=== PATIENT | male | born 1955 | race Caucasian/White ===

== ENCOUNTER 2023-12-15 08:53 | Outpatient (CLI) | payer BC, SELFPAY ==
--- NOTE | 2023-12-15 09:01 | US_ITS ---
WS: [id number] RENAL ULTRASOUND HISTORY: BILATERAL HYDRONEPHROSIS COMPARISON: None available. TECHNIQUE: 2-D and color Doppler imaging of the kidney submitted. Right kidney: 12.4 cm x 5.6 cm x 6.6 cm. Cortex: 1.4 cm Normal size kidney. Mild hydronephrosis. No mass identified. Left kidney: 12.1 cm x 4.2 cm x 5.7 cm. Cortex: 1.2 cm Normal size kidney. There is mild hydronephrosis. Aorta: Normal. Urinary Bladder: There is abnormal appearance of the urinary bladder. There is a soft tissue mass inv olving the base of the urinary bladder which is probably an enlarged prostate encroaching upon the bl adder. This soft tissue mass is heterogeneous with increased vascularity measuring 9.0 x 8.5 x 5.9 cm . There is bladder wall thickening which is also asymmetric. IMPRESSION: 1. Bilateral mild hydronephrosis. 2. There is a large soft tissue mass which is very heterogeneous encroaching into the bladder. This is probably an enlarged prostate gland for which prostate carcinoma cannot be excluded by ultrasound. 3. There is diffuse bladder wall thickening which is probably related to long-term outlet obstructio n. The bladder wall is not well visualized in its entirety and neoplasm cannot be excluded on this ex amination.
== END 2023-12-15 08:54 | disposition home or self-care (01) ==
LOC: RAD 08:57
PROVIDERS: Family Provider Nurse Practitioner Family; PCP Nurse Practitioner Family; Visit Provider Internal Medicine Nephrology
DX: N13.30 Unspecified hydronephrosis (principal); N32.9 Bladder disorder, unspecified; R19.09 Other intra-abdominal and pelvic swelling, mass and lump
CPT/HCPCS: 76770

== ENCOUNTER 2025-04-30 13:05 | Inpatient (IN) | payer MEDICARE, SELFPAY ==
[2025-04-30] VITALS (40 sets, daily range): BP systolic 78–143; BP diastolic 47–88; PULSE 77–180; RESP 10–41; TEMP 36.1–36.5; O2SAT 84–100; BMI 25.4; BMI 26.4
--- NOTE | 2025-04-30 13:17 | XRR_ITS ---
PROCEDURE INFORMATION: Exam: XR Chest Exam date and time: 04/30/2025 1:53 PM Age: 69 years old Clinical indication: Shortness of breath; SOB; Hypoxia; Labored breathing TECHNIQUE: Imaging protocol: Radiologic exam of the chest. Views: 1 view. COMPARISON: No relevant prior studies available. FINDINGS: Lungs: There is no consolidation. Pleural spaces: There is no pleural effusion or pneumothorax. Heart/Mediastinum: There is moderate enlargement of the cardiac silhouette. Bones/joints: There is moderate degenerative disease at both shoulders. No acute osseous findings. XR/XR chest 1V portable [id number] IMPRESSION: 1. No acute findings. 2. Cardiac enlargement.
--- NOTE | 2025-04-30 13:19 | W.ED.SOB ---
HPI - SOB/Dyspnea General: Chief Complaint: Shortness of Breath/Dyspnea Stated Complaint: sob Time Seen by Provider: 04/30/25 13:06 Source: patient and EMS Mode of arrival: EMS Limitations: no limitations History of Present Illness: HPI Narrative: 69-year-old male history of chronic kidney disease states has been having shortness of breath started today. Patient is in distress here tachypneic requiring oxygen typically does not wear oxygen did receive breathing treatment and route. He denies any chest pain does have some back pain denies any cough or fever. Associated symptoms: Deny abdominal pain, chest pain, fever(s), nausea or vomiting Related Data Home Medications ?Medication ?Instructions ?Recorded ?Confirmed amlodipine 5 mg tablet 5 mg PO QAM 04/30/25 04/30/25 hydrocodone 10 mg-acetaminophen 1 tab PO BID 04/30/25 04/30/25 325 mg tablet hydroxyzine HCl 10 mg tablet 10 mg PO TID PRN Itching 04/30/25 04/30/25 pravastatin 80 mg tablet 80 mg PO DAILY 04/30/25 04/30/25 tamsulosin 0.4 mg capsule 0.4 mg PO DAILY 04/30/25 04/30/25 trazodone 100 mg tablet 100 mg PO BEDTIME 04/30/25 04/30/25 Allergies Allergy/AdvReac Type Severity Reaction Status Date / Time No Known Allergies Allergy Verified 04/30/25 13:17 Review of Systems Const: Denies: fever(s), chills, body aches or change in appetite ENMT: Denies: throat pain or dental pain Card: Denies: chest pain Resp: Reports: dyspnea GI: Denies: abdominal pain, nausea, vomiting or diarrhea Musc: Reports: back pain; Denies: neck pain Skin/Breast: Denies: rash Neuro: Denies: headache(s) Physical Exam Const: COMMON NORMALS: patient oriented x3 GENERAL APPEARANCE: ill appearing HENMT: COMMON NORMALS: normocephalic and atraumatic HEAD & SCALP: normocephalic and atraumatic Eye: COMMON NORMALS: conjunctivae normal CONJUNCTIVA: Yes conjunctivae normal Neck/C-Spine: COMMON NORMALS: full ROM and supple Chest: COMMONS NORMALS: normal inspection of the chest Resp: EFFORT & INSPECTION: Yes tachypneic, Yes respiratory distress and Yes audible wheezes AUSCULTATION: rhonchi Cardio: COMMON NORMALS: regular rhythm and No murmurs present (Cardio) RATE: tachycardic RHYTHM: regular rhythm Extremity: COMMON NORMALS: normal to inspection and full ROM Neuro: COMMON NORMALS: patient oriented x3, moves all extremities and no focal motor deficits Psych: COMMON NORMALS: mental status grossly normal, Normal thought process present and cooperative THOUGHT PROCESS: Normal thought process present Skin: COMMON NORMALS: no rashes or lesions noted and no wounds GENERAL SKIN EXAM: no rashes or lesions noted Course Vital Signs: Vital signs: Vital Signs Pulse Rate 121 H 04/30/25 15:21 Respiratory Rate 19 H 04/30/25 15:00 Blood Pressure 102/71 04/30/25 15:21 Pulse Oximetry 99 04/30/25 15:21 Oxygen Delivery Me thod Nasal Cannula 04/30/25 15:21 Oxygen Flow Rate 6 04/30/25 15:21 Fraction of Inspir ed Oxygen 30 04/30/25 13:43 MDM - SOB/Dyspnea Medical Decision Making Patient presents here with dyspnea and some confusion he has a severe metabolic acidosis from acute renal failure. His potassium is normal did start him on bicarb we will admit to the ICU likely needs emergent dialysis Medical Records I reviewed the patient's medical records. Lab Data I reviewed the patient's lab results. 04/30/25 13:42 04/30/25 13:42 Labs/Radiology: Radiology Impressions Chest X-Ray 04/30/25 13:17 IMPRESSION: 1. No acute findings. 2. Cardiac enlargement. Laboratory Results WBC 20.42 10^3/uL (3.29-11.43) H 04/30/25 13:42 RBC 2.80 10^6/uL (3.85-5.65) L 04/30/25 13:42 Hgb 9.00 g/dL (11.27-16.99) L 04/30/25 13:42 Hct 27.5 % (37-53) L 04/30/25 13:42 MCV 98.2 fl (82-101) 04/30/25 13:42 MCH 32.1 pg (27-33) 04/30/25 13:42 MCHC 32.7 g/dL (30-55) 04/30/25 13:42 RDW 13.7 % (12.1-15.1) 04/30/25 13:42 Plt Count 324 10^3/cmm (157-399) 04/30/25 13:42 MPV 11.2 fL (7.4-10.4) H 04/30/25 13:42 Neut % (Auto) 90.1 % 04/30/25 13:42 Lymph % (Auto) 3.2 % 04/30/25 13:42 Phelps % (Auto) 4.3 % 04/30/25 13:42 Eos % (Auto) 0.0 % 04/30/25 13:42 Baso % (Auto) 0.2 % 04/30/25 13:42 Neut # (Auto) 18.40 10^3/uL (1.8-7.7) H 04/30/25 13:42 Lymph # (Auto) 0.7 10^3/uL (0.8-4.8) L 04/30/25 13:42 Phelps # (Auto) 0.9 10^3/uL (0.2-0.9) 04/30/25 13:42 Eos # (Auto) 0.0 10^3/uL (0.0-0.8) 04/30/25 13:42 Baso # (Auto) 0.0 10^3/uL (0.0-0.1) 04/30/25 13:42 Nucleated RBC % (auto) 0 % 04/30/25 13:42 Nucleated RBCs # 0.0 /100WBC 04/30/25 13:42 PT 17.60 SECONDS (12.1-14.9) H 04/30/25 13:42 INR 1.35 (0.8-1.2) H 04/30/25 13:42 Specimen Type Arterial 04/30/25 13:39 Sample Site Brachial, left 04/30/25 13:39 ABG pH 7.03 (7.35-7.45) L* 04/30/25 13:39 ABG pCO2 14.2 mmHg (35-45) L* 04/30/25 13:39 ABG pO2 156.0 mmHg (80.0-100.0) H 04/30/25 13:39 ABG PO2/FiO2 Ratio 520 04/30/25 13:39 ABG HCO3 3.7 mmol/L (22-26) L 04/30/25 13:39 ABG Base Excess -25.2 mmol/L (-2.0-2.0) L 04/30/25 13:39 Tommy Test Pos 04/30/25 13:39 Hematocrit 30.1 % (42-52) L 04/30/25 13:39 Hgb O2 Saturation 95.8 % (95-100) 04/30/25 13:39 Carboxyhemoglobin < 0.3 %THgb (0.4-20.1) L 04/30/25 13:39 Methemoglobin 1.6 % (0.4-1.5) H 04/30/25 13:39 Total Hemoglobin 9.8 g/dL (14-18) L 04/30/25 13:39 O2 Delivery Device Bipap 04/30/25 13:39 FiO2 30.0 % 04/30/25 13:39 Electronic Data Interchange Specialist ID Monro 04/30/25 13:39 Sodium 133 mmol/L (136-145) L 04/30/25 13:42 Potassium 5.0 mmol/L (3.5-5.1) 04/30/25 13:42 Chloride 96 mmol/L (98-107) L 04/30/25 13:42 Carbon Dioxide 4 mmol/L (22-29) L* 04/30/25 13:42 Anion Gap 38.0 (5-19) H 04/30/25 13:42 BUN 185 mg/dL (8-23) H* 04/30/25 13:42 Creatinine 10.8 mg/dL (0.7-1.2) H* 04/30/25 13:42 GFR Calculation 4.8 mL/min (90-130) L 04/30/25 13:42 Glucose 152 mg/dL (65-115) H 04/30/25 13:42 POC Glucose 170 mg/dL (70-110) H 04/30/25 14:05 Calculated Osmolality 341 mOsm/kg (285-295) H 04/30/25 13:42 Lactic Acid 2.3 mmol/L (0.5-2.2) H 04/30/25 13:42 Calcium 7.1 mg/dL (8.5-10.5) L 04/30/25 13:42 Total Bilirubin 0.3 mg/dL (0.15-1.2) 04/30/25 13:42 AST 7 U/L (0-40) 04/30/25 13:42 ALT 6 U/L (0-41) 04/30/25 13:42 Alkaline Phosphatase 67 U/L (40-130) 04/30/25 13:42 Troponin T Baseline 40 ng/L (0-15) H 04/30/25 13:42 NT-Pro-B Natriuret Pep 7812 pg/mL (0-125) H 04/30/25 13:42 Total Protein 8.5 g/dL (6.6-8.7) 04/30/25 13:42 Albumin 3.8 g/dL (3.5-5.2) 04/30/25 13:42 Globulin 4.7 g/dL (1.3-4.6) H 04/30/25 13:42 Serum Ketones Negative (Negative) 04/30/25 13:42 All radiology interpretation(s) finalized by discharge Critical Care Time Critical Care Time: Critical Care Time: Yes Total Critical Care Time: 55 Attestation: The high probability of a clinically significant, sudden or life threatening deterioration of the patient's renal system(s) required my full and direct attention, intervention and personal management. The critical care time is as shown. This time is in addition to time spent performing any reported procedures but includes the following: [x] Data and vital sign review and interpretation [x] Patient assessment, examination and intervention [x] Documentation [x] Medication orders and management Discharge Plan Discharge Patient Disposition: Admitted As Inpatient Admit Provider: Lashonda Patel Clinical Impression: Acute renal failure, Metabolic acidosis Condition: Stable Coding Level of Care Code ED Oracle Adf Developer for Sergo Cohen
[2025-04-30] MEDS: ipratropium-albuterol 3 mL Neb INHALATION (13:41)
--- NOTE | 2025-04-30 13:48 | ECG_ITS ---
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 Measurements Intervals [place] Rate: 114 P: 61 OK: 157 QRS: 67 QRSD: 96 T: 68 QT: 357 QTc: 493 Interpretive Statements SINUS TACHYCARDIA LOW QRS VOLTAGE IN EXTREMITY LEADS [QRS DEFLECTION < 0.5 mV IN LIMB LEADS] POSSIBLE RIGHT VENTRICULAR CONDUCTION DELAY [RSR (QR) IN V1/V2] ST ELEVATION, CONSIDER INFERIOR INJURY [MARKED ST ELEVATION W/O NORMALLY INFLECTED T-WAVE IN II/aVF] ACUTE WI No previous ECG available for comparison Electronically Signed On 04-30-2025 21:28:56 CDT by Renato Craft M.D. [id number]
[2025-04-30 13:50] LABS: Basophils % 0.2 %; Hematocrit 27.5 % (37-53); Lymphocytes # 0.7 10^3/uL (0.8-4.8); Lymphocytes % 3.2 %; Mean Corpuscular HGB Conc 32.7 g/dL (30-55); Mean Corpuscular Hemoglobin 32.1 pg (27-33); Mean Corpuscular Volume 98.2 fl (82-101); Mean Platelet Volume 11.2 fL (7.4-10.4); Monocytes # 0.9 10^3/uL (0.2-0.9); Monocytes % 4.3 %; Neutrophils % 90.1 %; Nucleated Red Blood Cells % 0 %; Platelet Count 324 10^3/cmm (157-399); Red Cell Distribution Width 13.7 % (12.1-15.1); White Blood Count 20.42 10^3/uL (3.29-11.43)
[2025-04-30] MEDS: methylPREDNISolone sod succ 125 mg/2 mL INJ IV (13:51)
[2025-04-30] MEDS: LORazepam 1 MG/0.5 ML injection 0.5 MG IVP ×2 (13:51→13:58)
--- NOTE | 2025-04-30 13:53 | ECG_ITS ---
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 Measurements Intervals [place] Rate: 117 P: 31 NE: 169 QRS: 66 QRSD: 105 T: 55 QT: 348 QTc: 487 Interpretive Statements Possible SINUS TACHYCARDIA WITH FREQUENT SUPRAVENTRICULAR PREMATURE COMPLEXES POSSIBLE RIGHT VENTRICULAR CONDUCTION DELAY [RSR (QR) IN V1/V2] ST ELEVATION, CONSIDER ANTERIOR INJURY [MARKED ST ELEVATION W/O NORMALLY INFLECTED T-WAVE IN V2-V5] nonspecific ST changes inferiorly Heavy baseline artifacts; Need to repeat the study. Compared to ECG 04/30/2025 13:48:44 No significant changes Electronically Signed On 04-30-2025 21:28:50 CDT by Renato Craft M.D. [id number]
[2025-04-30 13:56] LABS: Arterial Blood Gas Hematocrit 30.1 % (42-52); Base Excess ABG -25.2 mmol/L (-2.0-2.0); Blood Gas Allen Test Pos; Blood Gas Operator Identificat MONRO; Blood Gas Sample Site Brachial, left; Blood Gas Sample Type Arterial; Carboxyhemoglobin < 0.3 %THgb (0.4-20.1); HCO3 ABG 3.7 mmol/L (22-26); HGB O2 Sat 95.8 % (95-100); Methemoglobin 1.6 % (0.4-1.5); Oxygen Device BIPAP; PO2 FiO2 Ratio Arterial Blood 520; Total Hemoglobin 9.8 g/dL (14-18)
[2025-04-30] MEDS: morphine 4 mg/mL SDV 1 mL IVP (13:58)
[2025-04-30] MEDS: ondansetron 2 mg/ML SDV 2 mL 4 MG IVP (13:58)
[2025-04-30 14:02] LABS: INR 1.35 (0.8-1.2)
[2025-04-30 14:08] LABS: Glucose Point of Care 170 mg/dL (70-110)
[2025-04-30 14:12] LABS: Ketone (Acetest) Serum Negative (Negative)
[2025-04-30 14:13] LABS: Alanine Aminotransferase 6 U/L (0-41); Albumin Level 3.8 g/dL (3.5-5.2); Alkaline Phosphatase 67 U/L (40-130); Calcium 7.1 mg/dL (8.5-10.5); Chloride 96 mmol/L (98-107); Creatinine Clr Calc Pharmacy 6.6056; Globulin 4.7 g/dL (1.3-4.6); Glomerular Filtration Rate 4.8 mL/min (90-130); Glucose 152 mg/dL (65-115); Sodium 133 mmol/L (136-145); Total Bilirubin 0.3 mg/dL (0.15-1.2); Total Protein 8.5 g/dL (6.6-8.7)
[2025-04-30 14:17] LABS: NT Pro B Type Natriuretic Pept 7812 pg/mL (0-125)
[2025-04-30 14:20] LABS: Lactic Sepsis W/Reflex 2.3 mmol/L (0.5-2.2)
[2025-04-30 14:23] LABS: Reflex Lactate Order REFLEX LACTIC ORDERD
[2025-04-30 14:29] LABS: Aspartate Amino Transferase 7 U/L (0-40); Osmolality Calculated 341 mOsm/kg (285-295)
[2025-04-30 14:30] LABS: Blood Urea Nitrogen 185 mg/dL (8-23); Carbon Dioxide 4 mmol/L (22-29); Troponin(5th) Baseline 40 ng/L (0-15)
[2025-04-30] MEDS: sodium bicarbonate 8.4% 1 mEq/mL 50mL Syr 100 MEQ IVP (14:36)
--- NOTE | 2025-04-30 14:44 | PM.HP ---
Providers/Chief Complaint Primary Care Provider: Jeremias Escudero Chief Complaint: sob History of Present Illness Brandon Parisi is a 69 year old male With past medical history of hypertension CKD stage IV, chronic urinary retension with chronic indwelling Steiner catheter, bilateral hydronephrosis, BPH presented to the hospital today with complaint of shortness of breath. On arrival he was noted to be tachypneic tachycardic with conversational dyspnea. Very poor historian secondary to difficulty breathing at this time. Initial blood gas showed pH of 7.0/14/156, chemistries indicating bicarb 4, anion gap 38, BUN 185, creatinine 10.8. Initial troponin 40, BNP 7800. 2-hour 3-hour troponin pending. Urinalysis shows greater than 100 WBC, 11-20 squamous epithelial cells, 2+ blood, 3+ protein. Patient unable to provide a history at this time therefore his brother Mr. Long Parisi was called on the phone who gave me some information Stating that patient had a poor appetite the last few days and patient's brother moved in with him recently to help him out. He states patient ate ice cream and corn yesterday however for the last few days did not eat much. He was complaining of left shoulder pain and slept for an entire day recently.I also spoke with Dr. Crain's nurse practitioner who is on-call today. She reviewed patient's chart and told me that patient has followed with 3 urologist in the past and follows with nephrology Aria Perez at [facility]. He was recently referred to Dr. Yung who is a urologist at [facility]. He was supposed to have repeat labs done upcoming Thursday to see how his renal function is doing to decide on initiation of dialysis.There is no known history of kidney stones in the past. Medications/Allergies Home Medications ?Medication ?Instructions ?Recorded ?Confirmed ?Last Taken ?Type amlodipine 5 mg tablet 5 mg PO QAM 04/30/25 04/30/25 Unknown History hydrocodone 10 mg-acetaminophen 1 tab PO BID 04/30/25 04/30/25 Unknown History 325 mg tablet hydroxyzine HCl 10 mg tablet 10 mg PO TID PRN Itching 04/30/25 04/30/25 Unknown History pravastatin 80 mg tablet 80 mg PO DAILY 04/30/25 04/30/25 Unknown History tamsulosin 0.4 mg capsule 0.4 mg PO DAILY 04/30/25 04/30/25 Unknown History trazodone 100 mg tablet 100 mg PO BEDTIME 04/30/25 04/30/25 Unknown History Allergies Allergy/AdvReac Type Severity Reaction Status Date / Time No Known Allergies Allergy Verified 04/30/25 13:17 Vitals/I&O/Wt Last Vital Signs Pulse 132 H 04/30/25 13:44 Resp 36 H 04/30/25 13:42 BP 136/73 04/30/25 13:14 Pulse Ox 99 04/30/25 13:44 O2 Del Method BiPAP 04/30/25 13:42 FiO2 30 04/30/25 13:43 Weight last 48 hrs Weight 75.75 kg Physical Exam Narrative: General: Altered, possibly able to answer some yes/no questions has active conversational dyspnea, appears to be in distress and is tachypneic. HEENT: Normocephalic, atraumatic, EOMI, 6 L nasal cannula. Cardio: Sinus tachycardia, variable S1-S2 Respiratory: Mild crackles bilaterally, rest of breath sounds diminished GI: Abdomen soft, mildly distended, mainly nontender, bowel sounds + Extremities: No edema bilateral lower extremities Data 04/30/25 13:42 04/30/25 13:42 A&P Assessment and plan (1) Acute renal failure: (2) Metabolic acidosis: (3) Elevated troponin: (4) Elevated brain natriuretic peptide (BNP) level: (5) Bilateral hydronephrosis: (6) Urinary retention: (7) BPH (benign prostatic hyperplasia): (8) Leukocytosis: (9) Anemia: (10) Respiratory alkalosis: (11) Lactic acidosis: (12) Hypertension: (13) Stage 4 chronic kidney disease: (14) UTI (urinary tract infection): (15) Chronic indwelling Steiner catheter: Plan #Acute renal failure #Metabolic acidosis secondary to above #Chronic BPH #Bilateral hydronephrosis #History of urinary retention with chronic indwelling Steiner catheter #History of hypertension #History of CKD stage IV - Patient is tachypneic tachycardic requiring 6 L nasal cannula secondary to acute renal failure. He came with a Steiner catheter from home with a bag having cottage cheese like material with very dark yellow urine. Patient received 1 amp of bicarb in the ER bicarb drip was started. Patient transferred to ICU. We will need to proceed with emergent dialysis. Nephrology contacted. Discussed with general surgery. Dialysis catheter to be placed. - Will place on Levophed if needed, at this time blood pressure is on the higher side. -Patient's tachypnea is from respiratory compensation from the metabolic acidosis. I would hold off on intubation and may try BiPAP for now. -In case of worsening respiratory status we will proceed with intubation if needed. Informed patient's brother over the phone -Repeat labs CMP in 4 hours. ? Check lactic acid ? 2-hour 6-hour troponin pending at this time. Most likely secondary to demand ischemia. -UA shows WBC greater than 100. This is not a clean-catch. Patient is oliguric at this point. ? I will cover with empiric Zosyn. - We will order CT abdomen pelvis without contrast which we intend to complete after patient's dialysis session. - Low threshold for intubation ? Leukocytosis 20,000 most likely secondary to UTI versus reactive ? Hemoglobin 9.0. Do not have previous labs on him. Will continue to monitor. Check iron studies TIBC, ferritin. Most likely anemia of chronic disease. ? Check FOBT. ? Will reach out to primary care office to get his previous lab results. - check cardiac echo Full Code DVT PPX: heparin subcu BID PDMP PDMP Reviewed: Not Reviewed Attestations Medical Necessity Statement*: > 2 midnight stay for management of renal failure Critical Care Time: The high probability of a clinically significant, sudden or life threatening deterioration of the patient's [renal, respiratory, cardiovascular] system(s) required my full and direct attention, intervention and personal management. The critical care time is as shown. This time is in addition to time spent performing any reported procedures but includes the following: [x] Data and vital sign review and interpretation [x] Patient assessment, examination and intervention [x] Documentation [x] Medication orders and management Critical Care Time (min):70 Coding Level of Care Code Critical Care >/= 30 minutes Critical care time (in minutes): 70 The high probability of a clinically significant, sudden or life threatening deterioration, as referenced in this documentation, required my full and direct attention, intervention and personal management. The critical care time shown is in addition to time spent performing any reported separately billable procedures and includes the following: [x] Data and vital sign review and interpretation [x] Patient assessment, examination and intervention [x] Medication orders and management [x] Patient/Family updates as able [x] Care Coordination and Documentation. Diagnoses Acute renal failure N17.9 Metabolic acidosis E87.20 Elevated troponin R79.89 Elevated brain natriuretic peptide (BNP) level R79.89 Bilateral hydronephrosis N13.30 Urinary retention R33.9 BPH (benign prostatic hyperplasia) N40.0 Leukocytosis D72.829 Anemia D64.9 Respiratory alkalosis E87.3 Lactic acidosis E87.20 Hypertension I10 Stage 4 chronic kidney disease N18.4 UTI (urinary tract infection) N39.0 Chronic indwelling Steiner catheter Z97.8
[2025-04-30 14:57] LABS: Bilirubin Urine Negative (Negative); Blood Urine 2+ (Negative); Glucose Urine UA Negative (Normal); Ketones Urine Negative (Negative); Leukocyte Esterase Urine 3+ (Negative); Nitrate Urine Negative (Negative); Protein Urine 3+ (Negative); Specific Gravity, Urine 1.012 (1.005-1.030); Urine Appearance Turbid (CLEAR); Urine Color Yellow (Yellow); Urobilinogen Urine 0.2 mg/dL (Negative)
[2025-04-30 15:02] LABS: Add Urine Microscopic? YES; Bacteria Urine EXCEEDS /hpf; Hyaline Casts Urine 32.04 /lpf; WBC Urine >100 /hpf (0-5)
[2025-04-30 15:12] LABS: UA Slide Review UA Slide Review Perf
[2025-04-30 15:13] LABS: Add Urine Culture? Yes; Fine Granular Casts Urine 0-4 /lpf
[2025-04-30] MEDS: sodium bicarbonate 50 MEQ in sodium chloride 0.45% 1,000 ML 100 MEQ IV (15:38)
--- NOTE | 2025-04-30 15:41 | CTR_ITS ---
PROCEDURE INFORMATION: Exam: CT Abdomen And Pelvis Without Contrast Exam date and time: 05/01/2025 4:50 AM Age: 69 years old Clinical indication: Pain and abnormal findings; Abnormal lab test; Abnormal kidney function lab tests and elevated wbc; Back pain with gross hematuria. Wbc of 20k with elevated lactic acid. History of renal failure. ; Additional info: Acute renal failure TECHNIQUE: Imaging protocol: Computed tomography of the abdomen and pelvis without contrast. Radiation optimization: All CT scans at this facility use at least one of these dose optimization techniques: automated exposure control; mA and/or kV adjustment per patient size (includes targeted exams where dose is matched to clinical indication); or iterative reconstruction. COMPARISON: US renal BI* [id number] 12/15/2023 9:20 AM RADIATION DOSE METRICS: Total DLP (mGy-cm): 2211.33 FINDINGS: Tubes, catheters and devices: There are bilateral femoral venous central catheters ending in the external iliac veins bilaterally. There are degenerative changes in the symphysis, hips, sacroiliac joints and spine. There are bilateral pars defects at L5. There is grade 1 anterolisthesis L5 on S1 measured at 9 mm Lungs: There is atelectasis in both lung bases. There is pericardial thickening versus small pericardial effusion no focal abnormality detected in the liver though evaluation is limited due to streak artifact from patient's arms. Liver: Normal. No mass. Gallbladder and biliary ducts: The gallbladder is distended there may be sludge or poorly calcified stones in the gallbladder. There is no gallbladder wall thickening or biliary ductal dilatation. Pancreas: There is no pancreatic mass or ductal dilatation. Spleen: There is a splenic granuloma. The spleen is not enlarged. Adrenal glands: The adrenal glands are unremarkable. Kidneys and ureters: There is eraggjui-kz-aggvli bilateral hydronephrosis and dilatation of the ureters into the pelvis. There are no renal or ureteral calculi. There is mild bilateral perinephric stranding. There is a tiny eccentrically arising lesion from the lateral aspect the left kidney measuring 8.0 x 7.2 x 9.1 mm. It is not a simple cyst but could be a high density or hemorrhagic cyst. It could be solid. In addition, there is a nother possible mass versus pseudomass emanating from the posterior lower pole of the right kidney seen on series 4 image 1 23 series 13, image 29 measuring 2.0 x 1.5 x 2.0 cm Follow-up with MRI is recommended. Stomach and bowel: There is wall thickening involving the stomach suggesting gastritis/peptic ulcer disease. There is wall thickening involving the distal esophagus which may indicate gastroesophageal reflux/esophagitis. The bowel-gas pattern is not obstructed. There is diverticulosis without CT evidence for active diverticulitis. Appendix: The appendix is normal. Intraperitoneal space: Unremarkable. No free air. No significant fluid collection. Vasculature: There are atherosclerotic changes in the aorta and branch vessels Lymph nodes: There is a mildly prominent lymph node in the posterior mediastinum measuring 1.4 x 1.0 cm. Urinary bladder: The bladder is distended measuring 10.6 x 10.0 x 10.0 cm.. There is a Steiner catheter in the bladder. There is irregular bladder wall thickening with the exception of the anterior dome of the bladder where the bladder wall appears thinned perhaps due to the several diverticuli here. There is air in the bladder likely introduced via the Steiner catheter though infection with a gas producing organism can not be excluded. There is irregular abnormal density within the bladder. It is unclear whether this is organized debris or blood products or a bladder mass or perhaps a mass arising from the enlarged prostate gland. It measures 7.2 x 5 point 9 x 7.4 cm. Reproductive: The prostate gland is enlarged. Bones/joints: See Tubes, catheters and devices finding. Soft tissues: There is a small right inguinal hernia containing only fat. CT/CT abdomen pelvis wo con [id number] IMPRESSION: 1. Abnormal bladder. Bladder is distended despite the presence of a Steiner catheter question is Steiner catheter functioning properly? There is bladder wall thickening as well as bladder diverticuli. Air in the bladder likely introduced via the Steiner though infection with a gas producing organism not excluded. Abnormal soft tissue density within the bladder may be organized debris or organized blood products but could be a mass either of bladder origin or arising from the prostate gland. 2. Enlarged prostate gland with a possible mass which may invade the bladder base 3. Vktvblib-wf-ahjrak bilateral hydronephrosis and dilatation of the ureters likely secondary to findings in the bladder 4. Possible solid masses each kidney as described. Follow-up with MRI is recommended 5. Distended gallbladder with a possible sludge or poorly calcified gallstones 6. Wall thickening stomach suggesting gastritis/peptic ulcer disease. Wall thickening distal esophagus may indicate esophagitis or gastroesophageal reflux 7. Diverticulosis without CT evidence for active diverticulitis 8. Right inguinal hernia containing only fat 9. Bilateral central femoral venous catheters 10. Pericardial thickening versus pericardial effusion 11. Other incidental findings as outlined above COMMENTS: Consistent with the [employer]'s Incidental Findings Committee white paper (J Am Jennifer Radiol 2018): Any incidental renal lesion less than 1 cm or classified as too small to characterize, or any incidental cystic renal lesion characterized as simple-appearing, is likely benign. No follow-up imaging is recommended for these lesions per consensus recommendations based on imaging criteria.
[2025-04-30] MEDS: sodium chloride 0.9% 1,000 ML 100 ML IV (15:44)
--- NOTE | 2025-04-30 16:24 | P.CONIM_ITS ---
Providers/Reason For Consult 2 Consulting Physician/Specialty*: kommana/Nephrology Reason for Consult*: BRADLEY Attending Physician: Lashonda Patel MD Primary Care Provider: Jeremias Escudero History of Present Illness History of Present Illness Brandon Parisi is a 69 year old male Patient is a 69-year-old male with past medical history of CKD stage IV chronic indwelling Steiner catheter, BPH presented to the hospital due to shortness of breath. Patient was noted to be tachypneic and tachycardic. Lab data significant for severe metabolic acidosis and BRADLEY with a bicarbonate of 4 and creatinine of 10.8 and a BUN of 185. Urine analysis showed 100 WBC 2+ blood and 3+ protein. Family reported poor p.o. intake and nausea vomiting. Patient followed by nephrology at [place] [facility]. Also followed by nephrology due to chronic urinary retention. Review of Systems 2 Narrative: cannot obtain Medications/Allergies Home Medications ?Medication ?Instructions ?Recorded ?Confirmed ?Last Taken ?Type amlodipine 5 mg tablet 5 mg PO QAM 04/30/25 5 Unknown History hydrocodone 10 mg-acetaminophen 1 tab PO BID 04/30/25 04/30/25 Unknown History 325 mg tablet hydroxyzine HCl 10 mg tablet 10 mg PO TID PRN Itching 04/30/25 04/30/25 Unknown History pravastatin 80 mg tablet 80 mg PO DAILY 04/30/2504/16 Unknown History tamsulosin 0.4 mg capsule 0.4 mg PO DAILY 04/30/25 Unknown History trazodone 100 mg tablet 100 mg PO BEDTIME 04/30/25 0 04/30/25 Unknown History Allergies Allergy/AdvReac Type Severity Reaction Status Date / Time No Known Allergies Allergy Verified 04/30/25 13:17 Current Medications Generic Name Dose Route Start Last Admin Trade Name Freq PRN Reason Stop Dose Admin Heparin Sodium (Porcine) 5,000 unit 04/30/25 14:45 04/30/25 16:48 Heparin 5,000 Unit/Ml Inj 1 Ml SUBCUT 5,000 unit Q12H INDIO Administration Sodium Chloride 1,000 mls @ 100 mls/hr 04/30/25 14:45 04/30/25 15:44 Sodium Chloride 0.9% IV 100 mls/hr .Q10H INDIO Administration Piperacillin Sod/Tazobactam 50 mls @ 12.5 mls/hr 04/30/25 16:00 04/30/25 17:25 Sod 3.375 gm/ Sodium Chloride IV 0 mls/hr Q12H INDIO Infusion Norepinephrine Bitartrate 4 mg in 250 mls @ 0 mls/hr 04/30/25 16:30 04/30/25 17:20 Levophed IV 2 mcg/min .Q0M INDIO 7.5 mls/hr Protocol Administration Per Protocol Vitals/I&O/Wt Last Vital Signs Pulse 120 H 04/30/25 17:00 Resp 20 H 04/30/25 17:00 BP 118/88 04/30/25 17:00 Pulse Ox 95 04/30/25 17:00 O2 Del Method Nasal Cannula 04/30/25 17:00 O2 Flow Rate 6 04/30/25 17:00 FiO2 30 04/30/25 13:43 04/30/25 04/30/25 04/30/25 06:59 14:59 22:59 Intake Total 7.708 / 7.708 Balance 7.708 / 7.708 Weight last 48 hrs Weight 75.75 kg Physical Exam 2 Urinary Catheter Management: Steiner: Cath Placed During This Visit: yes Urinary Catheter Date of Insertion: 04/30/25 Urinary Catheter Time of Insertion: 14:42 Data 04/30/25 13:42 04/30/25 19:30 Micro: Microbiology 04/30/25 16:15 Blood Culture - Preliminary Blood SPECIMEN COLLECTED 04/30/25 13:42 Blood Culture - Preliminary Blood SPECIMEN COLLECTED A&P Assessment and plan (1) Acute renal failure: Plan 1. BRADLEY : Unknown Cr baseline. currently with severe BRADLEY , and severe metabolic acidosis . Etiology likely ATn in setting of ? sepsis and ? obstruction , poor PO intake. - pt anuric, currently on pressors and recommended temp catheeter placement for emergent hD . If patient do not tolerate HD will switch to CRRT. - CT abdomen pending and sepsis work up pending 2. Severe metabolic acidosis: With bicarbonate level of 4 on presentation, started on bicarbonate drip and HD as above, repeat labs after HD 3. Sepsis likely from UTI and further workup pending, currently on pressors 4. Known hydronephrosis with indwelling Steiner catheter, following with urology as outpatient 5. Anemia, check iron studies Patient evaluated using audiovisual cart. Time spent 40 minutes. PDMP PDMP Reviewed: Not Reviewed Consult Attestations 2 Medical Necessity Statement: per elias Coding Level of Care Code Acute Code for Chg Fwd Diagnoses Acute renal failure N17.9
--- NOTE | 2025-04-30 16:33 | ECG_ITS ---
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 Measurements Intervals [place] Rate: 122 P: 0 AL: 0 QRS: 68 QRSD: 102 T: 69 QT: 360 QTc: 514 Interpretive Statements possible sinus tachycardia with the PACs LOW QRS VOLTAGE IN EXTREMITY LEADS [QRS DEFLECTION < 0.5 mV IN LIMB LEADS] POSSIBLE RIGHT VENTRICULAR CONDUCTION DELAY [RSR (QR) IN V1/V2] ST ELEVATION CONSISTENT WITH INJURY, PERICARDITIS, OR EARLY REPOLARIZATION [ST ELEVATION W/O NORMALLY INFLECTED T-WAVE] Compared to ECG 04/30/2025 14:15:52 ST (T wave) deviation still present Heavy baseline artifacts; Need to repeat the study. Electronically Signed On 04-30-2025 21:41:23 CDT by Renato Craft M.D. [id number] [id number]
--- NOTE | 2025-04-30 16:37 | PM.CONSULT ---
Providers/Reason For Consult Consulting Physician/Specialty*: Dr. Warren general surgery Reason for Consult*: Temporary dialysis catheter placement Attending Physician: Lashonda Patel MD Primary Care Provider: Jeremias Escudero History of Present Illness History of Present Illness Brandon Parisi is a 69 year old male who presents in acute renal failure. Surgery consulted for placement of temporary dialysis catheter. Medications/Allergies Home Medications ?Medication ?Instructions ?Recorded ?Confirmed ?Last Taken ?Type amlodipine 5 mg tablet 5 mg PO QAM 04/30/25 04/30/25 Unknown History hydrocodone 10 mg-acetaminophen 1 tab PO BID 04/30/25 04/30/25 Unknown History 325 mg tablet hydroxyzine HCl 10 mg tablet 10 mg PO TID PRN Itching 04/30/25 04/30/25 Unknown History pravastatin 80 mg tablet 80 mg PO DAILY 04/30/25 04/30/25 Unknown History tamsulosin 0.4 mg capsule 0.4 mg PO DAILY 04/30/25 04/30/25 Unknown History trazodone 100 mg tablet 100 mg PO BEDTIME 04/30/25 04/30/25 Unknown History Allergies Allergy/AdvReac Type Severity Reaction Status Date / Time No Known Allergies Allergy Verified 04/30/25 13:17 Current Medications Generic Name Dose Route Start Last Admin Trade Name Freq PRN Reason Stop Dose Admin Sodium Bicarbonate 50 meq/ 1,050 mls @ 100 mls/hr 04/30/25 14:45 04/30/25 15:38 Sodium Chloride IV 100 mls/hr .[id number] INDIO Administration Sodium Chloride 1,000 mls @ 100 mls/hr 04/30/25 14:45 04/30/25 15:44 Sodium Chloride 0.9% IV 100 mls/hr .Q10H INDIO Administration Vitals/I&O/Wt Last Vital Signs Pulse 120 H 04/30/25 15:52 Resp 19 H 04/30/25 15:00 BP 102/71 04/30/25 15:52 Pulse Ox 94 04/30/25 15:52 O2 Del Method Nasal Cannula 04/30/25 15:21 O2 Flow Rate 6 04/30/25 15:21 FiO2 30 04/30/25 13:43 Weight last 48 hrs Weight 167 lb Physical Exam Narrative: Chest: Tachypneic on high flow Heart: Tachycardic Abdomen: Soft, distended Data 04/30/25 13:42 04/30/25 13:42 Micro: Microbiology 04/30/25 16:15 Blood Culture - Preliminary Blood SPECIMEN COLLECTED 04/30/25 13:42 Blood Culture - Preliminary Blood SPECIMEN COLLECTED A&P Assessment and plan (1) Acute renal failure: Plan 69-year-old male whom surgery was consulted for temporary dialysis catheter placement. Discussed risk and benefits and patient agreed to proceed with temporary dialysis catheter placement. PDMP PDMP Reviewed: Not Reviewed Coding Level of Care Code 23582 Diagnoses Acute renal failure N17.9
--- NOTE | 2025-04-30 16:38 | P.PCN_ITS ---
Procedure/Consent Consent: Consent for Procedure: Consent obtained from patient, Emergency procedure, Risks & Benefits reviewed and Agrees to proceed with procedure Procedure Narrative: Discussed risks and benefits and consent was obtained to performed a temporary d ialysis catheter. The right groin was prepped and draped in the usual sterile fashion. Ultrasound was used to identify the right common femoral vein. Local infiltration done using 5 cc of 1% lidocaine. A finder needle was used to access the right common femoral vein under ultrasound guidance. Able to draw venous blood. I then threaded a wire through the finder needle. I removed the needle and confirmed adequate placement of the wire in the right common femoral vein using ultrasound. Using an 11 blade a stab incision was done next to the wire to accommodate for the dilators. I serially dilated the tract using 2 dilators. I was then able to place the 20 cm dual-lumen temporary dialysis catheter using the Seldinger technique. I was able to draw blood and flushed easily through both lumens. Catheter was secured in place with sutures. A sterile dressing was applied. Catheter is ready for immediate use.
--- NOTE | 2025-04-30 16:38 | PC.NURSE ---
Sundar with DR. Patel to hold on CT until after dialysis is complete.
[2025-04-30] MEDS: piperacillin-tazobactam 3.375 GM in sodium chloride 0.9% (plus) 50 ML IV (16:48)
[2025-04-30] MEDS: heparin 5,000 unit/mL INJ 1 mL 5000 UNIT SUBCUT (16:48)
[2025-04-30 16:53] LABS: Troponin 5 2HR 39.33 ng/L (0-15)
--- NOTE | 2025-04-30 16:54 | PC.NURSE ---
Patient arrived to ICU 10 at 1532, Patient exhibiting accessory muscle use and breathing approximately 30X per min. IV access obtained and Bicarb drip started. See MAR for medications given. Dr. Warren consulted for emergent dialysis access placement. Access obtained and Melva UNGERpeople greeter nurse to bedside. Order obtained from Dr. Patel for levophed if needed, patient has has significant drop in systolic blood pressure since being in ER. Wil UNGER inserted new Steiner, removing catheter from home. Urine sample obtained from HOME catheter, Dr. Patel aware of this.
[2025-04-30 16:59] LABS: Troponin 5 2HR Delta -0.67 ABS# (0-10)
[2025-04-30 17:02] LABS: Lactic Acid level (Lactate) 4.1 mmol/L (0.5-2.2)
[2025-04-30] MEDS: norepinephrine 4 MG/250 ML BAG 7.5 MG IV (17:20)
[2025-04-30] MEDS: LORazepam 1 MG/0.5 ML injection 0.25 MG IVP (17:36)
[2025-04-30 17:47] LABS: ABG PH Result 7.03 (7.35-7.45)
[2025-04-30 17:48] LABS: ABG PCO2 14.2 mmHg (35-45)
--- NOTE | 2025-04-30 18:33 | ECG_ITS ---
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 Measurements Intervals [place] Rate: 126 P: -1 [place]: 168 QRS: -5 QRSD: 97 T: 33 QT: 338 QTc: 490 Interpretive Statements SINUS TACHYCARDIA WITH OCCASIONAL SUPRAVENTRICULAR PREMATURE COMPLEXES POSSIBLE RIGHT VENTRICULAR CONDUCTION DELAY [RSR (QR) IN V1/V2] ST ELEVATION, PROBABLY EARLY REPOLARIZATION [ST ELEVATION WITH NORMALLY INFLECTED T-WAVE] ABNORMAL RHYTHM ECG Compared to ECG 04/30/2025 16:33:27 Atrial fibrillation no longer present ST (T wave) deviation still present Electronically Signed On 04-30-2025 21:27:16 CDT by Renato Craft M.D. [id number] [id number]
[2025-04-30 18:37] LABS: Base Excess ABG -19.4 mmol/L (-2.0-2.0); HCO3 ABG 7.1 mmol/L (22-26); PO2 ABG 91.4 mmHg (80.0-100.0)
[2025-04-30 18:38] LABS: Blood Gas Allen Test POS; Blood Gas Drawn By KINCH; Blood Gas Operator Identificat KINCH; Blood Gas Sample Site LR; Blood Gas Sample Type ARTERIAL; Oxygen Device NC; Oxygen Saturation ABG 94.8; Potassium Level - ABG 4.4 mmol/L (3.5-5.0)
[2025-04-30 18:39] LABS: Alveolar-Arterial Oxygen Gradi 31.4 mmHg (5-10); Arterial Blood Gas Hematocrit 29.8 % (42-52); HGB O2 Sat 93.6 % (95-100); Methemoglobin 1.3 % (0.4-1.5); Total Hemoglobin 9.7 g/dL (14-18)
--- NOTE | 2025-04-30 18:42 | PC.HD ---
Upon assessment of R femoral HD catheter, it was very difficult to draw from arterial port. Lines were affixed in reverse configuration. During treatment, machine AP pressures laci to unacceptable levels. Blood flow rate was reduced to compensate; however, at minimum blood flow rate of 250 mL/min, machine AP pressures were unacceptable at >240 mmHg. Surgeon contacted and came in, adjusted femoral catheter. At this time, this RN was able to flush well from arterial port. Lines were then affixed in regular configuration and treatment was restarted. Machine AP pressures remained acceptable; however, now machine NETWORKS COMPUTER CONSULTANT pressures were elevated. Unable to maintain blood flow rate at 350; reduced to minimum flow of 250 mL/min. Machine NETWORKS COMPUTER CONSULTANT pressures remain extremely elevated, but currently below the maximum of 300 mmHg.
--- NOTE | 2025-04-30 19:03 | PC.NURSE ---
Home meds placed in pocket 23 pixys.
[2025-04-30] MEDS: sodium bicarbonate 150 MEQ in dextrose 5% 1,000 ML 100 MEQ IV (19:09)
--- NOTE | 2025-04-30 19:23 | ECG_ITS ---
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 Measurements Intervals [place] Rate: 180 P: 0 [place]: 0 QRS: 69 QRSD: 256 T: 0 QT: 294 QTc: 510 Interpretive Statements Possible ATRIAL FIBRILLATION WITH RAPID VENTRICULAR RESPONSE INDETERMINATE AXIS INTRAVENTRICULAR CONDUCTION DELAY [130+ ms QRS DURATION] ST ELEVATION, CONSIDER INFERIOR INJURY [MARKED ST ELEVATION W/O NORMALLY INFLECTED T-WAVE IN II/aVF] ACUTE OH Compared to ECG 04/30/2025 18:33:03 Indeterminate axis now present Intraventricular conduction delay now present Sinus tachycardia no longer present Early repolarization no longer present ST (T wave) deviation still present Heavy baseline artifacts; Need to repeat the study. Electronically Signed On 04-30-2025 21:27:07 CDT by Renato Craft M.D. [email or web address]
[2025-04-30] MEDS: dexmedeTOMIDine 0.9 % NaCL 400 MCG/100 ML PREMIX IV (19:37)
[2025-04-30 19:53] LABS: Base Excess VBG -10.6 mmol/L (-3.0-3.0); Blood Gas Operator Identificat SAM; Blood Gas Sample Type Venous; HCO3 VBG 17.5 mmol/L (24-28); Oxygen Device NC; PCO2 VBG 47.7 mmHg (41-51); PO2 VBG 32.3 mmHg (25-40); Venous Blood Gas Hematocrit 32.1 % (42-52)
--- NOTE | 2025-04-30 19:53 | ECG_ITS ---
[facility] Test Date: 2025-04-30 Pat Name: Brandon Parisi Department: Room: Gender: Male Career Manager: : 1955 Requested By: Mike Larkin Order Number: [id number] Maddy MD: Renato Craft M.D. Measurements Intervals [place] Rate: 116 P: 73 TN: 174 QRS: 71 QRSD: 102 T: 70 QT: 355 QTc: 495 Interpretive Statements SINUS TACHYCARDIA LOW QRS VOLTAGE IN EXTREMITY LEADS [QRS DEFLECTION < 0.5 mV IN LIMB LEADS] POSSIBLE RIGHT VENTRICULAR CONDUCTION DELAY [RSR (QR) IN V1/V2] ST ELEVATION, PROBABLY EARLY REPOLARIZATION [ST ELEVATION WITH NORMALLY INFLECTED T-WAVE] ABNORMAL RHYTHM ECG Compared to ECG 04/30/2025 14:06:36 Low QRS voltage now present Early repolarization now present Myocardial infarct finding no longer present ST (T wave) deviation still present Electronically Signed On 04-30-2025 21:41:44 CDT by Renato Craft M.D. [id number]
[2025-04-30 19:54] LABS: pH VBG 7.17 (7.32-7.42)
[2025-04-30] MEDS: lidocaine 1% 5 ML in potassium chloride premix 100 ML 26.25 ML IV (20:08)
[2025-04-30] MEDS: sodium bicarbonate 8.4% 1 mEq/mL 50mL Syr 50 MEQ IVP ×2 (20:19→23:09)
[2025-04-30 20:30] LABS: Anion Gap 34.5 (5-19); Calcium 8.5 mg/dL (8.5-10.5); Carbon Dioxide 14 mmol/L (22-29); Chloride 96 mmol/L (98-107); Glomerular Filtration Rate 11.6 mL/min (90-130); Glucose 147 mg/dL (65-115); Magnesium 2.2 mg/dL (1.7-2.3); Osmolality Calculated 320 mOsm/kg (285-295); Phosphorus 6.1 mg/dL (2.5-4.5); Potassium 3.5 mmol/L (3.5-5.1); Sodium 141 mmol/L (136-145)
[2025-04-30 20:36] LABS: Blood Urea Nitrogen 84 mg/dL (8-23)
[2025-04-30 20:37] LABS: Hepatitis B Surface AB < 3.5 (11.5-1000); Hepatitis B Surface Antigen Non-Reactive (Nonreactive)
--- NOTE | 2025-04-30 20:46 | P.PN_ITS ---
Subjective 2 Subjective: Called to evaluate critically ill patient with runs of SVT tachycardia poor flow through right femoral dialysis catheter and severe metabolic acidosis. I spoke with Dr. Patel and learned that patient is getting aggressive bicarb replacement as and we started BiPAP. I spoke with Dr. Warren who states that he has adjusted the catheter in the right groin with partial success to marginal dialysis so his flow as stated by Lavinia the radiology special procedure tech. She states there is only 38 minutes left on the dialysis run. After okay from Dr. Warren I did pull the catheter back approximately 5 cm the red and blue port flows changed for the better and worse but ultimately did not improve. I used sterile technique for this procedure and sewed it back in place with sterile technique applied a new antibiotic patch and new dressing. I spoke with the patient's daughter Shaina Parisi who called and wanted to go over CODE STATUS. She states that her mother who was to the patient 14 years stated that he had only stated he did not want CPR. Also he has been sick and they have been trying to get him to go to the hospital to have his catheter changed to be seen and he has refused. We decided on DNR status with full treatment including intubation and new dialysis catheter if needed. Vitals/I&O/Wt Last Vital Signs Temp 97.7 F 04/30/25 18:40 Pulse 180 H 04/30/25 20:05 Resp 17 04/30/25 19:30 BP 98/72 04/30/25 19:30 Pulse Ox 100 04/30/25 20:05 O2 Del Method Nasal Cannula 04/30/25 19:30 O2 Flow Rate 6 04/30/25 19:30 FiO2 100 04/30/25 20:05 04/30/25 04/30/25 04/30/25 06:59 14:59 22:59 Intake Total 35.240 / 35.240 Balance 35.240 / 35.240 Weight last 48 hrs Weight 75.75 kg Physical Exam 2 Narrative: General well-developed chronically ill-appearing male on the ventilator moderately tachypneic he is tachycardic initially with dialysis to heart rate of 130s to 140s but now down to 110 BiPAP settings 25/10 with rate 10 but he is breathing 22 CV regular tachycardic rhythm Lungs clear to auscultation bilaterally Abdomen diminished bowel tones soft not acutely tender Calves trace ankle edema 2 L was removed with dialysis Urinary Catheter Management: Steiner: Cath Placed During This Visit: yes Reason for Continuing Indwelling Catheter: Accurate Measurement of Urinary Output in Critically Ill Patients Urinary Catheter Date of Insertion: 04/30/25 Urinary Catheter Time of Insertion: 14:42 Data 04/30/25 13:42 04/30/25 19:30 Micro: Microbiology 04/30/25 16:15 Blood Culture - Preliminary Blood SPECIMEN COLLECTED 04/30/25 13:42 Blood Culture - Preliminary Blood SPECIMEN COLLECTED A&P Assessment and plan (1) Stage 4 chronic kidney disease: Patient with known hydronephrosis but did not want to have it addressed with TURP he has chronic Steiner but he has not been going in for care Steiner has been changed here. The catheter was grossly infected at the time of admission. He has not yet been able to do CT scan due to sepsis related instability Patient likely to need dialysis for several more days. If time permits I will try and place a left femoral dialysis catheter (2) Bilateral hydronephrosis: Catheter has been changed (3) Acute renal failure: Creatinine went from 10.8 down to 5.0 with fluid resuscitation and dialysis. Potassium is 3.5 he will receive a potassium rider of 40 mEq. Magnesium is 2.2 phosphorus is high at 6. (4) Sepsis secondary to UTI: Continue Zosyn (5) UTI (urinary tract infection): Continue Zosyn (6) Metabolic acidosis: Continue bicarbonate drip. Repeat ABG after 2 hours of BiPAP (7) Elevated troponin: Troponin is stable at around 40 and attributable to renal failure and demand ischemia PDMP PDMP Reviewed: Not Reviewed Attestations 2 Medical Necessity Statement*: 70 minutes critical care time Coding Level of Care Code Critical Care >/= 30 minutes Diagnoses Stage 4 chronic kidney disease N18.4 Bilateral hydronephrosis N13.30 Acute renal failure N17.9 Sepsis secondary to UTI A41.9; N39.0 UTI (urinary tract infection) N39.0 Metabolic acidosis E87.20 Elevated troponin R79.89 Time Spent (min) 70
[2025-04-30 20:58] LABS: Hepatitis C Virus Antibody Non-Reactive (Nonreactive)
--- NOTE | 2025-04-30 21:00 | PC.NURSE ---
D/c fluids: Dr. Puri gave telephone orders to d/c normal saline fluids and check BMP, mag, and phos at 0000 and 0400 and to make patient NPO.
--- NOTE | 2025-04-30 21:44 | ECG_ITS ---
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 Measurements Intervals [place] Rate: 85 P: 67 [place]: 166 QRS: 57 QRSD: 108 T: 64 QT: 426 QTc: 507 Interpretive Statements SINUS RHYTHM POSSIBLE RIGHT VENTRICULAR CONDUCTION DELAY [RSR (QR) IN V1/V2] MARKED ST ELEVATION, CONSIDER INFERIOR INJURY/ early repolarization [MARKED ST ELEVATION W/O NORMALLY INFLECTED T-WAVE IN II/aVF] QT prolongation ST ELEVATION, CONSIDER ANTEROLATERAL INJURY/ early repolarization [MARKED ST ELEVATION W/O NORMALLY INFLECTED T-WAVE IN V3-V6] ACUTE GA Electronically Signed On 04-30-2025 21:48:28 CDT by Renato Craft M.D. [email or web address]
[2025-04-30 22:29] LABS: Base Excess VBG -13.3 mmol/L (-3.0-3.0); Blood Gas Operator Identificat SAM; Blood Gas Sample Type Venous; HCO3 VBG 10.8 mmol/L (24-28); Oxygen Device BIPAP; PO2 VBG 83.5 mmHg (25-40); Venous Blood Gas Hematocrit 25.8 % (42-52); pH VBG 7.35 (7.32-7.42)
[2025-04-30 22:30] LABS: PCO2 VBG 19.7 mmHg (41-51)
[2025-04-30 22:49] LABS: Anion Gap 37.6 (5-19); Calcium 7.8 mg/dL (8.5-10.5); Carbon Dioxide 10 mmol/L (22-29); Chloride 94 mmol/L (98-107); Glomerular Filtration Rate 8.3 mL/min (90-130); Glucose 201 mg/dL (65-115); Osmolality Calculated 324 mOsm/kg (285-295); Potassium 3.6 mmol/L (3.5-5.1); Sodium 138 mmol/L (136-145)
[2025-04-30 22:56] LABS: Blood Urea Nitrogen 103 mg/dL (8-23)
[2025-04-30] MEDS: FUROsemide 10 mg/mL SDV 10mL 100 MG IVP (23:09)
[2025-04-30] MEDS: midazolam 1 mg/mL INJ 2 mL 2 MG IVP ×2 (23:21→23:27)
[2025-04-30] MEDS: morphine 4 mg/mL SDV 1 mL 2 MG IVP (23:57)
[2025-05-01] VITALS (103 sets, daily range): BP systolic 76–140; BP diastolic 45–94; PULSE 65–113; RESP 9–100; TEMP 36.5–37.2; O2SAT 12–100
--- NOTE | 2025-05-01 00:23 | PM.ACPR ---
Procedure/Consent Consent: Additional Consent Information: Spoke with Shaina Isak on the phone for verbal consent. Patient unable to sign consent himself Acute Procedures Central Line Placement: Left Femoral: Time out performed: Yes Patient placed on monitor/pulse ox: Yes MD prep: mask, gown, gloves and other (cap) Central line prep: other (ChloraPrep x 3) Local anesthesia used: lidocaine 2% (5 cc) Amount of anesthesia used (ml): 5 Ultrasound used for placement: Yes Central line lumen inserted: double (Dialysis catheter) Post procedure: sutured in place, good blood return, all ports aspirated, flushed, capped (2 cc heparin put in each port meant to be withdrawn prior to use) and sterile dressing applied (Biopatch also placed) Post procedure x-ray: other (Not applicable for femoral placement) Patient tolerated procedure: well and no complications Complications: none Additional comments: The right femoral dialysis catheter despite repositioning was not flowing well and showing high resistance. Left femoral dialysis catheter now in place. Right dialysis catheter was withdrawn 3 cc on each port and then flushed with saline. Ports filled with saline and now right femoral dialysis catheter is released to be used as a central line for bedside nursing
[2025-05-01] MEDS: morphine 4 mg/mL SDV 1 mL 2 MG IVP (00:24)
[2025-05-01] MEDS: heparin, porcine 1,000 unit/mL INJ 10 mL 10000 UNIT INTRACATH (00:25)
--- NOTE | 2025-05-01 00:32 | ECG_ITS ---
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 Measurements Intervals [place] Rate: 79 P: 68 [place]: 180 QRS: 42 QRSD: 102 T: 63 QT: 465 QTc: 536 Interpretive Statements SINUS RHYTHM POSSIBLE RIGHT VENTRICULAR CONDUCTION DELAY [RSR (QR) IN V1/V2] MARKED ST ELEVATION, CONSIDER INFERIOR INJURY [MARKED ST ELEVATION W/O NORMALLY INFLECTED T-WAVE IN II/aVF] ACUTE [place] Compared to ECG 04/30/2025 21:44:32 No significant changes Electronically Signed On 05-01-2025 21:59:14 CDT by Renato Craft M.D. [email or web address] [id number]
--- NOTE | 2025-05-01 00:45 | P.PN_ITS ---
Subjective 2 Subjective: 69-year-old male with end-stag e renal disease started on dialysis following bladder outlet obstruction, unchanged Steiner with obstruction, suspected pyelonephritis and sepsis with urinary tract infection. Patient has received dialysis with creatinine dropping from 10-5 and then back up to 6. He has severe metabolic acidosis receiving bicarbonate drip and pushes. He is on BiPAP to support his respiratory compensation with fatigue. I spoke with his daughter Shaina who made the patient DO NOT RESUSCITATE but full treatment otherwise. She okayed left femoral dialysis catheter replacement. The right femoral dialysis catheter was not flowing well for dialysis. The patient has been intermittently bradycardic with Precedex but also shows inferior ST segment elevation. Left femoral dialysis catheter has been placed. Right femoral dialysis catheter heparin instillation has been withdrawn and discarded and replaced with saline so the catheter can be used by bedside nurse. The left femoral dialysis catheter has been instilled with 2 cc of heparin each port. Labs are all improving and troponin has been stable at 40 times baseline 2-hour and 6-hour but patient is showing in for us ST segment elevation suspicious for acute inferior NH and now with bradycardia suspicious for right coronary artery infarct Vitals/I&O/Wt Last Vital Signs Temp 97.7 F 04/30/25 20:50 Pulse 77 04/30/25 22:39 Resp 20 H 04/30/25 20:50 BP 102/69 04/30/25 20:50 Pulse Ox 99 04/30/25 22:39 O2 Del Method Nasal Cannula 04/30/25 19:30 O2 Flow Rate 6 04/30/25 19:30 FiO2 60 04/30/25 22:39 04/30/25 04/30/25 05/01/25 14:59 22:59 06:59 Intake Total 1139.026 / 1139.026 105 / 1244.026 Output Total 2450 / 2450 Balance -1310.974 / -1310.974 105 / -1205.974 Weight last 48 hrs Weight 79.016 kg Weight 81.5 kg Weight 75.75 kg Physical Exam 2 Narrative: General well-developed male partially sedated pupils are 1-2 mm equal and reactive CV regular rate and rhythm no loud murmurs Lungs clear to auscultation tidal volumes 5930-0310 Abdomen diminished bowel tones Calves no edema Groin no hematoma bilateral femoral dialysis catheter is in place the right 1 is now being used as a bedside central line the left 1 is being protected for dialysis Urinary Catheter Management: Steiner: Cath Placed During This Visit: yes Reason for Continuing Indwelling Catheter: Accurate Measurement of Urinary Output in Critically Ill Patients Urinary Catheter Date of Insertion: 04/30/25 Urinary Catheter Time of Insertion: 14:42 Data 04/30/25 13:42 04/30/25 22:25 Micro: Microbiology 04/30/25 16:15 Blood Culture - Preliminary Blood SPECIMEN COLLECTED 04/30/25 13:42 Blood Culture - Preliminary Blood SPECIMEN COLLECTED A&P Assessment and plan (1) ST segment elevation: Patient with inferior NH by EKG and bradycardia episodes suspicious for right coronary artery infarct or ischemia. He will be started on heparin bolus and drip pending further troponin. Precedex held for now Obtain right right-sided EKG. This shows noes ST segment elevation (2) Sepsis secondary to UTI: Continue with Zosyn patient is off pressors. (3) Metabolic acidosis: Repeat VBG. Turned BiPAP down to 10 and he is driving the BiPAP at 11 to 12 breaths/min. Tidal volumes 8811-9289. Patient also receiving bicarb drip and additional 1 amp push x 2 since 7:30 PM on 04/30/2025 PDMP PDMP Reviewed: Not Reviewed Attestations 2 Medical Necessity Statement*: Patient remains critically ill in the hospital with anticipated length of stay greater than 2 midnights Coding Level of Care Code Acute Code for Chg Fwd Diagnoses ST segment elevation R94.31 Sepsis secondary to UTI A41.9; N39.0 Metabolic acidosis E87.20 Time Spent (min) 40 Comment Separate from central line placement
[2025-05-01 00:51] LABS: Anion Gap 36.2 (5-19); Calcium 7.2 mg/dL (8.5-10.5); Carbon Dioxide 13 mmol/L (22-29); Chloride 95 mmol/L (98-107); Creatinine Clr Calc Pharmacy 10.5285; Glucose 218 mg/dL (65-115); Magnesium 2.1 mg/dL (1.7-2.3); Osmolality Calculated 331 mOsm/kg (285-295); Potassium 3.2 mmol/L (3.5-5.1); Sodium 141 mmol/L (136-145)
--- NOTE | 2025-05-01 00:59 | ECG_ITS ---
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 Measurements Intervals [place] Rate: 83 P: 57 MT: 192 QRS: 45 QRSD: 102 T: 62 QT: 440 QTc: 518 Interpretive Statements SINUS RHYTHM LOW QRS VOLTAGE IN PRECORDIAL LEADS [QRS DEFLECTION < 1.0 mV IN CHEST LEADS] PATTERN CONSISTENT WITH PULMONARY DISEASE POSSIBLE RIGHT VENTRICULAR CONDUCTION DELAY [RSR (QR) IN V1/V2] MARKED ST ELEVATION, CONSIDER INFERIOR INJURY [MARKED ST ELEVATION W/O NORMALLY INFLECTED T-WAVE IN II/aVF] ACUTE [place] Compared to ECG 05/01/2025 00:39:52 Low QRS voltage now present ST (T wave) deviation still present Myocardial infarct finding still present Electronically Signed On 05-01-2025 21:58:59 CDT by Renato Craft M.D. [email or web address] [id number]
[2025-05-01 01:02] LABS: Base Excess VBG -10.6 mmol/L (-3.0-3.0); Blood Gas Operator Identificat SAM; Blood Gas Sample Type Venous; HCO3 VBG 14.5 mmol/L (24-28); Oxygen Device BIPAP; PCO2 VBG 27.5 mmHg (41-51); PO2 VBG 38.7 mmHg (25-40); Venous Blood Gas Hematocrit 14.9 % (42-52); pH VBG 7.33 (7.32-7.42)
[2025-05-01 01:05] LABS: Blood Urea Nitrogen 103 mg/dL (8-23)
[2025-05-01 01:07] LABS: Troponin T (5th) Once 42 ng/L (0-15)
[2025-05-01 01:32] LABS: Basophils % 0.1 %; Hematocrit 21.3 % (37-53); Lymphocytes # 0.4 10^3/uL (0.8-4.8); Lymphocytes % 3.6 %; Mean Corpuscular HGB Conc 35.2 g/dL (30-55); Mean Corpuscular Hemoglobin 32.8 pg (27-33); Mean Platelet Volume 10.7 fL (7.4-10.4); Monocytes # 0.2 10^3/uL (0.2-0.9); Monocytes % 1.8 %; Neutrophils # 10.49 10^3/uL (1.8-7.7); Neutrophils % 93.8 %; Nucleated Red Blood Cells % 0 %; Platelet Count 231 10^3/cmm (157-399); Red Blood Count 2.29 10^6/uL (3.85-5.65); Red Cell Distribution Width 13.2 % (12.1-15.1); White Blood Count 11.18 10^3/uL (3.29-11.43)
--- NOTE | 2025-05-01 02:25 | PC.NURSE ---
Right side EKG: EKG done at 0059 was a right side EKG.
[2025-05-01] MEDS: albuterol 2.5 MG/0.5 ML NEB INHALATION ×3 (02:33→20:25)
[2025-05-01] MEDS: heparin 5,000 unit/mL INJ 1 mL 5000 UNIT SUBCUT ×2 (02:49→14:48)
--- NOTE | 2025-05-01 03:15 | PC.NURSE ---
Dialysis Cath insertion: This nurse assisted Dr. Harris with the insertion of a temporary hemodialysis catheter to the left groin at bedside. Dr. Harris gave verbal orders for morphine and versed to control pain during this procedure. After insertion of the dialysis cath Dr. Harris gave orders for heparin which he flushed the new dialysis catheter with. During the procedure, patient's HR dropped to the 40s, precedex drip was shut up. HR returned to previous 70s. Dr. Harris gave verbal orders to begin using previous dialysis catheter in the right groin as a central line to administer medications, luer lock caps were placed on the ends.
--- NOTE | 2025-05-01 03:27 | PC.NURSE ---
Low hgb: Patient's hgb was 7.5, Dr. Harris verbalized to d/c heparin drip order and obtain type and screen with morning lab draw.
--- NOTE | 2025-05-01 03:35 | PC.NURSE ---
Addendum entered by Kati Storm RN 05/01/25 03:36: Wasted 2mg morphine with Cameron Vasquez RN. Original Note: Morphine overridden for procedure earlier in shift. 4 mg pulled from pyxis, 2 mg administered, 2 mg wasted and witnessed by Hallie Storm RN.
[2025-05-01] MEDS: piperacillin-tazobactam 3.375 GM in sodium chloride 0.9% (plus) 50 ML IV ×2 (03:54→16:44)
[2025-05-01 05:02] LABS: Basophils % 0.1 %; Hematocrit 21.1 % (37-53); Lymphocytes # 0.3 10^3/uL (0.8-4.8); Lymphocytes % 3.6 %; Mean Corpuscular HGB Conc 34.6 g/dL (30-55); Mean Corpuscular Hemoglobin 32.3 pg (27-33); Mean Corpuscular Volume 93.4 fl (82-101); Mean Platelet Volume 11.2 fL (7.4-10.4); Monocytes # 0.3 10^3/uL (0.2-0.9); Neutrophils # 8.65 10^3/uL (1.8-7.7); Neutrophils % 92.6 %; Nucleated Red Blood Cells % 0 %; Platelet Count 245 10^3/cmm (157-399); Red Blood Count 2.26 10^6/uL (3.85-5.65); Red Cell Distribution Width 13.2 % (12.1-15.1); White Blood Count 9.35 10^3/uL (3.29-11.43)
[2025-05-01 05:16] LABS: Troponin T (5th) Once 41 ng/L (0-15)
[2025-05-01 05:17] LABS: Alanine Aminotransferase 36 U/L (0-41); Albumin Level 3.4 g/dL (3.5-5.2); Alkaline Phosphatase 58 U/L (40-130); Anion Gap 35.1 (5-19); Aspartate Amino Transferase 47 U/L (0-40); Carbon Dioxide 15 mmol/L (22-29); Chloride 94 mmol/L (98-107); Creatinine Clr Calc Pharmacy 9.9516; Globulin 3.2 g/dL (1.3-4.6); Glomerular Filtration Rate 7.5 mL/min (90-130); Glucose 212 mg/dL (65-115); Magnesium 2.1 mg/dL (1.7-2.3); Osmolality Calculated 331 mOsm/kg (285-295); Phosphorus 5.7 mg/dL (2.5-4.5); Potassium 3.1 mmol/L (3.5-5.1); Sodium 141 mmol/L (136-145); Total Bilirubin 0.4 mg/dL (0.15-1.2); Total Protein 6.6 g/dL (6.6-8.7)
[2025-05-01 05:38] LABS: Blood Urea Nitrogen 105 mg/dL (8-23)
[2025-05-01] MEDS: sodium bicarbonate 150 MEQ in dextrose 5% 1,000 ML 100 MEQ IV (06:25)
[2025-05-01] MEDS: pantoprazole 40 mg SDV IVP (09:32)
[2025-05-01 09:37] LABS: ABG PCO2 28.3 mmHg (35-45); ABG PH Result 7.51 (7.35-7.45); Alveolar-Arterial Oxygen Gradi 8.7 mmHg (5-10); Arterial Blood Gas Hematocrit 33.4 % (42-52); Base Excess ABG 0.1 mmol/L (-2.0-2.0); Blood Gas Allen Test Pos; Blood Gas Operator Identificat CAK; Blood Gas Sample Site Brachial, left; Blood Gas Sample Type Arterial; Carboxyhemoglobin 0.5 %THgb (0.4-20.1); HCO3 ABG 22.4 mmol/L (22-26); HGB O2 Sat 97.9 % (95-100); Ionized Calcium Level - ABG 0.9 mmol/L (1.1-1.4); Methemoglobin 1.3 % (0.4-1.5); Oxygen Device BIPAP; Oxygen Saturation ABG > 99.1; PO2 FiO2 Ratio Arterial Blood 445; Potassium Level - ABG 2.8 mmol/L (3.5-5.0); Total Hemoglobin 10.9 g/dL (14-18)
--- NOTE | 2025-05-01 09:54 | P.PN_ITS ---
Subjective 2 Subjective: on BIPAP Medications: Reviewed: Yes Vitals/I&O/Wt Last Vital Signs Temp 98.9 F 05/01/25 04:45 Pulse 105 H 05/01/25 09:21 Resp 13 05/01/25 09:21 BP 101/66 05/01/25 09:21 Pulse Ox 100 05/01/25 09:21 O2 Del Method BiPAP 05/01/25 08:00 O2 Flow Rate 111 05/01/25 05:04 FiO2 40 05/01/25 08:00 04/30/25 05/01/25 05/01/25 22:59 06:59 14:59 Intake Total 1139.026 / 8360.860 2733.667 / 2370.693 Output Total 2450 / 2450 150 / 2600 Balance -1310.974 / -7775.137 8601.667 / -229.307 Weight last 48 hrs Weight 81.465 kg Weight 79.016 kg Weight 81.5 kg Weight 75.75 kg Physical Exam 2 Narrative: ON bipap no DISTRESS Neck supple S1S2 RRR per report Lungs clear per report Abd soft , non tender no edema Urinary Catheter Management: Steiner: Cath Placed During This Visit: yes Reason for Continuing Indwelling Catheter: Chronic Indwelling Urinary Catheter on Admission Urinary Catheter Date of Insertion: 04/30/25 Urinary Catheter Time of Insertion: 14:42 Data 05/01/25 04:09 05/01/25 04:09 Micro: Microbiology 04/30/25 14:50 Urine Culture - Preliminary Urine,Clean Catch Gram Negative Rods 04/30/25 16:15 Blood Culture - Preliminary Blood SPECIMEN COLLECTED 04/30/25 13:42 Blood Culture - Preliminary Blood SPECIMEN COLLECTED A&P Assessment and plan (1) Acute renal failure: Plan 1. BRADLEY : Unknown Cr baseline. currently with severe BRADLEY , and severe metabolic acidosis . Etiology likely ATn in setting of ? sepsis and ? obstruction , poor PO intake. - pt anuric, currently off pressors and recommendeds/p temporary HD placement for emergent HD . If patient do not tolerate HD will switch to CRRT. 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 Severe metabolic acidosis: With bicarbonate level of 4 on presentation, started on bicarbonate drip and HD as above, 3. Sepsis likely from UTI and further workup pending, currently on pressors 4. Known hydronephrosis with indwelling Steiner catheter, following with urology as outpatient 5. Anemia, check iron studies Patient evaluated using audiovisual cart. Time spent 40 minutes. PDMP PDMP Reviewed: Not Reviewed Attestations 2 Medical Necessity Statement*: per medicine Coding Level of Care Code Acute Code for g Fwd Diagnoses Acute renal failure N17.9
[2025-05-01 10:29] LABS: ABG PH Result 7.18 (7.35-7.45)
--- NOTE | 2025-05-01 12:21 | PM.TDS ---
Transfer Summary Providers Date of Admission: 04/30/25 14:35 Date of Discharge/Transfer: 05/01/25 Attending Provider at Admission: Lashonda Patel MD Attending Provider at Transfer: Lashonda Patel MD Primary Care Provider: Jeremias Escudero Transfer Plans: Anticipated date of transfer: 05/01/25. Receiving Facility: [facility]. Diagnoses at Discharge Discharge Diagnosis (1) Acute renal failure: Status: Acute Reason for Visit Reason for Visit sob Hospital Course Hospital Course Brandon Parisi is a 69 year old male With past medical history of hypertension CKD stage IV, chronic urinary retension with chronic indwelling Steiner catheter, bilateral hydronephrosis, BPH presented to the hospital today with complaint of shortness of breath. On arrival he was noted to be tachypneic tachycardic with conversational dyspnea. Very poor historian secondary to difficulty breathing at this time. Initial blood gas showed pH of 7.0/14/156, chemistries indicating bicarb 4, anion gap 38, BUN 185, creatinine 10.8. Initial troponin 40, BNP 7800. 2-hour 3-hour troponin pending. Urinalysis shows greater than 100 WBC, 11-20 squamous epithelial cells, 2+ blood, 3+ protein. Patient unable to provide a history at this time therefore his brother Mr. Long Parisi was called on the phone who gave me some information Stating that patient had a poor appetite the last few days and patient's brother moved in with him recently to help him out. He states patient ate ice cream and corn yesterday however for the last few days did not eat much. He was complaining of left shoulder pain and slept for an entire day recently.I also spoke with Dr. Crain's nurse practitioner who is on-call today. She reviewed patient's chart and told me that patient has followed with 3 urologist in the past and follows with nephrology Aria Perez at [facility]. He was recently referred to Dr. Yung who is a urologist at [facility]. He was supposed to have repeat labs done upcoming Thursday to see how his renal function is doing to decide on initiation of dialysis.There is no known history of kidney stones in the past. Patient was essentially admitted for acute renal failure was started on a bicarb drip after given amps of bicarb. Lactic acid was elevated. He was on Levophed 8 mics overnight which was able to be weaned off this morning. Blood pressure stable this morning. He seems to be somewhat confused. He is status post 1 session of dialysis overnight. Second session running at this time. Does have a UTI for gram-negative rods in urine. Currently on Zosyn. Hemoglobin 9 on admission now 7.5. Will order iron studies TIBC ferritin. Possibility of anemia of chronic disease versus secondary to bladder mass. FOBT pending Cardiac echo pending Metabolic acidosis is improving however not resolved yet. CT abdomen pelvis done this morning (imaging was delayed secondary to patient being unstable upon arrival) shows the followin. Abnormal bladder. Bladder is distended despite the presence of a Steiner catheter question is Steiner catheter functioning properly? There is bladder wall thickening as well as bladder diverticuli. Air in the bladder likely introduced via the Steiner though infection with a gas producing organism not excluded. Abnormal soft tissue density within the bladder may be organized debris or organized blood products but could be a mass either of bladder origin or arising from the prostate gland. 2. Enlarged prostate gland with a possible mass which may invade the bladder base 3. [id number] bilateral hydronephrosis and dilatation of the ureters likely secondary to findings in the bladder 4. Possible solid masses each kidney as described. Follow-up with MRI is recommended 5. Distended gallbladder with a possible sludge or poorly calcified gallstones 6. Wall thickening stomach suggesting gastritis/peptic ulcer disease. Wall thickening distal esophagus may indicate esophagitis or gastroesophageal reflux 7. Diverticulosis without CT evidence for active diverticulitis 8. Right inguinal hernia containing only fat 9. Bilateral central femoral venous catheters 10. Pericardial thickening versus pericardial effusion 11. Other incidental findings as outlined above Patient follows nephrology and urology in [place]. He sees Dr. Cunningham for urology in [place]. I talked to [facility] who confirmed that for me. Apparently patient's last creatinine was 6.5 in February when he went to see nephrology. The daughter tells me that he was recommended to have dialysis however patient held off. He usually goes and gets his catheter placed but patient has not lately done that. Daughter also states that his wishes were to be DNR/DNI however all other treatment should be done to the fullest capacity. 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 Case discussed with [facility]. I am awaiting a callback. Once patient is accepted for transfer we will transfer to higher level of care. Nephrology agrees with urology assessment at this time. In the meantime we will continue dialysis and workup as ordered above. Patient overnight did have some EKG changes with possible ST elevation in inferior wall. He was started on anticoagulation heparin drip by nighttime hospitalist. We will consult cardiology for further recommendations. Physical Exam Narrative: General well-developed male on bipap at this time, able to tell me his name and that hes in hospital CV regular rate and rhythm no loud murmurs Lungs clear to auscultation Abdomen diminished bowel tones Calves no edema Groin no hematoma bilateral femoral dialysis catheter is in place the right 1 is now being used as a bedside central line the left 1 is being protected for dialysis Urinary Catheter Management: Steiner: Cath Placed During This Visit: yes Reason for Continuing Indwelling Catheter: Chronic Indwelling Urinary Catheter on Admission Urinary Catheter Date of Insertion: 04/30/25 Urinary Catheter Time of Insertion: 14:42 TS Data Studies Completed and Pending Pending at discharge Category Date Time Status Blood Culture Stat Lab 04/30/25 16:15 Results Urine Culture Stat Lab 04/30/25 14:50 Results Urine Culture Stat Lab 04/30/25 16:37 Received VBG [Venous Blood Gas] Stat Lab 04/30/25 19:47 Results VBG [Venous Blood Gas] Stat Lab 04/30/25 22:25 Results VBG [Venous Blood Gas] Stat Lab 05/01/25 00:55 Results Completed Studies During Hospitalization Category Date Time Status CT abdomen pelvis wo con [id number] Stat Cat Scan 04/30/25 15:41 Completed XR chest 1V portable [id number] Stat Exams 04/30/25 13:17 Completed Laboratory Last Values WBC 9.35 10^3/uL (3.29-11.43) 05/01/25 04:09 RBC 2.26 10^6/uL (3.85-5.65) L 05/01/25 04:09 Hgb 7.30 g/dL (11.27-16.99) L 05/01/25 04:09 Hct 21.1 % (37-53) L 05/01/25 04:09 MCV 93.4 fl (82-101) 05/01/25 04:09 MCH 32.3 pg (27-33) 05/01/25 04:09 MCHC 34.6 g/dL (30-55) 05/01/25 04:09 RDW 13.2 % (12.1-15.1) 05/01/25 04:09 Plt Count 245 10^3/cmm (157-399) 05/01/25 04:09 MPV 11.2 fL (7.4-10.4) H 05/01/25 04:09 Neut % (Auto) 92.6 % 05/01/25 04:09 Lymph % (Auto) 3.6 % 05/01/25 04:09 [place] % (Auto) 3.0 % 05/01/25 04:09 Eos % (Auto) 0.0 % 05/01/25 04:09 Baso % (Auto) 0.1 % 05/01/25 04:09 Neut # (Auto) 8.65 10^3/uL (1.8-7.7) H 05/01/25 04:09 Lymph # (Auto) 0.3 10^3/uL (0.8-4.8) L 05/01/25 04:09 [place] # (Auto) 0.3 10^3/uL (0.2-0.9) 05/01/25 04:09 Eos # (Auto) 0.0 10^3/uL (0.0-0.8) 05/01/25 04:09 Baso # (Auto) 0.0 10^3/uL (0.0-0.1) 05/01/25 04:09 Nucleated RBC % (auto) 0 % 05/01/25 04:09 Nucleated RBCs # 0.0 /100WBC 05/01/25 04:09 PT 17.60 SECONDS (12.1-14.9) H 04/30/25 13:42 INR 1.35 (0.8-1.2) H 04/30/25 13:42 Specimen Type Arterial 05/01/25 09:26 Sample Site Brachial, left 05/01/25 09:26 O2 Sat Pulse Oximetry Cancelled 04/30/25 05:34 ABG pH 7.51 (7.35-7.45) H 05/01/25 09:26 ABG pCO2 28.3 mmHg (35-45) L 05/01/25 09: ABG pO2 178.0 mmHg (80.0-100.0) H 05/01/25 09: ABG PO2/FiO2 Ratio 445 05/01/25: ABG HCO3 22.4 mmol/L (22-26) 05/01/25: ABG O2 Saturation > 99.1 05/01/25: ABG Base Excess 0.1 mmol/L (-2.0-2.0) 05/01/25: Tommy Test Pos 05/01/25: VBG pH 7.33 (7.32-7.42) 05/01/25 00:55 VBG pCO2 27.5 mmHg (41-51) L 05/01/25 00:55 VBG pO2 38.7 mmHg (25-40) 05/01/25 00:55 VBG HCO3 14.5 mmol/L (24-28) L 05/01/25 00:55 VBG Base Excess -10.6 mmol/L (-3.0-3.0) L 05/01/25 00:55 VBG Hematocrit 14.9 % (42-52) L 05/01/25 00:55 A-a O2 Gradient 8.7 mmHg (5-10) 05/01/25: Hematocrit 33.4 % (42-52) L 05/01/25: Hgb O2 Saturation 97.9 % (95-100) 05/01/25: Carboxyhemoglobin 0.5 %THgb (0.4-20.1) 05/01/25: Methemoglobin 1.3 % (0.4-1.5) 05/01/25: Total Hemoglobin 10.9 g/dL (14-18) L 05/01/25 09: Sodium 144.0 mmol/L (131-143) H 05/01/25: Potassium 2.8 mmol/L (3.5-5.0) L 05/01/25 09: Glucose 182.0 mg/dL (70-115) H 05/01/25 09: Ionized Calcium 0.9 mmol/L (1.1-1.4) L 05/01/25 09:26 Respiration Rate Cancelled 04/30/25 05:34 O2 Delivery Device Bipap 05/01/25 09:26 O2 Liters/Min 6.0 % 04/30/25 19:47 SIMV Cancelled 04/30/25 05:34 Vent Mode Cancelled 04/30/25 05:34 Mechanical Rate Cancelled 04/30/25 05:34 Spontaneous Rate Cancelled 04/30/25 05:34 FiO2 40.0 % 05/01/25 09:26 Tidal Volume Cancelled 04/30/25 05:34 PEEP Cancelled 04/30/25 05:34 Pressure Support Cancelled 04/30/25 05:34 Pressure Control Cancelled 04/30/25 05:34 CPAP Cancelled 04/30/25 05:34 Mode BiPAP Cancelled 04/30/25 05:34 Specimen Drawn By Oleg 04/30/25 18:33 Head Chopper ID Cak 05/01/25 09:26 Crit Value Read Back Cancelled 04/30/25 05:34 Blood Gas Notified Time Cancelled 04/30/25 05:34 Sodium 141 mmol/L (136-145) 05/01/25 04:09 Potassium 3.1 mmol/L (3.5-5.1) L 05/01/25 04:09 Chloride 94 mmol/L (98-107) L 05/01/25 04:09 Carbon Dioxide 15 mmol/L (22-29) L 05/01/25 04:09 Anion Gap 35.1 (5-19) H 05/01/25 04:09 BUN 105 mg/dL (8-23) H* 05/01/25 04:09 Creatinine 7.3 mg/dL (0.7-1.2) H* 05/01/25 04:09 GFR Calculation 7.5 mL/min (90-130) L 05/01/25 04:09 Glucose 212 mg/dL (65-115) H 05/01/25 04:09 POC Glucose 170 mg/dL (70-110) H 04/30/25 14:05 Calculated Osmolality 331 mOsm/kg (285-295) H 05/01/25 04:09 Lactic Acid Cancelled 04/30/25 16:15 Lactic Acid (Sepsis) 4.1 mmol/L (0.5-2.2) H* 04/30/25 16:15 Calcium 7.0 mg/dL (8.5-10.5) L 05/01/25 04:09 Phosphorus 5.7 mg/dL (2.5-4.5) H 05/01/25 04:09 Magnesium 2.1 mg/dL (1.7-2.3) 05/01/25 04:09 Total Bilirubin 0.4 mg/dL (0.15-1.2) 05/01/25 04:09 AST 47 U/L (0-40) H 05/01/25 04:09 ALT 36 U/L (0-41) 05/01/25 04:09 Alkaline Phosphatase 58 U/L (40-130) 05/01/25 04:09 Troponin T 5th Gen ng/L 41 ng/L (0-15) H 05/01/25 04:09 Troponin T Baseline 40 ng/L (0-15) H 04/30/25 13:42 Troponin T 120 Minute 39.33 ng/L (0-15) H 04/30/25 16:15 Delta Troponin T -0.67 ABS# (0-10) L 04/30/25 16:15 Troponin T Hi Sens 6Hr 45.70 ng/L (0-15) H 04/30/25 19:30 Troponin T Hi Sens 6Hr Delta 5.70 ng/L (0-12) 04/30/25 19:30 NT-Pro-B Natriuret Pep 7812 pg/mL (0-125) H 04/30/25 13:42 Total Protein 6.6 g/dL (6.6-8.7) D 05/01/25 04:09 Albumin 3.4 g/dL (3.5-5.2) L 05/01/25 04:09 Globulin 3.2 g/dL (1.3-4.6) 05/01/25 04:09 Urine Color Yellow (Yellow) 04/30/25 14:50 Urine Appearance Turbid (CLEAR) A 04/30/25 14:50 Urine pH 6.0 (5-7) 04/30/25 14:50 Ur Specific [place] 1.012 (1.005-1.030) 04/30/25 14:50 Urine Protein 3+ (Negative) A 04/30/25 14:50 Urine Glucose (UA) Negative (Normal) 04/30/25 14:50 Urine Ketones Negative (Negative) 04/30/25 14:50 Urine Blood 2+ (Negative) A 04/30/25 14:50 Urine Nitrate Negative (Negative) 04/30/25 14:50 Urine Bilirubin Negative (Negative) 04/30/25 14:50 Urine Urobilinogen 0.2 mg/dL (Negative) 04/30/25 14:50 Ur Leukocyte Esterase 3+ (Negative) A 04/30/25 14:50 Urine RBC 3-5 /hpf (0-2) 04/30/25 14:50 Urine WBC >100 /hpf (0-5) H 04/30/25 14:50 Ur Squamous Epith Cells 11-20 /hpf (0-5) H 04/30/25 14:50 Amorphous Sediment Not Reportable 04/30/25 14:50 Urine Bacteria Exceeds /hpf (NONE) 04/30/25 14:50 Hyaline Casts 32.04 /lpf 04/30/25 14:50 Fine Granular Casts 0-4 /lpf H 04/30/25 14:50 Coarse Granular Casts 5-10 /lpf H 04/30/25 14:50 Serum Ketones Negative (Negative) 04/30/25 13:42 Hep Bs Antigen Non-reactive (Nonreactive) 04/30/25 19:30 Hep Bs Antibody < 3.5 (11.5-1000) L 04/30/25 19:30 Hepatitis C Antibody Non-reactive (Nonreactive) 04/30/25 19:30 Blood Type A Positive 05/01/25 04:09 Rho(D) Type Rh positive 05/01/25 04:09 Antibody Screen Negative 05/01/25 04:09 Radiology Impressions Chest X-Ray 04/30/25 13:17 IMPRESSION: 1. No acute findings. 2. Cardiac enlargement. Abdomen/Pelvis CT 04/30/25 15:41 IMPRESSION: 1. Abnormal bladder. Bladder is distended despite the presence of a Steiner catheter question is Steiner catheter functioning properly? There is bladder wall thickening as well as bladder diverticuli. Air in the bladder likely introduced via the Steiner though infection with a gas producing organism not excluded. Abnormal soft tissue density within the bladder may be organized debris or organized blood products but could be a mass either of bladder origin or arising from the prostate gland. 2. Enlarged prostate gland with a possible mass which may invade the bladder base 3. [id number]-[id number] bilateral hydronephrosis and dilatation of the ureters likely secondary to findings in the bladder 4. Possible solid masses each kidney as described. Follow-up with MRI is recommended 5. Distended gallbladder with a possible sludge or poorly calcified gallstones 6. Wall thickening stomach suggesting gastritis/peptic ulcer disease. Wall thickening distal esophagus may indicate esophagitis or gastroesophageal reflux 7. Diverticulosis without CT evidence for active diverticulitis 8. Right inguinal hernia containing only fat 9. Bilateral central femoral venous catheters 10. Pericardial thickening versus pericardial effusion 11. Other incidental findings as outlined above COMMENTS: Consistent with the [employer] [place] [employer]'s Incidental Findings Committee white paper (J Am Jennifer Radiol 2018): Any incidental renal lesion less than 1 cm or classified as too small to characterize, or any incidental cystic renal lesion characterized as simple-appearing, is likely benign. No follow-up imaging is recommended for these lesions per consensus recommendations based on imaging criteria. Recent Clincial Data Last Vital Signs Temp 98.9 F 05/01/25 04:45 Pulse 108 H 05/01/25 10:30 Resp 18 05/01/25 10:30 BP 99/71 05/01/25 10:30 Pulse Ox 100 05/01/25 10:30 O2 Del Method BiPAP 05/01/25 08:00 O2 Flow Rate 111 05/01/25 05:04 FiO2 40 05/01/25 08:00 Vital Signs Temp Pulse Resp BP Pulse Ox O2 Del Method O2 Flow Rate 05/01/25 10:30 108 H 18 99/71 100 05/01/25 10:15 102 H 14 87/60 99 05/01/25 10:00 103 H 14 89/60 100 05/01/25 09:45 106 H 16 120/65 100 05/01/25 09:31 106 H 14 120/65 98 05/01/25 09:21 105 H 13 101/66 100 05/01/25 09:00 96 12 91/53 98 05/01/25 08:45 96 11 L 85/51 100 05/01/25 08:30 98 15 87/51 100 05/01/25 08:15 99 14 84/52 99 05/01/25 08:00 104 H 17 101/64 100 05/01/25 08:00 100 100 H 12 L BiPAP 05/01/25 08:00 100 99 05/01/25 07:45 103 H 15 122/84 100 05/01/25 07:30 104 H 15 112/67 100 05/01/25 07:15 103 H 14 84/69 100 05/01/25 07:00 106 H 16 84/69 100 05/01/25 06:45 107 H 16 128/82 100 05/01/25 06:30 107 H 15 101/69 100 05/01/25 06:15 99 12 101/69 99 BiPAP 05/01/25 06:00 100 10 L 95/63 98 05/01/25 05:45 107 H 17 117/82 100 05/01/25 05:41 106 H 05/01/25 05:30 108 H 12 117/82 98 05/01/25 05:15 112 H 15 98/78 97 BiPAP 05/01/25 05:04 110 H 100 111 05/01/25 05:00 110 H 11 L 95/72 92 Nasal Cannula 3 05/01/25 04:45 98.9 F 95/72 05/01/25 04:30 111 H 17 97/78 99 BiPAP 05/01/25 04:15 105 H 12 103/66 93 05/01/25 04:00 110 H 100 05/01/25 04:00 96 15 98/65 95 BiPAP 05/01/25 03:45 96 17 97/63 100 05/01/25 03:30 99 12 95/63 100 05/01/25 03:15 108 H 17 98/68 90 05/01/25 03:00 93 9 L 98/68 98 05/01/25 02:45 89 10 L 108/69 99 05/01/25 02:30 83 10 L 115/74 100 05/01/25 02:30 100 13 97 BiPAP 05/01/25 02:15 82 9 L 113/72 99 05/01/25 02:00 97.9 F 85 9 L 122/75 97 BiPAP 05/01/25 01:45 84 11 L 109/77 100 05/01/25 01:30 83 10 L 123/72 100 05/01/25 01:15 82 9 L 111/72 100 05/01/25 01:00 81 11 L 124/74 100 05/01/25 00:45 80 10 L 109/74 100 05/01/25 00:30 81 12 122/74 100 BiPAP FiO2 05/01/25 10:30 05/01/25 10:15 05/01/25 10:00 05/01/25 09:45 05/01/25 09:31 05/01/25 09:21 05/01/25 09:00 05/01/25 08:45 05/01/25 08:30 05/01/25 08:15 05/01/25 08:00 05/01/25 08:00 40 05/01/25 08:00 40 05/01/25 07:45 05/01/25 07:30 05/01/25 07:15 05/01/25 07:00 05/01/25 06:45 05/01/25 06:30 05/01/25 06:15 40 05/01/25 06:00 05/01/25 05:45 05/01/25 05:41 05/01/25 05:30 05/01/25 05:15 40 05/01/25 05:04 40 05/01/25 05:00 05/01/25 04:45 05/01/25 04:30 50 05/01/25 04:15 05/01/25 04:00 50 05/01/25 04:00 50 05/01/25 03:45 05/01/25 03:30 05/01/25 03:15 05/01/25 03:00 05/01/25 02:45 05/01/25 02:30 05/01/25 02:30 50 05/01/25 02:15 05/01/25 02:00 50 05/01/25 01:45 05/01/25 01:30 05/01/25 01:15 05/01/25 01:00 05/01/25 00:45 05/01/25 00:30 50 Intake & Output/Weight 04/29/25 04/30/25 05/01/25 05/02/25 06:59 06:59 06:59 06:59 Intake Total 2370.693 / 2370.693 Output Total 2600 / 2600 Balance -229.307 / -229.307 Weight 81.465 kg Vitals Last Vital Signs Temp 98.9 F 05/01/25 04:45 Pulse 108 H 05/01/25 10:30 Resp 18 05/01/25 10:30 BP 99/71 05/01/25 10:30 Pulse Ox 100 05/01/25 10:30 O2 Del Method BiPAP 05/01/25 08:00 O2 Flow Rate 111 05/01/25 05:04 FiO2 40 05/01/25 08:00 TS Medications Medications Albuterol Sulfate (Albuterol 2.5 Mg/0.5 Ml Neb) 2.5 mg INHALATION Q6H.RESP [facility] Last Admin: 05/01/25 08:35 Dose: 2.5 mg Heparin Sodium (Porcine) (Heparin 5,000 Unit/Ml Inj 1 Ml) 5,000 unit SUBCUT Q12H INDIO Last Admin: 05/01/25 02:49 Dose: 5,000 unit Piperacillin Sod/Tazobactam (Sod 3.375 gm/ Sodium Chloride) 50 mls @ 12.5 mls/hr IV Q12H [facility] Last Admin: 05/01/25 03:54 Dose: 12.5 mls/hr Norepinephrine Bitartrate (Levophed) 4 mg in 250 mls @ 0 mls/hr IV .Q0M [facility]; Protocol Last Titration: 04/30/25 22:57 Dose: 0 mcg/min, 0 mls/hr Sodium Bicarbonate 150 meq/ (Dextrose) 1,150 mls @ 100 mls/hr IV .[id number] [facility] Last Admin: 05/01/25 06:25 Dose: 100 mls/hr Dexmedetomidine/Sodium Chloride (Precedex) 400 mcg in 100 mls @ 0 mls/hr IV .Q0M INDIO; Protocol Last Titration: 04/30/25 23:21 Dose: 0 mcg/kg/hr, 0 mls/hr Sodium Chloride (Sodium Chloride 0.9%) 1,000 mls @ 0 mls/hr IV .Q0M PRN PRN Reason: hypotension or symptomatic Albumin Human (Albumin) 12.5 gm in 50 mls @ 60 mls/hr IV PRN PRN PRN Reason: Hypotension and/or symptomatic Ondansetron HCl (Ondansetron 2 Mg/Ml Sdv 2 Ml) 4 mg IVP Q6H PRN PRN Reason: NAUSEA AND VOMITING Pantoprazole Sodium (Pantoprazole 40 Mg Sdv) 40 mg IVP DAILY [facility] Last Admin: 05/01/25 09:32 Dose: 40 mg Discontinued Medications Albuterol/Ipratropium (Ipratropium-Albuterol 3 Ml Neb) 3 ml INHALATION ONCE ONE Stop: 04/30/25 13:18 Last Admin: 04/30/25 13:41 Dose: 3 ml Furosemide (Furosemide 10 Mg/Ml Sdv 10ml) 100 mg IVP ONCE ONE Stop: 04/30/25 23:00 Last Admin: 04/30/25 23:09 Dose: 100 mg Heparin Sodium (Porcine) (Heparin, Porcine 1,000 Unit/Ml Inj 10 Ml) 10,000 unit INTRACATH ONCE ONE Stop: 04/30/25 18:26 Last Admin: 05/01/25 03:33 Dose: Not Given Heparin Sodium (Porcine) (Heparin, Porcine 1,000 Unit/Ml Inj 10 Ml) 1,000 unit IV ONCE ONE Stop: 04/30/25 18:26 Last Admin: 05/01/25 03:33 Dose: Not Given Heparin Sodium (Porcine) (Heparin Lock Flush 500 Unit/5 Ml Syringe) 500 unit IVP ONCE ONE Stop: 05/01/25 00:07 Heparin Sodium (Porcine) (Heparin, Porcine 1,000 Unit/Ml Inj 10 Ml) 10,000 unit INTRACATH ONCE ONE Stop: 05/01/25 00:09 Last Admin: 05/01/25 00:25 Dose: 10,000 unit Heparin Sodium (Porcine) (Heparin 5,000 Unit/Ml Inj 1 Ml) 0 unit IVP PRN PRN; Protocol PRN Reason: Heparin Weight Based Protocol -Subsequent Bolus Heparin Sodium (Porcine) (Heparin 5,000 Unit/Ml Inj 1 Ml) 0 unit IVP ONCE ONE; Protocol Stop: 05/01/25 00:44 Last Admin: 05/01/25 02:13 Dose: Not Given Heparin Sodium (Porcine) (Heparin, Porcine 1,000 Unit/Ml Inj 10 Ml) 10,000 unit INTRACATH ONCE ONE Stop: 05/01/25 05:40 Heparin Sodium (Porcine) (Heparin, Porcine 1,000 Unit/Ml Inj 10 Ml) 1,000 unit IV ONCE ONE Stop: 05/01/25 05:40 Sodium Chloride (Sodium Chloride 0.9%) 1,000 mls @ 999 mls/hr IV .Q1H1M [facility] Stop: 04/30/25 16:15 Sodium Chloride (Sodium Chloride 0.9%) 1,000 mls @ 999 mls/hr IV .Q1H1M ONE Stop: 04/30/25 15:08 Last Admin: 04/30/25 14:54 Dose: Not Given Sodium Bicarbonate 50 meq/ (Sodium Chloride) 1,050 mls @ 100 mls/hr IV .[id number] [facility] Last Admin: 04/30/25 15:38 Dose: 100 mls/hr Sodium Chloride (Sodium Chloride 0.9%) 1,000 mls @ 100 mls/hr IV .Q10H [facility] Last Infusion: 04/30/25 21:05 Dose: 0 mls/hr Sodium Chloride (Sodium Chloride 0.9%) 1,000 mls @ 0 mls/hr IV .Q0M PRN PRN Reason: hypotension or symptomatic Albumin Human (Albumin) 12.5 gm in 50 mls @ 60 mls/hr IV PRN PRN PRN Reason: Hypotension and/or symptomatic Dextrose (D5w) Confirm Administered Dose 1,000 mls @ as directed .ROUTE .STK-MED ONE Stop: 04/30/25 18:46 Lidocaine HCl 5 ml/ Potassium (Chloride) 105 mls @ 26.25 mls/hr IV ONCE ONE Stop: 04/30/25 23:26 Last Infusion: 05/01/25 00:25 Dose: Infused Heparin Sodium/Sodium Chloride (Heparin Drip) 25,000 unit in 500 mls @ 0 mls/hr IV CONT [facility]; Protocol Last Admin: 05/01/25 02:13 Dose: Not Given Lorazepam (Lorazepam 1 Mg/0.5 Ml Injection) 0.5 mg IVP ONCE ONE Stop: 04/30/25 13:39 Last Admin: 04/30/25 13:51 Dose: 0.5 mg Lorazepam (Lorazepam 1 Mg/0.5 Ml Injection) 0.5 mg IVP ONCE ONE Stop: 04/30/25 13:54 Last Admin: 04/30/25 13:58 Dose: 0.5 mg Lorazepam (Lorazepam 1 Mg/0.5 Ml Injection) 0.25 mg IVP ONCE ONE Stop: 04/30/25 17:30 Last Admin: 04/30/25 17:36 Dose: 0.25 mg Methylprednisolone Sodium Succinate (Methylprednisolone Sod Succ 125 Mg/2 Ml Inj) 125 mg IV ONCE ONE Stop: 04/30/25 13:18 Last Admin: 04/30/25 13:51 Dose: 125 mg Midazolam HCl (Midazolam 1 Mg/Ml Inj 2 Ml) 2 mg IVP ONCE ONE Stop: 04/30/25 23:19 Last Admin: 04/30/25 23:27 Dose: 2 mg Midazolam HCl (Midazolam 1 Mg/Ml Inj 2 Ml) Confirm Administered Dose 2 mg .ROUTE .STK-MED ONE Stop: 04/30/25 23:20 Morphine Sulfate (Morphine 4 Mg/Ml Sdv 1 Ml) 4 mg IVP ONCE ONE Stop: 04/30/25 13:54 Last Admin: 04/30/25 13:58 Dose: 4 mg Morphine Sulfate (Morphine 4 Mg/Ml Sdv 1 Ml) 2 mg IVP ONCE ONE Stop: 04/30/25 23:57 Last Admin: 05/01/25 00:24 Dose: 2 mg Morphine Sulfate (Morphine 4 Mg/Ml Sdv 1 Ml) Confirm Administered Dose 4 mg .ROUTE .STK-MED ONE Stop: 04/30/25 23:57 Ondansetron HCl (Ondansetron 2 Mg/Ml Sdv 2 Ml) 4 mg IVP ONCE ONE Stop: 04/30/25 13:54 Last Admin: 04/30/25 13:58 Dose: 4 mg Sodium Bicarbonate (Sodium Bicarbonate 8.4% 1 Meq/Ml 50ml Syr) 100 meq IVP ONCE ONE Stop: 04/30/25 14:09 Last Admin: 04/30/25 14:36 Dose: 100 meq Sodium Bicarbonate (Sodium Bicarbonate 1 Meq/Ml Sdv 50ml) Confirm Administered Dose 150 meq .ROUTE .STK-MED ONE Stop: 04/30/25 18:43 Sodium Bicarbonate (Sodium Bicarbonate 8.4% 1 Meq/Ml 50ml Syr) 50 meq IVP ONCE ONE Stop: 04/30/25 19:28 Last Admin: 04/30/25 20:19 Dose: 50 meq Sodium Bicarbonate (Sodium Bicarbonate 8.4% 1 Meq/Ml 50ml Syr) 50 meq IVP ONCE ONE Stop: 04/30/25 23:01 Last Admin: 04/30/25 23:09 Dose: 50 meq Allergies No Known Allergies Allergy (Verified 04/30/25 13:17) Home Medications amlodipine 5 mg tablet 5 mg PO QAM 04/30/25 [History Confirmed 04/30/25] hydrocodone 10 mg-acetaminophen 325 mg tablet 1 tab PO BID 04/30/25 [History Confirmed 04/30/25] hydroxyzine HCl 10 mg tablet 10 mg PO TID PRN Itching 04/30/25 [History Confirmed 04/30/25] pravastatin 80 mg tablet 80 mg PO DAILY 04/30/25 [History Confirmed 04/30/25] tamsulosin 0.4 mg capsule 0.4 mg PO DAILY 04/30/25 [History Confirmed 04/30/25] trazodone 100 mg tablet 100 mg PO BEDTIME 04/30/25 [History Confirmed 04/30/25] Discharge Plan Discharge Patient Disposition: Xfer Short-Term Hosp Condition: Stable Prescriptions: No Action amlodipine 5 mg tablet 5 mg PO QAM hydrocodone-acetaminophen 10-325 mg tablet 1 tab PO BID pravastatin 80 mg tablet 80 mg PO DAILY tamsulosin 0.4 mg capsule 0.4 mg PO DAILY trazodone 100 mg tablet 100 mg PO BEDTIME hydroxyzine HCl 10 mg tablet 10 mg PO TID PRN (Reason: Itching) Referrals: Jeremias Escudero FNP [Primary Care Provider, Family Practice] Transfer Attestations Time Spent in Transfer Care: greater than 30 min Quality Metrics Clinical Quality Measures [ No reported AMI, CVA or VTE this stay] Coding Level of Care Code Acute Code for Chg Fwd Diagnoses Acute renal failure N17.9
--- NOTE | 2025-05-01 12:54 | ECG_ITS ---
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 Measurements Intervals [facility] Rate: 93 P: 40 WY: 180 QRS: 19 QRSD: 100 T: 55 QT: 402 QTc: 501 Interpretive Statements SINUS RHYTHM POSSIBLE RIGHT VENTRICULAR CONDUCTION DELAY [RSR (QR) IN V1/V2] NONSPECIFIC ST & T-WAVE ABNORMALITY Compared to ECG 05/01/2025 00:52:21 T-wave abnormality now present ST (T wave) deviation no longer present Myocardial infarct finding no longer present Electronically Signed On 05-01-2025 21:55:16 CDT by Renato Craft M.D. [id number] [id number]
[2025-05-01] MEDS: heparin, porcine 1,000 unit/mL INJ 10 mL 1000 UNIT IV (13:00)
--- NOTE | 2025-05-01 13:14 | P.CONIM_ITS ---
<Statement entered by Felix Pitt M.D - 05/10/25 10:57> Patient was evaluated and cared for in conjunction with an advanced practice practitioner.? I personally examined the patient and reviewed the chart and all pertinent data including imaging, telemetry, and laboratory results.? I discussed the patient in detail with the advanced practice practitioner.? Please see? their note for complete H&P, testing results and agreed upon plan of care for the patient. GENERAL: Patient is alert, awake and oriented x3. HEART: Regular S1 and S2 LUNGS: Diminshed air entry bilaterally CENTRAL NERVOUS SYSTEM: Grossly nonfocal. EXTREMITIES: Lower extremities with 1+ edema. Providers/Reason For Consult 2 Consulting Physician/Specialty*: Dr. Pitt Reason for Consult*: EKG changes Requesting Physician: Dr. Patel Attending Physician: Lashonda Patel MD Primary Care Provider: Jeremias Escudero History of Present Illness History of Present Illness Brandon Parisi is a 69 year old male with a history of CKD, bladder mass, and hypertension came into the emergency room yesterday due to increased shortness of breath. He does not normally wear oxygen at home. At that time he denied any chest pain nausea or vomiting. He was found to be in severe metabolic acidosis from acute renal failure. Potassium was normal at that time and patient was placed on a bicarb drip. He was admitted to the ICU for possible emergent dialysis. Current oxygen saturation is 100% on nasal cannula. He is currently getting dialysis. Chest x-ray showed no acute findings with moderate cardiac enlargement. On admission his hemoglobin was 9 and hematocrit was 27.5. This morning it was shown at 7.3 and 21.1. Lactic acid was elevated at 4.1. Troponin was 40?39.33?45.70 with delta negative. EKG was obtained last night that showed possible ST elevation in inferior leads. EKG at baseline in the ER appears to be the same. Pro BNP was elevated at 7812. Review of Systems 2 Narrative: Patient reports shortness of breath on exertion relieved with rest denies edema denies chest pressure denies chest pain denies nausea or vomiting Reports generalized weakness Denies recent illness or fever chills or bodyaches Medications/Allergies Home Medications ?Medication ?Instructions ?Recorded ?Confirmed ?Last Taken ?Type amlodipine 5 mg tablet 5 mg PO QAM 04/30/25 5 Unknown History hydrocodone 10 mg-acetaminophen 1 tab PO BID 04/30/25 04/30/25 Unknown History 325 mg tablet hydroxyzine HCl 10 mg tablet 10 mg PO TID PRN Itching 04/30/25 04/30/25 Unknown History pravastatin 80 mg tablet 80 mg PO DAILY 04/30/2504/16 Unknown History tamsulosin 0.4 mg capsule 0.4 mg PO DAILY 04/30/25 Unknown History trazodone 100 mg tablet 100 mg PO BEDTIME 04/30/25 0 04/30/25 Unknown History Allergies Allergy/AdvReac Type Severity Reaction Status Date / Time No Known Allergies Allergy Verified 04/30/25 13:17 Current Medications Generic Name Dose Route Start Last Admin Trade Name Freq PRN Reason Stop Dose Admin Albuterol Sulfate 2.5 mg 04/30/25 20:00 05/01/25 08:35 Albuterol 2.5 Mg/0.5 Ml Neb INHALATION 2.5 mg Q6H.RESP INDIO Administration Heparin Sodium (Porcine) 5,000 unit 04/30/25 14:45 05/01/25 02:49 Heparin 5,000 Unit/Ml Inj 1 Ml SUBCUT 5,000 unit Q12H INDIO Administration Piperacillin Sod/Tazobactam 50 mls @ 12.5 mls/hr 04/30/25 16:00 05/01/25 03:54 Sod 3.375 gm/ Sodium Chloride IV 12.5 mls/hr Q12H INDIO Administration Norepinephrine Bitartrate 4 mg in 250 mls @ 0 mls/hr 04/30/25 16:30 04/30/25 22:57 Levophed IV 0 mcg/min .Q0M INDIO 0 mls/hr Protocol Titration Per Protocol Sodium Bicarbonate 150 meq/ 1,150 mls @ 100 mls/hr 04/30/25 18:30 05/01/25 06:25 Dextrose IV 100 mls/hr .[id number] INDIO Administration Dexmedetomidine/Sodium Chloride 400 mcg in 100 mls @ 0 mls/hr 04/30/25 19:30 04/30/25 23:21 Precedex IV 0 mcg/kg/hr .Q0M INDIO 0 mls/hr Protocol Titration Per Protocol Pantoprazole Sodium 40 mg 05/01/25 09:00 05/01/25 09:32 Pantoprazole 40 Mg Sdv IVP 40 mg DAILY INDIO Administration Vitals/I&O/Wt Last Vital Signs Temp 98.9 F 05/01/25 04:45 Pulse 108 H 05/01/25 10:30 Resp 18 05/01/25 10:30 BP 99/71 05/01/25 10:30 Pulse Ox 100 05/01/25 10:30 O2 Del Method BiPAP 05/01/25 08:00 O2 Flow Rate 111 05/01/25 05:04 FiO2 40 05/01/25 08:00 04/30/25 05/01/25 05/01/25 22:59 06:59 14:59 Intake Total 1139.026 / 2441.690 7107.667 / 2370.693 Output Total 2450 / 2450 150 / 2600 Balance -1310.974 / -6549.862 6695.667 / -229.307 Weight last 48 hrs Weight 179 lb 9.6 oz Weight 174 lb 3.2 oz Weight 179 lb 10.828 oz Weight 167 lb Physical Exam 2 Narrative: General: No apparent distress HENMT: normoceophalic Muskuloskeletal: Full ROM Respiratory: Normal respiratory effort, clear to auscultation bilaterally throughout all lung landon, no use of accessory muscles Cardio: No JVD, regular rate, regular rhythm, S1 S2 normal, no murmurs, peripheral pulses 2+ radial palpated bilaterally Extremities: Full ROM, normal, normal capillary refill, no cyanosis or edema Neuro: Alert and oriented x4, no focal motor deficits Psych: Affect normal, mental status grossly normal Skin: No rashes or lesions noted, no wounds Urinary Catheter Management: Steiner: Cath Placed During This Visit: yes Reason for Continuing Indwelling Catheter: Chronic Indwelling Urinary Catheter on Admission Urinary Catheter Date of Insertion: 04/30/25 Urinary Catheter Time of Insertion: 14:42 Data 05/01/25 04:09 05/01/25 04:09 Micro: Microbiology 04/30/25 14:50 Urine Culture - Preliminary Urine,Clean Catch Gram Negative Rods 04/30/25 16:15 Blood Culture - Preliminary Blood SPECIMEN COLLECTED 04/30/25 13:42 Blood Culture - Preliminary Blood SPECIMEN COLLECTED A&P Assessment and plan (1) Elevated troponin: (2) Elevated brain natriuretic peptide (BNP) level: (3) Hypertension: (4) ST segment elevation: Plan Patient has EKG changes including slight elevation in inferior leads without chest pain. His troponins are not trending up. He does have severe anemia, which is being corrected. EKG changes could be due to demand ischemia as well but will continue to rule out for acute coronary syndrome. We recommend obtaining an echo cardiogram. Further recommendations after this. At this point, continue to monitor for further EKG changes or s/s of ischemia. Thank you, Dr. Patel, for allowing us to care for this very pleasant 69 year old gentleman. PDMP PDMP Reviewed: Not Reviewed Consult Attestations 2 Medical Necessity Statement: Deferred to primary. Coding Level of Care Code Acute Code for Chg Fwd Diagnoses Elevated troponin R79.89 Elevated brain natriuretic peptide (BNP) level R79.89 Primary hypertension I10 Hypertension type: primary hypertension ST segment elevation R94.31
--- NOTE | 2025-05-01 13:21 | PC.HD ---
Addendum entered by Lavinia Bunn RN 05/01/25 13:39: After attempting to reposition patient several times with no improvement, attempted to reattach lines in normal configuration, also with no improvement in flow. Original Note: Upon accessing new L femoral HD catheter, this RN noted arterial port extremely difficult to draw from. Venous port was also noted to be somewhat sluggish, but less so. Dialysis lines were affixed in reverse configuration. Upon treatment initiation, machine AP pressures were at maximum allowable (240 mmHg) with blood pump speed of 250 mL/min (slowest speed permissible). Prescribed blood flow rate is 350 mL/min, which will not be attainable. As treatment progresses, machine AP pressures normally increase slightly, which may move pressures above allowable limits. Labor Employment Associate has been made aware.
[2025-05-01 13:26] LABS: Troponin(5th) Baseline 43 ng/L (0-15)
--- NOTE | 2025-05-01 15:02 | ECG_ITS ---
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 Measurements Intervals [place] Rate: 106 P: 37 WY: 173 QRS: 26 QRSD: 94 T: 59 QT: 371 QTc: 494 Interpretive Statements SINUS TACHYCARDIA POSSIBLE RIGHT VENTRICULAR CONDUCTION DELAY [RSR (QR) IN V1/V2] NONSPECIFIC ST & T-WAVE ABNORMALITY ABNORMAL RHYTHM ECG Compared to ECG 05/01/2025 12:54:58 Sinus rhythm no longer present T-wave abnormality still present Electronically Signed On 05-01-2025 22:03:49 CDT by Renato Craft M.D. [email or web address] [id number]
[2025-05-01 16:02] LABS: Anion Gap 29.6 (5-19); Calcium 6.9 mg/dL (8.5-10.5); Carbon Dioxide 19 mmol/L (22-29); Chloride 93 mmol/L (98-107); Creatinine Clr Calc Pharmacy 11.2606; Glomerular Filtration Rate 8.4 mL/min (90-130); Glucose 154 mg/dL (65-115); Osmolality Calculated 319 mOsm/kg (285-295); Sodium 139 mmol/L (136-145)
[2025-05-01 16:04] LABS: Troponin 5 2HR 41.98 ng/L (0-15)
[2025-05-01 16:23] LABS: Troponin 5 2HR Delta -1.02 ABS# (0-10)
[2025-05-01 16:31] LABS: Blood Urea Nitrogen 92 mg/dL (8-23); Potassium 2.6 mmol/L (3.5-5.1)
--- NOTE | 2025-05-01 17:36 | PC.NURSE ---
critical labs reported to Dr. Patel , Dr. Puri called and is to put in crrt orders
--- NOTE | 2025-05-01 17:40 | ECG_ITS ---
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 Measurements Intervals [place] Rate: 91 P: 48 [place]: 173 QRS: 14 QRSD: 98 T: 54 QT: 419 QTc: 517 Interpretive Statements SINUS RHYTHM POSSIBLE RIGHT VENTRICULAR CONDUCTION DELAY [RSR (QR) IN V1/V2] NONSPECIFIC ST & T-WAVE ABNORMALITY PROLONGED QT INTERVAL Compared to ECG 05/01/2025 15:02:29 Prolonged QT interval now present Sinus tachycardia no longer present T-wave abnormality still present Electronically Signed On 05-01-2025 22:01:38 CDT by Renato Craft M.D. [email or web address] [id number]
--- NOTE | 2025-05-01 18:01 | PC.NURSE ---
Dr. argueta gave t.o. to stop bicarb alejandro
[2025-05-01] MEDS: PrismaSol BGK 4/2.5 - 5,000 mL Bag 5000 ML CRRT ×3 (18:38→18:39)
[2025-05-01 18:47] LABS: Albumin Level 3.2 g/dL (3.5-5.2); Calcium 6.9 mg/dL (8.5-10.5); Carbon Dioxide 23 mmol/L (22-29); Chloride 92 mmol/L (98-107); Creatinine Clr Calc Pharmacy 11.2606; Glomerular Filtration Rate 8.4 mL/min (90-130); Glucose 146 mg/dL (65-115); Phosphorus 5.8 mg/dL (2.5-4.5); Sodium 139 mmol/L (136-145)
[2025-05-01 18:53] LABS: Blood Urea Nitrogen 95 mg/dL (8-23)
--- NOTE | 2025-05-01 19:29 | PC.NURSE ---
Nephrology notified of access issues, telephone order to decrease blood flow rate from 200 to 150 ml/min
[2025-05-01] MEDS: lidocaine 1% 5 ML in potassium chloride premix 100 ML 26.25 ML IV (20:38)
--- NOTE | 2025-05-01 21:31 | PC.NURSE ---
Verbal order to discontinue CRRT at [address] Puri, orders given for q4h BMP
[2025-05-02] VITALS (58 sets, daily range): BP systolic 85–131; BP diastolic 42–99; PULSE 50–89; RESP 8–17; TEMP 36.3–36.7; O2SAT 85–100
[2025-05-02 00:04] LABS: Carbon Dioxide 23 mmol/L (22-29); Sodium 139 mmol/L (136-145)
[2025-05-02 00:41] LABS: Anion Gap 23.5 (5-19); Calcium 6.6 mg/dL (8.5-10.5); Carbon Dioxide 22 mmol/L (22-29); Chloride 98 mmol/L (98-107); Creatinine Clr Calc Pharmacy 11.9871; Glucose 128 mg/dL (65-115); Osmolality Calculated 320 mOsm/kg (285-295); Potassium 3.5 mmol/L (3.5-5.1); Sodium 140 mmol/L (136-145)
[2025-05-02 00:49] LABS: Blood Urea Nitrogen 92 mg/dL (8-23)
[2025-05-02] MEDS: norepinephrine 4 MG/250 ML BAG 7.5 MG IV (01:10)
[2025-05-02 01:26] LABS: Anion Gap 22.4 (5-19); Chloride 97 mmol/L (98-107); Potassium 3.4 mmol/L (3.5-5.1)
[2025-05-02 01:27] LABS: Calcium 6.9 mg/dL (8.5-10.5); Glucose 129 mg/dL (65-115)
[2025-05-02 01:28] LABS: Albumin Level 3.1 g/dL (3.5-5.2)
[2025-05-02 01:29] LABS: Blood Urea Nitrogen 91 mg/dL (8-23)
[2025-05-02 01:30] LABS: Creatinine Clr Calc Pharmacy 11.9871
[2025-05-02] MEDS: albuterol 2.5 MG/0.5 ML NEB INHALATION ×2 (02:15→08:08)
[2025-05-02] MEDS: heparin 5,000 unit/mL INJ 1 mL 5000 UNIT SUBCUT (03:49)
[2025-05-02] MEDS: piperacillin-tazobactam 3.375 GM in sodium chloride 0.9% (plus) 50 ML IV (03:50)
[2025-05-02 04:01] LABS: Basophils % 0.1 %; Lymphocytes # 0.6 10^3/uL (0.8-4.8); Lymphocytes % 2.4 %; Mean Corpuscular HGB Conc 34.2 g/dL (30-55); Mean Corpuscular Hemoglobin 32.4 pg (27-33); Mean Corpuscular Volume 94.7 fl (82-101); Mean Platelet Volume 11.4 fL (7.4-10.4); Monocytes # 1.6 10^3/uL (0.2-0.9); Monocytes % 6.9 %; Neutrophils # 21.33 10^3/uL (1.8-7.7); Neutrophils % 89.6 %; Nucleated Red Blood Cells # 0.1 /100WBC; Nucleated Red Blood Cells % 0.2 %; Platelet Count 220 10^3/cmm (157-399); Red Blood Count 2.07 10^6/uL (3.85-5.65); Red Cell Distribution Width 13.4 % (12.1-15.1)
[2025-05-02 04:05] LABS: Hematocrit 19.6 % (37-53)
[2025-05-02 04:24] LABS: Anion Gap 23.7 (5-19); Calcium 7.1 mg/dL (8.5-10.5); Carbon Dioxide 23 mmol/L (22-29); Chloride 99 mmol/L (98-107); Creatinine Clr Calc Pharmacy 11.0925; Glomerular Filtration Rate 8.3 mL/min (90-130); Glucose 127 mg/dL (65-115); Osmolality Calculated 325 mOsm/kg (285-295); Potassium 3.7 mmol/L (3.5-5.1); Sodium 142 mmol/L (136-145)
[2025-05-02 04:46] LABS: Blood Urea Nitrogen 95 mg/dL (8-23)
[2025-05-02 07:42] LABS: Anion Gap 22.2 (5-19); Calcium 6.8 mg/dL (8.5-10.5); Carbon Dioxide 21 mmol/L (22-29); Chloride 99 mmol/L (98-107); Creatinine Clr Calc Pharmacy 11.8076; Glomerular Filtration Rate 8.9 mL/min (90-130); Glucose 119 mg/dL (65-115); Osmolality Calculated 317 mOsm/kg (285-295); Potassium 3.2 mmol/L (3.5-5.1); Sodium 139 mmol/L (136-145)
--- NOTE | 2025-05-02 07:53 | PC.NURSE ---
Dr. Terrell called, plan to get a new dialysis line then attempt HD dialysis
--- NOTE | 2025-05-02 07:54 | PM.PN ---
Subjective Subjective: remains on BIPAP. weak, lethargic. not able to give a ROS Medications: Reviewed: Yes Medication Review Details: Current Medications Albuterol Sulfate (Albuterol 2.5 Mg/0.5 Ml Neb) 2.5 mg INHALATION Q6H.RESP INDIO Last Admin: 05/02/25 02:15 Dose: 2.5 mg Alteplase, Recombinant (Alteplase 1 Mg/Ml Sdv 2 Ml) 0 mg INTRACATH Q2H PRN; Protocol PRN Reason: Poor Catheter Flow/ Clotted Catheter CRRT Dialysis Solution (Prismasol Bgk 4/2.5 - 5,000 Ml Bag) 5,000 ml CRRT CONT INDIO; Protocol Last Admin: 05/01/25 18:38 Dose: 5,000 ml CRRT Dialysis Solution (Prismasol Bgk 4/2.5 - 5,000 Ml Bag) 5,000 ml CRRT CONT INDIO; Protocol Last Admin: 05/01/25 18:39 Dose: 5,000 ml CRRT Dialysis Solution (Prismasol Bgk 4/2.5 - 5,000 Ml Bag) 5,000 ml CRRT CONT INDIO; Protocol Last Admin: 05/01/25 18:39 Dose: 5,000 ml Heparin Sodium (Porcine) (Heparin 5,000 Unit/Ml Inj 1 Ml) 5,000 unit SUBCUT Q12H INDIO Last Admin: 05/02/25 03:49 Dose: 5,000 unit Heparin Sodium (Porcine) (Heparin Lock Flush 500 Unit/5 Ml Syringe) 500 unit IV PRN PRN PRN Reason: At CRRT disconnect Piperacillin Sod/Tazobactam (Sod 3.375 gm/ Sodium Chloride) 50 mls @ 12.5 mls/hr IV Q12H [facility] Last Admin: 05/02/25 03:50 Dose: 12.5 mls/hr Norepinephrine Bitartrate (Levophed) 4 mg in 250 mls @ 0 mls/hr IV .Q0M [facility]; Protocol Last Titration: 05/02/25 06:10 Dose: 0 mcg/min, 0 mls/hr Dexmedetomidine/Sodium Chloride (Precedex) 400 mcg in 100 mls @ 0 mls/hr IV .Q0M INDIO; Protocol Last Titration: 04/30/25 23:21 Dose: 0 mcg/kg/hr, 0 mls/hr Sodium Chloride (Sodium Chloride 0.9%) 1,000 mls @ 0 mls/hr IV .Q0M PRN PRN Reason: hypotension or symptomatic Albumin Human (Albumin) 12.5 gm in 50 mls @ 60 mls/hr IV PRN PRN PRN Reason: Hypotension and/or symptomatic Ondansetron HCl (Ondansetron 2 Mg/Ml Sdv 2 Ml) 4 mg IVP Q6H PRN PRN Reason: NAUSEA AND VOMITING Pantoprazole Sodium (Pantoprazole 40 Mg Sdv) 40 mg IVP DAILY INDIO Last Admin: 05/01/25 09:32 Dose: 40 mg Sodium Chloride (Sodium Chloride 0.9% 1,000 Ml Bag) 1,000 - 7,000 ml CRRT PRN PRN PRN Reason: For priming CRRT Machine Sodium Chloride (Sodium Chloride 0.9% 100 Ml Bag) 50 ml IV PRN PRN PRN Reason: Blood transfusion prime and flush Stop: 05/03/25 05:02 Vitals/I&O/Wt Last Vital Signs Temp 97.6 F 05/02/25 06:20 Pulse 77 05/02/25 06:20 Resp 16 05/02/25 06:20 BP 114/63 05/02/25 06:20 Pulse Ox 100 05/02/25 06:20 O2 Del Method Nasal Cannula 05/02/25 02:16 O2 Flow Rate 2 05/02/25 02:16 FiO2 40 05/01/25 08:00 05/01/25 05/02/25 05/02/25 22:59 06:59 14:59 Intake Total 1750 / 2020 142.5 / 2162.5 Output Total 650 / 650 250 / 900 Balance 1100 / 1370 -107.5 / 1262.5 Weight last 48 hrs Weight 83.37 kg Weight 83.2 kg Weight 81.465 kg Weight 79.016 kg Weight 81.5 kg Weight 75.75 kg Physical Exam Narrative: Patient seen and examined. Vital signs noted. The patient is BiPAP dependent. HEENT normocephalic atraumatic. Neck obese supple difficult to care asst JVP. Lungs crackles bilaterally. Heart regular positive systolic murmur. Abdomen is soft positive bowel sounds. Extremities bilateral edema. Patient has femoral catheters for dialysis. Neuro responds to pain. Urinary Catheter Management: Steiner: Cath Placed During This Visit: yes Reason for Continuing Indwelling Catheter: Accurate Measurement of Urinary Output in Critically Ill Patients Urinary Catheter Date of Insertion: 04/30/25 Urinary Catheter Time of Insertion: 14:42 Data 05/02/25 03:11 05/02/25 07:07 Micro: Microbiology 04/30/25 13:42 Blood Culture - Preliminary Blood Staphylococcus species 04/30/25 16:15 Blood Culture - Preliminary Blood NEGATIVE TO DATE 04/30/25 14:50 Urine Culture - Preliminary Urine,Clean Catch Gram Negative Rods A&P Assessment and plan (1) Acute renal failure: 69 year old male With past medical history of hypertension CKD stage IV, chronic urinary retention with chronic indwelling Steiner catheter, bilateral hydronephrosis, BPH presented to the hospital today with complaint of shortness of breath. The patient has followed with 3 urologist in the past and follows with nephrology Aria Perez at [place] [facility]. Patient was treated with aggressive antibiotics, pressors, BiPAP and started on dialysis. Unfortunately his dialysis catheters did not work. The patient was not able to tolerate intermittent hemodialysis for CRRT without clotting. The patient currently has a normal potassium and latest ABG was alkalotic. Will repeat ABG. Potassium is on the low side would correct very gently. The patient is mildly hypoxic. Will give furosemide to see if it helps however the patient would benefit from bilateral percutaneous nephrostomies and even with that as his hydronephrosis has been chronic may need further renal replacement therapy. I agree with transfer. If patient is not able to be transferred soon and if patient becomes more short of breath then please put in an IJ dialysis catheter to allow for fluid removal. Case discussed in detail with hospitalist and with patient's nurse and dialysis nurse. We will follow the patient closely along with you. Plan see above PDMP PDMP Reviewed: Not Reviewed Attestations Medical Necessity Statement*: raven, uti, hydronephrosis Time Spent in Patient Care: Greater than 35 minutes (>than 50% of time spent in counselling and/or direct pt care on unit). Coding Level of Care Code Acute Code for Chg Fwd Diagnoses Acute renal failure with other specified pathological lesion in kidney N17.8
[2025-05-02 07:57] LABS: Blood Urea Nitrogen 92 mg/dL (8-23)
[2025-05-02] MEDS: pantoprazole 40 mg SDV IVP (08:08)
[2025-05-02] MEDS: FUROsemide 10 mg/mL SDV 10mL 60 MG IVP (08:21)
[2025-05-02] MEDS: potassium chloride ER 20 mEq Tablet PO (08:21)
[2025-05-02 08:26] LABS: Magnesium 2.1 mg/dL (1.7-2.3)
[2025-05-02 09:54] LABS: ABG PH Result 7.46 (7.35-7.45); Alveolar-Arterial Oxygen Gradi 13.4 mmHg (5-10); Arterial Blood Gas Hematocrit 28.9 % (42-52); Blood Gas Allen Test Pos; Blood Gas Operator Identificat GD; Blood Gas Sample Site Radial, left; Blood Gas Sample Type Arterial; Carboxyhemoglobin < 0.3 %THgb (0.4-20.1); HCO3 ABG 23.5 mmol/L (22-26); HGB O2 Sat 94.4 % (95-100); Ionized Calcium Level - ABG 0.9 mmol/L (1.1-1.4); Methemoglobin 1.2 % (0.4-1.5); Oxygen Device NC; Oxygen Saturation ABG 95.6; PO2 ABG 81.7 mmHg (80.0-100.0); PO2 FiO2 Ratio Arterial Blood 255; Potassium Level - ABG 3.2 mmol/L (3.5-5.0); Total Hemoglobin 9.4 g/dL (14-18)
[2025-05-02 10:06] LABS: Hematocrit 22.8 % (37-53)
--- NOTE | 2025-05-02 12:33 | USCV_ITS ---
Brandon Parisi Age: 69 Gender: M : 1955 Exam Date: 05/02/2025 12:45 Ordering Phys: Lashonda Patel MD Technologist: DANN [place] [facility] [place]ication: ekg changes, SOB on BIPAP in ICU-10, hx CKD IV on dialysis BP: 118 / 55 HR: 82 Rhythm: Sinus Technical Quality: Adequate MEASUREMENTS (Male / Female) Normal Values 2D ECHO LV Diastolic Diameter PLAX 3.9 cm 4.2 - 5.9 / 3.9 - 5.3 cm IVS Diastolic Thickness 1.2 cm 0.6 - 1.0 / 0.6 - 0.9 cm IVS Systolic Thickness 1.7 cm LVPW Diastolic Thickness 1.2 cm 0.6 - 1.0 / 0.6 - 0.9 cm LVPW Systolic Thickness 1.6 cm LVOT Diameter 1.7 cm LV Ejection Fraction 2D Teich 56.3 % LV Ejection Fraction MOD 4C 58.6 % LV Ejection Fraction MOD 2C 58.8 % LV Ejection Fraction 2C AL 59.4 % LA Diameter 3.4 cm Aorta at Sinotubular Diameter 3.1 cm IVC Diameter 1.1 cm M-MODE LA Ao Ratio MM 1.0 AV Cusp Separation MM 1.8 cm DOPPLER AV Peak Velocity 137.0 cm/s LVOT Peak Velocity 95.0 cm/s AV Area Cont Eq vti 2.2 cm squared AV Area Cont Eq pk 1.6 cm squared MV Peak Velocity 96.0 cm/s MV Area PHT 3.2 cm squared Mitral E to A Ratio 0.9 TV Peak Velocity 254.0 cm/s TR Peak Velocity 262.0 cm/s TR Peak Gradient 27.5 mmHg TV Peak E Velocity 73.0 cm/s PV Peak Velocity 102.0 cm/s FINDINGS Left Ventricle Left ventricle is normal in size. LV systolic function is normal with EF of 55-60%. No regional wall motion abnormalities are seen. Grade 1 diastolic dysfunction Right Ventricle Normal in size and function Right Atrium Normal in size Left Atrium Normal in size Mitral Valve Structurally normal mitral valve. Mild mitral regurgitation Aortic Valve Aortic valve is thickened. No significant stenosis or regurgitation Tricuspid Valve Mild tricuspid regurgitation. Pulmonary artery systolic pressure is normal Pulmonic Valve Not well visualized Pericardium Grossly normal Aorta Normal in size IVC Normal in size CONCLUSIONS LV systolic function is normal with EF of 55-60%. Grade 1 diastolic dysfunction. Mild mitral regurgitation. Mild tricuspid regurgitation. Felix Pitt MD (Electronically Signed) Final Date: 03 May 2025 08:35 S
--- NOTE | 2025-05-02 12:36 | PC.NURSE ---
[facility] critical care team left with patient heading to [facility] room 6169, daughter at bedside
[2025-05-02 12:39] LABS: Albumin Level 3.1 g/dL (3.5-5.2); Anion Gap 21.5 (5-19); Calcium 6.8 mg/dL (8.5-10.5); Carbon Dioxide 21 mmol/L (22-29); Chloride 98 mmol/L (98-107); Creatinine Clr Calc Pharmacy 11.8076; Glomerular Filtration Rate 8.9 mL/min (90-130); Glucose 130 mg/dL (65-115); Magnesium 2.2 mg/dL (1.7-2.3); Phosphorus 5.5 mg/dL (2.5-4.5); Potassium 3.5 mmol/L (3.5-5.1); Sodium 137 mmol/L (136-145)
[2025-05-02 12:42] LABS: Blood Urea Nitrogen 94 mg/dL (8-23)
== END 2025-05-02 12:38 | disposition short-term general hospital (02) | DRG 872 ==
LOC: ER 13:20 → ICU 14:48
PROVIDERS: Hospitalist; Internal Medicine; Internal Medicine Nephrology; Admitting Provider Internal Medicine; Emergency Provider Emergency Medicine; PCP Nurse Practitioner Family; Visit Provider Internal Medicine
DX: A41.9 Sepsis, unspecified organism (principal); N17.9 Acute kidney failure, unspecified; N18.4 Chronic kidney disease, stage 4 (severe); E87.20 Acidosis, unspecified; N13.6 Pyonephrosis; I47.10 Supraventricular tachycardia, unspecified; I12.9 Hypertensive chronic kidney disease with stage 1 through stage 4 chronic kidney disease, or unspecified chronic kidney disease; N40.1 Benign prostatic hyperplasia with lower urinary tract symptoms; R33.8 Other retention of urine; Z96.0 Presence of urogenital implants; R79.89 Other specified abnormal findings of blood chemistry; D63.1 Anemia in chronic kidney disease; N32.9 Bladder disorder, unspecified; B96.89 Other specified bacterial agents as the cause of diseases classified elsewhere; R94.31 Abnormal electrocardiogram [ECG] [EKG]; R00.1 Bradycardia, unspecified; Z66 Do not resuscitate
CPT/HCPCS: 36415; 36416; 36430; 36592; 36600; 51702; 51798; 71045; 74176; 80048; 80051; 80053; 80069; 81001; 82009; 82330; 82803; 82805; 82962; 83605; 83735; 83880; 84100; 84484; 85014; 85018; 85025; 85610; 86706; 86803; 86850; 86900; 86920; 87040; 87077; 87086; 87150; 87186; 87205; 87340; 90935; 93005; 93306; 94640; 94660; 94664; 96365; 96366; 96372; 96374; 96375; 96376; 99291; J1644; J1938; J2060; J2250; J2270; J2405; J2470; J2543; J2919; J3480; J7030; J7070; J7611; J9999; P9016

== ENCOUNTER 2025-06-05 12:47 | Inpatient (IN) | payer MEDICARE, SELFPAY ==
--- OUTSIDE RECORDS SUMMARY | 2025-06-01 08:55 | XMS_ITS | Encounter Summary ---
[facility] Organization [facility] Address [address] [place] [address] Care Team Providers Care Focused Factory Manager Name Role Phone Eladio Fields MD Primary Care Provider [phone] Reason for Visit * Outpatient Services (Routine) - Open Specialty Diagnoses / Procedures Referred By Shon rose Referred To Contact Multi Specialty Diagnoses ESRD on hemodialysis ([facility]) Yanez catheter in place Procedures INFUSION THERAPY Lynn Malagon FNP [address] [address] Phone: tel: fax: [facility] [place] [address] [address] Phone: tel: fax: Referral ID Status Reason Start Date Expiration Date Visits Requested Visits Authorized [id number] Open Performing Department to Schedule 05/23/2025 06/23/2026 12 1 Encounter Details Date Type Department Care Team (Latest Contact Info) Description 06/01/2025 8:55 AM CDT - 06/01/2025 11:59 PM CDT Hospital Encounter [facility] [place] [address] [address] Lynn Malagon FNP [address] [address] Discharge Disposition: Home or Self Care Social History Tobacco Use Types Packs/Day Years Used Date Smoking Tobacco: Every Day Cigarettes Smokeless Tobacco: Never Alcohol Use Standard Drinks/Week Comments No 0 (1 standard drink = 0.6 oz pur e alcohol) Sex and Gender Information Value Date Recorded Sex Assigned at Not on file 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 * Yanez Catheter: Self Removal: General Info (Turkish) documented in this encounter Medications at Time of Discharge diazePAM (VALIUM) 5 mg tabletIndications: Situational anxiety,ESRD on hemodialysis ([facility]) Take 1 Tablet (5 mg) by mouth 1 time daily as needed for Anxiety. Take 1 hour prior to dialysis for situational anxiety 15 Tablet 05/11/2025 ferrous sulfate 325 mg (65 mg iron) tablet Take 1 Tablet (325 mg) by mouth every other day. 30 Tablet 05/09/2025 hydrOXYzine HCL (ATARAX) 10 mg tabletIndications: CKD (chronic kidney disease) stage 4, GFR 15-29 ml/min ([facility]) Take 3 Tablets (30 mg) by mouth 3 times daily as needed for Itching. 30 Tablet 05/09/2025 pravastatin (PRAVACHOL) 80 mg tabletIndications: Dyslipidemia Take 1 Tablet (80 mg) by mouth daily. 30 Tablet 05/09/2025 tamsulosin (FLOMAX) 0.4 mg capsuleIndications :Benign prostatic hyperplasia with nocturia Take 1 Capsule (0.4 mg) by mouth daily at bedtime. 30 Capsule 05/09/2025 traZODone (DESYREL) 100 mg tabletIndications: Chronic pain syndrome Take 1 Tablet (100 mg) by mouth daily at bedtime. 30 Tablet 05/09/2025 HYDROcodone-acetam inophen (NORCO) 10-325 mg TabletIndications: Cervical disc herniation,Hidrade nitis suppurativa,Osteoa rthritis of spine with radiculopathy, cervical region Take 1 Tablet by mouth 2 times daily as needed for Pain, Moderate. Max Daily Amount: 2 Tablets 60 Tablet 05/09/2025 ascorbic acid, vitamin C, (VITAMIN C) 500 mg tablet Take 500 mg by mouth daily. medical marijuana, for documentation purposes, Take by inhalation. triamcinolone acetonide (KENALOG) 0.025 % Cream Apply to affected area 2 times daily. 80 Gram 2 02/27/2023 tadalafiL (CIALIS) 5 mg tabletIndications: Erectile dysfunction, unspecified erectile dysfunction type Take 1 Tablet (5 mg) by mouth 1 time daily as needed for Erectile Dysfunction. 30 Tablet 2 10/08/2021 cefdinir (OMNICEF) 300 mg capsuleIndications :Urinary tract infection without hematuria, site unspecified Take 1 Capsule (300 mg) by mouth every 12 hours for 10 days. 20 Capsule 05/25/2025 documented as of this encounter Progress Notes * Jeanette Reyes RN - 06/01/2025 9:00 AM CDT Patient arrived to outpatient services for monthly catheter change. Vital signs obtained and stable. RN removed 20 fr 10 ml yanez catheter with ease. RN placed 20fr 10 ml catheter x 1 attempt with success using sterile technique and per protocol. Patient tolerated catheter placement well. Balloon inflated 10 ml. RN attached catheter leg bag. Patient signed AVS and discharged out of facility in stable condition. documented in this encounter Plan of Treatment Upcoming Encounters Date Type Department Care Team (Late st Contact Info) Description 06/06/2025 10:40 AM CDT Office Visit [facility] [address] [phone] Anel Sewell FNP [address] [phone] 08/29/2025 2:00 PM CDT Office Visit [facility] [address] [place] [phone] Eladio Fields MD [address] [phone] documented as of this encounter Visit Diagnoses Not on filedocumented in this encounter Care Teams Focused Factory Manager Relationship Specialty Start Date End Date Eladio Fields MD [address] [address] PCP - General Family Practice 04/19/18 documented as of this encounter
[2025-06-05] VITALS (18 sets, daily range): BP systolic 80–114; BP diastolic 54–79; PULSE 78–124; RESP 6–20; TEMP 36.3–37; O2SAT 87–97; BMI 26.1
--- NOTE | 2025-06-05 12:50 | ECG_ITS ---
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 Measurements Intervals [place] Rate: 121 P: 62 ND: 161 QRS: 52 QRSD: 99 T: 34 QT: 341 QTc: 486 Interpretive Statements SINUS TACHYCARDIA LOW QRS VOLTAGE IN PRECORDIAL LEADS [QRS DEFLECTION < 1.0 mV IN CHEST LEADS] INCOMPLETE RIGHT BUNDLE BRANCH BLOCK [90+ ms QRS DURATION, TERMINAL R IN V1/V2, 40+ ms S IN I/aVL/V4/V5/V6] ST DEVIATION AND MODERATE T-WAVE ABNORMALITY, CONSIDER ANTERIOR ISCHEMIA [-0.1+ mV T-WAVE IN V3/V4] Compared to ECG 05/01/2025 17:40:57 Low QRS voltage now present Incomplete right bundle-branch block now present Possible ischemia now present. Sinus rhythm no longer present Prolonged QT interval no longer present. T-wave abnormality still present Electronically Signed On 06-05-2025 16:58:02 CDT by Renato Craft M.D. [email or web address]
--- NOTE | 2025-06-05 12:50 | CT_ITS ---
WS: [id number] CT HEAD NONCONTRAST HISTORY: AMS TECHNIQUE: Contiguous axial imaging performed through the brain. Bone and soft tissue windows. Sagittal and coronal reformats reviewed. All CT scans at [facility] use at least one of these dose optimization techniques: automated exposure control; mA and/or kV adjustment per patient size (includes targeted exams where dose is matched to clinical indication); or iterative reconstruction. DLP: 2022.48 mGy.cm COMPARISON: None available. No acute intracranial hemorrhage, midline shift or mass effect. Mild atrophy and small vessel disease. Small lacunar infarct LEFT basal ganglia. Mild cerebral atrophy. Ventricles: Ventricles are mildly dilated on the basis of atrophy. Paranasal sinuses: Mucous retention cyst in the floor of the RIGHT maxillary sinus. Mastoid air cells: Well pneumatized. Calvarium and scalp: Skull is intact with no soft tissue edema or swelling. CT/CT head wo con* [id number] IMPRESSION: 1. No acute intracranial hemorrhage or edema. 2. Mild cerebral and cerebellar atrophy and small vessel disease.
--- OUTSIDE RECORDS SUMMARY | 2025-06-05 12:54 | XMS_ITS | Encounter Summary ---
Author Organization [facility] Address [address] [place] [address] Care Team Providers Care Brood Hatchery Manager Name Role Phone Eladio Fields MD Primary Care Provider [phone] Reason for Visit * Reason Comments Hospital Follow Up Encounter Details Date Type Department Care Team (Late st Contact Info) Description 05/22/2025 Telephone [facility] Family Medicine [address] [address] Eladio Fields MD [facility] [address] [phone] Hospital Follow Up Social History Tobacco Use Types Packs/Day Years Used Date Smoking Tobacco: Every Day Cigarettes Smokeless Tobacco: Never Alcohol Use Standard Drinks/Week Comments No 0 (1 standard drink = 0.6 oz pur e alcohol) Sex and Gender Information Value Date Recorded Sex Assigned at Not on file 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 Topic: Established Patient Care >> May 22, 2025 4:46 PM Sujatha Nelson wrote: Is the patient established with a [facility] provider? Yes, select appropriate option in Discharge Facility SmartList Caller Name: Shaina-daughter on phi Callback Number: [phone] Call Notes: [facility] discharge 05/09/25 Patient is High Risk Where was the patient discharged from? Hospital Is there availability to schedule the patient within 5 calendar days of discharge? No, in person appointment not available or call came after 5 days of discharge documented in this encounter Plan of Treatment Upcoming Encounters Date Type Department Care Team (Late st Contact Info) Description 06/06/2025 10:40 AM CDT Office Visit [facility] [address] [place] [phone] Anel Sewell FNP [address] [phone] 08/29/2025 2:00 PM CDT Office Visit [facility] [address] [place] [phone] Eladio Fields MD [address] [place] [phone] documented as of this encounter Visit Diagnoses Not on filedocumented in this encounter Additional Health Concerns Assessment Noted Time PHQ-9 Depression Total Score: 1 05/02/20 25 2:00 PM CDT documented as of this encounter Care Teams Brood Hatchery Manager Relationship Specialty Start Date End Date Eladio Fields MD [address] [place] [phone] PCP - General Family Practice 04/19/18 documented as of this encounter
--- OUTSIDE RECORDS SUMMARY | 2025-06-05 12:54 | XMS_ITS | Encounter Summary ---
Author Organization [facility] Address [address] [place] [address] Phone Care Team Providers Care Body Care Manager Name Role Phone Eladio Fields MD Primary Care Provider [phone] Encounter Details Date Type Department Care Team (Late st Contact Info) Description 05/31/2025 Orders Only [facility] [address] [place] [address] Katiuska Vega MD [address] [place] [address] Social History Tobacco Use Types Packs/Day Years Used Date Smoking Tobacco: Every Day Cigarettes Smokeless Tobacco: Never Alcohol Use Standard Drinks/Week Comments Never 0 (1 standard drink = 0.6 oz pur e alcohol) Sex and Gender Information Value Date Recorded Sex Assigned at Not on file Legal Sex Male 10:01 AM EDT Gender Identity Not on file Sexual Orientation Not on file documented as of this encounter Plan of Treatment Not on file documented as of this encounter Procedures Procedure Name Priority Date/Time Associated Diagnosis Comments HD KINETICS Routine 05/31/2025 POST CHEMISTRY Routine 05/31/2025 HEMATOLOGY Routine 05/31/2025 CHEMISTRY Routine 05/31/2025 [facility] RESULTS Routine 05/31/2025 documented in this encounter Results * [facility] Results (05/31/2025) nPCR_HD 0.63 [facility] spKt/V (Daugirdas II) 1.81 [facility] eKdrt/V 1.60 [facility] eKt/V Gotch 1.60 [facility] [place] eNPCR 0.60 [facility] PCR 37.91 [facility] eKt/V ([place]) 1.58 [facility] spKt/V Gotch 1.85 [facility] WSTDKT/V 2.6 [facility] 05/31/2025 05/31/2025 [facility] Ordering Provider LAB BLOOD ORDERABLES Final Result [facility] Contact Performing lab Unknown, [place] * HD KINETICS (05/31/2025) Pathologist [facility] % Urea Reduction 79 65 - 80 % [facility] 05/31/2025 06/01/2025 9:0 5 AM CDT Narrative [facility] - 06/01/2025 Unless otherwise specified, test(s) performed at: [facility], [address] [place], [place] [id number] PLUMBING HARDWARE ASSEMBLER: Lauri Servin M.D. For any questions, please call customer service at FREQUENCY:OTHER Resulting Agency Comment Specimen source: Plasma Katiuska Vega MD LAB BLOOD ORDERABLES Final Re sult [facility] See order comments or contact performing lab Unknown, [place] * (ABNORMAL) [facility] Chemistry (05/31/2025) Pathologist [facility] BUN 29(H) 6 - 19 mg/dL [facility] 05/31/2025 06/01/2025 9:2 4 AM CDT Narrative [facility] - 06/01/2025 Unless otherwise specified, test(s) performed at: [facility], [address] [place] [id number] PLUMBING HARDWARE ASSEMBLER: Lauri Servin M.D. For any questions, please call customer service at FREQUENCY:OTHER Resulting Agency Comment Specimen source: Serum us Katiuska Vega MD LAB BLOOD ORDERABLES Final Re sult Performing Organization Address [facility] de Phone Number [facility] See order comments or contact performing lab Unknown, [place] * POST CHEMISTRY (05/31/2025) BUN Post Dialysis 6 6 - 19 mg/dL [facility] 05/31/2025 06/01/2025 9:0 5 AM CDT Narrative [facility] - 06/01/2025 Unless otherwise specified, test(s) performed at: [facility], [address] [place], [place] [id number] PLUMBING HARDWARE ASSEMBLER: Lauri Servin M.D. For any questions, please call customer service at FREQUENCY:OTHER Resulting Agency Comment Specimen source: Plasma us Katiuska Vega MD LAB BLOOD ORDERABLES Final Re sult Performing Organization Address [facility] de Phone Number [facility] See order comments or contact performing lab Unknown, [place] * (ABNORMAL) HEMATOLOGY (05/31/2025) Hemoglobin 9.0(L) 14.0 - 18.0 g/dL [facility] Hemoglobin x 3 27(L) 42.0 - 54.0 % [facility] 05/31/2025 06/01/2025 8:5 5 AM CDT Narrative [facility] - 06/01/2025 Unless otherwise specified, test(s) performed at: [facility], [address] [place] [address] PLUMBING HARDWARE ASSEMBLER: Lauri Servin M.D. For any questions, please call customer service at FREQUENCY:OTHER Resulting Agency Comment Specimen source: Blood Result Warren Vega MD LAB BLOOD ORDERABLES Final Re sult Performing Organization Address [facility] de Phone Number [facility] See order comments or contact performing lab Unknown, [place] documented in this encounter Visit Diagnoses Not on filedocumented in this encounter Care Teams Body Care Manager Relationship Specialty Start Date End Date Eladio Fields MD [address] [phone] PCP - General Family Medicine 07/01/23 documented as of this encounter
--- OUTSIDE RECORDS SUMMARY | 2025-06-05 12:54 | XMS_ITS | Clinical Summary ---
Author Organization [facility] Address [address] [place] [address] [address] [place] [address] Care Team Providers Care Animal Nursery Worker Name Role Phone Eladio Fields MD Primary Care Provider [phone] Allergies Active Allergy Reactions Criticality Noted Date Comments Codeine Nausea and Vomiting Low 08/07/2009 Medications guaiFENesin (MUCINEX) 600 mg Extended Release Biphasic tabletIndication s:Acute bronchitis, unspecified organism Take 1 Tablet (600 mg) by mouth 2 times daily. 9 Active tadalafiL (CIALIS) 5 mg tabletIndication s:Erectile dysfunction, unspecified erectile dysfunction type TAKE 1 TABLET BY MOUTH ONCE DAILY NEEDED FOR ERECTILE DYSFUNCTION 30 Tablet 2 1 Active pravastatin (PRAVACHOL) 80 mg tabletIndication s:Dyslipidemia Take 1 Tablet (80 mg) by mouth daily. 90 Tablet 4 1 Active lisinopriL (PRINIVIL) 10 mg tabletIndication s:Essential hypertension Take 1 Tablet (10 mg) by mouth daily. 90 Tablet 4 1 Active hydroCHLOROthiaz kelley 25 mg tabletIndication s:Essential hypertension Take 1 Tablet (25 mg) by mouth daily. 90 Tablet 4 1 Active HYDROcodone-acet aminophen (NORCO) 10-325 mg TabletIndication s:Osteoarthritis of spine with radiculopathy, cervical region,Cervical disc herniation,Chron ic pain syndrome Take 1 Tablet by mouth 1 time daily as needed for Pain, Moderate. 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 opiate use 12/20/2018 Tobacco use 03/21/2016 Androgen deficiency 05/09/2013 Dyslipidemia 05/09/2013 Osteoarthritis of spine with radiculopathy, cerv ical region 08/05/2012 Cervical disc herniation 08/05/2012 Essential hypertension 05/04/2012 Resolved Problems Problem Noted Date Diagnosed Date Resolved Date Prostate cancer screening 05/09/2013 Overview (05/09/2013): PSA: 04/28 Acute bronchitis 05/04/2012 05/15/2013 Immunizations Immunization Administration Dates Next Due (SPIKEVAX) (12 YRS UP PRIMAR Y SERIES) COVID-19 VACCINE - MRNA-1273(PF) 100 MCG/0.5 ML IM SUSP 02/14/2021,01/17/2021 Family History Medical History Relation Name Comments Healthy Brother 1 Healthy Brother 2 Other Father Hypertension Mother Healthy Sister Relation Name Status Comments Brother 1 Alive Brother 2 Alive Father Mother Alive Sister Alive Social History Tobacco Use Types Packs/Day Years Used Date Smoking Tobacco: Every Day Cigarettes 0.5 24 Smokeless Tobacco: Never Tobacco Cessation:Ready to Q uit: No; Counseling Given: Yes Alcohol Use Standard Drinks/Week Comments No 0 (1 standard drink = 0.6 oz pur e alcohol) Sex and Gender Information Value Date Recorded Sex Assigned at Not on file 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 Gender Identity Not on file Sexual Orientation Not on file Occupation Industry Job Start Date Job End Date Not on file Not on file Not on file Not on file Last Filed Vital Signs Vital Sign Reading Time Taken Comments Blood Pressure 122/74 04/09/2021 9:52 AM CDT Pulse 90 04/09/2021 9:52 AM CDT Temperature 36.7 C (98.1 F) 04/09/2021 9:52 AM CDT Respiratory Rate 16 04/09/2021 9:52 AM CDT Oxygen Saturation 91% 04/09/2021 9:52 AM CDT Inhaled Oxygen Concentration - - Weight 98.9 kg (218 lb) 04/09/2021 9:52 AM CDT Height 170.2 cm (5' 7 ) 04/09/2021 9:52 AM CDT Body Mass Index 34.14 04/09/2021 9:52 AM CDT Plan of Treatment Health Maintenance Due Date Last Done Comments Pre-Diabetes and Diabetes Screening 1955 DTAP/TDAP/TD VACCINES (1 - Tdap) 1975 PNEUMOCOCCAL VACCINE 50+ YEA RS (1 of 2 - PCV) 1975 COLORECTAL SCREENING 2001 Colorectal Cancer Screening 2001 FIT-DNA Q 3 years 2001 FIT/FOBT Q 1 year 2001 Flex Sig/CT Colonography Q 5 years 2001 ZOSTER VACCINE (1 of 2) 2006 RSV VACCINE (60+ or ) (1 - Risk 60-74 years 1-dose series) 2016 COVID-19 Vaccine (3 - 2023-2 5 season) 2024 02/14/2021, 01/17/2021 Preventative Visit- Commercial 11/16/2024 INFLUENZA VACCINE (#1) 2025 , 11/27/2020, 09/19/2019, Additional history exists [facility] Care Teams Animal Nursery Worker Relationship Specialty Start Date End Date Eladio Fields MD [address] [phone] PCP - General Family Practice 04/19/18
--- OUTSIDE RECORDS SUMMARY | 2025-06-05 12:54 | XMS_ITS | Clinical Summary ---
Author Organization [facility] [email or web address] Address [address] [place] [address] Phone Care Team Providers Care Wire Hanger Name Role Phone Eladio Fields MD Primary Care Provider [phone] Allergies Active Allergy Reactions Criticality Noted Date Comments Codeine Nausea And Vomiting Low 08/07/2009 Medications tamsulosin (FLOMAX) 0.4 MG 24 hr capsule Take 0.4 mg by mouth 1 (one) time each day 06/09/2023 Active pravastatin (PRAVACHOL) 80 MG tablet Take 80 mg by mouth in the morning. 04/09/2021 Active HYDROcodone-ceferino taminophen (LORCET PLUS) 10-325 MG per tablet Take 1 tablet by mouth in the morning and 1 tablet in the evening. 04/23/2021 Active Ascorbic Acid (vitamin C) 500 MG tablet Take 500 mg by mouth 1 (one) time each day Active finasteride (PROSCAR) 5 MG tablet Take 5 mg by mouth 1 (one) time each day 02/23/2024 Active traZODone (DESYREL) 100 MG tablet Take 100 mg by mouth every night 03/03/2024 Active Ferrous Sulfate (Iron) 325 (65 Fe) MG tablet Take 1 tablet by mouth every other day Active hydrOXYzine (ATARAX) 10 MG tablet Take 10 mg by mouth 09/26/2024 Active Cholecalciferol (Vitamin D) 125 MCG (5000 UT) capsule Take 1 capsule by mouth 1 (one) time each day Active amLODIPine (NORVASC) 5 MG tablet TAKE 1 TABLET BY MOUTH IN THE MORNING 90 tablet 01/31/2025 Active Active Problems Problem Noted Date Diagnosed Date Tobacco abuse counseling 07/28/2024 Chronic kidney disease stage 4 11/26/2023 Benign prostatic hyperplasia without outflow obs truction 08/10/2023 Bilateral hydronephrosis 08/08/2023 Essential hypertension 05/04/2012 Encounters Date Type Department Care Team Description 05/31/2025 Orders Only [facility] [address] [place] [address] Katiuska Vega MD 05/29/2025 Treatment [facility] [address] [place] [address] Aria Woody NP End stage renal disease; Dependence on renal dialysis 05/29/2025 Telephone [facility] [address] [place] [address] Katiuska Vega MD 05/24/2025 Orders Only [facility], [facility] [address] [place] [address] Katiuska Vega MD 05/24/2025 Treatment 8[facility] [address] [place] [address] Brooklyn Moon NP End stage renal disease; Dependence on renal dialysis 05/22/2025 Orders Only [facility], [facility] [address] [place] [address] Katiuska Vega MD 05/17/2025 Treatment 8[facility] [address] [place] [address] Brooklyn Moon NP End stage renal disease; Dependence on renal dialysis 05/17/2025 Orders Only [facility], [facility] [address] [place] [address] Katiuska Vega MD 05/12/2025 [facility] [address] [place] [address] Katiuska Vega MD 05/10/2025 Orders Only [facility] [address] [place] [address] Katiuska Vega MD 04/17/2025 Orders Only [facility] [address] [place] [address] Aria Woody NP Chronic kidney disease stage 4 (HCC); Benign prostatic hyperplasia without outflow obstruction from Last 3 Months Immunizations Immunization Administration Dates Next Due Moderna SARS-COV-2 02/14/2021,01/17/2021 Pneumococcal Conjugate 09/19/2022 Family History Medical History Relation Comments No Known Problems Brother Hypertension Mother No Known Problems Sister Relation Status Comments Brother Father Mother Sister Social History Tobacco Use Types Packs/Day Years Used Date Smoking Tobacco: Every Day Cigarettes Smokeless Tobacco: Never Tobacco Cessation:Ready to Q uit: Not Asked; Counseling Given: Not Answered Alcohol Use Standard Drinks/Week Comments Never 0 (1 standard drink = 0.6 oz pur e alcohol) Sex and Gender Information Value Date Recorded Sex Assigned at Not on file Legal Sex Male 10:01 AM EDT Gender Identity Not on file Sexual Orientation Not on file Last Filed Vital Signs Vital Sign Reading Time Taken Comments Blood Pressure 132/84 02/15/2025 9:32 AM CDT Pulse 110 02/15/2025 9:32 AM CDT Temperature - - Respiratory Rate - - Oxygen Saturation 97% 02/15/2025 9:32 AM CDT Inhaled Oxygen Concentration - - Weight 87.9 kg (193 lb 12.8 oz) 02/15/2025 9:32 AM CDT Height 172.7 cm (5' 8 ) 02/15/2025 9:32 AM CDT Body Mass Index 29.47 02/15/2025 9:32 AM CDT Plan of Treatment Health Maintenance Due Date Last Done Comments Pneumococcal Vaccine: 50+ Years (1 of 2 - PCV) 976 09/19/2022 Hepatitis B Vaccine (1 of 5 - Risk Dialysis 4-dose series) 1976 Colorectal Cancer Screening: Annual FOBT 2005 Colorectal Cancer Screening: Colonoscopy 2005 Colorectal Cancer Screening: Sigmoidoscopy 2005 Influenza Vaccine (#1) 2025 Procedures Procedure Name Priority Date/Time Associated Diagnosis Comments [facility] LAB RESULTS Routine 05/31/2025 HD KINETICS Routine 05/31/2025 CHEMISTRY Routine 05/31/2025 POST CHEMISTRY Routine 05/31/2025 HEMATOLOGY Routine 05/31/2025 HEMATOLOGY Routine 05/24/2025 HD KINETICS Routine 05/22/2025 POST CHEMISTRY Routine 05/22/2025 CHEMISTRY Routine 05/22/2025 IMMUNO CHEMISTRY Routine 05/17/2025 CHEMISTRY Routine 05/17/2025 HEMATOLOGY Routine 05/17/2025 HD KINETICS Routine 05/12/2025 POST CHEMISTRY Routine 05/12/2025 CHEMISTRY Routine 05/12/2025 HEMATOLOGY Routine 05/10/2025 CHEMISTRY Routine 05/10/2025 IMMUNO CHEMISTRY Routine 05/10/2025 SPECIAL CHEMISTRY Routine 05/10/2025 CHEMISTRY Routine 05/10/2025 from Last 3 Months Results * HD KINETICS (05/31/2025) Only the most recent of3 resultswithin the time period is included. % Urea Reduction 79 65 - 80 % [facility] 05/31/2025 06/01/2025 9:0 5 AM CDT Narrative [facility] - 06/01/2025 Unless otherwise specified, test(s) performed at: [facility], [address] [place] [id number] JAI ALAI PLAYER: Lauri Servin M.D. For any questions, please call customer service at FREQUENCY:OTHER Resulting Agency Comment Specimen source: Plasma us Katiuska Vega MD LAB BLOOD ORDERABLES Final Re sult Performing Organization Address [facility] de Phone Number [facility] See order comments or contact performing lab Unknown, [place] * POST CHEMISTRY (05/31/2025) Only the most recent of3 resultswithin the time period is included. BUN Post Dialysis 6 6 - 19 mg/dL [facility] 05/31/2025 06/01/2025 9:0 5 AM CDT Narrative [facility] - 06/01/2025 Unless otherwise specified, test(s) performed at: [facility], [address] [place] [id number] JAI ALAI PLAYER: Lauri Servin M.D. For any questions, please call customer service at FREQUENCY:OTHER Resulting Agency Comment Specimen source: Plasma us Katiuska Vega MD LAB BLOOD ORDERABLES Final Re sult Performing Organization Address [facility] de Phone Number [facility] See order comments or contact performing lab Unknown, [place] * (ABNORMAL) HEMATOLOGY (05/31/2025) Only the most recent of4 resultswithin the time period is included. Hemoglobin 9.0(L) 14.0 - 18.0 g/dL [facility] Hemoglobin x 3 27(L) 42.0 - 54.0 % [facility] 05/31/2025 06/01/2025 8:5 5 AM CDT Narrative [facility] 06/01/2025 Unless otherwise specified, test(s) performed at: [facility], [address] [place] [id number] JAI ALAI PLAYER: Lauri Servin M.D. For any questions, please call customer service at FREQUENCY:OTHER Resulting Agency Comment Specimen source: Blood Katiuska Vega MD LAB BLOOD ORDERABLES Final Re sult [facility] See order comments or contact performing lab Unknown, [place] * (ABNORMAL) [facility] Chemistry (05/31/2025) Only the most recent of6 resultswithin the time period is included. BUN 29(H) 6 - 19 mg/dL [facility] 05/31/2025 06/01/2025 9:2 4 AM CDT Narrative [facility] - 06/01/2025 Unless otherwise specified, test(s) performed at: [facility], [address] [place] [address] JAI ALAI PLAYER: Lauri Servin M.D. For any questions, please call customer service at FREQUENCY:OTHER Resulting Agency Comment Specimen source: Serum Katiuska Vega MD LAB BLOOD ORDERABLES Final Re sult Performing Organization Address [facility]/ZIP Co de Phone Number S[facility]RA [facility] See order comments or contact performing lab Unknown, [place] * [facility] Lab Results (05/31/2025) nPCR_HD 0.63 [facility] spKt/V (Daugirdas II) 1.81 [facility] eKdrt/V 1.60 [facility] eKt/V Gotch [facility] eNPCR 0.60 [facility] PCR 37.91 [facility] eKt/V (Tattersall) 1.58 [facility] spKt/V Gotch 1.85 [facility] WSTDKT/V 2.6 [facility] 05/31/2025 05/31/2025 [facility] Ordering Provider LAB BLOOD ORDERABLES Final Result [facility] Contact Performing lab Unknown, [place] * IMMUNO CHEMISTRY (05/17/2025) Only the most recent of2 resultswithin the time period is included. Hep B Surface Ag Negative Negative [facility] 05/17/2025 05/18/2025 12: 15 PM CDT Narrative Resulting Agency Comment Specimen source: Serum us Katiuska Vega MD LAB BLOOD ORDERABLES Final Re sult [facility] See order comments or contact performing lab Unknown, [place] * SPECIAL CHEMISTRY (05/10/2025) Folate 5.9 ng/mL [facility] Comment: Reference Range: Deficient: <3.4 ng/mL Indeterminate: 3.4-5.4 ng/mL Normal: >5.4 ng/mL Vitamin B-12 552 211 - 911 pg/mL [facility] Vitamin D, 25-OH, Total 30.7 30.0 - 100.0 ng/mL [facility] Comment: Please Note: Effective September 14, 2023, the methodology for this test has changed to the [employer]. 05/10/2025 05/11/2025 8:4 7 AM CDT Narrative Resulting Agency Comment Specimen source: Serum us Katiuska Vega MD LAB BLOOD BANK TEST ORDERABLE S Final Result Performing Organization Address [facility] Co de Phone Number [facility] See order comments or contact performing lab Unknown, [place] from Last 3 Months Insurance [facility] ([id number]) Care Teams Wire Hanger Relationship Specialty Start Date End Date Eladio Fields MD [address] [address] PCP - General Family Medicine 07/01/23
--- OUTSIDE RECORDS SUMMARY | 2025-06-05 12:54 | XMS_ITS | Encounter Summary ---
Author Organization [facility], [facility] Address [address] [place] [address] Phone Care Team Providers Care Metal Flow Coordinator Name Role Phone Eladio Fields MD Primary Care Provider [phone] Encounter Details Date Type Department Care Team (Late st Contact Info) Description 05/29/2025 Telephone [facility] [address] [place] [address] Katiuska Vega MD [address] [place] [address] Social History Tobacco Use Types [...] encounter Miscellaneous Notes * Telephone Encounter - Macrina Cali - 05/29/2025 10:07 AM CDTSummary: Billing Left message for return callback in regards to due balance. documented in this encounter Plan of Treatment Not on file documented as of this encounter Visit Diagnoses Not on filedocumented in this encounter Care Teams Metal Flow Coordinator Relationship Specialty Start Date End Date Eladio Fields MD [address] [facility] [address] [place] [phone] PCP - General Family Medicine 07/01/23 documented as of this encounter
--- OUTSIDE RECORDS SUMMARY | 2025-06-05 12:54 | XMS_ITS | Encounter Summary ---
Author Organization [facility], [facility] Address [address] [place] [address] Phone Care Team Providers Care Endband Sizer Name Role Phone Eladio Fields MD Primary Care Provider [phone] Encounter Details Date Type Department Care Team (Late st Contact Info) Description 05/29/2025 Treatment [facility], [facility] [address] [place] [address] Chepe Arreola NP [address] [place] [address] End stage renal disease; Dependence on renal dialysis Social History Tobacco Use Types Packs/Day Years [...] as of this encounter Miscellaneous Notes * Dialysis Note - Chepe Arreola NP - 05/29/2025 12:00 AM CDT BASIC NOTE Patient: Brandon Parisi : 1955 Note Author: CHEPE ARREOLA NP Service Date: 05/29/2025 This patient was personally seen for a basic visit as part of routine monthly dialysis care for end stage renal disease. Attending Heating Unit Installer: JULES STEWARD Dialysis Location: [facility] Schedule: Shift: 1 OVERVIEW Patient is stable. Patient has no complaints. HOME MEDICATIONS Medications reviewed. DIALYSIS PRESCRIPTION Treatment Data Treatment Date: 05/29/2025 started at: 7:54 AM Dialysate / Machine Temp (prescribed): 37.0*C Dialysate / Machine Temp (actual): 37.0*C BFR (prescribed): 350 BFR (average delivered): 350 DFR (prescribed): Autoflow 1.5 DFR (average delivered): 600 Prescribed Time: 04:00 Actual Time: 04:03 EDW (kg): 78.0 Dialyzer: 160NRe Optiflux Dialysate: 3.0 K, 3.0 Ca, 1.0 Mg, 100 Dextrose (G3301) Sodium: 137 Bicarb: 35 Pre Dialysis Vitals Pre BP Sit: 93/53 Pre Wt (kg): 78.9 EDW Deviation (kg): 0.9 Temp: 98.7*F Post Dialysis Vitals Post BP Sit: 100/74 Post Wt (kg): 78.5 TREATMENT MEDICATIONS ORDERS Heparin Sodium (Porcine) 1,000 Units/mL Catheter Lock Arterial 2200 units Arterial Red Port Every Treatment Post Dialysis 05/10/2025 - 05/09/2026 Heparin Sodium (Porcine) 1,000 Units/mL Catheter Lock Venous 2200 units Venous Blue Port Every Treatment Post Dialysis 05/10/2025 - 05/09/2026 Heparin Sodium (Porcine) 1,000 Units/mL Systemic 6000 units IVP Every Treatment 05/10/2025 - 05/09/2026 Vitamin D (Calcitriol) Oral 0.25 mcg ORAL Every Treatment 05/17/2025 - 05/16/2026 BP AND FLUID ASSESSMENT Acceptable blood pressure. Fluid status acceptable. Post BP Sit 100/74 - 05/29/2025 114/78 - 05/26/2025 116/74 - 05/24/2025 Post Wt (kg) 78.5 - 05/29/2025 78.5 - 05/26/2025 78.1 - 05/24/2025 EDW (kg) 78.0 - 05/29/2025 78.0 - 05/26/2025 78.0 - 05/24/2025 Deviation (kg) 0.5 - 05/29/2025 0.5 - 05/26/2025 0.1 - 05/24/2025 ADEQUACY ASSESSMENT % Urea Reduction 79 (05/22/25) 86 (05/12/25) BUN 33 (05/22/25) 36 (05/12/25) 27 (05/10/25) BUN Post Dialysis 7 (05/22/25) 5 (05/12/25) Creatinine 5.68 (05/17/25) 4.42 (05/10/25) Bicarbonate (CO2) 21 (05/17/25) 26 (05/10/25) Sodium 143 (05/17/25) 141 (05/10/25) ACCESS ASSESSMENT Vascular access examined. CVCatheter Tunneled Chest Active (In Use) - 05/03/2025 Placed - 05/03/2025 ANEMIA ASSESSMENT Hemoglobin 9.0 (05/24/25) 8.2 (05/17/25) 9.5 (05/10/25) Iron Saturation (TSat) 5 (05/17/25) 19 (05/10/25) Ferritin 276 (05/17/25) 409 (05/10/25) Iron 12 (05/17/25) 54 (05/10/25) TIBC 228 (05/17/25) 284 (05/10/25) MCV 103 (05/17/25) 101 (05/10/25) Folate 5.9 (05/10/25) Vitamin B-12 552 (05/10/25) Platelets 80 (05/17/25) 119 (05/10/25) BMM ASSESSMENT Calcium 6.7 05/17/25 6.9 05/10/25 Corrected Calcium 7.3 05/17/25 7.1 05/10/25 Phosphorus 3.1 05/17/25 3.1 05/10/25 Calcium Phosphorus Product 21 05/17/25 21 05/10/25 PTH 678 05/10/25 Vitamin D, 25-OH, Total 30.7 05/10/25 Magnesium 1.6 05/10/25 Alkaline Phosphatase 50 05/10/25 NUTRITION ASSESSMENT Albumin 3.2 05/17/25 3.7 05/10/25 Potassium 4.1 05/17/25 3.7 05/10/25 ADDITIONAL LABS WBC 7.40 (05/17/25) 16.08 (05/10/25) Hepatitis B Surface Ab <10 (05/10/25) Signed by: CHEPE ARREOLA NP on 05/29/2025 at 04:21:32 PM Transcribed by: CHEPE ARREOLA NP on 05/29/2025 at 04:21:32 PM documented in this encounter Plan of Treatment Not on file documented as of this encounter Visit Diagnoses Diagnosis End stage renal disease Dependence on renal dialysis documented in this encounter Care Teams Endband Sizer Relationship Specialty Start Date End Date Eladio Fields MD [address] [address] PCP - General Family Medicine 07/01/23 documented as of this encounter
--- NOTE | 2025-06-05 12:55 | W.ED.AMS ---
HPI - Altered Mental Status General: Chief Complaint: Altered Mental Status Stated Complaint: AMS Time Seen by Provider: 06/05/25 12:50 History of Present Illness: 69-year-old male presents emergency room by EMS with altered mental status. Patient was at dialysis. He did complete the run of dialysis he has not had a fever patient is unable to answer questions or assist with his history. He has a Steiner catheter in place. He was here previously and transferred out due to bath adjacent to the bladder ultimately thought to be part of his prostate. He has purulent output in the Steiner catheter. Related Data Home Medications ?Medication ?Instructions ?Recorded ?Confirmed hydrocodone 10 mg-acetaminophen 1 tab PO BID 04/30/25 06/05/25 325 mg tablet hydroxyzine HCl 10 mg tablet 10 mg PO TID PRN Itching 04/30/25 06/05/25 pravastatin 80 mg tablet 80 mg PO QPM 04/30/25 06/05/25 tamsulosin 0.4 mg capsule 0.4 mg PO DAILY 04/30/25 06/05/25 trazodone 100 mg tablet 100 mg PO BEDTIME 04/30/25 06/05/25 diazepam 5 mg tablet 5 mg PO DAILY PRN Anxiety 06/05/25 06/05/25 Previous Rx's ?Medication ?Instructions ?Recorded midodrine 5 mg tablet 5 mg PO TID 30 days #90 tabs 06/09/25 nitrofurantoin macrocrystal 100 mg 100 mg PO Q12H 14 days #28 caps 06/09/25 capsule Allergies Allergy/AdvReac Type Severity Reaction Status Date / Time No Known Allergies Allergy Verified 04/30/25 13:17 Review of Systems General: Reports: ROS unobtainable due to mental status PFSH ED PFSH: Medical History Tunneled central venous catheter present ESRD on hemodialysis Hypertension BPH (benign prostatic hyperplasia) Anemia Chronic indwelling Steiner catheter Stage 4 chronic kidney disease Social History Smoking and tobacco/nicotine status: former use of tobacco/nicotine Alcohol intake: never Substance/Drug Use: never Caregiver/support person: Yes Lives independently: Yes Household members: family Housing: House Physical Exam Const: GENERAL APPEARANCE: lethargic ORIENTATION/CONSCIOUSNESS: Yes lethargic HENMT: COMMON NORMALS: normocephalic, atraumatic and hearing grossly normal bilaterally HEAD & SCALP: normocephalic and atraumatic Chest: OTHER: Tunneled dialysis catheter in right subclavian Resp: COMMON NORMALS: normal respiratory effort, No retractions, No use of accessory muscles and clear to auscultation bilaterally AUSCULTATION: clear to auscultation bilaterally Cardio: COMMON NORMALS: regular rate, regular rhythm and No murmurs present (Cardio) RATE: regular rate RHYTHM: regular rhythm GI: COMMON NORMALS: Soft to palpation and No hepatosplenomegaly present AUSCULTATION: Yes normoactive bowel sounds PALPATION: Yes Soft to palpation, No Tenderness to palpation present (GI), No Guarding due to palpation present (GI) and Yes No hepatosplenomegaly present Extremity: COMMON NORMALS: normal to inspection, capillary refill normal, no clubbing, cyanosis or edema, no calf tenderness and no pedal edema Neuro: SENSORIUM/ORIENTATION: Yes lethargic Skin: COMMON NORMALS: no rashes or lesions noted GENERAL SKIN EXAM: no rashes or lesions noted Course Vital Signs: Vital signs: Vital Signs Temperature 97.8 F 06/09/25 13:17 Pulse Rate 54 L 06/09/25 13:17 Respiratory Rate 18 06/09/25 13:17 Blood Pressure 198/99 06/09/25 13:17 Pulse Oximetry 94 06/09/25 13:17 Oxygen Delivery Me thod Room Air 06/09/25 04:00 MDM - Altered Mental Status Medical Decision Making CT showed the Steiner missed position we were able to deflate the bulb and advance it and irrigate began to get large amounts of purulent appearing urine out. Urine has been sent for culture. Patient has bilateral hydronephrosis which is present previously. Contacted the family members they relate that when he was transferred last time urology was consulted and he set up for outpatient evaluation at a later date while he was at the receiving hospital they treated his renal failure and his kidney infection but did not do anything further on his bladder mass. Patient septic antibiotics initiated discussed with hospitalist orders written will admit. Medical Records I reviewed the patient's medical records. Lab Data I reviewed the patient's lab results. 06/09/25 04:27 06/09/25 04:[address] 06/05/25 12:50 IMPRESSION: 1. No acute intracranial hemorrhage or edema. 2. Mild cerebral and cerebellar atrophy and small vessel disease. Abdomen/Pelvis CT 06/05/25 13:02 IMPRESSION: 1. Persistent bilateral hydroureteronephrosis. Similar to 05/01/2025. 2. Steiner catheter that was present in the urinary bladder on 05/01/2025 has been retracted. Steiner catheter balloon terminates in the prostatic portion of the urethra and should be repositioned. 3. Markedly distended urinary bladder with a large mass extending into the bladder which is probably the prostate gland. 4. Bilateral perinephric stranding around each kidney. Correlate for possible pyelonephritis. Perinephric stranding has progressed since 05/01/2025. No focal fluid collection identified on this unenhanced exam. Chest X-Ray 06/05/25 13:21 IMPRESSION: 1. No acute findings. 2. Poor inspiratory effort. 3. Slight opacity on the left. Renal Ultrasound 06/08/25 11:35 IMPRESSION: 1. Moderate to severe bilateral hydronephrosis has progressed since the prior study from 2023. 2. New diffuse cortical thinning of each kidney which is new since 2023. 3. There is a large solid mass centered in the urinary bladder. This was previously described and may be the prostate. Difficult to be certain where this mass is arising from. This is a known mass and has been previously described. Steiner catheter appears better positioned and is within the urinary bladder. Laboratory Results WBC 20.54 10^3/uL (3.29-11.43) H 06/05/25 13:28 RBC 2.65 10^6/uL (3.85-5.65) L 06/05/25 13:28 Hgb 8.70 g/dL (11.27-16.99) L 06/05/25 13:28 Hct 26.2 % (37-53) L 06/05/25 13:28 MCV 98.9 fl (82-101) 06/05/25 13:28 MCH 32.8 pg (27-33) 06/05/25 13:28 MCHC 33.2 g/dL (30-55) 06/05/25 13:28 RDW 14.6 % (12.1-15.1) 06/05/25 13:28 Plt Count 159 10^3/cmm (157-399) 06/05/25 13:28 MPV 10.7 fL (7.4-10.4) H 06/05/25 13:28 Neut % (Auto) 87.4 % 06/05/25 13:28 Lymph % (Auto) 5.2 % 06/05/25 13:28 Mcpherson % (Auto) 6.4 % 06/05/25 13:28 Eos % (Auto) 0.0 % 06/05/25 13:28 Baso % (Auto) 0.3 % 06/05/25 13:28 Neut # (Auto) 17.95 10^3/uL (1.8-7.7) H 06/05/25 13:28 Lymph # (Auto) 1.1 10^3/uL (0.8-4.8) 06/05/25 13:28 Mcpherson # (Auto) 1.3 10^3/uL (0.2-0.9) H 06/05/25 13:28 Eos # (Auto) 0.0 10^3/uL (0.0-0.8) 06/05/25 13:28 Baso # (Auto) 0.1 10^3/uL (0.0-0.1) 06/05/25 13:28 Nucleated RBC % (auto) 0 % 06/05/25 13:28 Nucleated RBCs # 0.0 /100WBC 06/05/25 13:28 Specimen Type Arterial 06/05/25 17:10 Sample Site Brachial, left 06/05/25 17:10 ABG pH 7.49 (7.35-7.45) H 06/05/25 17:10 ABG pCO2 35.5 mmHg (35-45) 06/05/25 17:10 ABG pO2 58.7 mmHg (80.0-100.0) L 06/05/25 17:10 ABG PO2/FiO2 Ratio 279 06/05/25 17:10 ABG HCO3 26.9 mmol/L (22-26) H 06/05/25 17:10 ABG O2 Saturation 91.1 06/05/25 17:10 ABG Base Excess 3.4 mmol/L (-2.0-2.0) H 06/05/25 17:10 Tommy Test N/a 06/05/25 17:10 A-a O2 Gradient 6.0 mmHg (5-10) 06/05/25 17:10 Hematocrit 25.6 % (42-52) L 06/05/25 17:10 Hgb O2 Saturation 89.2 % (95-100) L 06/05/25 17:10 Carboxyhemoglobin 1.1 %THgb (0.4-20.1) 06/05/25 17:10 Methemoglobin 1.1 % (0.4-1.5) 06/05/25 17:10 Total Hemoglobin 8.4 g/dL (14-18) L 06/05/25 17:10 Sodium 138.0 mmol/L (131-143) 06/05/25 17:10 Potassium 4.0 mmol/L (3.5-5.0) 06/05/25 17:10 Glucose 97.0 mg/dL (70-115) 06/05/25 17:10 Ionized Calcium 1.1 mmol/L (1.1-1.4) 06/05/25 17:10 O2 Delivery Device Room air 06/05/25 17:10 FiO2 21.0 % 06/05/25 17:10 Air Traffic Supervisor ID [id number] 06/05/25 17:10 Sodium 134 mmol/L (136-145) L 06/05/25 13:28 Potassium 4.0 mmol/L (3.5-5.1) 06/05/25 13:28 Chloride 93 mmol/L (98-107) L 06/05/25 13:28 Carbon Dioxide 25 mmol/L (22-29) 06/05/25 13:28 Anion Gap 20.0 (5-19) H 06/05/25 13:28 BUN 11 mg/dL (8-23) 06/05/25 13:28 Creatinine 2.7 mg/dL (0.7-1.2) H 06/05/25 13:28 GFR Calculation 23.6 mL/min (90-130) L 06/05/25 13:28 Glucose 95 mg/dL (65-115) 06/05/25 13:28 Estimat Average Glucose 97 06/05/25 13:28 Hemoglobin A1c 5.0 % (4.0-6.0) 06/05/25 13:28 Calculated Osmolality 277 mOsm/kg (285-295) L 06/05/25 13:28 Lactic Acid 1.2 mmol/L (0.5-2.2) 06/05/25 13:28 Calcium 9.1 mg/dL (8.5-10.5) 06/05/25 13:28 Iron 68 ug/dL (59-158) 06/05/25 13:28 TIBC 234 mcg/dl 06/05/25 13:28 % Saturation 29.0 % (20-50) 06/05/25 13:28 Unsat Iron Binding 166 ug/dL (112-347) 06/05/25 13:28 Total Bilirubin 0.4 mg/dL (0.15-1.2) 06/05/25 13:28 AST 14 U/L (0-40) 06/05/25 13:28 ALT 7 U/L (0-41) 06/05/25 13:28 Alkaline Phosphatase 83 U/L (40-130) 06/05/25 13:28 Troponin T Baseline 74 ng/L (0-15) H 06/05/25 13:28 Troponin T 120 Minute 67.99 ng/L (0-15) H 06/05/25 15:23 Delta Troponin T -6.01 ABS# (0-10) L 06/05/25 15:23 Total Protein 7.1 g/dL (6.6-8.7) 06/05/25 13:28 Albumin 3.1 g/dL (3.5-5.2) L 06/05/25 13:28 Globulin 4.0 g/dL (1.3-4.6) 06/05/25 13:28 Lipase 14 U/L (13-60) 06/05/25 13:28 Vitamin B12 439 pg/mL (232-1245) 06/05/25 13:28 Procalcitonin 1.70 ng/mL (0-0.5) H 06/05/25 13:28 TSH 0.86 uIU/mL (0.27-4.20) 06/05/25 13:28 Urine Color Yellow (Yellow) 06/05/25 13:25 Urine Appearance Turbid (CLEAR) A 06/05/25 13:25 Urine pH 6.5 (5-7) 06/05/25 13:25 Ur Specific [place] 1.012 (1.005-1.030) 06/05/25 13:25 Urine Protein 3+ (Negative) A 06/05/25 13:25 Urine Glucose (UA) Negative (Normal) 06/05/25 13:25 Urine Ketones Negative (Negative) 06/05/25 13:25 Urine Blood 2+ (Negative) A 06/05/25 13:25 Urine Nitrate Negative (Negative) 06/05/25 13:25 Urine Bilirubin Negative (Negative) 06/05/25 13:25 Urine Urobilinogen 1.0 mg/dL (Negative) 06/05/25 13:25 Ur Leukocyte Esterase 3+ (Negative) A 06/05/25 13:25 Urine RBC 51-100 /hpf (0-2) H 06/05/25 13:25 Urine WBC >100 /hpf (0-5) H 06/05/25 13:25 Ur Squamous Epith Cells 21-50 /hpf (0-5) H 06/05/25 13:25 Amorphous Sediment Not Reportable 06/05/25 13:25 Urine Bacteria 4+ /hpf (NONE) H 06/05/25 13:25 Hyaline Casts 5.16 /lpf 06/05/25 13:25 All radiology interpretation(s) finalized by discharge Discharge Plan Discharge Patient Disposition: Admitted As Inpatient Admit Provider: Melchor Buchanan Clinical Impression: Chronic indwelling Steiner catheter, Sepsis secondary to UTI, Lactic acidosis, ESRD on hemodialysis, Tunneled central venous catheter present, Mass of urinary bladder Condition: Stable Discharge Diet: Usual diet Discharge Activity: Resume usual activity and Increase activity as tolerated Coding Level of Care Code ED Claims Examiner for Sergo Cohen
--- OUTSIDE RECORDS SUMMARY | 2025-06-05 12:55 | XMS_ITS | Encounter Summary ---
Author Organization [facility] [employer] Address [address] [place] [address] Phone Care Team Providers Care Machine Maintenance Mechanic Name Role Phone Eladio Fields MD Primary Care Provider [phone] Encounter Details Date Type Department Care Team (Late st Contact Info) Description 07/01/2023 Orders Only [facility] [address] [place] [address] Proteinuria, not otherwise specified Social History Tobacco Use Types Packs/Day Years Used Date Smoking Tobacco: Never Assessed Sex and Gender Information Value Date Recorded Sex Assigned at Not on file Legal Sex Male 10:01 AM EDT Gender Identity Not on file Sexual Orientation Not on file documented as of this encounter Plan of Treatment Not on file documented as of this encounter Visit Diagnoses Diagnosis Proteinuria, not otherwise specified documented in this encounter Care Teams Machine Maintenance Mechanic Relationship Specialty Start Date End Date Eladio Fields MD [address] [facility] [address] [place] [phone] PCP - General Family Medicine 07/01/23 documented as of this encounter
--- OUTSIDE RECORDS SUMMARY | 2025-06-05 12:55 | XMS_ITS | Encounter Summary ---
Author Organization [facility] Address [address] [place] [address] Care Team Providers Care Ticket Collector Or Usher Name Role Phone Eladio Fields MD Primary Care Provider [phone] Encounter Details Date Type Department Care Team (Late st Contact Info) Description 08/04/2024 Lab Requisition [facility] [address] [address] Pratik Bruce MD [address] [address] Acute kidney failure, unspecified Social History Tobacco Use Types Packs/Day Years Used Date Smoking Tobacco: Every Day Cigarettes Smokeless Tobacco: Never Alcohol Use Standard Drinks/Week Comments No 0 (1 standard drink = 0.6 oz pur e alcohol) Sex and Gender Information Value Date Recorded Sex Assigned at Not on file 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 Gender Identity Not on file Sexual Orientation Not on file documented as of this encounter Plan of Treatment Upcoming Encounters Date Type Department Care Team (Late Contact Info) Description 06/06/2025 10:40 AM CDT Office Visit [facility] [place] [address] [address] Anel Sewell FNP [address] [address] 08/29/2025 2:00 PM CDT Office Visit [facility] [address] [address] Eladio Fields MD [address] [place] [address] documented as of this encounter Procedures Procedure Name Priority Date/Time Associated Diagnosis Comments BASIC METABOLIC PANEL Stat 08/04/2024 8:40 AM CDT Acute kidney failure, unspecified documented in this encounter Results * (ABNORMAL) BASIC METABOLIC PANEL (08/04/2024 8:40 AM CDT) SODIUM 143 136 - 145 mmol/L 08/04/2024 9:[address] [facility] POTASSIUM 4.0 3.5 - 5.1 mmol/L 08/04/2024 9:[address] [facility] CHLORIDE 112(H) 98 - 107 mmol/L 08/04/2024 9:[address] [facility] CO2 15(L) 22 - 29 mmol/L 08/04/2024 9:[address] [facility] CALCIUM 8.3(L) 8.8 - 10.2 mg/dL 08/04/2024 9:[address] [facility] BUN 67(H) 8 - 23 mg/dL 08/04/2024 9:[address] [facility] CREATININE 6.12(H) 0.67 - 1.17 mg/dL 08/04/2024 9:[address] [facility] GLUCOSE 128(H) 74 - 99 mg/dL 08/04/2024 9:[address] [facility] GFR 9(L) >=60 mL/min/1.7 3 sq meter 08/04/2024 9:[address] [facility] Comment:eGFR calculated with 2020 CKD-EPI equation. Vegetarian diet, extremely high or low muscle mass, and may affect results. Cystatin C with Glomerular Filtration Rate is a suitable alternative for these patients. ANION GAP 16 12 - 20 mmol/L 08/04/2024 9:09 AM CDT [facility] Blood Collection / Unknown 08/04/2024 8:40 AM CDT 08/04/2024 8:48 AM CDT us Pratik Bruce MD CHEMISTRY ORDERABLES Fi nal Result [facility] CLIA # [id number] [address] [address] documented in this encounter Visit Diagnoses Diagnosis Acute kidney failure, unspecified documented in this encounter Care Teams Ticket Collector Or Usher Relationship Specialty Start Date End Date Eladio Fields MD [address] [phone] PCP - General Family Practice 04/19/18 documented as of this encounter
--- OUTSIDE RECORDS SUMMARY | 2025-06-05 12:55 | XMS_ITS | Encounter Summary ---
Author Organization [facility] Address [address] [place] [address] Care Team Providers Care Composite Technician Name Role Phone Eladio Fields MD Primary Care Provider [phone] Reason for Visit * Reason Comments Clinical Consult Before Scheduling Encounter Details Date Type Department Care Team (Late st Contact Info) Description 06/05/2025 Telephone [facility] Medicine [address] [phone] Eladio Fields MD [address] [address] Clinical Consult Before Scheduling Social History Tobacco Use Types Packs/Day Years Used Date Smoking Tobacco: Every Day Cigarettes Smokeless Tobacco: Never Alcohol Use Standard Drinks/Week Comments No 0 (1 standard drink = 0.6 oz pur e alcohol) Sex and Gender Information Value Date Recorded Sex Assigned at Not on file 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 Gender Identity Not on file Sexual Orientation Not on file documented as of this encounter Miscellaneous Notes * Telephone Encounter - Kimmie Licona RN - 06/05/2025 9:14 AM CDT Adult male patient complains of genitourinary symptoms: Onset of new/worsening symptoms: Worsening The patient has the following symptoms or concerns: [] Confusion/mental status change [] Fever >100.4 in last 48 hours [] Chills [] Trauma to genitals: [] Concern for exposure to STI: [] Penile discharge Color: [] Yellow [] Green [] Hematospermia [] Swelling or redness at opening of penis [] Swelling or pain in testicles [] Left [] Right [] Sores, blisters or lesions to genitals or anus [] Painful or burning urination [] Painful ejaculation [] Difficulty urinating [] Decreased urine production [] Urinary Frequency [] Urgency [] Blood in urine [x] Cloudy or foul-smelling urine [] Flank pain [x] Mid-low back pain [] Abdominal pain [] Nausea [] Vomiting [] Diarrhea [] New onset urinary incontinence [x] Chronic indwelling catheter, suprapubic catheter or performs straight caths [x] History of recurrent UTI's [x] Currently on antibiotics [x] Acute course [] Chronic prophylactic [] History of kidney stones [] History of BPH [] Has tried medication or treatment at home Medications/Treatments tried: Other pertinent information: Patients daughter states that patient has had a UTI since the beginning of April. He has a yanez cath in place. He has been on several antibiotics for the UTI and can't seem to get it under control. Patient is on dialysis. Patient has had cloudy urine. Advised daughter to have patient come in today to see the walk in provider. She states that he has dialysis today and does not want to come in until tomorrow. Daughter would also like for labs to be done at this visit as patient is not always forthcoming with his symptoms. INFORMATIONAL MESSAGE ONLY. Appointment scheduled regarding this concern: 06/06/2025 Bonnie Sewell FNP * Telephone Encounter - Carine Brown - 06/05/2025 9:13 AM CDT Copied from [facility] #[id number]. Topic: Symptomatic Care >> Jun 05, 2025 9:10 AM Carine Francis wrote: Has this patient seen any provider (current or former) at the requested clinic in the past? Yes, Select the appropriate age range and symptom Patient has symptoms and is seeking care. Caller Name: Shaina Parisi () Callback Number: Telephone Information: (Mobile) Call Notes: caller reports that patient is still continuing to have a UTI since 05/23/25 - described as spacey and weird Age Range/Symptom: Adult 18+ - Transferred to [facility] dylon and Kimmie answered call. documented in this encounter Plan of Treatment Upcoming Encounters Date Type Department Care Team (Late st Contact Info) Description 06/06/2025 10:40 AM CDT Office Visit [facility] [address] [phone] Anel Sewell FNP [address] [place] [address] 08/29/2025 2:00 PM CDT Office Visit [facility] [address] [place] [address] Eladio Fields MD [address] [phone] documented as of this encounter Visit Diagnoses Not on filedocumented in this encounter Care Teams Composite Technician Relationship Specialty Start Date End Date Eladio Fields MD [address] [place] [address] PCP - General Family Practice 04/19/18 documented as of this encounter
--- OUTSIDE RECORDS SUMMARY | 2025-06-05 12:55 | XMS_ITS | Clinical Summary ---
[facility] Address [address] [facility] [address] [place] [address] Care Team Providers Care Oracle Database Analyst Name Role Phone Eladio Fields MD Primary Care Provider [phone] Allergies Active Allergy Reactions Criticality Noted Date Comments Codeine Nausea and Vomiting Low 08/07/2009 Medications tadalafiL (CIALIS) 5 mg tabletIndication s:Erectile dysfunction, unspecified erectile dysfunction type Take 1 Tablet (5 mg) by mouth 1 time daily as needed for Erectile Dysfunction. 30 Tablet 2 021 Active triamcinolone acetonide (KENALOG) 0.025 % Cream Apply to affected area 2 times daily. 80 Gram 2 023 Active medical marijuana, for documentation purposes, Take by inhalation. Active ascorbic acid, vitamin C, (VITAMIN C) 500 mg tablet Take 500 mg by mouth daily. Active ferrous sulfate 325 mg (65 mg iron) tablet Take 1 Tablet (325 mg) by mouth every other day. 30 Tablet 025 Active hydrOXYzine HCL (ATARAX) 10 mg tabletIndication s:CKD (chronic kidney disease) stage 4, GFR 15-29 ml/min (CMS/HCC) Take 3 Tablets (30 mg) by mouth 3 times daily as needed for Itching. 30 Tablet 025 Active pravastatin (PRAVACHOL) 80 mg tabletIndication s:Dyslipidemia Take 1 Tablet (80 mg) by mouth daily. 30 Tablet 025 Active tamsulosin (FLOMAX) 0.4 mg capsuleIndicatio ns:Benign prostatic hyperplasia with nocturia Take 1 Capsule (0.4 mg) by mouth daily at bedtime. 30 Capsule 025 Active traZODone (DESYREL) 100 mg tabletIndication s:Chronic pain syndrome Take 1 Tablet (100 mg) by mouth daily at bedtime. 30 Tablet 025 Active HYDROcodone-acet aminophen (NORCO) 10-325 mg TabletIndication s:Cervical disc herniation,Hidra denitis suppurativa,Oste oarthritis of spine with radiculopathy, cervical region Take 1 Tablet by mouth 2 times daily as needed for Pain, Moderate. Max Daily Amount: 2 Tablets 60 Tablet 025 Active diazePAM (VALIUM) 5 mg tabletIndication s:Situational anxiety,ESRD on hemodialysis ([facility]) Take 1 Tablet (5 mg) by mouth 1 time daily as needed for Anxiety. Take 1 hour prior to dialysis for situational anxiety 15 Tablet 025 Active calcium as carbonate (OS-LARISSA) 1,250 mg (500 mg elemental) tabletIndication s:Vitamin D deficiency Take 1 Tablet (500 mg) by mouth daily. 90 Tablet 3 023 2024 Discontinued tamsulosin (FLOMAX) 0.4 mg capsuleIndicatio ns:Benign prostatic hyperplasia with nocturia Take 1 capsule by mouth once daily at bedtime 30 Capsule 5 024 2024 Discontinued traZODone (DESYREL) 100 mg tabletIndication s:Chronic pain syndrome take 1 tablet by mouth once daily at bedtime 100 Tablet 2 024 2024 Discontinued ferrous sulfate 325 mg (65 mg iron) tablet Take 1 Tablet by mouth every other day. 2024 Discontinued finasteride (PROSCAR) 5 mg tablet Take 5 mg by mouth daily. 2024 Discontinued amLODIPine (NORVASC) 10 mg tabletIndication s:Essential hypertension Take 1 Tablet (10 mg) by mouth daily. 100 Tablet 1 024 2024 Discontinued hydrOXYzine HCL (ATARAX) 10 mg tabletIndication s:CKD (chronic kidney disease) stage 4, GFR 15-29 ml/min ([facility]) Take 1 Tablet (10 mg) by mouth 3 times daily as needed for Itching. 270 Tablet 1 025 2024 Discontinued pravastatin (PRAVACHOL) 80 mg tabletIndication s:Dyslipidemia Take 1 tablet by mouth once daily 100 Tablet 1 025 2024 Discontinued HYDROcodone-acet aminophen (NORCO) 10-325 mg TabletIndication s:Cervical disc herniation,Hidra denitis suppurativa,Oste oarthritis of spine with radiculopathy, cervical region Take 1 Tablet by mouth 2 times daily as needed for Pain, Moderate. Max Daily Amount: 2 Tablets 60 Tablet 025 2024 Discontinued(R eorder) cefdinir (OMNICEF) 300 mg capsuleIndicatio ns:Urinary tract infection without hematuria, site unspecified Take 1 Capsule (300 mg) by mouth every 12 hours for 10 days. 20 Capsule 025 2024 Hospital, Clinic, or Other Facility Administered Medication Ordered Dose Route Frequency Start Date End Date Status cefTRIAXone (ROCEPHIN) vial 1,000 mgIndications:ESRD on hemodialysis ([facility]),Yanez catheter in place,Leukocytes in urine,Hematuria, unspecified type 1000 mg IM ONE TIME ONLY 05/23/2025 05/23/2025 Ended Active Problems Problem Noted Date Diagnosed Date ESRD on hemodialysis 05/11/2025 Situational anxiety 05/11/2025 Protein-calorie malnutrition, severe 05/03/2025 Acute on chronic renal failure 05/02/2025 Hypoxia 05/02/2025 Elevated WBC count 05/02/2025 Acute cystitis without hematuria 05/02/2025 Other specified anemias 05/02/2025 Iron deficiency anemia 06/03/[address] 11/26/2023 Benign prostatic hyperplasia with urinary obstru ction 08/10/2023 Urinary retention 08/10/2023 Bilateral hydronephrosis 08/08/2023 Benign prostatic hyperplasia with nocturia 06/09 Chronic pain syndrome 06/11/2020 ED (erectile dysfunction) 09/19/2019 Hidradenitis suppurativa 12/20/2018 senior living prescription opiate use 12/20/2018 Tobacco use 03/21/2016 Dyslipidemia 05/09/2013 Androgen deficiency 05/09/2013 Osteoarthritis of spine with radiculopathy, cerv ical region 08/05/2012 Cervical disc herniation 08/05/2012 Essential hypertension 05/04/2012 Resolved Problems Problem Noted Date Diagnosed Date Resolved Date CKD (chronic kidney disease) stage 4, GFR 15-29 ml/min 11/26/2023 05/11/2025 BRADLEY (acute kidney injury) 08/08/2023 Bladder mass 08/08/2023 11/26/2023 Prostate cancer screening 05/09/2013 Overview (03/13/2021): PSA: 04/28 Acute bronchitis 05/04/2012 05/15/2013 Encounters Date Type Department Care Team Description 06/05/2025 Telephone [facility] [address] [phone] Eladio Fields MD Clinical Consult Before Scheduling 06/01/2025 8:55 AM CDT - 06/01/2025 11:59 PM CDT Hospital Encounter [facility] [place] [address] [phone] Lynn Malagon FNP Discharge Disposition: Home or Self Care 05/26/2025 External Device Data Initial Department [address] [facility] [address] PRIETO: [place] [address] Eh Emergency, 05/25/2025 Orders Only [address] [phone] Mary Briggs, SHARAN Urinary tract infection without hematuria, site unspecified (Primary Dx) 05/25/2025 Results Follow-Up [address] [phone] Lynn Malagon FNP POC URINALYSIS DIPSTICK AUTOMATED, URINE CULTURE 05/23/2025 9:00 AM CDT Office Visit [address] [phone] Lynn Malagon FNP ESRD on hemodialysis ([facility]) (Primary Dx); Yanez catheter in place; Leukocytes in urine; Hematuria, unspecified type 05/23/2025 Telephone [facility] [place] [address] [phone] Lynn Malagon FNP Requesting Sooner Appointment 05/22/2025 Telephone [facility] [address] [phone] Eladio Fields MD Hospital Follow Up 05/16/2025 External Device Data STL ABSTRACTION Provider, Abstract 05/15/2025 External Device Data Initial Department [address] [place] [address] Dr PRIETO: [place] [address] Eh Emergency, 05/11/2025 Abstract [facility] [address] [place] [phone] Provider, Abstract 05/11/2025 Orders Only [facility] [address] [place] [phone] Provider, Abstract 05/11/2025 External Device Data Initial Department [address] [facility] [address] PRIETO: [place] [address] Eh Emergency, 05/11/[address] [phone] Eladio Fields MD Information 05/09/2025 External Device Data STL ABSTRACTION Provider, Abstract 05/09/2025 External Device Data ST[place] ABSTRACTION Provider, Abstract 05/09/2025 Refill [facility] [address] [phone] Eladio Fields MD Cervical disc herniation; Hidradenitis suppurativa; Osteoarthritis of spine with radiculopathy, cervical region 05/09/2025 Orders Only [facility] [address] [place] [address] Eladio Fields MD Hospital discharge follow-up (Primary Dx) 05/02/2025 2:16 PM CDT - 05/09/2025 1:18 PM CDT Hospital Encounter [facility] 4D Surgery Heart Lung [address] [place] [phone] Kimberley Connell MD Khan, Amina, MD Abbas, MD Paula Vivar, MD Frank García, Janet Thao MD Acute on chronic renal failure Discharge Disposition: Home or Self Care 05/02/2025 Travel 04/30/2025 Telephone [facility] [facility] [address] [place] [address] Jeanette Goodson RN [facility] [employer] 04/18/2025 8:00 AM CDT Office Visit [address] [phone] Eladio Fields MD Urinary retention (Primary Dx); CKD (chronic kidney disease) stage 4, GFR 15-29 ml/min ([facility]); Benign prostatic hyperplasia with urinary obstruction; Yanez catheter in place; Bilateral hydronephrosis 04/06/2025 External Device Data STL ABSTRACTION Provider, Abstract 04/05/2025 External Device Data ST[place] ABSTRACTION Provider, Abstract 04/04/[address] [phone] Eladio Fields MD Cervical disc herniation; Hidradenitis suppurativa; Osteoarthritis of spine with radiculopathy, cervical region 03/27/2025 9:52 AM CDT - 03/27/2025 11:59 PM CDT Hospital Encounter [facility] [place] [address] [phone] Mary Briggs NP Discharge Disposition: Home or Self Care 03/21/2025 External Device Data STL ABSTRACTION Provider, Abstract 03/17/[address] [phone] Eladio Fields MD Dyslipidemia from Last 3 Months Immunizations Immunization Administration Dates Next Due (PREVNAR 20)(6 WKS UP) PNEUM OCOCCAL CONJUGATE VACCINE 20-VALENT (PCV20), POLYSACCHARIDE [id number] CONJUGATE, ADJUVANT 0.5 ML (PF) IM 09/19/2022 (SPIKEVAX) (12 YRS UP PRIMAR Y SERIES) [...] on file 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 Gender Identity Not on file Sexual Orientation Not on file Last Filed Vital Signs Vital Sign Reading Time Taken Comments Blood Pressure 101/68 06/01/2025 9:14 AM CDT Pulse 100 06/01/2025 9:14 AM CDT Temperature 36.8 C (98.3 F) 06/01/2025 9:14 AM CDT Respiratory Rate 18 06/01/2025 9:14 AM CDT Oxygen Saturation 99% 06/01/2025 9:14 AM CDT Inhaled Oxygen Concentration - - Weight 78.2 kg (172 lb 8 oz) 05/23/2025 9:03 AM CDT Height 170.2 cm (5' 7 ) 05/23/2025 9:03 AM CDT Body Mass Index 27.02 05/23/2025 9:03 AM CDT Plan of Treatment Upcoming Encounters Date Type Department Care Team (Late st Contact Info) Description 06/06/2025 10:40 AM CDT Office Visit [facility] [address] [phone] Anel Sewell FNP [address] [phone] 08/29/2025 2:00 PM CDT Office Visit [facility] [address] [phone] Eladio Fields MD [address] [facility] [address] [place] [address] Health Maintenance Due Date Last Done Comments Pre-Diabetes and Diabetes Screening 1955 FIT/ DNA Q 3 YEARS (AUTO ORDER) 1974 FLEX SIG/CT COLONOGRAPHY Q 5 YEARS (AUTO ORDER) 1974 DTAP/TDAP/TD VACCINES (1 - Tdap) 1975 COLORECTAL CANCER SCREENING (AUTO ORDER) 2001 COLORECTAL SCREENING 2001 FIT-DNA Q 3 years 2001 Flex Sig/CT Colonography Q 5 years 2001 ZOSTER VACCINE (1 of 2) 2006 RSV VACCINE (60+ or ) (1 - Risk 60-74 years 1-dose series) 2016 Abdominal Aortic Aneurysm (A AA) Screening 2021 COVID-19 Vaccine ( - 2023-2 5 season) 2024 09/08/2021, 02/14/2021, 01/17/2021 INFLUENZA VACCINE (#1) 2025 , 08/11/2023, 08/01/2022, Additional history exists Colorectal Cancer Screening (AUTO ORDER) 09/22/2025 Colorectal Cancer Screening 09/22/2025 FIT/FOBT Q 1 YEAR (AUTO ORDER) 09/22/2025 09/22/2024 FIT/FOBT Q 1 year 09/22/2025 09/22/2024 PNEUMOCOCCAL VACCINE 50+ YEARS Completed 09/19/2022 Medicare Advantage ([place]) Preventative Visit/Annual Wellness Visit Completed 04/18/2025, 11/26/2023, 01/14/2022 Medical Devices Implanted Type Area Line Service Person Device Identifier Shelf Expiration Date Model / Serial / Lot Cath Dialysis Glidepath 14.5fr 23cm Std [id number] - [id number] Implanted:Qty: 1 on 05/03/2025 by Dru Guzman MD at [facility] Catheter Right: Chest Wall BARD NABILA VASC [id number] 09/15/2026 [id number] / / [id number] Procedures Procedure Name Priority Date/Time Associated Diagnosis Comments URINE CULTURE Routine 05/23/2025 10:41 AM CDT ESRD on hemodialysis ([facility]) Yanez catheter in place Leukocytes in urine Hematuria, unspecified type POC URINALYSIS DIPSTICK AUTOMATED Routine 05/23/2025 9:57 AM CDT ESRD on hemodialysis ([facility]) Yanez catheter in place TELEMETRY REPORT 05/10/2025 2:25 AM CDT POC GLUCOSE Routine 05/09/2025 7:49 AM CDT COMPREHENSIVE METABOLIC PANEL Routine 05/09/2025 5:59 AM CDT CBC WITHOUT DIFFERENTIAL Routine 05/09/2025 5:59 AM CDT COMPREHENSIVE METABOLIC PANEL Routine 05/08/2025 2:22 AM CDT CBC WITHOUT DIFFERENTIAL Routine 05/08/2025 2:22 AM CDT BLOOD CULTURE Routine 05/07/2025 8:59 PM CDT BLOOD CULTURE Routine 05/07/2025 8:59 PM CDT BLOOD CULTURE Routine 05/07/2025 8:59 PM CDT BLOOD CULTURE Routine 05/07/2025 8:59 PM CDT XR CHEST PA OR AP 1 VW Routine 3:13 PM CDT URINALYSIS W/REFLEX MICROSCOPIC Routine 05/07/2025 8:12 AM CDT URINE CULTURE Routine 05/07/2025 8:12 AM CDT COMPREHENSIVE METABOLIC PANEL Routine 05/07/2025 2:10 AM CDT CBC WITHOUT DIFFERENTIAL Routine 05/07/2025 2:10 AM CDT HEMODIALYSIS Routine 05/06/2025 11:07 AM CDT PT EVAL AND TREAT Routine 05/06/2025 10: 25 AM CDT OT EVAL AND TREAT Routine 05/06/2025 10: 25 AM CDT C-REACTIVE PROTEIN Routine 05/06/2025 1: 17 AM CDT DIFFERENTIAL, MANUAL Routine 05/06/2025 1:17 AM CDT CBC WITH DIFFERENTIAL Routine 05/06/2025 1:17 AM CDT COMPREHENSIVE METABOLIC PANEL Routine 05/06/2025 1:17 AM CDT COMPREHENSIVE METABOLIC PANEL Routine 05/05/2025 5:42 AM CDT CBC WITHOUT DIFFERENTIAL Routine 05/05/2025 5:42 AM CDT COMPREHENSIVE METABOLIC PANEL Routine 05/04/2025 3:57 AM CDT CBC WITHOUT DIFFERENTIAL Routine 05/04/2025 3:57 AM CDT HEMOGLOBIN AND HEMATOCRIT Stat 05/03/2025 9:54 PM CDT OCCULT BLOOD GUAIAC DIAGNOSTIC Routine 05/03/2025 7:55 PM CDT ACUTE HEPATITIS PANEL Routine 05/03/2025 4:13 PM CDT IR VENOUS ACCESS Routine 05/03/2025 4:07 PM CDT ECHOCARDIOGRAM W/ CONTRAST AGENT Routine 05/03/2025 12:42 PM CDT BLOOD CULTURE Routine 05/03/2025 6:05 AM CDT BLOOD CULTURE Routine 05/03/2025 6:05 AM CDT COMPREHENSIVE METABOLIC PANEL Routine 05/03/2025 6:01 AM CDT CBC WITHOUT DIFFERENTIAL Routine 05/03/2025 6:01 AM CDT VITAMIN B12 AND FOLATE Routine 6:01 AM CDT BLOOD CULTURE Routine 05/03/2025 5:58 AM CDT BLOOD CULTURE Routine 05/03/2025 5:58 AM CDT URINALYSIS W/REFLEX MICROSCOPIC Routine 05/02/2025 4:34 PM CDT URINE CULTURE Routine 05/02/2025 4:34 PM CDT EKG 12-LEAD Routine 05/02/2025 4:19 PM CDT XR CHEST PA OR AP 1 VW Stat 3:24 PM CDT POC GLUCOSE Routine 05/02/2025 2:52 PM CDT IRON, TIBC, AND PERCENT SATURATION Routine 05/02/2025 2:49 PM CDT PROCALCITONIN Stat 05/02/2025 2:49 PM CDT BRAIN NATRIURETIC PEPTIDE, BNP OR PROBNP Routine 05/02/2025 2:49 PM CDT MAGNESIUM LEVEL Stat 05/02/2025 2:49 PM CDT PROTIME-INR Stat 05/02/2025 2:49 PM CDT COMPREHENSIVE METABOLIC PANEL Stat 05/02/2025 2:49 PM CDT CBC WITH DIFFERENTIAL Stat 05/02/2025 2:49 PM CDT COMPREHENSIVE METABOLIC PANEL Routine 04/30/2025 11:50 AM CDT PROTIME-INR Routine 04/30/2025 POC OCCULT BLOOD UP TO 3 CARDS Routine 09/22/2024 5:12 PM 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 URINE CULTURE SEE NOTE(A) [employer] Comment: CULTURE, URINE, ROUTINE Micro Number: [id number] Test Status: Final Specimen Source: Urine, indwelling (yanez) catheter Specimen Quality: Adequate Result: Greater than 100,000 CFU/mL of Escherichia coli E.coli INT EBER AMOX/CLAVULANATE S 8 AMP/SULBACTAM I 16 CEFAZOLIN R >=64 CEFEPIME R 16 CEFTAZIDIME S 4 CEFTRIAXONE R >=64 CIPROFLOXACIN I 0.5 GENTAMICIN R >=16 IMIPENEM S <=0.25 LEVOFLOXACIN I 1 MEROPENEM S <=0.25 NITROFURANTOIN S <=16 PIP/TAZOBACTAM S <=4 TRIMETHOPRIM/SULFA R >=320 S = Susceptible I = Intermediate R = Resistant NS = Not susceptible SDD = Susceptible Dose Dependent * = Not Tested NR = Not Reported NN = See Therapy Comments Test Performed at: [employer] [address] [phone] Katie Miramontes MD Urine (Urine, indwelling (Yanez) catheter) 05/23/2025 10:41 AM CDT 05/24/2025 5:41 AM CDT Lynn Malagon [facility] MICROBIOLOGY - GENERAL O RDERABLES Final Result [facility] [phone] [facility] [address] [phone] * (ABNORMAL) POC URINALYSIS DIPSTICK AUTOMATED (05/23/2025 9:57 AM CDT) COLOR UA POC Yellow Pale to Dark Yellow [facility] CLARITY UA POC Turbid(A) Clear, Other ME [facility] GLUCOSE UA POC Negative Negative, Normal [facility] BILIRUBIN UA POC Negative Negative [facility] KETONES UA POC Negative Negative [facility] SPECIFIC GRAVITY UA POC 1.020 1.000 - 1.030 [facility] BLOOD UA POC 3+(A) Negative [facility] PH UA POC 8.5(A) 5.0 - 8.0 [facility] IC [facility] PROTEIN UA POC 3+(A) Negative [facility] UROBILINOGEN UA POC 0.2 <2.0 mg/dL [facility] NITRITE UA POC Negative Negative [facility] LEUKOCYTE ESTERASE UA POC 3+(A) Negative [facility] KIT LOT NUMBER POC 312,021 [facility] KIT EXP DATE POC 05/15/2025 [facility] Urine 05/23/2025 9:57 AM CDT Lynn Malagon FRUIT LOADER POINT OF CARE TESTING Fi nal Result [facility] CLIA# [id number] [address] [place] [address] * TELEMETRY REPORT (05/10/2025 2:25 AM CDT) us Provider Scanning ECG ORDERABLES Final Result * POC GLUCOSE (05/09/2025 7:49 AM CDT) Only the most recent of2 resultswithin the time period is included. [facility] GLUCOSE POC 93 74 - 99 mg/dL 05/09/2025 7:49 AM CDT [facility] SPECIMEN SOURCE, GLUCOSE POC Capillary 05/09/2025 7:49 AM CDT [facility] Blood, whole 05/09/2025 7:49 AM CDT 05/09/2025 7:57 AM CDT us Janet Marie MD POINT OF CARE TESTING Fi nal Result [facility] CLIA # [id number] [address] [place] [address] * (ABNORMAL) CBC WITHOUT DIFFERENTIAL (05/09/2025 5:59 AM CDT) Only the most recent of6 resultswithin the time period is included. [facility] WBC 14.7(H) 4.8 - 10.8 K/uL 05/09/2025 6:53 AM CDT [facility] RBC 2.68(L) 4.60 - 6.20 M/uL 05/09/2025 6:53 AM CDT [facility] HEMOGLOBIN 8.6(L) 14.0 - 18.0 g/dL 05/09/2025 6:53 AM T [facility] HEMATOCRIT 27.1(L) 41.0 - 53.0 % 05/09/2025 6:53 AM CDT [facility] MCV 101.1 84.0 - 103.0 fL 05/09/2025 6:53 AM CDT [facility] MCH 32.1 27.0 - 34.0 pg 05/09/2025 6:53 AM CDT [facility] MCHC 31.7 30.0 - 35.0 g/dL 05/09/2025 6:53 AM CDT [facility] PLATELETS 167 140 - 440 K/uL 05/09/2025 6:53 AM CDT [facility] MPV 11.2 8.9 - 12.8 fL 05/09/2025 6:53 AM CDT [facility] RDW 13.5 11.0 - 14.5 % 05/09/2025 6:53 AM CDT [facility] RDW-STDEV 48.8 37.0 - 54.0 fL 05/09/2025 6:53 AM T [facility] Blood Venipuncture / Unknown 05/09/2025 5:59 AM CDT 05/09/2025 6:47 AM CDT Kimberley Connell MD HEMATOLOGY ORDERABLES Final Result [facility] CLIA # [id number] [address] [place] [address] * (ABNORMAL) COMPREHENSIVE METABOLIC PANEL (05/09/2025 5:59 AM CDT) Only the most recent of9 resultswithin the time period is included. SODIUM 139 136 - 145 mmol/L 05/09/2025 7:32 AM [facility] POTASSIUM 3.5 3.5 - 5.1 mmol/L 05/09/2025 7:32 AM [facility] CHLORIDE 102 98 - 107 mmol/L 05/09/2025 7:32 AM T [facility] CO2 21(L) 22 - 29 mmol/L 05/09/2025 7:32 AM [facility] CALCIUM 6.3(LL) 8.8 - 10.2 mg/dL 05/09/2025 7:32 AM T [facility] BUN 40(H) 8 - 23 mg/dL 05/09/2025 7:32 AM [facility] CREATININE 5.26(H) 0.67 - 1.17 mg/dL 05/09/2025 7:32 AM [facility] GLUCOSE 84 74 - 99 mg/dL 05/09/2025 7:32 AM [facility] TOTAL PROTEIN 5.9(L) 6.4 - 8.3 g/dL 05/09/2025 7:32 AM [facility] ALBUMIN 3.0(L) 3.5 - 5.2 g/dL 05/09/2025 7:32 AM [facility] BILIRUBIN TOTAL 0.2 0.0 - 1.0 mg/dL 05/09/2025 7:32 AM [facility] ALKALINE PHOSPHATASE 49 40 - 129 U/L 05/09/2025 7:32 AM [facility] AST 14 10 - 50 U/L 05/09/2025 7:32 AM [facility] ALT 22 <=50 U/L 05/09/2025 7:32 AM [facility] GFR 11(L) >=60 mL/min/1. 73 sq meter 05/09/2025 7:32 AM [facility] Comment:eGFR calculated with 2020 CKD-EPI equation. Vegetarian diet, extremely high or low muscle mass, and may affect results. Cystatin C with Glomerular Filtration Rate is a suitable alternative for these patients. ANION GAP 16 9 - 20 mmol/L 05/09/2025 7:32 AM [facility] Blood Venipuncture / Unknown 05/09/2025 5:59 AM CDT 05/09/2025 6:41 AM CDT us Kimberley Connell MD CHEMISTRY ORDERABLES Final Result [facility] CLIA # [id number] [address] [place] [id number] * BLOOD CULTURE (05/07/2025 8:59 PM CDT) Only the most recent of4 resultswithin the time period is included. BLOOD CULTURE No growth 05/12/2025 10:02 PM CDT [facility] Blood (Peripheral) Venipuncture / Unknown 05/07/2025 8:59 PM CDT 05/07/2025 9:03 PM CDT us Kade Mitchell MD MICROBIOLOGY - GENERAL ORDERABL ES Final Result [facility] CLIA # [id number] [address] [facility] [place] [address] * XR CHEST PA OR AP 1 VW (05/07/2025 3:13 PM CDT) Only the most recent of2 resultswithin the time period is included. Anatomical Region Laterality Modality Chest Computed Radiogr aphy 05/07/2025 3:14 PM CDT Impressions 05/07/2025 3:39 PM CDT IMPRESSION: Probable skinfold overlying the periphery of the right lung, favored artifactual however attention on follow-up is recommended. Otherwise no new acute radiographic abnormalities. Narrative 05/07/2025 3:39 PM CDT EXAM: XR CHEST PA OR AP 1 VW DATE/TIME OF EXAM: 05/07/2025 3:13 PM REASON FOR EXAM: Other - Please see comments, Comment: Leukocytosis DIAGNOSIS: See Reason for Exam COMPARISON: 05/02/2025 FINDINGS: - Lines/tubes: Interval placement of a right IJ approach dialysis catheter with the tip at the superior cavoatrial junction. - Cardiomediastinal: Contours are within normal limits. - Lungs/pleura: There is likely a skinfold overlying the periphery of the right hemithorax with no definitive pneumothorax or new lung opacities. No overt pulmonary edema. No significant pleural effusion. - Bones and soft tissues: No acute abnormalities. - Additional comments: None. Procedure Note Sterling Keys MD - 05/07/2025 EXAM: XR CHEST PA OR AP 1 VW DATE/TIME OF EXAM: 05/07/2025 3:13 PM REASON FOR EXAM: Other - Please see comments, Comment: Leukocytosis DIAGNOSIS: See Reason for Exam COMPARISON: 05/02/2025 FINDINGS: - Lines/tubes: Interval placement of a right IJ approach dialysis catheter with the tip at the superior cavoatrial junction. - Cardiomediastinal: Contours are within normal limits. - Lungs/pleura: There is likely a skinfold overlying the periphery of the right hemithorax with no definitive pneumothorax or new lung opacities. No overt pulmonary edema. No significant pleural effusion. - Bones and soft tissues: No acute abnormalities. - Additional comments: None. IMPRESSION: Probable skinfold overlying the periphery of the right lung, favored artifactual however attention on follow-up is recommended. Otherwise no new acute radiographic abnormalities. us Kade Mitchell MD DIAGNOSTIC IMAGING ORDERABLES F inal Result * (ABNORMAL) URINALYSIS WITH REFLEX MICROSCOPIC (05/07/2025 8:12 AM CDT) Only the most recent of2 resultswithin the time period is included. COLOR UA Yellow Pale to Dark Yellow 05/07/2025 10:47 AM [facility] Zubie [facility] CLARITY UA Cloudy(A) Clear 05/07/2025 10:47 AM [facility] SPECIFIC GRAVITY UA 1.014 1.003 - 1.035 05/07/2025 10:47 AM [facility] PH UA 6.5 5.0 - 8.0 05/07/2025 10:47 AM [facility] LEUKOCYTE ESTERASE UA 3+(A) Negative 05/07/2025 10:47 AM [facility] NITRITE UA Negative Negative 05/07/2025 10:47 AM [facility] PROTEIN UA 2+(A) Negative 05/07/2025 10:47 AM [facility] GLUCOSE UA Negative Negative 05/07/2025 10:47 AM [facility] KETONES UA Negative Negative 05/07/2025 10:47 AM [facility] UROBILINOGEN UA <2.0 <2.0 mg/dL 10:47 AM [facility] Zubie [facility] BILIRUBIN UA Negative Negative 05/07/2025 10:47 AM CDT [facility] BLOOD UA 2+(A) Negative 05/07/2025 10:47 AM CDT [facility] WBC UA >100(A) 0 - 2 /hpf 05/07/2025 10:47 AM CDT [facility] RBC UA 11-25(A) 0 - 2 /hpf 05/07/2025 10:47 AM CDT [facility] BACTERIA UA 1+(A) Negative /hpf 05/07/2025 10:47 AM CDT [facility] Urine URINE SPECIMEN OBTAINED BY CLEAN CATCH PROCEDURE / Unknown 05/07/2025 8:12 AM CDT 05/07/2025 10:35 AM CDT us Kade Mitchell MD URINE ORDERABLES Final Result Performing Organization Address City/State/[facility] Co de Phone Number [facility] CLIA # [id number] [address] [place] [address] * HEMODIALYSIS (05/06/2025 11:07 AM CDT) Narrative [facility] - 05/06/2025 11:07 AM CDT Mikey Carranza MD 05/06/2025 12:22 PM [facility] - Procedure Note Primary Healthcare Representative: Dr. Katiuska Vega PROCEDURE: Intermittent Hemodialysis INDICATION: ESRD Procedure: Utilizing the patient's vascular access, the patient was initiated on hemodialysis. Dialysis is planned for 4 hours. Blood flow of 400 ml per minute and Dialysate flow of 600 ml per minute were prescribed. The bath used was 4 mEq/L potassium, 3 mEq/L calcium, 140 mEq/L sodium and 35 mEq/L bicarbonate. UF goal: 500ml, BP stable. Revaclear 300 hollow fiber dialyzer was used. No anticoagulation. No complications have been encountered to this point. I was present during dialysis, and was available for the entirety of the dialysis treatment. # Compliant with frequency and duration of dialysis: yes Physical Exam: BP 104/69 Pulse 93 Temp 97.1 F (36.2 C) (Temporal) Resp 17 Ht 5' 8 (1.727 m) Wt 77.8 kg (171 lb 8.3 oz) SpO2 97% BMI 26.08 kg/m VSS. NAD. Assesment and Plan: ESRD: 3rd treatment today. Will see on HD days while inpatient. Looks on the dry side, no ultrafiltration with hemodialysis today [facility]. He cannot be discharged until has has been accepted 4k bath on hemodialysis given hypokalemia Abel Martini NP [facility] 05/06/25, 11:07 AM us Kimo Fiore MD DIALYSIS ORDERABLES Anneliese cramer Result [facility] CLIA # [id number] [facility] [address] [place] [address] * (ABNORMAL) MANUAL DIFFERENTIAL (05/06/2025 1:17 AM CDT) SEGMENTED NEUTROPHILS 82(H) 36 - 66 % 05/06/2025 2:07 AM CDT [facility] LYMPHOCYTES RELATIVE 6(L) 24 - 44 % 05/06/2025 2:07 AM CDT [facility] MONOCYTES RELATIVE 8 4 - 10 % 05/06/2025 2:07 AM CDT [facility] EOSINOPHILS RELATIVE 3 0 - 3 % 05/06/2025 2:07 AM [facility] MYELOCYTES - REL (DIFF) 1 0 - 1 % 05/06/2025 2:07 AM CDT [facility] PLATELET EST. Adequate 05/06/2025 2:07 AM CDT [facility] NEUTROPHILS ABSOLUTE COUNT 21.48(H) 2.00 - 8.00 K/uL 05/06/2025 2:07 AM CDT [facility] LYMPHOCYTES ABSOLUTE 1.57 1.20 - 4.00 K/uL 05/06/2025 2:07 AM CDT [facility] ATYPICAL LYMPHS ABSOLUTE 05/06/2025 2:07 AM CDT [facility] MONOCYTES ABSOLUTE 2.10(H) 0.10 - 0.60 K/uL 05/06/2025 2:07 AM T [facility] EOSINOPHILS ABSOLUTE 0.79(H) 0.00 - 0.70 K/uL 05/06/2025 2:07 AM T [facility] POLYCHROMASIA 1+ /hpf 05/06/2025 2:07 AM T [facility] TOTAL CELLS COUNTED IN DIFF 100 05/06/2025 2:07 AM [facility] Blood Venipuncture / Unknown 05/06/2025 1:17 AM CDT 05/06/2025 1:37 AM CDT Lebron Goncalves MD HEMATOLOGY ORDERABLES C OM Final Result [facility] CLIA # [id number] [facility] [address] * (ABNORMAL) CBC WITH DIFFERENTIAL (05/06/2025 1:17 AM CDT) Only the most recent of2 resultswithin the time period is included. WBC 26.2(H) 4.8 - 10.8 K/uL 05/06/2025 2:07 AM [facility] RBC 3.18(L) 4.60 - 6.20 M/uL 05/06/2025 2:07 AM [facility] HEMOGLOBIN 10.3(L) 14.0 - 18.0 g/dL 05/06/2025 2:07 AM [facility] HEMATOCRIT 30.5(L) 41.0 - 53.0 % 05/06/2025 2:07 AM [facility] MCV 95.9 84.0 - 103.0 fL 05/06/2025 2:07 AM [facility] MCH 32.4 27.0 - 34.0 pg 05/06/2025 2:07 AM [facility] MCHC 33.8 30.0 - 35.0 g/dL 05/06/2025 2:07 AM [facility] PLATELETS 236 140 - 440 K/uL 05/06/2025 2:07 AM [facility] MPV 11.1 8.9 - 12.8 fL 05/06/2025 2:07 AM [facility] RDW 13.4 11.0 - 14.5 % 05/06/2025 2:07 AM [facility] RDW-STDEV 46.6 37.0 - 54.0 fL 05/06/2025 2:07 AM [facility] SMEAR REVIEWED: - See Manual Diff. 05/06/2025 2:07 AM [facility] Blood Venipuncture / Unknown 05/06/2025 1:17 AM CDT 05/06/2025 1:37 AM CDT Lebron Goncalves MD HEMATOLOGY ORDERABLES F inal Result [facility] CLIA # [id number] [id number] * (ABNORMAL) C-REACTIVE PROTEIN (05/06/2025 1:17 AM CDT) CRP 28.4(H) 0.0 - 5.0 mg/L 05/06/2025 8:40 AM T [facility] Blood Venipuncture / Unknown 05/06/2025 1:17 AM CDT 05/06/2025 1:39 AM CDT Lebron Goncalves MD CHEMISTRY ORDERABLES Fi nal Result [facility] CLIA # [id number] [address] [address] * (ABNORMAL) HEMOGLOBIN AND HEMATOCRIT (05/03/2025 9:54 PM CDT) [facility] HEMOGLOBIN 8.5(L) 14.0 - 18.0 g/dL 05/03/2025 10:11 PM CDT [facility] HEMATOCRIT 25.0(L) 41.0 - 53.0 % 05/03/2025 10:11 PM CDT [facility] Blood Venipuncture / Unknown 05/03/2025 9:54 PM CDT 05/03/2025 10:04 PM CDT us Kathy Jacques FRUIT LOADER HEMATOLOGY ORDERABLES F inal Result Performing Organization Address [facility]/ZIP Co de Phone Number [facility] CLIA # [id number] [address] [place] [address] * (ABNORMAL) OCCULT BLOOD GUAIAC DIAGNOSTIC (05/03/2025 7:55 PM CDT) [facility] OCCULT BLOOD, STOOL Positive( A) Negative 05/03/2025 8:13 PM CDT [facility] Stool STOOL SPECIMEN / Unknown Collection / Unknown 05/03/2025 7:55 PM CDT 05/03/2025 8:09 PM CDT us Kimberley Connell MD BODY FLUIDS AND STOOLS Anneliese l Result [facility] CLIA # [id number] [address] [place] [address] * ACUTE HEPATITIS PANEL (05/03/2025 4:13 PM CDT) [facility] HEPATITIS B SURFACE AG NON-REACT REMEDIOS Non-react remedios 05/03/2025 5:36 PM CDT [facility] Comment:A non-reactive test result does not exclude the possibility of exposure to or infection with hepatitis B. HEPATITIS B CORE IGM NON-REACT REMEDIOS Non-react remedios 05/03/2025 5:36 PM CDT [facility] Comment:IgM antibodies to HB c were not detected; does not exclude the possibility of exposure to HBV. HEPATITIS A IGM Non-react remedios Non-react remedios 05/03/2025 5:36 PM CDT [facility] Comment:A negative test resu lt does not exclude the possibility of exposure to Hepatitis A virus. HEPATITIS C AB NON-REACT REMEDIOS Non-react remedios 05/03/2025 5:36 PM CDT [facility] Comment:Antibodies to HCV we re not detected, does not exclude the possibility of exposure to HCV. Blood Venipuncture / Unknown 05/03/2025 4:13 PM CDT 05/03/2025 4:48 PM CDT us Aria Woody NP CHEMISTRY ORDERABLES Final Resul t [facility] CLIA # [id number] [address] [place] [address] * IR VENOUS ACCESS (05/03/2025 4:07 PM CDT) Anatomical Region Laterality Modality X-Ray Angiograph y 05/03/2025 4:07 PM CDT Impressions 05/03/2025 10:07 PM CDT IMPRESSION: Successful image-guided insertion of a tunneled central venous hemodialysis catheter. Narrative 05/03/2025 10:07 PM CDT PROCEDURE: 1. Ultrasound-guided vascular access. 2. Fluoroscopy-guided insertion of a tunneled central venous dialysis catheter. INDICATION: Acute on chronic renal failure. DATE: 05/03/2025. COMPARISON: Chest x-ray obtained on 05/02/2025. PHYSICIAN: Dru Guzman CONSENT: After discussing the risks, benefits, and alternatives of the procedure, written informed consent was obtained. PERIPROCEDURE MEDICATIONS: Versed 4 mg IV, fentanyl ladderlike extremity, Ancef 2 g IV, 1% lidocaine subcutaneous. SEDATION: Moderate (conscious) sedation for this procedure was performed with continuous physician supervision. Medical history, physical exam, drug dosages, routes of drug administration, monitoring data, and precise times of service are documented in the medical record on the [facility]-approved form, 'Sedative/Analgesic Administration for Diagnostic and Therapeutic Procedures'. The total physician-monitored moderate sedation time was 20 minutes. DESCRIPTION OF PROCEDURE: The patient was brought to the angiography suite and placed on table in the supine position. The patient's right neck and chest were prepped and draped in usual sterile manner and with the use of maximal barrier technique. [place] timeout protocol was performed. The initial sonographic evaluation of the patient's right neck showed anechoic and compressible internal jugular vein. After anesthetizing the patient's skin and subcutaneous tissue with 2% lidocaine, a 4 mm skin incision was made, and the right internal jugular vein was accessed with micropuncture needle using real-time ultrasound guidance (an ultrasound image was archived to PACS). Using standard micropuncture technique, the tract was dilated. After anesthetizing the skin and subcutaneous tissue of the patient's right upper chest with 2% lidocaine with epinephrine, a 4 mm skin incision was made, and a 14.5 [place]an, 23 cm tip-to-cuff GluidePath dialysis catheter was tunneled subcutaneously to the neck incision site using a tunneling device. The tract was dilated, and a 15 [place] peel-away sheath was inserted over a 0.035-inch guide wire using fluoroscopic guidance. The tunneled dialysis catheter was inserted into the right internal jugular vein through the peel-away sheath as a peel-away sheath was removed. The final fluoroscopic images showed the tip of the tunneled dialysis catheter in the mid right atrium. Both the red port and blue ports of the catheter were aspirated, flushed, heparinized, and capped. The neck incision site was closed with a 3-0 Vicryl suture, Dermabond, and Steri-Strips. An antimicrobial disc was placed around the catheter at the chest skin incision site. The catheter was secured to the skin with 2-0 Ethilon sutures. The procedure sites were sterilely dressed. CATHETER: 14.5 [place], 23 cm tip-to-cuff Glidepath hemodialysis catheter. COMPLICATIONS: None. The patient tolerated the procedure well. ESTIMATED BLOOD LOSS: MInimal. RADIATION: Fluoroscopy time = 0.4 minutes. SAMPLES: None. Procedure Note Dru Guzman MD - 05/03/2025 PROCEDURE: 1. Ultrasound-guided vascular access. 2. Fluoroscopy-guided insertion of a tunneled central venous dialysis catheter. INDICATION: Acute on chronic renal failure. DATE: 05/03/2025. COMPARISON: Chest x-ray obtained on 05/02/2025. PHYSICIAN: Dru Guzman CONSENT: After discussing the risks, benefits, and alternatives of the procedure, written informed consent was obtained. PERIPROCEDURE MEDICATIONS: Versed 4 mg IV, fentanyl ladderlike extremity, Ancef 2 g IV, 1% lidocaine subcutaneous. SEDATION: Moderate (conscious) sedation for this procedure was performed with continuous physician supervision. Medical history, physical exam, drug dosages, routes of drug administration, monitoring data, and precise times of service are documented in the medical record on the [facility]-approved form, 'Sedative/Analgesic Administration for Diagnostic and Therapeutic Procedures'. The total physician-monitored moderate sedation time was 20 minutes. DESCRIPTION OF PROCEDURE: The patient was brought to the angiography suite and placed on table in the supine position. The patient's right neck and chest were prepped and draped in usual sterile manner and with the use of maximal barrier technique. [place] timeout protocol was performed. The initial sonographic evaluation of the patient's right neck showed anechoic and compressible internal jugular vein. After anesthetizing the patient's skin and subcutaneous tissue with 2% lidocaine, a 4 mm skin incision was made, and the right internal jugular vein was accessed with micropuncture needle using real-time ultrasound guidance (an ultrasound image was archived to PACS). Using standard micropuncture technique, the tract was dilated. After anesthetizing the skin and subcutaneous tissue of the patient's right upper chest with 2% lidocaine with epinephrine, a 4 mm skin incision was made, and a 14.5 [place]an, 23 cm tip-to-cuff GluidePath dialysis catheter was tunneled subcutaneously to the neck incision site using a tunneling device. The tract was dilated, and a 15 [place] peel-away sheath was inserted over a 0.035-inch guide wire using fluoroscopic guidance. The tunneled dialysis catheter was inserted into the right internal jugular vein through the peel-away sheath as a peel-away sheath was removed. The final fluoroscopic images showed the tip of the tunneled dialysis catheter in the mid right atrium. Both the red port and blue ports of the catheter were aspirated, flushed, heparinized, and capped. The neck incision site was closed with a 3-0 Vicryl suture, Dermabond, and Steri-Strips. An antimicrobial disc was placed around the catheter at the chest skin incision site. The catheter was secured to the skin with 2-0 Ethilon sutures. The procedure sites were sterilely dressed. CATHETER: 14.5 [place], 23 cm tip-to-cuff Glidepath hemodialysis catheter. COMPLICATIONS: None. The patient tolerated the procedure well. ESTIMATED BLOOD LOSS: MInimal. RADIATION: Fluoroscopy time = 0.4 minutes. SAMPLES: None. IMPRESSION: Successful image-guided insertion of a tunneled central venous hemodialysis catheter. us Kimo Fiore MD IR ORDERABLES Final Re sult * ECHOCARDIOGRAM W/ CONTRAST AGENT (05/03/2025 12:42 PM CDT) EJECTION FRACTION 57 INTERFACE SYSTEM 05/03/2025 12:0 2 PM CDT Narrative INTERFACE SYSTEM - 05/03/2025 4:19 PM CDT [facility] Cardiovascular Services Echocardiography Laboratory [address] [place] [id number] Transthoracic Echocardiography Patient: Shanta Carpenter Study ID: ECHO COMPLETE - Gender: M : 1955 Age: 69 Room: [facility] Study Date: 05/03/2025 Pt Status: Inpatient Study Time: 12:02:57 PM CSN #: [id number] Ordering:Kimberley Connell Integration Analyst: Divya Ortizman [facility] Indications and History: Congestive Heart Failure. Risk factors: The patient is a current tobacco user. Hypertension. Summary and Conclusion: - Left ventricle: The cavity size is normal. Wall thickness is normal. Global systolic function is normal. The estimated ejection fraction is 55-60%. For Epic reporting: the left ventricular ejection fraction is 57% by biplane method of disks. No diagnostic regional wall motion abnormality identified. Regional wall motion difficult to determine despite echo contrast. The study was not technically sufficient to allow evaluation of LV diastolic dysfunction. - Right ventricle: Not well visualized. The cavity size is normal. Systolic function is normal. Systolic pressure is not obtained. Impressions: Technically difficult study with poor acoustic windows. Comparison: No previous study was available for comparison. Procedure information: No prior study is available for comparison. Study status: Routine. Procedure: A transthoracic echocardiogram was performed. Image quality was adequate. The study was technically limited due to restricted patient mobility. Scanning was performed from the parasternal, apical, subcostal, and suprasternal notch acoustic windows. Intravenous contrast (Definity) was administered. There were no complications. There were no contrast reactions. Study components: M-mode, 2D, complete spectral Doppler, and color Doppler. Height: 172.7cm. Height: 68in. Weight: 80.3kg. Weight: 177lb. BMI: 26.9kg/m^2. BSA: 1.98m^2. Blood pressure: 85/51 Study date: 05/03/2025. Study time: 12:02 PM. Location: ICU/CCU Cardiac Anatomy: LEFT VENTRICLE: The cavity size is normal. Wall thickness is normal. Global systolic function is normal. The estimated ejection fraction is 55-60%. For Epic reporting: the left ventricular ejection fraction is 57% by biplane method of disks. No diagnostic regional wall motion abnormality identified. Regional wall motion difficult to determine despite echo contrast. The study was not technically sufficient to allow evaluation of LV diastolic dysfunction. RIGHT VENTRICLE: Not well visualized. The cavity size is normal. Systolic function is normal. Systolic pressure is not obtained. LEFT ATRIUM: Not well visualized. RIGHT ATRIUM: Not well visualized. ATRIAL SEPTUM: No obvious PFO or ASD identified by 2D imaging and color Doppler. AORTIC VALVE: Not well visualized. There is no stenosis. There is trace regurgitation. MITRAL VALVE: The valve appears to be grossly normal. There is no evidence for stenosis. There is no significant regurgitation. TRICUSPID VALVE: Not well visualized. PULMONIC VALVE: Not well visualized. PERICARDIUM: A minimal pericardial effusion and/or fat pad was identified. AORTA: Aortic root: The root is not dilated. Aortic arch: The vessel is not dilated. INTRACARDIAC MASS THROMBUS: No apparent intracavitary masses or thrombi detected. Measurements Left ventricle Value LVOT Value IVS, ED, LAX 1.7 cm Diam, S 2.0 cm ESD, LAX 3.3 cm Area 3.2 cm^2 ESD/bsa, LAX 1.7 cm/m^2 Peak hany, S 121 cm/sec FS, LAX 26 % VTI, S 24.1 cm FS, LAX chord 26 % Peak grad, S 6 mm Hg ESD major ax, A4C 6.6 cm SV 76 ml ESD/bsa major ax, A4C 3.4 cm/m^2 SV/bsa 38 ml/m^2 CRIS minor ax, A4C 6.6 cm CRIS/bsa minor ax, A4C 3.4 cm/m^2 Right ventricle Value SIRI, A4C 31.6 cm^2 CRIS, LAX 2.9 cm ASA, A4C 18.7 cm^2 CRIS 2.9 cm FAC, A4C 41 % S' lateral 11.7 cm/sec CRIS major ax, A2C 8.0 cm CRIS/bsa major ax, A2C 4.0 cm/m^2 Left atrium Value SIRI, A2C 32.1 cm^2 AP dim, ES 3.4 cm ASA, A2C 18.9 cm^2 AP dim index, ES 1.7 cm/m^2 FAC, A2C 41 % Area ES, A4C 17 cm^2 IVS, ED 1.0 cm SI dim, A2C 6.1 cm PW, ED 1.1 cm Vol, ES, 1-p A4C 39 ml IVS/PW, ED 0.94 Vol/bsa, ES, 1-p A4C 20 ml/m^2 EDV 90 ml Vol, ES, 1-p A2C 40 ml ESV 45 ml Vol/bsa, ES, 1-p A2C 20 ml/m^2 EF 51 % Vol, ES, 2-p 40 ml SV 76 ml Vol/bsa, ES, 2-p 20 ml/m^2 EDV/bsa 46 ml/m^2 ESV/bsa 23 ml/m^2 Right atrium Value SV/bsa 38 ml/m^2 Area, ES, A4C 14 cm^2 EDV, 1-p A2C 107 ml ESV, 1-p A2C 65 ml Aortic valve Value EF, 1-p A2C 61 % Peak v, S 137 cm/sec SV, 1-p A2C 46 ml Mean v, S 115 cm/sec EDV/bsa, 1-p A2C 54 ml/m^2 VTI, S 36.2 cm ESV/bsa, 1-p A2C 33 ml/m^2 Mean grad, S 7 mm Hg SV/bsa, 1-p A2C 23.1 ml/m^2 Peak grad, S 8 mm Hg EDV, 1-p A4C 104 ml LVOT/AV, VTI ratio 0.67 ESV, 1-p A4C 46 ml JULIAN, VTI 2.11 cm^2 EF, 1-p A4C 56 % JULIAN/bsa, VTI 1.07 cm^2/m^2 SV, 1-p A4C 52 ml LVOT/AV, Vpeak ratio 0.88 EDV/bsa, 1-p A4C 53 ml/m^2 JULIAN, Vmax 2.8 cm^2 ESV/bsa, 1-p A4C 23 ml/m^2 JULIAN/bsa, Vmax 1.42 cm^2/m^2 SV/bsa, 1-p A4C 26 ml/m^2 EDV, 2-p 106 ml Mitral valve Value ESV, 2-p 45 ml Peak E 80.9 cm/sec EF, 2-p 57 % Peak A 73.9 cm/sec SV, 2-p 61 ml Decel time 225 ms EDV/bsa, 2-p 54 ml/m^2 Peak grad, D 3 mm Hg ESV/bsa, 2-p 23 ml/m^2 Peak E/A ratio 1.1 SV/bsa, 2-p 30.1 ml/m^2 Vena contracta width 2.9 cm EDV, MM Teich. 90 ml EF, MM Teich. 51 % Tricuspid valve Value EDV/bsa, MM Teich. 46 ml/m^2 TR vena contracta width 2.0 cm EF, MM on 2D Teich. 51 % E', lat jonah, TDI 7.6 cm/sec Ascending aorta Value E/e', lat jonah, TDI 9 AAo AP diam, S 3.1 cm E', med jonah, TDI 8.8 cm/sec AAo AP diam/bsa, S 1.6 cm/m^2 E/e', med jonah, TDI 9 E', avg, TDI 8.2 cm/sec Inferior vena cava Value E/e', avg, TDI 10 Diam 1.7 cm Legend: (L) and (H) ke values outside specified reference range. [facility] are accredited with the Intersocietal Accreditation Commission - Echocardiography. Prepared and Electronically Authenticated Cooper Montgomery Confirmed 05/03/2025 16:19 Procedure Note Cooper Montgomery MD - 05/03/2025 [facility] Cardiovascular Services Echocardiography Laboratory [address] [place] [address] Transthoracic Echocardiography Patient: Shanta Carpenter Study ID: ECHO COMPLETE- Gender: Ginger : 1955 Age: 69 Room: [facility] Study Date: 05/03/2025 Pt Status: Inpatient Study Time: 12:02:57 PM CSN #: [id number] Ordering:Kimberley Connell Integration Analyst: Divya Cadet [facility] Indications and History: Congestive Heart Failure. Risk factors:The patient is a current tobacco user. Hypertension. Summary and Conclusion: - Left ventricle: The cavity size is normal. Wall thickness is normal.Global systolic function is normal. The estimated ejection fraction is 55-60%.For Epic reporting: the left ventricular ejection fraction is 57% bybiplane method of disks. No diagnostic regional wall motion abnormalityidentified. Regional wall motion difficult to determine despite echo contrast. Thestudy was not technically sufficient to allow evaluation of LV diastolic dysfunction. - Right ventricle: Not well visualized. The cavity size is normal.Systolic function is normal. Systolic pressure is not obtained. Impressions: Technically difficult study with poor acoustic windows. Comparison: No previous study was available for comparison. Procedure information: No prior study is available for comparison.Study status: Routine. Procedure: A transthoracic echocardiogram wasperformed. Image quality was adequate. The study was technically limited due to restricted patient mobility. Scanning was performed from theparasternal, apical, subcostal, and suprasternal notch acoustic windows. Intravenous contrast (Definity) was administered. There were no complications. Therewere no contrast reactions. Study components: M-mode, 2D, complete spectral Doppler, and color Doppler. Height: 172.7cm. Height: 68in. Weight: 80.3kg. Weight: 177lb. BMI: 26.9kg/m^2. BSA: 1.98m^2.Blood pressure: 85/51 Study date: 05/03/2025. Study time: 12:02 PM. Location: ICU/CCU Cardiac Anatomy: LEFT VENTRICLE: The cavity size is normal. Wall thickness is normal.Global systolic function is normal. The estimated ejection fraction is 55-60%.For Epic reporting: the left ventricular ejection fraction is 57% by biplane method of disks. No diagnostic regional wall motion abnormalityidentified. Regional wall motion difficult to determine despite echo contrast. Thestudy was not technically sufficient to allow evaluation of LV diastolic dysfunction. RIGHT VENTRICLE: Not well visualized. The cavity size is normal.Systolic function is normal. Systolic pressure is not obtained. LEFT ATRIUM: Not well visualized. RIGHT ATRIUM: Not well visualized. ATRIAL SEPTUM: No obvious PFO or ASD identified by 2D imaging and color Doppler. AORTIC VALVE: Not well visualized. There is no stenosis. There istrace regurgitation. MITRAL VALVE: The valve appears to be grossly normal. There is no evidence for stenosis. There is no significant regurgitation. TRICUSPID VALVE: Not well visualized. PULMONIC VALVE: Not well visualized. PERICARDIUM: A minimal pericardial effusion and/or fat pad wasidentified. AORTA: Aortic root: The root is not dilated. Aortic arch: The vessel is not dilated. INTRACARDIAC MASS THROMBUS: No apparent intracavitary masses or thrombi detected. Measurements Left ventricle Value LVOT Value IVS, ED, LAX 1.7 cm Diam, S 2.0 cm ESD, LAX 3.3 cm Area 3.2cm^2 ESD/bsa, LAX 1.7 cm/m^2 Peak hany, S 121cm/sec FS, LAX 26 % VTI, S 24.1 cm FS, LAX chord 26 % Peak grad, S 6 mmHg ESD major ax, A4C 6.6 cm SV 76 ml ESD/bsa major ax, A4C 3.4 cm/m^2 SV/bsa 38ml/m^2 CRIS minor ax, A4C 6.6 cm CRIS/bsa minor ax, A4C 3.4 cm/m^2 Right ventricle Value SIRI, A4C 31.6 cm^2 CRIS, LAX 2.9 cm ASA, A4C 18.7 cm^2 CRIS 2.9 cm FAC, A4C 41 % S' lateral 11.7cm/sec CRIS major ax, A2C 8.0 cm CRIS/bsa major ax, A2C 4.0 cm/m^2 Left atrium Value SIRI, A2C 32.1 cm^2 AP dim, ES 3.4 cm ASA, A2C 18.9 cm^2 AP dim index, ES 1.7cm/m^2 FAC, A2C 41 % Area ES, A4C 17cm^2 IVS, ED 1.0 cm SI dim, A2C 6.1 cm PW, ED 1.1 cm Vol, ES, 1-p A4C 39 ml IVS/PW, ED 0.94 Vol/bsa, ES, 1-p A4C 20ml/m^2 EDV 90 ml Vol, ES, 1-p A2C 40 ml ESV 45 ml Vol/bsa, ES, 1-p A2C 20ml/m^2 EF 51 % Vol, ES, 2-p 40 ml SV 76 ml Vol/bsa, ES, 2-p 20ml/m^2 EDV/bsa 46 ml/m^2 ESV/bsa 23 ml/m^2 Right atrium Value SV/bsa 38 ml/m^2 Area, ES, A4C 14cm^2 EDV, 1-p A2C 107 ml ESV, 1-p A2C 65 ml Aortic valve Value EF, 1-p A2C 61 % Peak v, S 137cm/sec SV, 1-p A2C 46 ml Mean v, S 115cm/sec EDV/bsa, 1-p A2C 54 ml/m^2 VTI, S 36.2 cm ESV/bsa, 1-p A2C 33 ml/m^2 Mean grad, S 7 mmHg SV/bsa, 1-p A2C 23.1 ml/m^2 Peak grad, S 8 mmHg EDV, 1-p A4C 104 ml LVOT/AV, VTI ratio 0.67 ESV, 1-p A4C 46 ml JULIAN, VTI 2.11cm^2 EF, 1-p A4C 56 % JULIAN/bsa, VTI 1.07cm^2/m^2 SV, 1-p A4C 52 ml LVOT/AV, Vpeak ratio 0.88 EDV/bsa, 1-p A4C 53 ml/m^2 JULIAN, Vmax 2.8cm^2 ESV/bsa, 1-p A4C 23 ml/m^2 JLUIAN/bsa, Vmax 1.42cm^2/m^2 SV/bsa, 1-p A4C 26 ml/m^2 EDV, 2-p 106 ml Mitral valve Value ESV, 2-p 45 ml Peak E 80.9cm/sec EF, 2-p 57 % Peak A 73.9cm/sec SV, 2-p 61 ml Decel time 225 ms EDV/bsa, 2-p 54 ml/m^2 Peak grad, D 3 mmHg ESV/bsa, 2-p 23 ml/m^2 Peak E/A ratio 1.1 SV/bsa, 2-p 30.1 ml/m^2 Vena contracta width 2.9 cm EDV, MM Teich. 90 ml EF, MM Teich. 51 % Tricuspid valve Value EDV/bsa, MM Teich. 46 ml/m^2 TR vena contracta width 2.0 cm EF, MM on 2D Teich. 51 % E', lat jonah, TDI 7.6 cm/sec Ascending aorta Value E/e', lat jonah, TDI 9 AAo AP diam, S 3.1 cm E', med jonah, TDI 8.8 cm/sec AAo AP diam/bsa, S 1.6cm/m^2 E/e', med jonah, TDI 9 E', avg, TDI 8.2 cm/sec Inferior vena cava Value E/e', avg, TDI 10 Diam 1.7 cm Legend: (L) and (H) ke values outside specified reference range. [facility] are accredited with the[facility] Accreditation Commission - Echocardiography. Prepared and Electronically Authenticated Cooper Montgomery Confirmed 05/03/2025 16:19 Kimberley Connell MD US ORDERABLES Final Resul t Performing Organization Address City/[facility]/ZIP Co de Phone Number INTERFACE SYSTEM Refer to clinic/hospital department * VITAMIN B12 AND FOLATE (05/03/2025 6:01 AM CDT) VITAMIN B12 561 211 - 946 pg/mL 05/03/2025 7:08 AM CDT [facility] FOLATE, SERUM 4.9 3.1 - 17.5 ng/mL 05/03/2025 7:08 AM CDT [facility] Blood Venipuncture / Unknown 05/03/2025 6:01 AM CDT 05/03/2025 6:15 AM CDT Kimberley Connell MD CHEMISTRY ORDERABLES Final Result Performing Organization Address [facility]/ZIP Co de Phone Number [facility] CLIA # [id number] [address] [facility] [place] [address] * EKG 12-LEAD (05/02/2025 4:19 PM CDT) 05/02/2025 4:19 PM CDT Narrative INTERFACE SYSTEM - 05/03/2025 8:06 PM CDT [place] [id number] Test Date: 2025-05-02 Pat Name: SHANTA CARPENTER Department: 12 Room: [address] [place] [address] Gender: Male Manager Clinical Services: [id number] : 1955 Requested By: Order Number: [id number] Reading MD: Erma Castro Measurements Intervals Christopher Rate: 77 P: 49 MS: 158 QRS: 20 QRSD: 96 T: 47 QT: 464 QTc: 525 Interpretive Statements Normal sinus rhythm RSR' or QR pattern in V1 suggests right ventricular conduction delay Prolonged QT Abnormal ECG Electronically Signed On 05-03-2025 20:06:32 CDT by Erma Castro Procedure Note Erma Castro, - 05/03/[address] [address] Test Date: 2025-05-02 Pat Name: SHANTA CARPENTER Department: 12 Room: [facility] 01 Gender: Male Manager Clinical Services: [id number] : 1955 Requested By: Order Number: [id number] Maddy STUBBS: Erma Castro Measurements Intervals Christopher Rate: 77 P: 49 MS: 158 QRS: 20 QRSD: 96 T: 47 QT: 464 QTc: 525 Interpretive Statements Normal sinus rhythm RSR' or QR pattern in V1 suggests right ventricular conduction delay Prolonged QT Abnormal ECG Electronically Signed On 05-03-2025 20:06:32 CDT by Erma Castro us Kimberley Connell MD ECG ORDERABLES Final Resul t INTERFACE SYSTEM Refer to clinic/hospital department * (ABNORMAL) PROCALCITONIN (05/02/2025 2:49 PM CDT) PROCALCITONIN 3.68(H) <=0.08 ng/mL 05/02/2025 4:02 PM CDT [facility] Blood Venipuncture / Unknown 05/02/2025 2:49 PM CDT 05/02/2025 2:54 PM CDT Narrative [facility] - 05/02/2025 4:02 PM CDT The utility of procalcitonin is limited/NOT recommended in certain populations (e.g. newborns, dialysis/ESRD, patients with recent major surgery/trauma/thompson, liver cirrhosis, viral hepatitis, certain cancers, etc.). Procalcitonin levels MUST be interpreted in the context of the patient's clinical condition and CANNOT be solely relied upon for diagnosis of infection. <0.25 ng/mL: Bacterial infection unlikely, particularly lower respiratory tract infections. <0.5 ng/mL: Low risk for progression to severe sepsis/septic shock. Localized infection possible. Measurements done early (<6 hours) after systemic process starts may still be low. 0.5-2 ng/mL: Moderate risk for progression to severe sepsis/septic shock. >2 ng/mL: High risk for progression to severe sepsis/septic shock. If antibiotics ARE administered, repeat testing is recommended every 2-3 days to help guide antibiotic cessation. Once a decrease of 80% or more has occurred from baseline, discontinuation of antibiotics should strongly be considered in clinically stable patients. Procalcitonin is produced in the setting of systemic inflammation, particularly bacterial infections. It is detectable within 2-4 hours and peaks within 6-24 hours. Kimberley Connell MD CHEMISTRY ORDERABLES Final Result [facility] CLIA # [id number] [address] [place] [address] * (ABNORMAL) IRON, TIBC, AND PERCENT SATURATION (05/02/2025 2:49 PM CDT) [facility] IRON 112 59 - 158 ug/dL 05/02/2025 6:11 PM CDT [facility] TIBC 169(L) 250 - 450 ug/dL 05/02/2025 6:11 PM CDT [facility] IRON % SATURATION 66(H) 15 - 60 % 05/02/2025 6:11 PM CDT [facility] Blood Venipuncture / Unknown 05/02/2025 2:49 PM CDT 05/02/2025 2:54 PM CDT Kimberley Connell MD CHEMISTRY ORDERABLES Final Result [facility] CLIA # [id number] [address] [address] [place] [address] * (ABNORMAL) PROTIME-INR (05/02/2025 2:49 PM CDT) Only the most recent of2 resultswithin the time period is included. PROTIME 16.4(H) 12.7 - 14.9 Seconds 05/02/2025 3:07 PM CDT [facility] INR 1.3(H) 0.8 - 1.2 05/02/2025 3:07 PM CDT [facility] Blood Venipuncture / Unknown 05/02/2025 2:49 PM CDT 05/02/2025 2:54 PM CDT Narrative [facility] - 05/02/2025 3:07 PM CDT Expected Values for INR: DVT/PE Goal INR 2.5; range 2.0 - 3.0 Valve Replacement Tissue Goal INR 2.5; range 2.0 - 3.0 Valve Replacement Mechanical Goal INR 3.0; range 2.5 - 3.5 POST-IA Goal INR 2.5; range 2.0 - 3.0 or Goal INR 3.0; range 2.5 - 3.5 Atrial Fibrillation Goal INR 2.5; range 2.0 - 3.0 Ischemic Stroke Goal INR 2.5; range 2.0 - 3.0 Kimberley Connell MD HEMATOLOGY ORDERABLES Final Result [facility] CLIA # [id number] [address] [address] * (ABNORMAL) BRAIN NATRIURETIC PEPTIDE, BNP OR PROBNP (05/02/2025 2:49 PM CDT) PROBNP, N TERMINAL 7,751(H) 0 - 125 pg/mL 05/02/2025 4:02 PM CDT [facility] Comment: INTERPRETIVE COMMENT based on diagnosis: Diagnostic NT pro-BNP cutoffs for Heart Failure in the absence of renal failure is suggested for the following ranges <75 years: <125 pg/mL >=75 years: <450 pg/mL Exclusionary rule out cut-point for Acute Decompensated Heart Failure(ADHF) All ages: <300 pg/mL Diagnostic NT pro-BNP cutoffs for Acute Decompensated Heart Failure(ADHF) in the absence of renal failure is suggested for the following ages <50 years: > 450 pg/mL 50-75 years: > 900 pg/mL >75 years: >1800 pg/mL Blood Venipuncture / Unknown 05/02/2025 2:49 PM CDT 05/02/2025 2:54 PM CDT us Kimberley Connell MD CHEMISTRY ORDERABLES Final Result Performing Organization Address [facility] Co de Phone Number [facility] CLIA # [id number] [address] [place] [address] * MAGNESIUM LEVEL (05/02/2025 2:49 PM CDT) [facility] MAGNESIUM 2.2 1.6 - 2.4 mg/dL 05/02/2025 4:02 PM CDT [facility] Blood Venipuncture / Unknown 05/02/2025 2:49 PM CDT 05/02/2025 2:54 PM CDT us Kimberley Connell MD CHEMISTRY ORDERABLES Final Result Performing Organization Address [facility]/ZIP Co de Phone Number [facility] CLIA # [id number] [address] [facility] [place] [address] * POC OCCULT BLOOD UP TO 3 CARDS (09/22/2024 5:12 PM RESEARCH PROGRAMMER) OCCULT BLOOD 1 CARD POC Negative Negative [facility] OCCULT BLOOD 2 CARD POC Negative Negative, Indeterminate [facility] OCCULT BLOOD 3 CARD POC Negative Negative, Indeterminate [facility] INTERNAL KIT QC POC [place] [facility] CARD LOT NUMBER POC [id number] [facility] CARD EXPIRATION DATE POC [facility] DEVELOPER LOT NUMBER POC [id number] [facility] DEVELOPER EXPIRATION DATE POC [facility] Stool STOOL SPECIMEN / Unknown 09/22/2024 5:12 PM RESEARCH PROGRAMMER us Mary Briggs RECOVERY RN POINT OF CARE TESTING Final Re sult Performing Organization Address City/State/[facility] Co de Phone Number [facility] CLIA# [id number] [address] [place] [address] [place] [address] from Last 3 Months or Most Recently Relevant to Health Maintenance Insurance [facility] Advance Directives For more information, please contact: [phone] Documents on File Type Date Recorded Patient 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 intubation): No Mechanical Ventilation (for respiratory distress) - Non-Invasive (i.e. BiPAP, CPAP): Yes * Full Code Date Activated Date Inactivated Comments 05/02/2025 2:25 PM 05/02/2025 3:31 PM * Full Code Date Activated Date Inactivated Comments 08/08/2023 3:23 PM 08/10/2023 7:10 PM Care Teams Oracle Database Analyst Relationship Specialty Start Date End Date Eladio Fields MD [address] [id number] PCP - General Family Practice 04/19/18
--- NOTE | 2025-06-05 13:02 | CT_ITS ---
WS: [id number] CT ABDOMEN AND PELVIS NONCONTRAST HISTORY: Abdominal pain TECHNIQUE: Imaging performed through the abdomen and pelvis. Coronal and sagittal reformats are submitted. All CT scans at [facility] use at least one of these dose optimization techniques: automated exposure control; mA and/or kV adjustment per patient size (includes targeted exams where dose is matched to clinical indication); or iterative reconstruction. DLP: 901.03 mGy.cm COMPARISON: 05/01/2025 Lower thorax: Mild dependent changes at the lung bases. Normal sized heart. Liver: Normal size with granuloma. Gallbladder: Normal gallbladder. No pericholecystic fluid or cholelithiasis. No gallbladder wall thickening. Pancreas: Normal size and attenuation. Normal pancreatic duct. No pancreatitis or mass. Spleen: Normal spleen with granulomata. Adrenal glands: Normal. No mass. Right kidney: Perinephric stranding. Irregular lobulated renal cortex. Moderate to severe RIGHT hydronephrosis and hydroureter. RIGHT ureter is dilated to the urinary bladder. Similar to the prior study. Left kidney: Perinephric stranding. Moderate to severe hydronephrosis. Marked dilatation of the LEFT ureter. Ureter is dilated to the urinary bladder. Cortical nodules are unchanged. Aorta: Mild atherosclerosis abdominal aorta with no aneurysm. No free fluid, intraperitoneal air or significant lymphadenopathy. GI tract: Normally distended stomach. No small bowel obstruction. No colon obstruction. Normal appendix. Scattered sigmoid diverticulosis without acute diverticulitis. Abdominal wall: Negative. No hernia. Pelvis: Markedly distended urinary bladder. There is diffuse bladder wall thickening, slightly asymmetric and largest on the RIGHT measuring 17 mm. There is also soft tissue mass extending into the urinary bladder from the prostate gland. Mass measures 9.1 x 7.4 x 8.9 cm. The Steiner catheter has retracted since 05/01/2025 and the catheter appears to terminate in the prostatic portion of the urethra. Bilateral fat-containing inguinal canals. Osseous structures: Grade 1 anterolisthesis of L5. Bilateral L5 pars defects. CT/CT abdomen pelvis wo con [id number] IMPRESSION: 1. Persistent bilateral hydroureteronephrosis. Similar to 05/01/2025. 2. Steiner catheter that was present in the urinary bladder on 05/01/2025 has bee n retracted. Steiner catheter balloon terminates in the prostatic portion of the urethra and should be repositioned. 3. Markedly distended urinary bladder with a large mass extending into the lizabeth dder which is probably the prostate gland. 4. Bilateral perinephric stranding around each kidney. Correlate for possible pyelonephritis. Perinephric stranding has progressed since 05/01/2025. No focal fluid collection identified on this unenhanced exam.
--- NOTE | 2025-06-05 13:21 | XRR_ITS ---
PROCEDURE INFORMATION: Exam: XR Chest Exam date and time: 06/05/2025 1:35 PM Age: 69 years old Clinical indication: Cough and dyspnea; Prior surgery; Surgery date: 6+ months; Surgery type: Dialysis cath; Additional info: Dyspnea/cough TECHNIQUE: Imaging protocol: Radiologic exam of the chest. Views: 1 view. COMPARISON: CR (CHEST, ) 04/30/2025 1:53 PM FINDINGS: Tubes, catheters and devices: Multi lumen central catheter terminates in the right atrium. Lungs: Slight opacity at the left lung base, atelectasis or infiltrate. Pleural spaces: Unremarkable. No pleural effusion. No pneumothorax. Heart/Mediastinum: Unremarkable. No cardiomegaly. Bones/joints: Unremarkable. XR/XR chest 1V portable [id number] IMPRESSION: 1. No acute findings. 2. Poor inspiratory effort. 3. Slight opacity on the left.
[2025-06-05] MEDS: SODIUM CHLORIDE 0.9% 2340.54 ML IV (13:30)
[2025-06-05 13:37] LABS: Glucose Urine UA Negative (Normal); Nitrate Urine Negative (Negative); Specific Gravity, Urine 1.012 (1.005-1.030)
[2025-06-05 13:42] LABS: Hematocrit 26.2 % (37-53); Hemoglobin 8.70 g/dL (11.27-16.99); Mean Corpuscular HGB Conc 33.2 g/dL (30-55); Mean Corpuscular Hemoglobin 32.8 pg (27-33); Mean Corpuscular Volume 98.9 fl (82-101); Nucleated Red Blood Cells % 0 %; Platelet Count 159 10^3/cmm (157-399); Red Blood Count 2.65 10^6/uL (3.85-5.65); White Blood Count 20.54 10^3/uL (3.29-11.43)
[2025-06-05 13:42] LABS: Add Urine Microscopic? YES
[2025-06-05 14:00] LABS: Alanine Aminotransferase 7 U/L (0-41); Albumin Level 3.1 g/dL (3.5-5.2); Alkaline Phosphatase 83 U/L (40-130); Blood Urea Nitrogen 11 mg/dL (8-23); Calcium 9.1 mg/dL (8.5-10.5); Carbon Dioxide 25 mmol/L (22-29); Chloride 93 mmol/L (98-107); Creatinine Clr Calc Pharmacy 26.7582; Globulin 4.0 g/dL (1.3-4.6); Glucose 95 mg/dL (65-115); Lipase 14 U/L (13-60); Osmolality Calculated 277 mOsm/kg (285-295); Sodium 134 mmol/L (136-145); Total Protein 7.1 g/dL (6.6-8.7)
[2025-06-05 14:03] LABS: Lactic Sepsis W/Reflex 1.2 mmol/L (0.5-2.2)
[2025-06-05 14:05] LABS: UA Slide Review UA Slide Review Perf
[2025-06-05 14:05] LABS: Troponin(5th) Baseline 74 ng/L (0-15)
--- NOTE | 2025-06-05 14:09 | PC.NURSE ---
ATTEMPTED TO REPOSITION MACEDO, SIGNIFICANT RESISTANCE MET HOWEVER MACEDO WAS DRAINING. PATIENT LEG BAG DRAINED AND WILL MONITOR FOR CONTINUED PATENCY.
[2025-06-05 14:24] LABS: Anion Gap 20.0 (5-19); Aspartate Amino Transferase 14 U/L (0-40); Potassium 4.0 mmol/L (3.5-5.1)
[2025-06-05] MEDS: piperacillin-tazobactam 3.375 GM in sodium chloride 0.9% (plus) 50 ML IV ×2 (14:33→19:40)
--- NOTE | 2025-06-05 14:45 | PC.NURSE ---
LEG BAG CHANGED TO REGULAR MACEDO BAG AND HANGING WITH GRAVITY.
--- NOTE | 2025-06-05 14:50 | ECG_ITS ---
[facility] Date: 2025-06-05 Pat Name: Brandon Parisi Department: Room: Gender: Male Program Admin: : 1955 Requested By: Nirmal Valencia Order Number: [id number] Maddy MD: Renato Craft M.D. Measurements Intervals [place] Rate: 93 P: 113 CT: 178 QRS: 170 QRSD: 96 T: 170 QT: 381 QTc: 475 Interpretive Statements SINUS RHYTHM ARM LEADS REVERSED [INVERTED P AND QRS IN I] Compared to ECG 06/05/2025 12:55:07 Sinus tachycardia no longer present Incomplete right bundle-branch block no longer present T-wave abnormality no longer present Possible ischemia no longer present Electronically Signed On 06-05-2025 17:05:20 CDT by Renato Craft M.D. [email or web address]
[2025-06-05 16:05] LABS: Troponin 5 2HR 67.99 ng/L (0-15)
[2025-06-05 16:06] LABS: Troponin 5 2HR Delta -6.01 ABS# (0-10)
--- NOTE | 2025-06-05 17:14 | PC.NURSE ---
MACEDO PATENT AND DRAINING AFTER 120 ML OF MACEDO IRRIGATION. 600 ML OUT BEFORE SLOWING.
[2025-06-05 17:27] LABS: ABG PCO2 35.5 mmHg (35-45); ABG PH Result 7.49 (7.35-7.45); Alveolar-Arterial Oxygen Gradi 6.0 mmHg (5-10); Arterial Blood Gas Hematocrit 25.6 % (42-52); Blood Gas Operator Identificat GD; Blood Gas Sample Site Brachial, left; Blood Gas Sample Type Arterial; Carboxyhemoglobin 1.1 %THgb (0.4-20.1); Glucose Level-ABG 97.0 mg/dL (70-115); HCO3 ABG 26.9 mmol/L (22-26); Ionized Calcium Level - ABG 1.1 mmol/L (1.1-1.4); Methemoglobin 1.1 % (0.4-1.5); Oxygen Saturation ABG 91.1; PO2 ABG 58.7 mmHg (80.0-100.0); PO2 FiO2 Ratio Arterial Blood 279; Potassium Level - ABG 4.0 mmol/L (3.5-5.0); Sodium Level - ABG 138.0 mmol/L (131-143)
--- NOTE | 2025-06-05 17:44 | PM.HP ---
Providers/Chief Complaint Primary Care Provider: Jeremias Escudero Chief Complaint: AMS History of Present Illness History taken over the phone through patient's DPOA/daughter. 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 Last Steiner catheter changed on 06/01 as per daughter. Patient was sent in today from hemodialysis center because of altered mental status, hypotension. As per the daughter patient has been getting confused for last 2 to 3 days with episodes of nausea/vomiting and occasional fever. Urine output has been decreasing since Steiner catheter placement. In the ER patient was found to be hypotensive requiring sepsis bolus after which blood pressure slightly improved. Patient was drowsy, confused AO x 1 on examination. Denies any active complaint but complaining of abdominal tenderness on examination. Steiner catheter in place without urine in the bag. As per the daughter patient has an appointment with a urologist at [facility] on June 19 to discuss further regarding urinary bladder mass. Patient was recently transferred from [facility] to [facility] where he was initiated on hemodialysis through tunneled catheter. Review of Systems General: Reports: ROS unobtainable due to medical condition Medications/Allergies Home Medications ?Medication ?Instructions ?Recorded ?Confirmed ?Last Taken ?Type amlodipine 5 mg tablet 5 mg PO QAM 04/30/25 06/05/25 06/05/25 History hydrocodone 10 mg-acetaminophen 1 tab PO BID 04/30/25 06/05/25 06/05/25 History 325 mg tablet hydroxyzine HCl 10 mg tablet 10 mg PO TID PRN Itching 04/30/25 06/05/25 Unknown History pravastatin 80 mg tablet 80 mg PO QPM 04/30/25 06/05/25 06/04/25 History tamsulosin 0.4 mg capsule 0.4 mg PO DAILY 04/30/25 06/05/25 06/05/25 History trazodone 100 mg tablet 100 mg PO BEDTIME 04/30/25 06/05/25 06/04/25 History cefdinir 300 mg capsule 300 mg PO Q12H 06/05/25 06/05/25 06/05/25 History diazepam 5 mg tablet 5 mg PO DAILY PRN Anxiety 06/05/25 06/05/25 Unknown History Allergies Allergy/AdvReac Type Severity Reaction Status Date / Time No Known Allergies Allergy Verified 04/30/25 13:17 PFSH Acute PFSH: Medical History (Updated 06/05/25 @ 22:17 by Melchor Buchanan MD) Tunneled central venous catheter present ESRD on hemodialysis Hypertension BPH (benign prostatic hyperplasia) Anemia Chronic indwelling Steiner catheter Stage 4 chronic kidney disease Social History (Updated 06/05/25 @ 22:19 by Melchor Buchanan MD) Smoking and tobacco/nicotine status: former use of tobacco/nicotine Alcohol intake: never Substance/Drug Use: never Caregiver/support person: Yes Lives independently: Yes Household members: family Housing: House Vitals/I&O/Wt Last Vital Signs Temp 98.6 F 06/05/25 12:52 Pulse 111 H 06/05/25 16:44 Resp 16 06/05/25 16:44 BP 108/66 06/05/25 16:44 Pulse Ox 96 06/05/25 16:44 O2 Del Method Room Air 06/05/25 16:44 Weight last 48 hrs Weight 78.018 kg Physical Exam Narrative: General: No acute distress, AO x3, chronically sick appearing, pallor present, Steiner present without urine HEENT: PERRLA, pupils bilaterally equal and reactive Chest: Normal vesicular breath sounds, no added sounds, equal good air entry bilaterally CVS: S1-S2 regular, no murmurs, no tachycardia, no gallops, no rubs Abdomen: Soft, distended, tender in lower quadrant, no organomegaly, bowel sounds present Neuro: No focal deficits, no facial deformity, AO x3, power 5/5 in all limbs Data 06/05/25 13:28 06/05/25 13:28 Other Labs: Radiology Impressions Head CT 06/05/25 12:50 IMPRESSION: 1. No acute intracranial hemorrhage or edema. 2. Mild cerebral and cerebellar atrophy and small vessel disease. Abdomen/Pelvis CT 06/05/25 13:02 IMPRESSION: 1. Persistent bilateral hydroureteronephrosis. Similar to 05/01/2025. 2. Steiner catheter that was present in the urinary bladder on 05/01/2025 has been retracted. Steiner catheter balloon terminates in the prostatic portion of the urethra and should be repositioned. 3. Markedly distended urinary bladder with a large mass extending into the bladder which is probably the prostate gland. 4. Bilateral perinephric stranding around each kidney. Correlate for possible pyelonephritis. Perinephric stranding has progressed since 05/01/2025. No focal fluid collection identified on this unenhanced exam. Chest X-Ray 06/05/25 13:21 IMPRESSION: 1. No acute findings. 2. Poor inspiratory effort. 3. Slight opacity on the left. Laboratory Results WBC 20.54 10^3/uL (3.29-11.43) H 06/05/25 13:28 RBC 2.65 10^6/uL (3.85-5.65) L 06/05/25 13:28 Hgb 8.70 g/dL (11.27-16.99) L 06/05/25 13:28 Hct 26.2 % (37-53) L 06/05/25 13:28 MCV 98.9 fl (82-101) 06/05/25 13:28 MCH 32.8 pg (27-33) 06/05/25 13:28 MCHC 33.2 g/dL (30-55) 06/05/25 13:28 RDW 14.6 % (12.1-15.1) 06/05/25 13:28 Plt Count 159 10^3/cmm (157-399) 06/05/25 13:28 MPV 10.7 fL (7.4-10.4) H 06/05/25 13:28 Neut % (Auto) 87.4 % 06/05/25 13:28 Lymph % (Auto) 5.2 % 06/05/25 13:28 Kimball % (Auto) 6.4 % 06/05/25 13:28 Eos % (Auto) 0.0 % 06/05/25 13:28 Baso % (Auto) 0.3 % 06/05/25 13:28 Neut # (Auto) 17.95 10^3/uL (1.8-7.7) H 06/05/25 13:28 Lymph # (Auto) 1.1 10^3/uL (0.8-4.8) 06/05/25 13:28 Kimball # (Auto) 1.3 10^3/uL (0.2-0.9) H 06/05/25 13:28 Eos # (Auto) 0.0 10^3/uL (0.0-0.8) 06/05/25 13:28 Baso # (Auto) 0.1 10^3/uL (0.0-0.1) 06/05/25 13:28 Nucleated RBC % (auto) 0 % 06/05/25 13:28 Nucleated RBCs # 0.0 /100WBC 06/05/25 13:28 Specimen Type Arterial 06/05/25 17:10 Sample Site Brachial, left 06/05/25 17:10 ABG pH 7.49 (7.35-7.45) H 06/05/25 17:10 ABG pCO2 35.5 mmHg (35-45) 06/05/25 17:10 ABG pO2 58.7 mmHg (80.0-100.0) L 06/05/25 17:10 ABG PO2/FiO2 Ratio 279 06/05/25 17:10 ABG HCO3 26.9 mmol/L (22-26) H 06/05/25 17:10 ABG O2 Saturation 91.1 06/05/25 17:10 ABG Base Excess 3.4 mmol/L (-2.0-2.0) H 06/05/25 17:10 Tommy Test N/a 06/05/25 17:10 A-a O2 Gradient 6.0 mmHg (5-10) 06/05/25 17:10 Hematocrit 25.6 % (42-52) L 06/05/25 17:10 Hgb O2 Saturation 89.2 % (95-100) L 06/05/25 17:10 Carboxyhemoglobin 1.1 %THgb (0.4-20.1) 06/05/25 17:10 Methemoglobin 1.1 % (0.4-1.5) 06/05/25 17:10 Total Hemoglobin 8.4 g/dL (14-18) L 06/05/25 17:10 Sodium 138.0 mmol/L (131-143) 06/05/25 17:10 Potassium 4.0 mmol/L (3.5-5.0) 06/05/25 17:10 Glucose 97.0 mg/dL (70-115) 06/05/25 17:10 Ionized Calcium 1.1 mmol/L (1.1-1.4) 06/05/25 17:10 O2 Delivery Device Room air 06/05/25 17:10 FiO2 21.0 % 06/05/25 17:10 Physician Scribe ID Gd 06/05/25 17:10 Sodium 134 mmol/L (136-145) L 06/05/25 13:28 Potassium 4.0 mmol/L (3.5-5.1) 06/05/25 13:28 Chloride 93 mmol/L (98-107) L 06/05/25 13:28 Carbon Dioxide 25 mmol/L (22-29) 06/05/25 13:28 Anion Gap 20.0 (5-19) H 06/05/25 13:28 BUN 11 mg/dL (8-23) 06/05/25 13:28 Creatinine 2.7 mg/dL (0.7-1.2) H 06/05/25 13:28 GFR Calculation 23.6 mL/min (90-130) L 06/05/25 13:28 Glucose 95 mg/dL (65-115) 06/05/25 13:28 Calculated Osmolality 277 mOsm/kg (285-295) L 06/05/25 13:28 Lactic Acid 0.9 mmol/L (0.5-2.2) 06/05/25 21:45 Calcium 9.1 mg/dL (8.5-10.5) 06/05/25 13:28 Iron 68 ug/dL (59-158) 06/05/25 13:28 Total Bilirubin 0.4 mg/dL (0.15-1.2) 06/05/25 13:28 AST 14 U/L (0-40) 06/05/25 13:28 ALT 7 U/L (0-41) 06/05/25 13:28 Alkaline Phosphatase 83 U/L (40-130) 06/05/25 13:28 Troponin T Baseline 74 ng/L (0-15) H 06/05/25 13:28 Troponin T 120 Minute 67.99 ng/L (0-15) H 06/05/25 15:23 Delta Troponin T -6.01 ABS# (0-10) L 06/05/25 15:23 Troponin T Hi Sens 6Hr 72.30 ng/L (0-15) H 06/05/25 21:45 Troponin T Hi Sens 6Hr Delta -1.70 ng/L (0-12) L 06/05/25 21:45 Total Protein 7.1 g/dL (6.6-8.7) 06/05/25 13:28 Albumin 3.1 g/dL (3.5-5.2) L 06/05/25 13:28 Globulin 4.0 g/dL (1.3-4.6) 06/05/25 13:28 Lipase 14 U/L (13-60) 06/05/25 13:28 Vitamin B12 439 pg/mL (232-1245) 06/05/25 13:28 Procalcitonin 1.70 ng/mL (0-0.5) H 06/05/25 13:28 TSH 0.86 uIU/mL (0.27-4.20) 06/05/25 13:28 Urine Color Yellow (Yellow) 06/05/25 13:25 Urine Appearance Turbid (CLEAR) A 06/05/25 13:25 Urine pH 6.5 (5-7) 06/05/25 13:25 Ur Specific Strum 1.012 (1.005-1.030) 06/05/25 13:25 Urine Protein 3+ (Negative) A 06/05/25 13:25 Urine Glucose (UA) Negative (Normal) 06/05/25 13:25 Urine Ketones Negative (Negative) 06/05/25 13:25 Urine Blood 2+ (Negative) A 06/05/25 13:25 Urine Nitrate Negative (Negative) 06/05/25 13:25 Urine Bilirubin Negative (Negative) 06/05/25 13:25 Urine Urobilinogen 1.0 mg/dL (Negative) 06/05/25 13:25 Ur Leukocyte Esterase 3+ (Negative) A 06/05/25 13:25 Urine RBC 51-100 /hpf (0-2) H 06/05/25 13:25 Urine WBC >100 /hpf (0-5) H 06/05/25 13:25 Ur Squamous Epith Cells 21-50 /hpf (0-5) H 06/05/25 13:25 Amorphous Sediment Not Reportable 06/05/25 13:25 Urine Bacteria 4+ /hpf (NONE) H 06/05/25 13:25 Hyaline Casts 5.16 /lpf 06/05/25 13:25 Nasal MRSA (PCR) Not detected (Negative) 06/05/25 20:00 Micro: Microbiology 06/05/25 13:24 Blood Culture - Preliminary Blood SPECIMEN COLLECTED 06/05/25 13:28 Blood Culture - Preliminary Blood SPECIMEN COLLECTED A&P Assessment and plan 1. Sepsis: 2. Pyelonephritis: 3. Complicated UTI (urinary tract infection): 4. ESRD on hemodialysis: 5. Urinary retention: 6. Chronic indwelling Steiner catheter: 7. Bilateral hydronephrosis: 8. Hypotension: 9. Tunneled central venous catheter present: 10. Mass of urinary bladder: Plan: Sepsis with concerns for hypotension: In setting of pyelonephritis and complicated UTI: Chronic indwelling Steiner catheter malfunction: Patient getting septic bolus. Check lactate. Check blood culture, urine culture, MRSA swab, trend procalcitonin. Monitor blood pressures with target mean over 65. IV fluid at 75 cc/h after sepsis bolus. Appreciate past urine culture with Klebsiella. Appreciate sensitivities. For now continue with IV Zosyn started in the ER. Bilateral hydronephrosis: Most likely in setting of urinary retention from chronic indwelling Steiner catheter ending in prostatic urethra. Will request nursing staff to advance Steiner catheter. If not able to advance will need to transfer to a tertiary center where urology is available. Frequent bladder scanning and possible irrigation. Repeat ultrasound of kidneys after 48 hours to trend hydronephrosis for resolution. Patient does have urinary bladder mass possibly coming from prostate. Could be the complicating factor as well. End-stage renal disease: Currently on hemodialysis through tunneled catheter. Gets dialysis Thursday, redness to, Thursday. Last dialysis today. Will consult nephrology for further recommendation. Hypotension: Most likely in setting of sepsis. Hold off on antihypertensive. Target blood pressure with mean over 65. CODE STATUS: Discussed in detail with patient's daughter/DPOA over the phone. Patient in the past had wished for no resuscitation. He is okay with vasopressors, blood transfusion, hemodialysis if needed. DNR/DNI. Renal dialysis diet Protonix for PUD prophylaxis Heparin 5000 every 12 hourly for DVT prophylaxis. Admit to ICU. PDMP PDMP Reviewed: Not Reviewed Attestations Medical Necessity Statement*: Admission for more than 2 midnights for management of severe sepsis with hypotension in a patient with bilateral hydronephrosis due to urinary retention from clogged indwelling Steiner catheter, complicated UTI, end-stage renal disease on hemodialysis Diagnoses Sepsis A41.9 Pyelonephritis N12 Complicated UTI (urinary tract infection) N39.0 ESRD on hemodialysis N18.6; Z99.2 Urinary retention R33.9 Chronic indwelling Steiner catheter Z97.8 Bilateral hydronephrosis N13.30 Hypotension I95.9 Tunneled central venous catheter present Z97.8 Mass of urinary bladder N32.89
--- NOTE | 2025-06-05 18:50 | ECG_ITS ---
[facility] Date: 2025-06-05 Pat Name: Brandon Parisi Department: Room: Gender: Male [employer]er: : 1955 Requested By: Nirmal Valencia Order Number: [id number] Reading MD: Measurements Intervals Raymond Rate: 90 P: 85 MT: 184 QRS: 40 QRSD: 95 T: 55 QT: 402 QTc: 493 Interpretive Statements SINUS RHYTHM POSSIBLE RIGHT VENTRICULAR CONDUCTION DELAY [RSR (QR) IN V1/V2] MODERATE T-WAVE ABNORMALITY, CONSIDER ANTERIOR ISCHEMIA [-0.1+ mV T-WAVE IN V3/V4] [email or web address]
[2025-06-05 19:01] LABS: Procalcitonin 1.70 ng/mL (0-0.5)
[2025-06-05] MEDS: pantoprazole 40 mg SDV IVP (19:42)
[2025-06-05] MEDS: heparin 5,000 unit/mL INJ 1 mL 5000 UNIT SUBCUT (19:45)
[2025-06-05 20:03] LABS: Iron 68 ug/dL (59-158); Thyroid Stimulating Hormone 0.86 uIU/mL (0.27-4.20); Vitamin B12 439 pg/mL (232-1245)
[2025-06-05 21:28] LABS: MRSA PCR OZH (swab) NOT DETECTED (Negative)
[2025-06-05 22:14] LABS: Troponin 5 6HR 72.30 ng/L (0-15); Troponin 5 6HR Delta -1.70 ng/L (0-12)
[2025-06-05 22:15] LABS: Lactic Sepsis W/Reflex 0.9 mmol/L (0.5-2.2)
[2025-06-05 23:04] LABS: Estmated Average Glucose 97; Hemoglobin A1C 5.0 % (4.0-6.0)
[2025-06-06] VITALS (164 sets, daily range): BP systolic 83–127; BP diastolic 54–81; PULSE 57–97; RESP 5–26; TEMP 36.8–37; O2SAT 85–99
[2025-06-06 02:15] LABS: Total Iron Binding Capacity 234 mcg/dl; Unsaturated Iron Binding 166 ug/dL (112-347)
[2025-06-06] MEDS: piperacillin-tazobactam 3.375 GM in sodium chloride 0.9% (plus) 50 ML IV ×2 (03:46→19:55)
[2025-06-06 05:56] LABS: Hematocrit 25.5 % (37-53); Hemoglobin 7.80 g/dL (11.27-16.99); Mean Corpuscular HGB Conc 30.6 g/dL (30-55); Mean Corpuscular Hemoglobin 32.0 pg (27-33); Mean Corpuscular Volume 104.5 fl (82-101); Nucleated Red Blood Cells % 0 %; Platelet Count 134 10^3/cmm (157-399); Red Blood Count 2.44 10^6/uL (3.85-5.65); White Blood Count 12.14 10^3/uL (3.29-11.43)
[2025-06-06] MEDS: heparin 5,000 unit/mL INJ 1 mL 5000 UNIT SUBCUT ×2 (05:58→17:32)
[2025-06-06 06:01] LABS: Alanine Aminotransferase 6 U/L (0-41); Albumin Level 2.7 g/dL (3.5-5.2); Alkaline Phosphatase 67 U/L (40-130); Anion Gap 20.3 (5-19); Aspartate Amino Transferase 10 U/L (0-40); Blood Urea Nitrogen 19 mg/dL (8-23); Calcium 7.3 mg/dL (8.5-10.5); Carbon Dioxide 21 mmol/L (22-29); Chloride 103 mmol/L (98-107); Creatinine Clr Calc Pharmacy 18.0618; Globulin 2.5 g/dL (1.3-4.6); Glucose 72 mg/dL (65-115); Magnesium 1.8 mg/dL (1.7-2.3); Osmolality Calculated 291 mOsm/kg (285-295); Potassium 4.3 mmol/L (3.5-5.1); Sodium 140 mmol/L (136-145); Total Protein 5.2 g/dL (6.6-8.7)
[2025-06-06 06:03] LABS: Cholesterol 108 mg/dL (0-200); HDL Cholesterol 32 mg/dL (60-100); Triglycerides 134 mg/dL (0-150)
[2025-06-06 06:08] LABS: Procalcitonin 1.61 ng/mL (0-0.5)
[2025-06-06] MEDS: HYDROcodone-acetaminophen 10-325 mg Tablet 1 TAB PO ×2 (08:26→17:32)
[2025-06-06] MEDS: norepinephrine 4 MG/250 ML BAG 7.5 MG IV (11:52)
--- NOTE | 2025-06-06 13:50 | P.PN_ITS ---
Subjective 2 Subjective: No acute events overnight. Patient has had occasional soft blood pressures. Urine output seems to be improving. Patient is awake on examination today. Denies any abdominal pain. Vitals/I&O/Wt Last Vital Signs Temp 98.3 F 06/06/25 10:50 Pulse 77 06/06/25 12:10 Resp 15 06/06/25 12:10 BP 92/57 06/06/25 12:10 Pulse Ox 96 06/06/25 12:10 O2 Del Method Room Air 06/05/25 20:58 06/05/25 06/06/25 06/06/25 22:59 06:59 14:59 Intake Total 2870.54 / 2870.54 50 / 2920.54 1315 / 1315 Output Total 1200 / 1200 Balance 2870.54 / 2870.54 -1150 / 1720.54 1315 / 1315 Weight last 48 hrs Weight 82 kg Weight 78.018 kg Weight 78.018 kg Physical Exam 2 Narrative: General: No acute distress, AO x3, chronically sick appearing, pallor present, Steiner present without urine HEENT: PERRLA, pupils bilaterally equal and reactive Chest: Normal vesicular breath sounds, no added sounds, equal good air entry bilaterally CVS: S1-S2 regular, no murmurs, no tachycardia, no gallops, no rubs Abdomen: Soft, distended, tender in lower quadrant, no organomegaly, bowel sounds present Neuro: No focal deficits, no facial deformity, AO x3, power 5/5 in all limbs Resp: COMMON NORMALS: clear to auscultation bilaterally AUSCULTATION: clear to auscultation bilaterally Quick SOFA Score: Respiratory Rate: 15 Blood Pressure: 92/57 [place] Coma Scale: 15 qSOFA Score: 1 If qSOFA score 2 or greater, continue: PaO2/FiO2 Ratio (mmHg): 279 Blood Pressure Mean: 68 Norepinephrine Current Rate (?g/kg/min): 2 Bilirubin (mg/dl): 0.5 Platelets (x10?/ml): 134 Creatinine (mg/dl): 4.0 SOFA Score: 10 Evaluation: Current stage of sepsis: septic shock Sepsis stage criteria used: [facility] Sep-1 and Sepsis-3 Crystalloid fluids: 30 mL/kg crystalloid fluids ordered and initiated within 3 hours Blood cultures ordered: Yes Possible source: genitourinary Focused Exam: Vital signs: Temp Pulse Resp BP Pulse Ox 06/06/25 12:10 77 15 92/57 96 06/06/25 12:05 57 L 14 92/57 96 06/06/25 12:00 67 13 83/56 98 06/06/25 11:55 62 15 83/56 93 06/06/25 11:50 63 19 H 83/56 91 06/06/25 11:45 68 20 H 83/56 91 06/06/25 11:40 61 13 83/56 92 06/06/25 11:35 66 13 83/56 94 06/06/25 11:30 68 15 89/59 98 06/06/25 11:25 66 15 89/59 91 06/06/25 11:20 69 16 89/59 87 L 06/06/25 11:15 71 13 89/59 95 06/06/25 11:10 76 15 89/59 93 06/06/25 11:05 71 14 89/59 95 06/06/25 11:00 77 15 108/60 94 06/06/25 10:55 75 8 L 108/60 92 06/06/25 10:50 98.3 F 82 17 108/60 94 06/06/25 10:45 71 15 88/57 95 06/06/25 10:40 71 16 88/57 93 06/06/25 10:35 78 10 L 88/57 93 06/06/25 10:30 77 13 84/57 92 06/06/25 10:25 77 12 84/57 94 06/06/25 10:20 78 13 84/57 94 06/06/25 10:15 81 9 L 84/57 93 06/06/25 10:10 84 18 84/57 95 06/06/25 10:05 77 7 L 84/57 96 06/06/25 10:00 77 12 85/55 96 06/06/25 09:55 75 19 H 85/55 91 06/06/25 09:50 78 14 85/55 90 06/06/25 09:45 81 19 H 85/55 93 06/06/25 09:40 85 15 85/55 89 L 06/06/25 09:35 84 18 85/55 91 06/06/25 09:30 88 16 96/63 88 L 06/06/25 09:25 90 17 96/63 89 L 06/06/25 09:20 92 19 H 96/63 90 06/06/25 09:15 87 18 96/63 93 06/06/25 09:10 94 19 H 96/63 93 06/06/25 09:05 90 17 96/63 91 06/06/25 09:00 97 12 117/74 93 06/06/25 08:55 86 17 117/74 92 06/06/25 08:50 87 18 117/74 93 06/06/25 08:45 86 19 H 117/74 93 06/06/25 08:40 84 17 117/74 94 06/06/25 08:35 83 16 117/74 94 06/06/25 08:30 80 19 H 85/61 94 06/06/25 08:25 83 16 85/61 92 06/06/25 08:20 88 22 H 85/61 94 06/06/25 08:15 89 22 H 85/61 93 06/06/25 08:10 89 26 H 85/61 95 06/06/25 08:05 83 18 85/61 97 06/06/25 08:00 72 15 105/66 91 06/06/25 07:55 75 13 105/66 95 06/06/25 07:50 74 21 H 105/66 91 06/06/25 07:45 65 19 H 105/66 93 06/06/25 07:40 66 9 L 105/66 92 06/06/25 07:35 66 14 105/66 95 06/06/25 07:30 71 20 H 87/60 92 06/06/25 07:25 80 15 87/60 94 06/06/25 07:20 70 15 87/60 94 06/06/25 07:15 78 20 H 87/60 90 06/06/25 07:10 83 14 87/60 94 06/06/25 07:07 98.6 F 06/06/25 07:05 74 14 87/60 94 06/06/25 07:00 83 19 H 94/60 91 06/06/25 06:55 81 21 H 94/60 96 06/06/25 06:50 71 21 H 94/60 95 06/06/25 06:45 77 19 H 94/60 90 06/06/25 06:40 83 22 H 94/60 87 L 06/06/25 06:35 74 18 94/60 91 06/06/25 06:30 77 19 H 127/69 91 06/06/25 06:25 75 15 127/69 95 06/06/25 06:20 76 18 127/69 92 06/06/25 06:15 83 14 127/69 93 06/06/25 06:10 85 18 127/69 90 06/06/25 06:05 81 19 H 127/69 92 06/06/25 06:00 84 20 H 94/64 92 06/06/25 05:55 75 19 H 94/64 94 06/06/25 05:50 75 15 94/64 90 06/06/25 05:45 84 21 H 94/64 89 L 06/06/25 05:40 68 19 H 94/64 91 06/06/25 05:35 82 21 H 94/64 93 06/06/25 05:30 84 24 H 102/61 90 06/06/25 05:25 79 23 H 102/61 94 06/06/25 05:20 76 23 H 102/61 94 06/06/25 05:15 73 15 102/61 93 06/06/25 05:10 73 19 H 102/61 94 06/06/25 05:05 78 19 H 102/61 95 06/06/25 05:00 80 17 102/69 92 06/06/25 04:55 79 14 102/69 94 06/06/25 04:50 77 12 102/69 94 06/06/25 04:45 78 10 L 102/69 93 06/06/25 04:40 89 17 102/69 89 L 06/06/25 04:35 74 19 H 102/69 94 06/06/25 04:30 85 23 H 118/67 89 L 06/06/25 04:25 78 20 H 118/67 92 06/06/25 04:20 82 22 H 118/67 93 06/06/25 04:00 77 22 H 126/72 92 06/06/25 03:30 82 16 94 06/06/25 03:00 81 16 92 06/06/25 02:30 85 21 H 89 L 06/06/25 02:00 94 21 H 90 Respiratory exam: CTA bilaterally Capillary refill: > 3 Seconds Date exam was performed: 06/06/25 Time exam was performed: 13:57 2 Sepsis Screen No Definite Risk 06/05/25, 17:19 Respiratory Rate, (12 - 18) 15 breaths/min Today, 12:10 Blood Pressure 92/57 mmHg Today, 12:10 [place] Coma Scale Score 15 Today, 12:00 Quick SOFA Score 0 06/05/25, 17:19 SOFA Score: 2 ABG PO2/FiO2 Ratio 279 06/05/25, 17:10 [place] Coma Scale Score 15 Today, 12:00 Blood Pressure Mean 68 mmHg Today, 12:10 Total Bilirubin, (0.15-1.2) 0.5 mg/dL Today, 04:41 Platelet Count, (157-399) 134 10^3/cmm L Today, 04:41 Creatinine, (0.7-1.2) 4.0 mg/dL H Today, 04:41 Data 06/06/25 04:41 06/06/25 04:41 Micro: Microbiology 06/05/25 13:24 Blood Culture - Preliminary Blood NEGATIVE TO DATE 06/05/25 13:28 Blood Culture - Preliminary Blood NEGATIVE TO DATE 06/05/25 13:25 Urine Culture - Preliminary Urine,Clean Catch Gram Negative Rods 06/05/25 13:25 Bacterial Antigens - Final Urine Kidney A&P Assessment and plan 1. Sepsis: 2. Pyelonephritis: 3. Complicated UTI (urinary tract infection): 4. ESRD on hemodialysis: 5. Urinary retention: 6. Chronic indwelling Steiner catheter: 7. Bilateral hydronephrosis: 8. Hypotension: 9. Tunneled central venous catheter present: 10. Mass of urinary bladder: Plan: Septic shock: In setting of pyelonephritis and complicated UTI: Chronic indwelling Steiner catheter malfunction: Blood pressure still soft. Will check [place] examination. If not responsive can start on Levophed with target mean arterial pressure over 65. Continue with IVF at 75 cc/h. Follow-up blood culture, urine culture. MRSA swab negative. Appreciate procalcitonin trend. For now continue with IV Zosyn as per past culture history and sensitivities. Bilateral hydronephrosis: Most likely in setting of urinary retention from chronic indwelling Steiner catheter ending in prostatic urethra. Will request nursing staff to advance Steiner catheter. If not able to advance will need to transfer to a tertiary center where urology is available. Frequent bladder scanning and possible irrigation. Repeat ultrasound of kidneys in next 24 hours to trend hydronephrosis for resolution. Patient does have urinary bladder mass possibly coming from prostate. Could be the complicating factor as well. End-stage renal disease: Currently on hemodialysis through tunneled catheter. Gets dialysis Thursday, to, Thursday. Consult nephrology for further recommendation. CODE STATUS: Discussed in detail with patient's daughter/DPOA over the phone. Patient in the past had wished for no resuscitation. He is okay with vasopressors, blood transfusion, hemodialysis if needed. DNR/DNI. Renal dialysis diet Protonix for PUD prophylaxis Heparin 5000 every 12 hourly for DVT prophylaxis. Admit to ICU. PDMP PDMP Reviewed: Not Reviewed Attestations 2 Medical Necessity Statement*: Requires further hospitalization for management of septic shock in setting of UTI, bilateral pyelonephritis with hydronephrosis, end-stage renal disease on hemodialysis Critical Care Time: The high probability of a clinically significant, sudden or life threatening deterioration of the patient's [cardiac, renal, ID] system(s) required my full and direct attention, intervention and personal management. The critical care time is as shown. This time is in addition to time spent performing any reported procedures but includes the following: [x] Data and vital sign review and interpretation [x] Patient assessment, examination and intervention [x] Documentation [x] Medication orders and management Critical Care Time (min): 90 Coding Level of Care Code Critical Care >/= 30 minutes Critical care time (in minutes): 90 The high probability of a clinically significant, sudden or life threatening deterioration, as referenced in this documentation, required my full and direct attention, intervention and personal management. The critical care time shown is in addition to time spent performing any reported separately billable procedures and includes the following: [x] Data and vital sign review and interpretation [x ] Patient assessment, examination and intervention [x] Medication orders and management [x] Patient/Family updates as able [x] Care Coordination and Documentation. Diagnoses Sepsis A41.9 Pyelonephritis N12 Complicated UTI (urinary tract infection) N39.0 ESRD on hemodialysis N18.6; Z99.2 Urinary retention R33.9 Chronic indwelling Steiner catheter Z97.8 Bilateral hydronephrosis N13.30 Hypotension I95.9 Tunneled central venous catheter present Z97.8 Mass of urinary bladder N32.89
[2025-06-06] MEDS: pantoprazole 40 mg SDV IVP (17:31)
--- NOTE | 2025-06-06 17:47 | PC.NURSE ---
Patient refused colace due to loose stools, will notify the Dr. Buchanan
--- NOTE | 2025-06-06 17:51 | PC.NURSE ---
Notified Dr. Buchanan of patients refusal of colace. Received dc orders for colace. and received orders for a c diff stool sample. Orders placed. See. MAR
--- NOTE | 2025-06-06 21:39 | PM.CONSULT ---
Providers/Reason For Consult Consulting Physician/Specialty*: [facility]/Nephrology Reason for Consult*: ESRD Attending Physician: Melchor Buchanan MD Primary Care Provider: Jeremias Escudero History of Present Illness History of Present Illness Brandon Parisi is a 69 year old male Patient is a 69-year-old male with past medical history of end-stage renal disease on hemodialysis per Thursday, recently started on dialysis about 3 months ago, recurrent urinary tract infections has urinary retention with chronic indwelling Steiner catheter was brought to the emergency department due to altered mental status and hypotension. In the ER patient was hypotensive and he is currently admitted to ICU and is on low-dose Levophed. Lab data reviewed-has elevated WBC count, anemia with a hemoglobin of 8.7, potassium was 4.0 creatinine was 2.7. . Review of Systems Narrative: NEGATIVE Medications/Allergies Home Medications ?Medication ?Instructions ?Recorded ?Confirmed ?Last Taken ?Type amlodipine 5 mg tablet 5 mg PO QAM 04/30/25 06/05/25 06/05/25 History hydrocodone 10 mg-acetaminophen 1 tab PO BID 04/30/25 06/05/25 06/05/25 History 325 mg tablet hydroxyzine HCl 10 mg tablet 10 mg PO TID PRN Itching 04/30/25 06/05/25 Unknown History pravastatin 80 mg tablet 80 mg PO QPM 04/30/25 06/05/25 06/04/25 History tamsulosin 0.4 mg capsule 0.4 mg PO DAILY 04/30/25 06/05/25 06/05/25 History trazodone 100 mg tablet 100 mg PO BEDTIME 04/30/25 06/05/25 06/04/25 History cefdinir 300 mg capsule 300 mg PO Q12H 06/05/25 06/05/25 06/05/25 History diazepam 5 mg tablet 5 mg PO DAILY PRN Anxiety 06/05/25 06/05/25 Unknown History Allergies Allergy/AdvReac Type Severity Reaction Status Date / Time No Known Allergies Allergy Verified 04/30/25 13:17 Current Medications Generic Name Dose Route Start Last Admin Trade Name Freq PRN Reason Stop Dose Admin Hydrocodone Bitart/Acetaminophen 1 tab 06/05/25 18:18 06/06/25 17:32 Hydrocodone-Acetaminophen 10-325 Mg Tablet PO 1 tab BID INDIO Administration Heparin Sodium (Porcine) 5,000 unit 06/05/25 18:18 06/06/25 17:32 Heparin 5,000 Unit/Ml Inj 1 Ml SUBCUT 5,000 unit Q12H INDIO Administration Sodium Chloride 1,000 mls @ 75 mls/hr 06/05/25 18:18 06/06/25 19:56 Sodium Chloride 0.9% IV 75 mls/hr .[id number] INDIO Administration Piperacillin Sod/Tazobactam 50 mls @ 12.5 mls/hr 06/06/25 19:00 06/06/25 19:55 Sod 3.375 gm/ Sodium Chloride IV 12.5 mls/hr Q12H INDIO Administration Protocol Norepinephrine Bitartrate 4 mg in 250 mls @ 0 mls/hr 06/06/25 10:15 06/06/25 11:52 Levophed IV 2 mcg/min .Q0M INDIO 7.5 mls/hr Protocol Administration Per Protocol Pantoprazole Sodium 40 mg 06/05/25 18:18 06/06/25 17:31 Pantoprazole 40 Mg Sdv IVP 40 mg Q24H INDIO Administration Tamsulosin HCl 0.4 mg 06/06/25 09:00 06/06/25 08:26 Tamsulosin 0.4 Mg Capsule PO 0.4 mg DAILY INDIO Administration Trazodone HCl 100 mg 06/05/25 21:00 06/05/25 21:08 Trazodone 100 Mg Tablet PO 100 mg BEDTIME INDIO Administration PFSH Acute PFSH: Medical History (Updated 06/07/25 @ 05:23 by Kristi Gonzalez MD) Tunneled central venous catheter present ESRD on hemodialysis Hypertension BPH (benign prostatic hyperplasia) Anemia Chronic indwelling Steiner catheter Stage 4 chronic kidney disease Social History (Updated 06/05/25 @ 22:19 by Melchor Buchanan MD) Smoking and tobacco/nicotine status: former use of tobacco/nicotine Alcohol intake: never Substance/Drug Use: never Caregiver/support person: Yes Lives independently: Yes Household members: family Housing: House Vitals/I&O/Wt Last Vital Signs Temp 98.3 F 06/06/25 10:50 Pulse 90 06/06/25 16:10 Resp 12 06/06/25 16:10 BP 110/67 06/06/25 16:10 Pulse Ox 97 06/06/25 15:40 O2 Del Method Room Air 06/05/25 20:58 06/06/25 06/06/25 06/06/25 06:59 14:59 22:59 Intake Total 50 / 2920.54 1315 / 1315 1102.5 / 2417.5 Output Total 1200 / 1200 700 / 700 Balance -1150 / 1720.54 1315 / 1315 402.5 / 1717.5 Weight last 48 hrs Weight 82 kg Weight 78.018 kg Weight 78.018 kg Physical Exam Narrative: Patient seen and examined. Vital signs noted. The patient is BiPAP dependent. HEENT normocephalic atraumatic. Neck obese supple difficult to body team member JVP. Lungs crackles bilaterally. Heart regular positive systolic murmur. Abdomen is soft positive bowel sounds. Extremities bilateral edema. Patient has femoral catheters for dialysis. Neuro responds to pain. Urinary Catheter Management: Steiner: Cath Placed During This Visit: yes Reason for Continuing Indwelling Catheter: Accurate Measurement of Urinary Output in Critically Ill Patients Urinary Catheter Date of Insertion: 04/30/25 Urinary Catheter Time of Insertion: 14:42 Data 06/06/25 04:41 06/06/25 04:41 Micro: Microbiology 06/05/25 13:24 Blood Culture - Preliminary Blood NEGATIVE TO DATE 06/05/25 13:28 Blood Culture - Preliminary Blood NEGATIVE TO DATE 06/05/25 13:25 Urine Culture - Preliminary Urine,Clean Catch Gram Negative Rods 06/05/25 13:25 Bacterial Antigens - Final Urine Kidney A&P Assessment and plan 1. ESRD (end stage renal disease): Plan: 1. End-stage renal disease: Recently initiated on hemodialysis, on MWF schedule, HD tomorrow 2. Anemia: Will order ASA with HD 3. History of hypertension, meds on hold due to hypotension 4. Sepsis, likely pyelonephritis, on IV fluids and on Levophed 5. Chronic bilateral hydronephrosis with urinary retention and has chronic indwelling Steiner catheter, patient followed by urology as outpatient. Patient evaluated using audiovisual cart. Time spent 40 minutes PDMP PDMP Reviewed: Not Reviewed Consult Attestations Medical Necessity Statement: per medicine Coding Level of Care Code Acute Code for Chg Fwd Diagnoses ESRD (end stage renal disease) N18.6
[2025-06-07] VITALS (208 sets, daily range): BP systolic 89–173; BP diastolic 60–132; PULSE 57–133; RESP 4–22; TEMP 36.7–37.4; O2SAT 91–100
[2025-06-07] MEDS: heparin 5,000 unit/mL INJ 1 mL 5000 UNIT SUBCUT ×2 (05:31→17:49)
[2025-06-07 05:55] LABS: Alanine Aminotransferase 7 U/L (0-41); Albumin Level 2.7 g/dL (3.5-5.2); Alkaline Phosphatase 64 U/L (40-130); Anion Gap 19.1 (5-19); Aspartate Amino Transferase 11 U/L (0-40); Blood Urea Nitrogen 25 mg/dL (8-23); Calcium 7.7 mg/dL (8.5-10.5); Carbon Dioxide 21 mmol/L (22-29); Chloride 109 mmol/L (98-107); Creatinine Clr Calc Pharmacy 14.0462; Globulin 3.5 g/dL (1.3-4.6); Glucose 94 mg/dL (65-115); Magnesium 1.9 mg/dL (1.7-2.3); Osmolality Calculated 304 mOsm/kg (285-295); Potassium 4.1 mmol/L (3.5-5.1); Sodium 145 mmol/L (136-145); Total Protein 6.2 g/dL (6.6-8.7)
[2025-06-07 06:14] LABS: Hematocrit 24.8 % (37-53); Hemoglobin 7.50 g/dL (11.27-16.99); Mean Corpuscular HGB Conc 30.2 g/dL (30-55); Mean Corpuscular Hemoglobin 32.2 pg (27-33); Mean Corpuscular Volume 106.4 fl (82-101); Nucleated Red Blood Cells % 0 %; Platelet Count 209 10^3/cmm (157-399); Red Blood Count 2.33 10^6/uL (3.85-5.65); White Blood Count 11.24 10^3/uL (3.29-11.43)
[2025-06-07] MEDS: piperacillin-tazobactam 3.375 GM in sodium chloride 0.9% (plus) 50 ML IV ×2 (06:19→18:01)
[2025-06-07] MEDS: heparin, porcine 1,000 unit/mL INJ 10 mL 1000 UNIT IV (07:03)
[2025-06-07] MEDS: HYDROcodone-acetaminophen 10-325 mg Tablet 1 TAB PO ×2 (08:53→17:47)
[2025-06-07 09:12] LABS: Hepatitis B Surface Antigen Non-Reactive (Nonreactive)
--- NOTE | 2025-06-07 09:36 | PC.NURSE ---
Dr. Buchanan rounding discussing POC, received orders for albumin, orders placed. See MAR
--- NOTE | 2025-06-07 09:57 | PC.SOCIAL ---
IMM Updated Updated pt on IMM. No questions voiced. Provided pt a copy. Initialed, dated, & timed a copy & placed in chart.
[2025-06-07] MEDS: albumin 25 G/100 ML BAG 60 G IV ×2 (10:19→17:51)
--- NOTE | 2025-06-07 11:03 | P.PN_ITS ---
Subjective 2 Subjective: No events overnight. Levophed was weaned off overnight but today morning again mean arterial pressure was soft so was started on Levophed. Currently on 2 of Levophed. Getting hemodialysis. Awake and alert. Frustrated that he has to remain in hospital. Urine output seems to be improving. Continues to have thick sediments in urine. Vitals/I&O/Wt Last Vital Signs Temp 99.4 F 06/07/25 08:50 Pulse 68 06/07/25 08:50 Resp 13 06/07/25 08:50 BP 115/92 06/07/25 08:50 Pulse Ox 97 06/07/25 08:50 O2 Del Method Room Air 06/05/25 20:58 06/06/25 06/07/25 06/07/25 22:59 06:59 14:59 Intake Total 1102.5 / 2417.5 182.75 / 2600.25 1286.25 / 1286.25 Output Total 700 / 700 300 / 1000 Balance 402.5 / 1717.5 -117.25 / 1600.25 1286.25 / 1286.25 Weight last 48 hrs Weight 80 kg Weight 82 kg Weight 78.018 kg Weight 78.018 kg Physical Exam 2 Narrative: General: No acute distress, AO x3, chronically sick appearing, pallor present, Steiner present without urine HEENT: PERRLA, pupils bilaterally equal and reactive Chest: Normal vesicular breath sounds, no added sounds, equal good air entry bilaterally CVS: S1-S2 regular, no murmurs, no tachycardia, no gallops, no rubs Abdomen: Soft, distended, tender in lower quadrant, no organomegaly, bowel sounds present Neuro: No focal deficits, no facial deformity, AO x3, power 5/5 in all limbs Resp: COMMON NORMALS: clear to auscultation bilaterally AUSCULTATION: clear to auscultation bilaterally Urinary Catheter Management: Steiner: Cath Placed During This Visit: yes Reason for Continuing Indwelling Catheter: Accurate Measurement of Urinary Output in Critically Ill Patients Urinary Catheter Date of Insertion: 04/30/25 Urinary Catheter Time of Insertion: 14:42 Data 06/07/25 04:05 06/07/25 04:05 Micro: Microbiology 06/05/25 13:25 Urine Culture - Final Urine,Clean Catch Escherichia coli esbl 06/05/25 13:24 Blood Culture - Preliminary Blood NEGATIVE TO DATE 06/05/25 13:28 Blood Culture - Preliminary Blood NEGATIVE TO DATE 06/05/25 13:25 Bacterial Antigens - Final Urine Kidney A&P Assessment and plan 1. Sepsis: 2. Pyelonephritis: 3. Complicated UTI (urinary tract infection): 4. ESRD on hemodialysis: 5. Urinary retention: 6. Chronic indwelling Steiner catheter: 7. Bilateral hydronephrosis: 8. Hypotension: 9. Tunneled central venous catheter present: 10. Mass of urinary bladder: 11. Infection due to ESBL-producing Escherichia coli: Plan: Septic shock: In setting of pyelonephritis and complicated UTI: Chronic indwelling Steiner catheter malfunction: Acute examination shows patient not fluid responsive. Stop IV fluids. Levophed to be weaned to keeping mean arterial pressure over 65. Start on IV albumin every 8 hourly. Midodrine 5 mg oral 3 times daily. Appreciate procalcitonin trend. Blood cultures so far negative. Urine culture growing ESBL E. coli. Appreciate sensitivities. Continue with IV Zosyn for now. Will plan for 10 days of IV antibiotics overall given complicated UTI. Patient could be discharged on ertapenem as per hemodialysis with last dose on 06/15. Bilateral hydronephrosis: Most likely in setting of urinary retention from chronic indwelling Steiner catheter ending in prostatic urethra. Will request nursing staff to advance Steiner catheter. If not able to advance will need to transfer to a tertiary center where urology is available. Frequent bladder scanning and possible irrigation. Urine output improving. Will do bladder scan. If bladder scan shows minimal urine can plan for bladder ultrasound otherwise we will continue irrigating. Patient does have urinary bladder mass possibly coming from prostate. Could be the complicating factor as well. End-stage renal disease: Currently on hemodialysis through tunneled catheter. Gets dialysis Thursday, to, Thursday. Consult nephrology for further recommendation. CODE STATUS: Discussed in detail with patient's daughter/DPOA over the phone. Patient in the past had wished for no resuscitation. He is okay with vasopressors, blood transfusion, hemodialysis if needed. DNR/DNI. Renal dialysis diet Protonix for PUD prophylaxis Heparin 5000 every 12 hourly for DVT prophylaxis. PDMP PDMP Reviewed: Not Reviewed Attestations 2 Medical Necessity Statement*: Requires further hospitalization for management of septic shock in setting of complicated ESBL E. coli UTI, bilateral hydronephrosis, clogged Steiner catheter, urinary retention, pyelonephritis, ESRD on on HD Critical Care Time: The high probability of a clinically significant, sudden or life threatening deterioration of the patient's [Cardiac, renal, ID] system(s) required my full and direct attention, intervention and personal management. The critical care time is as shown. This time is in addition to time spent performing any reported procedures but includes the following: [x] Data and vital sign review and interpretation [x] Patient assessment, examination and intervention [x] Documentation [x] Medication orders and management Critical Care Time (min): 70 Coding Level of Care Code Critical Care >/= 30 minutes Critical care time (in minutes): 70 The high probability of a clinically significant, sudden or life threatening deterioration, as referenced in this documentation, required my full and direct attention, intervention and personal management. The critical care time shown is in addition to time spent performing any reported separately billable procedures and includes the following: [x] Data and vital sign review and interpretation [x ] Patient assessment, examination and intervention [x] Medication orders and management [x] Patient/Family updates as able [x] Care Coordination and Documentation. Diagnoses Sepsis A41.9 Pyelonephritis N12 Complicated UTI (urinary tract infection) N39.0 ESRD on hemodialysis N18.6; Z99.2 Urinary retention R33.9 Chronic indwelling Steiner catheter Z97.8 Bilateral hydronephrosis N13.30 Hypotension I95.9 Tunneled central venous catheter present Z97.8 Mass of urinary bladder N32.89 Infection due to ESBL-producing Escherichia coli A49.8; Z16.12
--- NOTE | 2025-06-07 11:25 | PC.NURSE ---
Case management seen patient and patient refused any services they had to offer
--- NOTE | 2025-06-07 11:47 | PC.HD ---
Patient's HD circuit suddenly clotted with 5 minutes remaining. Unable to rinse blood in circuit back to patient, resulting in approximately 300 mL blood loss. Primary RN and Dr. Gonzalez aware. UF goal was 3000 mL. 3206 mL was removed.
[2025-06-07 12:41] LABS: C.Diff PCR (Lab) NEGATIVE (Negative)
--- NOTE | 2025-06-07 12:54 | PC.NURSE ---
Yanez removed and replaced with new yanez kit, via orders of Dr. Buchanan.
--- NOTE | 2025-06-07 16:32 | PM.PN ---
Subjective Subjective: no new c/o Medications: Reviewed: Yes Vitals/I&O/Wt Last Vital Signs Temp 98.1 F 06/07/25 11:46 Pulse 92 06/07/25 14:00 Resp 15 06/07/25 12:20 BP 89/60 06/07/25 12:25 Pulse Ox 93 06/07/25 12:20 O2 Del Method Room Air 06/05/25 20:58 06/07/25 06/07/25 06/07/25 06:59 14:59 22:59 Intake Total 182.75 / 2600.25 1926.25 / 1926.25 Output Total 300 / 1000 3206 / 3206 Balance -117.25 / 1600.25 -1279.75 / -1279.75 Weight last 48 hrs Weight 76.5 kg Weight 80 kg Weight 82 kg Weight 78.018 kg Physical Exam Narrative: Patient seen and examined. Vital signs noted. The patient is BiPAP dependent. HEENT normocephalic atraumatic. Neck obese supple difficult to encyclopedia research worker JVP. Lungs crackles bilaterally. Heart regular positive systolic murmur. Abdomen is soft positive bowel sounds. Extremities bilateral edema. Patient has femoral catheters for dialysis. Neuro responds to pain. Urinary Catheter Management: Steiner: Cath Placed During This Visit: yes Reason for Continuing Indwelling Catheter: Accurate Measurement of Urinary Output in Critically Ill Patients Urinary Catheter Date of Insertion: 06/07/25 Urinary Catheter Time of Insertion: 12:52 Data 06/07/25 04:05 06/07/25 04:05 Micro: Microbiology 06/05/25 13:25 Urine Culture - Final Urine,Clean Catch Escherichia coli esbl 06/05/25 13:24 Blood Culture - Preliminary Blood NEGATIVE TO DATE 06/05/25 13:28 Blood Culture - Preliminary Blood NEGATIVE TO DATE A&P Assessment and plan 1. ESRD (end stage renal disease): Plan: 1. End-stage renal disease: Recently initiated on hemodialysis, on MWF schedule, HD today 2. Anemia: ASA with HD 3. History of hypertension, meds on hold due to hypotension 4. Sepsis, likely pyelonephritis, on IV fluids and on Levophed 5. Chronic bilateral hydronephrosis with urinary retention and has chronic indwelling Steiner catheter, patient followed by urology as outpatient. Patient evaluated using audiovisual cart. Time spent 40 minutes PDMP PDMP Reviewed: Not Reviewed Attestations Medical Necessity Statement*: per elias Coding Level of Care Code Acute Code for Chg Fwd Diagnoses ESRD (end stage renal disease) N18.6
[2025-06-07] MEDS: pantoprazole 40 mg SDV IVP (17:47)
[2025-06-08] VITALS (40 sets, daily range): BP systolic 97–188; BP diastolic 63–108; PULSE 59–105; RESP 16–19; TEMP 36.1–37.1; O2SAT 90–98
[2025-06-08] MEDS: albumin 25 G/100 ML BAG 60 G IV (01:54)
[2025-06-08 03:27] LABS: Mean Corpuscular HGB Conc 30.8 g/dL (30-55); Mean Corpuscular Hemoglobin 31.4 pg (27-33); Mean Corpuscular Volume 102.0 fl (82-101); Nucleated Red Blood Cells % 0 %; Platelet Count 222 10^3/cmm (157-399); Red Blood Count 2.04 10^6/uL (3.85-5.65); White Blood Count 10.99 10^3/uL (3.29-11.43)
[2025-06-08 03:49] LABS: Alanine Aminotransferase 8 U/L (0-41); Albumin Level 3.4 g/dL (3.5-5.2); Alkaline Phosphatase 48 U/L (40-130); Anion Gap 17.3 (5-19); Aspartate Amino Transferase 12 U/L (0-40); Blood Urea Nitrogen 14 mg/dL (8-23); Calcium 7.6 mg/dL (8.5-10.5); Carbon Dioxide 24 mmol/L (22-29); Chloride 107 mmol/L (98-107); Creatinine Clr Calc Pharmacy 18.8526; Globulin 3.0 g/dL (1.3-4.6); Glucose 83 mg/dL (65-115); Magnesium 1.8 mg/dL (1.7-2.3); Osmolality Calculated 300 mOsm/kg (285-295); Potassium 3.3 mmol/L (3.5-5.1); Sodium 145 mmol/L (136-145); Total Protein 6.4 g/dL (6.6-8.7)
[2025-06-08 04:07] LABS: Hematocrit 20.8 % (37-53); Hemoglobin 6.40 g/dL (11.27-16.99)
[2025-06-08] MEDS: heparin 5,000 unit/mL INJ 1 mL 5000 UNIT SUBCUT ×2 (06:04→17:47)
[2025-06-08] MEDS: piperacillin-tazobactam 3.375 GM in sodium chloride 0.9% (plus) 50 ML IV ×2 (06:05→18:26)
[2025-06-08] MEDS: HYDROcodone-acetaminophen 10-325 mg Tablet 1 TAB PO ×2 (08:54→17:47)
[2025-06-08] MEDS: ALBUMIN 12.5 GM/50 ML IV ×2 (10:19→18:16)
--- NOTE | 2025-06-08 10:43 | PC.NURSE ---
Pt was taken to [facility] with brother and all belongings including shoes, socks, pants, shirt, and cell phone.
--- NOTE | 2025-06-08 11:27 | P.PN_ITS ---
Subjective 2 Subjective: No acute events overnight. Seen with daughter at bedside. Blood pressure is better today. Remains on room air. Off Levophed. Underwent dialysis yesterday. Patient asking when can he go home. Medications: Reviewed: Yes Vitals/I&O/Wt Last Vital Signs Temp 97.5 F L 06/08/25 05:25 Pulse 96 06/08/25 10:00 Resp 18 06/08/25 05:25 BP 110/74 06/08/25 10:30 Pulse Ox 96 06/08/25 08:30 O2 Del Method Room Air 06/08/25 07:56 06/07/25 06/08/25 06/08/25 22:59 06:59 14:59 Intake Total 1150 / 3076.25 457.5 / 3533.75 240 / 240 Output Total 350 / 3556 300 / 3856 Balance 800 / -479.75 157.5 / -322.25 240 / 240 Weight last 48 hrs Weight 80 kg Weight 76.5 kg Weight 80 kg Physical Exam 2 Narrative: General: No acute distress, AO x3, chronically sick appearing, pallor present, Steiner present without urine HEENT: PERRLA, pupils bilaterally equal and reactive Chest: Normal vesicular breath sounds, no added sounds, equal good air entry bilaterally CVS: S1-S2 regular, no murmurs, no tachycardia, no gallops, no rubs Abdomen: Soft, distended, tender in lower quadrant, no organomegaly, bowel sounds present Neuro: No focal deficits, no facial deformity, AO x3, power 5/5 in all limbs Resp: COMMON NORMALS: clear to auscultation bilaterally AUSCULTATION: clear to auscultation bilaterally Urinary Catheter Management: Steiner: Cath Placed During This Visit: yes Reason for Continuing Indwelling Catheter: Chronic Indwelling Urinary Catheter on Admission Urinary Catheter Date of Insertion: 06/07/25 Urinary Catheter Time of Insertion: 12:52 Data 06/08/25 02:58 06/08/25 02:58 Micro: Microbiology 06/05/25 13:25 Urine Culture - Final Urine,Clean Catch Escherichia coli esbl A&P Assessment and plan 1. Sepsis: 2. Pyelonephritis: 3. Complicated UTI (urinary tract infection): 4. ESRD on hemodialysis: 5. Urinary retention: 6. Chronic indwelling Steiner catheter: 7. Bilateral hydronephrosis: 8. Hypotension: 9. Tunneled central venous catheter present: 10. Mass of urinary bladder: 11. Infection due to ESBL-producing Escherichia coli: Plan: Septic shock: In setting of pyelonephritis and complicated UTI: Chronic indwelling Steiner catheter malfunction: Acute examination shows patient not fluid responsive. Stop IV fluids. Levophed to be weaned to keeping mean arterial pressure over 65. Start on IV albumin every 8 hourly. Midodrine 5 mg oral 3 times daily. Appreciate procalcitonin trend. Blood cultures so far negative. Urine culture growing ESBL E. coli. Appreciate sensitivities. Continue with IV Zosyn for now. Will plan for 10 days of IV antibiotics overall given complicated UTI. Patient could be discharged on ertapenem as per hemodialysis with last dose on 06/15. Bilateral hydronephrosis: Most likely in setting of urinary retention from chronic indwelling Steiner catheter ending in prostatic urethra. Will request nursing staff to advance Steiner catheter. If not able to advance will need to transfer to a tertiary center where urology is available. Frequent bladder scanning and possible irrigation. Urine output improving. Will do bladder scan. If bladder scan shows minimal urine can plan for bladder ultrasound otherwise we will continue irrigating. Patient does have urinary bladder mass possibly coming from prostate. Could be the complicating factor as well. End-stage renal disease: Currently on hemodialysis through tunneled catheter. Gets dialysis Thursday, to, Thursday. Consult nephrology for further recommendation. CODE STATUS: Discussed in detail with patient's daughter/DPOA over the phone. Patient in the past had wished for no resuscitation. He is okay with vasopressors, blood transfusion, hemodialysis if needed. DNR/DNI. Renal dialysis diet Protonix for PUD prophylaxis Heparin 5000 every 12 hourly for DVT prophylaxis. Plan for the day: Hemoglobin down to 6.4 today. Monitor blood transfusion. Monitor hemodynamics. Continue with midodrine 5 mg 3 times daily. Goal blood pressure between 100-140 systolics. Continue with IV Zosyn. Blood cultures so far negative. Urine culture positive for ESBL. Plan to treat with overall 10 days of IV ertapenem for complicated UTI. Patient will be set up for IV ertapenem 1 g after dialysis 3 times a week for overall 10-day course. Midline to be placed. Patient's UTI/hydronephrosis most likely complicated due to recurrent obstructive nephropathy and uropathy due to blocked urinary catheter due to heavy sedimentation. Patient most likely needs recurrent irrigation of the catheter even at home. Discussed safe discharge planning with the patient with possible discharge with home health. Patient observed was not agreeable but after talking to his brother he is agreeable now. Case management alerted. Midline placement. Repeat urinalysis. Repeat renal ultrasound to monitor for hydronephrosis. Transfer to [facility]. PDMP PDMP Reviewed: Not Reviewed Attestations 2 Medical Necessity Statement*: Requires further hospitalization for management of severe sepsis in setting of complicated UTI, obstructive nephropathy, CKD on dialysis, anemia requiring blood transfusion Diagnoses Sepsis A41.9 Pyelonephritis N12 Complicated UTI (urinary tract infection) N39.0 ESRD on hemodialysis N18.6; Z99.2 Urinary retention R33.9 Chronic indwelling Steiner catheter Z97.8 Bilateral hydronephrosis N13.30 Hypotension I95.9 Tunneled central venous catheter present Z97.8 Mass of urinary bladder N32.89 Infection due to ESBL-producing Escherichia coli A49.8; Z16.12
--- NOTE | 2025-06-08 11:35 | US_ITS ---
WS: [id number] RENAL ULTRASOUND HISTORY: Bilateral hydronephrosis COMPARISON: CT 06/05/2025, renal ultrasound 12/15/2023 TECHNIQUE: 2-D and color Doppler imaging of the kidney submitted. Right kidney: 10.3 cm x 5.7 cm x 4.6 cm. Cortex: 1.9 cm Severe hydronephrosis. The extent of hydronephrosis appears more prominent as compared to 12/15/2023. Diffuse cortical thinning. Progression of cortical thinning. Left kidney: 10.0 cm x 6.3 cm x 6.8 cm. Cortex: 1.3 cm Moderate to severe hydronephrosis. Hydronephrosis has progressed since the prior study. Diffuse cortical thinning. Progression of cortical thinning. Aorta: Limited. Urinary Bladder: There is a Steiner catheter within the bladder. There is a large soft tissue mass within the urinary bladder. Mass measures at least 7.7 x 6.7 cm. US/US renal BI* [id number] IMPRESSION: 1. Moderate to severe bilateral hydronephrosis has progressed since the prior study from 2023. 2. New diffuse cortical thinning of each kidney which is new since 2023. 3. There is a large solid mass centered in the urinary bladder. This was previ ously described and may be the prostate. Difficult to be certain where this mas s is arising from. This is a known mass and has been previously described. Fole y catheter appears better positioned and is within the urinary bladder.
--- NOTE | 2025-06-08 12:37 | PICC.NOTE ---
Midline placed to left brachial vein. Referred to vascular access nurse for midline placement due to need for IV antibiotics x 10 days. Risks and benefits discussed and informed consent obtained from pt. Left arm assessed with left brachial vein measuring 3.7 mm, straight, and apparent best choice for placement. Using sterile technique and MST, left brachial vein accessed x 1 stick. Mid-arm circumference measured 10 cm from left AC 28 cm. Trimmed cath 10 cm with 0 cm external length noted. Line secured with stat-lock. Insertion site covered with Biopatch and TSM. Report given to bedside nurse, CORNEL Carreon.
[2025-06-08 13:59] LABS: Glucose Urine UA Negative (Normal); Nitrate Urine Negative (Negative); Specific Gravity, Urine 1.013 (1.005-1.030)
[2025-06-08 14:03] LABS: Add Urine Microscopic? YES
[2025-06-08 14:51] LABS: UA Slide Review UA Slide Review Perf
--- NOTE | 2025-06-08 14:51 | P.PN_ITS ---
Subjective 2 Subjective: Status post hemodialysis yesterday, on room air, no distress Medications: Reviewed: Yes Vitals/I&O/Wt Last Vital Signs Temp 98.4 F 06/08/25 11:38 Pulse 72 06/08/25 11:38 Resp 19 H 06/08/25 11:38 BP 111/71 06/08/25 11:38 Pulse Ox 93 06/08/25 11:38 O2 Del Method Room Air 06/08/25 11:38 06/07/25 06/08/25 06/08/25 22:59 06:59 14:59 Intake Total 1150 / 3076.25 457.5 / 3533.75 987.25 / 987.25 Output Total 350 / 3556 300 / 3856 Balance 800 / -479.75 157.5 / -322.25 987.25 / 987.25 Weight last 48 hrs Weight 80 kg Weight 76.5 kg Weight 80 kg Physical Exam 2 Narrative: Patient seen and examined. Vital signs noted. The patient is BiPAP dependent. HEENT normocephalic atraumatic. 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 Lungs crackles bilaterally. Heart regular positive systolic murmur. Abdomen is soft positive bowel sounds. Extremities bilateral edema. Patient has femoral catheters for dialysis. Neuro responds to pain. Urinary Catheter Management: Steiner: Cath Placed During This Visit: yes Reason for Continuing Indwelling Catheter: Chronic Indwelling Urinary Catheter on Admission Urinary Catheter Date of Insertion: 06/07/25 Urinary Catheter Time of Insertion: 12:52 Data 06/08/25 02:58 06/08/25 02:58 Micro: Microbiology 06/05/25 13:25 Urine Culture - Final Urine,Clean Catch Escherichia coli esbl A&P Assessment and plan 1. ESRD (end stage renal disease): Plan: 1. End-stage renal disease: Recently initiated on hemodialysis, on MWF schedule, HD tomorrow 2. Anemia: ASA with HD 3. History of hypertension, 4. Sepsis, likely pyelonephritis, status post Levophed 5. Chronic bilateral hydronephrosis with urinary retention and has chronic indwelling Steiner catheter, patient followed by urology as outpatient. Patient evaluated using audiovisual cart. Time spent 40 minutes PDMP PDMP Reviewed: Not Reviewed Attestations 2 Medical Necessity Statement*: Per medicine team Coding Level of Care Code Acute Code for Chg Fwd Diagnoses ESRD (end stage renal disease) N18.6
--- NOTE | 2025-06-08 15:40 | PC.NURSE ---
Started patient's PRBC at this time. Patient is resting in bed. Patient is A&Ox3. Respirations even and non-labored on room air. Will continue to monitor.
[2025-06-08] MEDS: pantoprazole 40 mg SDV IVP (17:47)
[2025-06-08 20:56] LABS: Hematocrit 28.6 % (37-53); Hemoglobin 9.20 g/dL (11.27-16.99)
[2025-06-09] MEDS: ALBUMIN 12.5 GM/50 ML IV ×2 (02:10→07:57)
[2025-06-09 04:00] VITALS: BP 115/70; PULSE 58; RESP 16; TEMP 36.7; O2SAT 95
[2025-06-09 05:03] LABS: Hematocrit 26.8 % (37-53); Hemoglobin 8.60 g/dL (11.27-16.99); Mean Corpuscular HGB Conc 32.1 g/dL (30-55); Mean Corpuscular Hemoglobin 31.5 pg (27-33); Mean Corpuscular Volume 98.2 fl (82-101); Platelet Count 242 10^3/cmm (157-399); Red Blood Count 2.73 10^6/uL (3.85-5.65); White Blood Count 12.25 10^3/uL (3.29-11.43)
[2025-06-09 05:19] LABS: Slide Review Slide Review Perform
[2025-06-09 05:21] LABS: Absolute Segmented Neutrophil 8.3 10/cmm (1.6-7.1); Total Cells Counted 100 (0-100)
[2025-06-09 05:22] LABS: Alanine Aminotransferase 7 U/L (0-41); Albumin Level 3.7 g/dL (3.5-5.2); Alkaline Phosphatase 41 U/L (40-130); Anion Gap 18.7 (5-19); Aspartate Amino Transferase 10 U/L (0-40); Atypical Lymphs 0.0 % (0-5); Band Neutrophils Absolute 0.0 10^3/cmm (0.0-1.2); Blood Urea Nitrogen 20 mg/dL (8-23); Calcium 7.6 mg/dL (8.5-10.5); Carbon Dioxide 21 mmol/L (22-29); Chloride 109 mmol/L (98-107); Creatinine Clr Calc Pharmacy 14.3216; Globulin 2.9 g/dL (1.3-4.6); Glucose 78 mg/dL (65-115); Osmolality Calculated 301 mOsm/kg (285-295); Potassium 3.7 mmol/L (3.5-5.1); Sodium 145 mmol/L (136-145); Total Protein 6.6 g/dL (6.6-8.7)
[2025-06-09 05:23] LABS: Polychromasia Trace
[2025-06-09] MEDS: piperacillin-tazobactam 3.375 GM in sodium chloride 0.9% (plus) 50 ML IV (06:16)
[2025-06-09] MEDS: heparin 5,000 unit/mL INJ 1 mL 5000 UNIT SUBCUT (06:16)
[2025-06-09 07:53] VITALS: BP 112/72; PULSE 59; RESP 17; TEMP 36.5; O2SAT 92
[2025-06-09] MEDS: HYDROcodone-acetaminophen 10-325 mg Tablet 1 TAB PO (07:57)
--- NOTE | 2025-06-09 09:00 | PM.DCS ---
Discharge Providers Date of Admission: 06/05/25 17:55 Date of Discharge: June 09, 2025 Attending Provider at Admission: Melchor Buchanan MD Attending Provider at Discharge: Melchor Buchanan MD Primary Care Provider: Jeremias Escudero Diagnoses at Discharge Discharge Diagnosis 1. ESRD (end stage renal disease): Reason for Visit Reason for Visit: AMS Brief History: History taken over the phone through patient's DPOA/daughter. 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 Last Steiner catheter changed on 06/01 as per daughter. Patient was sent in today from hemodialysis center because of altered mental status, hypotension. As per the daughter patient has been getting confused for last 2 to 3 days with episodes of nausea/vomiting and occasional fever. Urine output has been decreasing since Steiner catheter placement. In the ER patient was found to be hypotensive requiring sepsis bolus after which blood pressure slightly improved. Patient was drowsy, confused AO x 1 on examination. Denies any active complaint but complaining of abdominal tenderness on examination. Steiner catheter in place without urine in the bag. As per the daughter patient has an appointment with a urologist at [facility] on June 19 to discuss further regarding urinary bladder mass. Patient was recently [facility] where he was initiated on hemodialysis through tunneled catheter. Hospital Course Hospital Course Patient was admitted to the hospital for evaluation and management of severe sepsis to septic shock in setting of UTI, pyelonephritis and bilateral hydronephrosis. At first there was a concern for urinary obstruction due to obstructed Steiner catheter which was replaced in the ER. Patient's urinary obstruction is in setting of significant significant sediments in urine. Patient's blood culture remain negative and urine culture positive for ESBL E. coli. Eventually patient's hemodynamics improved. He has been discharged in medically stable condition with advised to continue with IV antibiotics for overall 10 days. He will cefepime discharged on IV ertapenem 1 g after dialysis with last dose on 06/15. Patient has an appointment with his outpatient urologist for further evaluation/cystoscopy of the urinary bladder mass on 06/29. After completion of IV ertapenem he will be on oral nitrofurantoin suppression with 100 mg twice daily. He is to hold off on taking amlodipine going forward. He will take midodrine 5 mg 3 times a day with advised to check his blood pressure daily and maintain a blood pressure diary. Goal blood pressure is between 100-140 systolics. Physical Exam Narrative: General: No acute distress, AO x3, chronically sick appearing, pallor present, Steiner present without urine HEENT: PERRLA, pupils bilaterally equal and reactive Chest: Normal vesicular breath sounds, no added sounds, equal good air entry bilaterally CVS: S1-S2 regular, no murmurs, no tachycardia, no gallops, no rubs Abdomen: Soft, distended, tender in lower quadrant, no organomegaly, bowel sounds present Neuro: No focal deficits, no facial deformity, AO x3, power 5/5 in all limbs Resp: COMMON NORMALS: clear to auscultation bilaterally AUSCULTATION: clear to auscultation bilaterally Urinary Catheter Management: Steiner: Cath Placed During This Visit: yes Reason for Continuing Indwelling Catheter: Chronic Indwelling Urinary Catheter on Admission Urinary Catheter Date of Insertion: 06/07/25 Urinary Catheter Time of Insertion: 12:52 Discharge Data Studies Completed and Pending Completed Studies During Hospitalization Category Date Time Status CT abdomen pelvis wo con [id number] Stat Cat Scan 06/05/25 13:[address] head wo con* [id number] Stat Cat Scan 06/05/25 12:50 Completed XR chest 1V portable [id number] Stat Exams 06/05/25 13:21 Completed US renal BI* [id number] Routine Ultrasound 06/08/25 11:35 Completed Pending at discharge Category Date Time Status Blood Culture Stat Lab 06/05/25 13:24 Results Urine Culture Routine Lab 06/08/25 13:27 Received Radiology Impressions Head CT 06/05/25 12:50 IMPRESSION: 1. No acute intracranial hemorrhage or edema. 2. Mild cerebral and cerebellar atrophy and small vessel disease. Abdomen/Pelvis CT 06/05/25 13:02 IMPRESSION: 1. Persistent bilateral hydroureteronephrosis. Similar to 05/01/2025. 2. Steiner catheter that was present in the urinary bladder on 05/01/2025 has been retracted. Steiner catheter balloon terminates in the prostatic portion of the urethra and should be repositioned. 3. Markedly distended urinary bladder with a large mass extending into the bladder which is probably the prostate gland. 4. Bilateral perinephric stranding around each kidney. Correlate for possible pyelonephritis. Perinephric stranding has progressed since 05/01/2025. No focal fluid collection identified on this unenhanced exam. Chest X-Ray 06/05/25 13:21 IMPRESSION: 1. No acute findings. 2. Poor inspiratory effort. 3. Slight opacity on the left. Renal Ultrasound 06/08/25 11:35 IMPRESSION: 1. Moderate to severe bilateral hydronephrosis has progressed since the prior study from 2023. 2. New diffuse cortical thinning of each kidney which is new since 2023. 3. There is a large solid mass centered in the urinary bladder. This was previously described and may be the prostate. Difficult to be certain where this mass is arising from. This is a known mass and has been previously described. Steiner catheter appears better positioned and is within the urinary bladder. Microbiology 06/05/25 13:25 Urine,Clean Catch Urine Culture - Final Escherichia coli esbl 06/05/25 13:24 Blood Blood Culture - Preliminary NEGATIVE TO DATE 06/05/25 13:28 Blood Blood Culture - Preliminary NEGATIVE TO DATE 06/05/25 13:25 Urine Kidney Bacterial Antigens - Final Laboratory Results WBC 12.25 10^3/uL (3.29-11.43) H 06/09/25 04:27 RBC 2.73 10^6/uL (3.85-5.65) L 06/09/25 04:27 Hgb 8.60 g/dL (11.27-16.99) L 06/09/25 04:27 Hct 26.8 % (37-53) L 06/09/25 04:27 MCV 98.2 fl (82-101) 06/09/25 04:27 MCH 31.5 pg (27-33) 06/09/25 04:27 MCHC 32.1 g/dL (30-55) 06/09/25 04:27 RDW 16.7 % (12.1-15.1) H 06/09/25 04:27 Plt Count 242 10^3/cmm (157-399) 06/09/25 04:27 MPV 10.0 fL (7.4-10.4) 06/09/25 04:27 Neut % (Auto) 61.6 % 06/08/25 02:58 Lymph % (Auto) Not Reportable 06/09/25 04:27 Mckinley % (Auto) Not Reportable 06/09/25 04:27 Eos % (Auto) 2.4 % 06/08/25 02:58 Baso % (Auto) 0.6 % 06/08/25 02:58 Neut # (Auto) 6.77 10^3/uL (1.8-7.7) 06/08/25 02:58 Lymph # (Auto) Not Reportable 06/09/25 04:27 Mckinley # (Auto) Not Reportable 06/09/25 04:27 Eos # (Auto) 0.3 10^3/uL (0.0-0.8) 06/08/25 02:58 Baso # (Auto) 0.1 10^3/uL (0.0-0.1) 06/08/25 02:58 Nucleated RBC % (auto) 0 % 06/08/25 02:58 Total Counted 100 (0-100) 06/09/25 04:27 Atypical Lymphs % 0.0 % (0-5) 06/09/25 04:27 Absolute Neutrophils 8.3 10^3/cmm (1.4-6.5) H 06/09/25 04:27 Segmented Neutrophils 68 % 06/09/25 04:27 Band Neutrophils 0.0 % 06/09/25 04:27 Absolute Lymphocytes 2.3 10^3/cmm (1.2-3.4) 06/09/25 04:27 Lymphocytes (Manual) 19 % 06/09/25 04:27 Monocytes (Manual) 3.0 % 06/09/25 04:27 Absolute Monocytes 0.4 10^3/cmm (0.1-0.6) 06/09/25 04:27 Eosinophils (Manual) 4 % 06/09/25 04:27 Absolute Eosinophils 0.5 10^3/cmm (0.0-0.7) 06/09/25 04:27 Basophils (Manual) 1.0 % 06/09/25 04:27 Absolute Basophils 0.1 10^3/cmm (0.0-0.2) 06/09/25 04:27 Metamyelocytes 1.0 % 06/09/25 04:27 Myelocytes 4.0 % 06/09/25 04:27 Nucleated RBCs 2.0 /100WBC (0-1) H 06/09/25 04:27 Nucleated RBCs # 0.0 /100WBC 06/08/25 02:58 Platelet Estimate Normal (Normal) 06/09/25 04:27 Polychromasia Trace 06/09/25 04:27 Specimen Type Arterial 06/05/25 17:10 Sample Site Brachial, left 06/05/25 17:10 ABG pH 7.49 (7.35-7.45) H 06/05/25 17:10 ABG pCO2 35.5 mmHg (35-45) 06/05/25 17:10 ABG pO2 58.7 mmHg (80.0-100.0) L 06/05/25 17:10 ABG PO2/FiO2 Ratio 279 06/05/25 17:10 ABG HCO3 26.9 mmol/L (22-26) H 06/05/25 17:10 ABG O2 Saturation 91.1 06/05/25 17:10 ABG Base Excess 3.4 mmol/L (-2.0-2.0) H 06/05/25 17:10 Tommy Test N/a 06/05/25 17:10 A-a O2 Gradient 6.0 mmHg (5-10) 06/05/25 17:10 Hematocrit 25.6 % (42-52) L 06/05/25 17:10 Hgb O2 Saturation 89.2 % (95-100) L 06/05/25 17:10 Carboxyhemoglobin 1.1 %THgb (0.4-20.1) 06/05/25 17:10 Methemoglobin 1.1 % (0.4-1.5) 06/05/25 17:10 Total Hemoglobin 8.4 g/dL (14-18) L 06/05/25 17:10 Sodium 138.0 mmol/L (131-143) 06/05/25 17:10 Potassium 4.0 mmol/L (3.5-5.0) 06/05/25 17:10 Glucose 97.0 mg/dL (70-115) 06/05/25 17:10 Ionized Calcium 1.1 mmol/L (1.1-1.4) 06/05/25 17:10 O2 Delivery Device Room air 06/05/25 17:10 FiO2 21.0 % 06/05/25 17:10 Shredding Specialist ID [id number] 06/05/25 17:10 Sodium 145 mmol/L (136-145) 06/09/25 04:27 Potassium 3.7 mmol/L (3.5-5.1) 06/09/25 04:27 Chloride 109 mmol/L (98-107) H 06/09/25 04:27 Carbon Dioxide 21 mmol/L (22-29) L 06/09/25 04:27 Anion Gap 18.7 (5-19) 06/09/25 04:27 BUN 20 mg/dL (8-23) 06/09/25 04:27 Creatinine 5.1 mg/dL (0.7-1.2) H 06/09/25 04:27 GFR Calculation 11.3 mL/min (90-130) L 06/09/25 04:27 Glucose 78 mg/dL (65-115) 06/09/25 04:27 Estimat Average Glucose 97 06/05/25 13:28 Hemoglobin A1c 5.0 % (4.0-6.0) 06/05/25 13:28 Calculated Osmolality 301 mOsm/kg (285-295) H 06/09/25 04:27 Lactic Acid 0.9 mmol/L (0.5-2.2) 06/05/25 21:45 Calcium 7.6 mg/dL (8.5-10.5) L 06/09/25 04:27 Phosphorus 4.1 mg/dL (2.5-4.5) 06/08/25 02:58 Magnesium 1.8 mg/dL (1.7-2.3) 06/08/25 02:58 Iron 68 ug/dL (59-158) 06/05/25 13:28 TIBC 234 mcg/dl 06/05/25 13:28 % Saturation 29.0 % (20-50) 06/05/25 13:28 Unsat Iron Binding 166 ug/dL (112-347) 06/05/25 13:28 Total Bilirubin 0.5 mg/dL (0.15-1.2) 06/09/25 04:27 AST 10 U/L (0-40) 06/09/25 04:27 ALT 7 U/L (0-41) 06/09/25 04:27 Alkaline Phosphatase 41 U/L (40-130) 06/09/25 04:27 Troponin T Baseline 74 ng/L (0-15) H 06/05/25 13:28 Troponin T 120 Minute 67.99 ng/L (0-15) H 06/05/25 15:23 Delta Troponin T -6.01 ABS# (0-10) L 06/05/25 15:23 Troponin T Hi Sens 6Hr 72.30 ng/L (0-15) H 06/05/25 21:45 Troponin T Hi Sens 6Hr Delta -1.70 ng/L (0-12) L 06/05/25 21:45 Total Protein 6.6 g/dL (6.6-8.7) 06/09/25 04:27 Albumin 3.7 g/dL (3.5-5.2) 06/09/25 04:27 Globulin 2.9 g/dL (1.3-4.6) 06/09/25 04:27 Triglycerides 134 mg/dL (0-150) 06/06/25 04:41 Cholesterol 108 mg/dL (0-200) 06/06/25 04:41 LDL Cholesterol, Calc 49 mg/dL (50-129) L 06/06/25 04:41 HDL Cholesterol 32 mg/dL (60-100) L 06/06/25 04:41 LDL/HDL Ratio 1.53 RATIO (0.00-3.22) 06/06/25 04:41 Cholesterol/HDL Ratio 3.38 mg/dL (1.0-5.00) 06/06/25 04:41 Lipase 14 U/L (13-60) 06/05/25 13:28 Vitamin B12 439 pg/mL (232-1245) 06/05/25 13:28 Folate 9.4 ng/mL (4.5-32.2) 06/06/25 04:41 Procalcitonin 1.61 ng/mL (0-0.5) H 06/06/25 04:41 TSH 0.86 uIU/mL (0.27-4.20) 06/05/25 13:28 Urine Color Yellow (Yellow) 06/08/25 13:27 Urine Appearance Turbid (CLEAR) A 06/08/25 13:27 Urine pH 8.0 (5-7) A 06/08/25 13:27 Ur Specific [place] 1.013 (1.005-1.030) 06/08/25 13:27 Urine Protein 3+ (Negative) A 06/08/25 13:27 Urine Glucose (UA) Negative (Normal) 06/08/25 13:27 Urine Ketones Negative (Negative) 06/08/25 13:27 Urine Blood 3+ (Negative) A 06/08/25 13:27 Urine Nitrate Negative (Negative) 06/08/25 13:27 Urine Bilirubin Negative (Negative) 06/08/25 13:27 Urine Urobilinogen 0.2 mg/dL (Negative) 06/08/25 13:27 Ur Leukocyte Esterase 3+ (Negative) A 06/08/25 13:27 Urine RBC 51-100 /hpf (0-2) H 06/08/25 13:27 Urine WBC >100 /hpf (0-5) H 06/08/25 13:27 Ur Squamous Epith Cells 0-5 /hpf (0-5) 06/08/25 13:27 Amorphous Sediment Not Reportable 06/08/25 13:27 Urine Bacteria 4+ /hpf (NONE) H 06/08/25 13:27 Hyaline Casts None /lpf 06/08/25 13:27 Nasal MRSA (PCR) Not detected (Negative) 06/05/25 20:00 C. difficile (PCR) Negative (Negative) 06/07/25 11:03 Hep Bs Antigen Non-reactive (Nonreactive) 06/06/25 04:41 Hep Bs Antibody < 3.5 (11.5-1000) L 06/06/25 04:41 Hepatitis C Antibody Non-reactive (Nonreactive) 06/06/25 04:41 Blood Type A Positive 06/08/25 03:43 Rho(D) Type Rh positive 06/08/25 03:43 Antibody Screen Negative 06/08/25 03:43 Crossmatch See Detail 06/08/25 03:43 Vitals Last Vital Signs Temp 97.7 F 06/09/25 07:53 Pulse 59 L 06/09/25 07:53 Resp 17 06/09/25 07:53 BP 112/72 06/09/25 07:53 Pulse Ox 92 06/09/25 07:53 O2 Del Method Room Air 06/09/25 04:00 Discharge Plan Discharge Patient Disposition: Home Condition: Stable Prescriptions: New midodrine 5 mg Tablet 5 mg PO TID 30 Days Qty: 90 0RF nitrofurantoin macrocrystal 100 mg capsule 100 mg PO Q12H 14 Days Qty: 28 0RF Rx Instructions: must administer with a meal/food Continued diazepam 5 mg tablet 5 mg PO DAILY PRN (Reason: Anxiety) hydrocodone-acetaminophen 10-325 mg tablet 1 tab PO BID pravastatin 80 mg tablet 80 mg PO QPM tamsulosin 0.4 mg capsule 0.4 mg PO DAILY trazodone 100 mg tablet 100 mg PO BEDTIME hydroxyzine HCl 10 mg tablet 10 mg PO TID PRN (Reason: Itching) Discontinued cefdinir 300 mg capsule 300 mg PO Q12H amlodipine 5 mg tablet 5 mg PO QAM Referrals: Eladio Fields [Referring, [facility]] - 06/15/25 10:40 am Discharge Diet: Usual diet Discharge Activity: Resume usual activity and Increase activity as tolerated Patient Instructions: Altered Mental Status (ED), Opioid Safety, Patient Portal & Alicia Instructions Activity Restrictions/Additional Instructions: Continue with Ertapenem 1 gm IV post dialysis till 06/15. Picc line to be removed after Ertapenem completion. Start on nitrofurantoin twice daily after completion of IV ABx course till seen by urologist. Hold Amlodiine for now. Take midodrine 5 mg three times day. Check BP daily and mantain and a BP diary. Goal BP between 100-140 mmhg. Make sure urine is flowing regularly through catheter. If any decrease in urine output. please follow up with your PCP for catherter flushing. Follow up with urologist at the earliest. Discharge Attestations Time Spent in Discharge Care*: greater than 30 min Specific Discharge Activities: educating patient, educating and/or supporting family/caregiver, discussing with pcp/other providers, discussing with immigration case worker/social workers/dc planners, documenting/other paperwork and evaluating patient/reviewing data Quality Metrics Clinical Quality Measures [ No reported AMI, CVA or VTE this stay] Coding Level of Care Code 05716 Total time (in minutes) for Discharge: 65 Diagnoses ESRD (end stage renal disease) N18.6
[2025-06-09 09:41] VITALS: BP 135/76; PULSE 58; RESP 18; TEMP 36.9
--- NOTE | 2025-06-09 09:56 | PC.SOCIAL ---
IMM Update pg 2 of IMM Updated and reviewed w/ patient. Copy provided and copy dated, initialed and placed in chart.
[2025-06-09] MEDS: heparin, porcine 1,000 unit/mL INJ 10 mL 1000 UNIT IV (10:21)
[2025-06-09] MEDS: heparin, porcine 1,000 unit/mL INJ 10 mL 10000 UNIT INTRACATH (10:21)
[2025-06-09] MEDS: ertapenem 1,000 mg SDV 1000 MG IVP (12:29)
--- NOTE | 2025-06-09 12:40 | PC.NURSE ---
D/C pending dressing change of Midline and ride home.
[2025-06-09 12:41] VITALS: BP 198/99; PULSE 54; RESP 18; TEMP 36.6; O2SAT 94
[2025-06-09 13:17] VITALS: BP 160/88; BP 198/99; PULSE 54; PULSE 58; RESP 18; TEMP 36.6; O2SAT 94; O2SAT 95
--- NOTE | 2025-06-09 13:20 | PC.SOCIAL ---
IMM Update pg 2 of IMM updated and reviewed w/ patient. Copy provided, Copy dated initialed and placed in chart.
--- NOTE | 2025-06-13 13:38 | P.PN_ITS ---
Subjective 2 Subjective: no new c/o Medications: Reviewed: Yes Vitals/I&O/Wt Last Vital Signs Temp 97.8 F 06/09/25 13:17 Pulse 54 L 06/09/25 13:17 Resp 18 06/09/25 13:17 BP 198/99 06/09/25 13:17 Pulse Ox 94 06/09/25 13:17 O2 Del Method Room Air 06/09/25 04:00 Physical Exam 2 Narrative: Patient seen and examined. Vital signs noted. The patient is BiPAP dependent. HEENT normocephalic atraumatic. 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 Lungs crackles bilaterally. Heart regular positive systolic murmur. Abdomen is soft positive bowel sounds. Extremities bilateral edema. Patient has femoral catheters for dialysis. Neuro responds to pain. Urinary Catheter Management: Steiner: Cath Placed During This Visit: yes Reason for Continuing Indwelling Catheter: Chronic Indwelling Urinary Catheter on Admission Urinary Catheter Date of Insertion: 06/07/25 Urinary Catheter Time of Insertion: 12:52 Data 06/09/25 04:27 06/09/25 04:27 A&P Assessment and plan 1. ESRD (end stage renal disease): Plan: 1. End-stage renal disease: Recently initiated on hemodialysis, on MWF schedule, HD tomorrow 2. Anemia: ASA with HD 3. History of hypertension, 4. Sepsis, likely pyelonephritis, status post Levophed 5. Chronic bilateral hydronephrosis with urinary retention and has chronic indwelling Steiner catheter, patient followed by urology as outpatient. Patient evaluated using audiovisual cart. Time spent 40 minutes PDMP PDMP Reviewed: Not Reviewed Attestations 2 Medical Necessity Statement*: per humblemd Coding Level of Care Code Acute Code for Chg Fwd Diagnoses ESRD (end stage renal disease) N18.6
== END 2025-06-09 13:21 | disposition home or self-care (01) | DRG 698 ==
LOC: ER 14:10 → ICU 17:56 → MEDSURG 06-08 10:31
PROVIDERS: Hospitalist; Admitting Provider Student in an Organized Health Care Education/Training Program; Emergency Provider Family Medicine; PCP Nurse Practitioner Family; Visit Provider Student in an Organized Health Care Education/Training Program
DX: T83.511A Infection and inflammatory reaction due to indwelling urethral catheter, initial encounter (principal); A41.9 Sepsis, unspecified organism; R65.21 Severe sepsis with septic shock; N18.6 End stage renal disease; N13.6 Pyonephrosis; I12.0 Hypertensive chronic kidney disease with stage 5 chronic kidney disease or end stage renal disease; N13.8 Other obstructive and reflux uropathy; Z16.12 Extended spectrum beta lactamase (ESBL) resistance; Y73.8 Miscellaneous gastroenterology and urology devices associated with adverse incidents, not elsewhere classified; Z99.2 Dependence on renal dialysis; N40.1 Benign prostatic hyperplasia with lower urinary tract symptoms; N32.9 Bladder disorder, unspecified; B96.20 Unspecified Escherichia coli [E. coli] as the cause of diseases classified elsewhere; Z87.440 Personal history of urinary (tract) infections
CPT/HCPCS: 36415; 36430; 36569; 36600; 51702; 51798; 70450; 71045; 74176; 76770; 80051; 80053; 80061; 81001; 82330; 82607; 82746; 82805; 83036; 83540; 83550; 83605; 83690; 83735; 84100; 84145; 84443; 84484; 85007; 85014; 85018; 85025; 86403; 86706; 86803; 86850; 86900; 86920; 87040; 87077; 87086; 87186; 87340; 87493; 90935; 93005; 94664; 96365; 96372; 96374; 96376; 97116; 97162; 99285; C1751; J1335; J1644; J2470; J2543; J7030; J9999; P9016; P9046; P9047; Q3014; Q5105

== ENCOUNTER 2025-06-14 13:00 | Oncology outpatient (recurring) (ONCR) | payer MEDICARE, SELFPAY ==
[2025-06-12] MEDS: ertapenem 1,000 mg SDV 1000 MG IVP (13:45)
[2025-06-12 14:11] VITALS: BP 95/64; PULSE 99; TEMP 36.8; O2SAT 91
[2025-06-14] MEDS: ertapenem 1,000 mg SDV 1000 MG IVP (13:42)
[2025-06-14 13:48] VITALS: BP 103/69
== END 2025-06-15 23:59 | disposition home or self-care (01) ==
PROVIDERS: PCP Family Medicine; Visit Provider Internal Medicine Medical Oncology
DX: N39.0 Urinary tract infection, site not specified (principal); A49.8 Other bacterial infections of unspecified site; Z16.12 Extended spectrum beta lactamase (ESBL) resistance
CPT/HCPCS: 96365; 96374; J1335

== ENCOUNTER 2025-06-19 12:52 | Oncology outpatient (recurring) (ONCR) | payer MEDICARE, SELFPAY | END 2025-07-16 23:59 | disposition home or self-care (01) | LOC: ONCMED 12:52 | PROVIDERS: PCP Family Medicine; Visit Provider Internal Medicine Medical Oncology | DX: Z53.9 Procedure and treatment not carried out, unspecified reason (principal) ==

== ENCOUNTER 2025-09-18 11:52 | Emergency (ER) | payer MEDICARE, SELFPAY ==
[2025-09-18] VITALS (8 sets, daily range): BP systolic 82–106; BP diastolic 47–68; PULSE 78–120; RESP 16; TEMP 37.3; O2SAT 91–99; BMI 29.1
--- OUTSIDE RECORDS SUMMARY | 2025-09-18 12:00 | XMS_ITS | Encounter Summary ---
Author Organization [facility], [facility] Address [address] [place] [address] Phone Care Team Providers Care Automation Mechanic Name Role Phone Eladio Fields MD Primary Care Provider [phone] Encounter Details Date Type Department Care Team (Late st Contact Info) Description 09/11/2025 [facility], [facility] [address] [place] [address] Katiuska Vega MD [address] [place] [address] End stage renal disease; Dependence [...] encounter Miscellaneous Notes * Dialysis Note - Katiuska Vega MD - 09/11/2025 12:00 AM CDT Patient: Brandon Parisi, 1955, 69y, M Dialysis Location: [facility] Attending Broom Machine Operator: Katiuska Vega Service Date: 09/11/2025 Service Provider: Katiuska Vega MD I met face to face with the patient today. OVERVIEW The patient presented with ESRD on dialysis Primary cause of renal failure: Other obstructive and reflux uropathy Comments: Doing well on HD. Has an indwelling yanez. For surgery 10/07/25. Medications and labs reviewed. LAST HOSPITALIZATION Admission Date 06/06/25 Discharge Date 06/09/25 DIALYSIS PRESCRIPTION IHD 3x Week Start date: 09/01/25 Dialyzer: 160NRe Optiflux BFR: 450 DFR: Manual 800 Potassium: 3.0 Sodium: 137 EDW: 80 Duration: 4:00 Calcium: 3.0 Bicarb: 35 Rx updated on: 08/30/2025 TREATMENT ASSESSMENT Comments: Bp was soft and now improving with 1/2 Valium for anxiety. BP Stand Pre 09/08/2025: 111/68 09/06/2025: 130/88 09/04/2025: 156/97 BP Sit Pre 09/08/2025: 105/70 09/06/2025: 108/70 09/04/2025: 153/88 BP Stand Post 09/08/2025: 113/76 09/06/2025: 143/86 09/04/2025: 139/81 BP Sit Post 09/08/2025: 117/70 09/06/2025: 104/77 09/04/2025: 140/89 Prescribed Tx time 09/08/2025: 4:00 09/06/2025: 4:00 09/04/2025: 4:00 Tx Duration 09/08/2025: 4:02 09/06/2025: 4:04 09/04/2025: 4:02 Missed Treatments 0 - last 30 days 0 - last 60 days FLUID ASSESSMENT Fluid status acceptable. EDW (kg) 09/08/2025: 80.0 09/06/2025: 80.0 09/04/2025: 80.0 Weight Pre (kg) 09/08/2025: 81.4 09/06/2025: 82.6 09/04/2025: 82.5 Weight Post (kg) 09/08/2025: 80.7 09/06/2025: 80.3 09/04/2025: 80.5 PWV (kg) 09/08/2025: 0.7 09/06/2025: 0.3 09/04/2025: 0.5 UF Rate (mL/kg/hr) 09/08/2025: 2.2 09/06/2025: 7 09/04/2025: 6.2 ADEQUACY ASSESSMENT Comments: Stable trend. spKt/V, URR 08/16/2025: 1.63, 76.0 07/19/2025: 1.68, 78.0 06/21/2025: 1.62, 76.0 Urine Cr Clearance 07/05/2025: 8.5 ACCESS ASSESSMENT Access Type: CVCatheter Access SubType: Tunneled Access Status: Active (In Use) - 05/03/2025 Access Location: Chest Placed: 05/03/2025 Comments: He wants to wait about AVF until after his prostate surgery. Vascular access reviewed. ANEMIA ASSESSMENT Comments: Iron and elizabeth algorithms initiated HGB 09/06/2025: 11.8 08/30/2025: 12.0 08/23/2025: 9.5 Ferritin 08/30/2025: 640.0 08/16/2025: 377.0 07/19/2025: 315.0 Mircera, IVP (mcg) 08/28/2025: 75 Iron Sucrose (Venofer) (mg) 09/04/2025: 50 08/28/2025: 100 08/25/2025: 100 BMM ASSESSMENT Comments: On calcitriol. PTH at goal. Calcium correct PTH, Intact 07/19/2025: 326.0 05/10/2025: 678.0 Calcium, Phosphorus 08/16/2025: 7.9, 4.4 07/19/2025: 8.7, 4.4 06/21/2025: 8.5, 3.8 Vitamin D (Calcitriol) Oral (mcg) 09/08/2025: 0.25 09/06/2025: 0.25 09/04/2025: 0.25 NUTRITION ASSESSMENT Potassium, Albumin 08/16/2025: 3.7, 3.5 07/19/2025: 4.2, 3.8 06/21/2025: 4.0, 4.0 eNPCR 08/16/2025: 0.94 07/19/2025: 0.79 06/21/2025: 0.63 PHYSICAL EXAM Exam Performed. Vital Signs Reviewed. CV - Blood pressure noted. EXT - No edema. EXT - No ulcers. DIAGNOSIS Chief Complaint: N18.6 End stage renal disease Patient is stable. Patient data updated 09/11/2025 at 10:51 AM Signed By: Katiuska Vega MD on 09/11/2025 10:53:59 AM documented in this encounter Plan of Treatment Not on file documented as of this encounter Visit Diagnoses Diagnosis End stage renal disease Dependence on renal dialysis documented in this encounter Care Teams Automation Mechanic Relationship Specialty Start Date End Date Eladio Fields MD [address] [id number] PCP - General Family Medicine 07/01/23 documented as of this encounter
--- OUTSIDE RECORDS SUMMARY | 2025-09-18 12:00 | XMS_ITS | Clinical Summary ---
Author Organization [facility] Address [address] [place] [address] [address] [place] [address] Care Team Providers Care Construction Ironworker Name Role Phone Eladio Fields MD Primary Care Provider [phone] Allergies Active Allergy Reactions Criticality Noted Date [...] ED (erectile dysfunction) 09/19/2019 Hidradenitis suppurativa 12/20/2018 assisted prescription opiate use 12/20/2018 Tobacco use 03/21/2016 [...] on file Legal Sex Male 7:27 AM ANALYSIS INTERN Gender Identity Not on file Sexual Orientation [...] Flex Sig/CT Colonography Q 5 years 2001 RSV VACCINE (60+ or ) (1 - Risk 50-74 years 1-dose series) 2006 ZOSTER VACCINE (1 of 2) 2006 Preventative Visit- Commercial 11/16/2024 INFLUENZA VACCINE (#1) 2025 11/27/2020, 2018 COVID-19 Vaccine ( season) 07/17/202511/2020, 01/17/2021 Insurance [facility] Care Teams Construction Ironworker Relationship Specialty Start Date End Date Eladio Fields MD [address] [address] PCP - General Family Practice 04/19/18
--- OUTSIDE RECORDS SUMMARY | 2025-09-18 12:00 | XMS_ITS | Encounter Summary ---
Author Organization [facility] Address [address] [place] [address] Phone Care Team Providers Care Ice Cream Mixer Name Role Phone Eladio Fields MD Primary Care Provider [phone] Encounter Details Date Type Department Care Team (Late st Contact Info) Description 07/01/2023 Orders Only [facility] [address] [place] [address] Proteinuria, not otherwise specified Social [...] specified documented in this encounter Care Teams Ice Cream Mixer Relationship Specialty Start Date End Date Eladio Fields MD [address] [facility] [address] [place] [phone] PCP - General Family Medicine 07/01/23 documented as of this encounter
--- OUTSIDE RECORDS SUMMARY | 2025-09-18 12:00 | XMS_ITS | Clinical Summary ---
Author Organization [facility] Address [address] [facility] [address] [place] [address] Care Team Providers Care Cleaner Assistant Name Role Phone Eladio Fields MD Primary Care Provider [phone] Allergies Active Allergy Reactions Criticality Noted Date [...] Take 500 mg by mouth daily. Active naloxone (NARCAN) 4 mg/spray Seymour, Non-Aerosol Administer 1 Seymour (4 mg) in one nostril (alternate nostril with each dose) one time as needed for Respiration (slowed with opioid use). Push plunger to administer. Call 911. May repeat dose, every 2-3 minutes, if the person does not wake up or breathing is not improved. 1 Each 025 Active pravastatin (PRAVACHOL) 80 mg tabletIndication s:Dyslipidemia Take 1 Tablet (80 mg) by mouth daily. 100 Tablet 3 025 Active midodrine (PROAMATINE) 5 mg tablet Take 1 Tablet by mouth 3 times daily. Active ferrous sulfate 325 mg (65 mg iron) tablet Take 1 Tablet (325 mg) by mouth daily. 90 Tablet 3 Active traZODone (DESYREL) 100 mg tabletIndication s:Chronic pain syndrome Take 1 Tablet (100 mg) by mouth daily at bedtime. 100 Tablet 3 Active hydrOXYzine HCL (ATARAX) 10 mg tablet Take 1 Tablet (10 mg) by mouth 3 times daily as needed for Itching. 30 Tablet 11 Active HYDROcodone-acet aminophen (NORCO) 10-325 mg TabletIndication s:Cervical disc herniation,Hidra denitis suppurativa,Oste oarthritis of spine with radiculopathy, cervical region Take 1 Tablet by mouth 2 times daily as needed for Pain, Moderate. Max Daily Amount: 2 Tablets 60 Tablet Active ferrous sulfate 325 mg (65 mg iron) tablet Take 1 Tablet (325 mg) by mouth every other day. 30 Tablet 025 2024 Discontinued(R eorder) pravastatin (PRAVACHOL) 80 mg tabletIndication s:Dyslipidemia Take 1 Tablet (80 mg) by mouth daily. 30 Tablet 2024 Discontinued(R eorder) tamsulosin (FLOMAX) 0.4 mg capsuleIndicatio ns:Benign prostatic hyperplasia with nocturia Take 1 Capsule (0.4 mg) by mouth daily at bedtime. 30 Capsule 025 2024 Discontinued diazePAM (VALIUM) 5 mg tabletIndication s:Situational anxiety,ESRD on hemodialysis ([facility]) TAKE 1 TABLET BY MOUTH ONCE DAILY NEEDED FOR ANXIETY (TAKE 1 HOUR PRIOR TO DIALYSIS) 15 Tablet 2 025 2024 Discontinued hydrOXYzine HCL (ATARAX) 10 mg tabletIndication s:CKD (chronic kidney disease) stage 4, GFR 15-29 ml/min ([facility]) TAKE 3 TABLETS BY MOUTH THREE TIMES DAILY NEEDED FOR ITCHING 30 Tablet 2 025 2024 Discontinued(R eorder) traZODone (DESYREL) 100 mg tabletIndication s:Chronic pain syndrome TAKE 1 TABLET BY MOUTH ONCE DAILY AT BEDTIME 30 Tablet 2 025 2024 Discontinued(R eorder) HYDROcodone-acet aminophen (NORCO) 10-325 mg TabletIndication s:Cervical disc herniation,Hidra denitis suppurativa,Oste oarthritis of spine with radiculopathy, cervical region Take 1 Tablet by mouth 2 times daily as needed for Pain, Moderate. Max Daily Amount: 2 Tablets 60 Tablet 025 2024 Discontinued(R eorder) traZODone (DESYREL) 100 mg tabletIndication s:Chronic pain syndrome Take 1 Tablet (100 mg) by mouth daily at bedtime. 100 Tablet 3 025 2024 Discontinued(R eorder) hydrOXYzine HCL (ATARAX) 10 mg tablet Take 1 Tablet (10 mg) by mouth 3 times daily as needed for Itching. 30 Tablet 11 025 2024 Discontinued(R eorder) Active Problems Problem Noted Date Diagnosed Date ESRD on hemodialysis 05/11/2025 Situational anxiety 05/11/2025 Protein-calorie malnutrition, severe 05/03/2025 Acute on chronic renal failure 05/02/2025 Hypoxia 05/02/2025 Elevated WBC count 05/02/2025 Acute cystitis without hematuria 05/02/2025 Other specified anemias 05/02/2025 Iron deficiency anemia 06/03/[address] 11/26/2023 Benign prostatic hyperplasia with urinary obstru ction 08/10/2023 Urinary retention 08/10/2023 Bilateral hydronephrosis 08/08/2023 Benign prostatic hyperplasia with nocturia 06/09 Chronic pain syndrome 06/11/2020 ED (erectile dysfunction) 09/19/2019 Hidradenitis suppurativa 12/20/2018 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 use 12/20/2018 Tobacco use 03/21/2016 [...] Encounters Date Type Department Care Team Description 09/12/[address] [phone] Eladio Fields MD Chronic pain syndrome; Cervical disc herniation; Hidradenitis suppurativa; Osteoarthritis of spine with radiculopathy, cervical region 09/05/2025 1:30 PM CDT Office Visit [facility] Vascular Surgery [address] [phone] Karley Ortega MD ESRD (end stage renal disease) (Primary Dx); Benign prostatic hyperplasia with urinary obstruction; Steiner catheter in place 09/05/2025 12:00 PM CDT Ancillary Procedure [facility] [phone] Karley Ortega MD CKD (chronic kidney disease) stage 4, GFR 15-29 ml/min ([facility]) 08/29/2025 2:00 PM CDT Office Visit [address] [phone] Eladio Fields MD ESRD on hemodialysis ([facility]) (Primary Dx); Dyslipidemia; Chronic pain syndrome; Benign prostatic hyperplasia with nocturia; Cervical disc herniation; Hidradenitis suppurativa; Osteoarthritis of spine with radiculopathy, cervical region; Other longterm (current) drug therapy 08/22/2025 External Device Data [facility] ABSTRACTION Provider, Abstract 08/10/[address] [phone] Eladio Fields MD Cervical disc herniation; Hidradenitis suppurativa; Osteoarthritis of spine with radiculopathy, cervical region 08/08/2025 Telephone [facility] Vascular Surgery [address] [place] [phone] Karley Ortega MD Referral 08/08/[address] [phone] Eladio Fields MD 08/07/2025 Orders Only [facility] Vascular Surgery [address] [phone] Karley Ortega MD CKD (chronic kidney disease) stage 4, GFR 15-29 ml/min (CMS/HCC) (Primary Dx) 08/07/2025 Abstract [facility] Vascular Surgery [address] [phone] Karley Ortega MD 08/01/2025 External Device Data ST[facility] ABSTRACTION Provider, Abstract 07/22/[address] [phone] Lynn Malagon, NETWORK LIAISON CKD (chronic kidney disease) stage 4, GFR 15-29 ml/min (CMS/HCC); Chronic pain syndrome 07/20/2025 12:48 PM CDT - 07/20/2025 11:59 PM CDT Hospital Encounter [facility] [place] [address] [phone] Mary Briggs NP Discharge Disposition: Home or Self Care 07/12/2025 External Device Data ST[facility] ABSTRACTION Provider, Abstract 07/11/2025 10:40 AM CDT Office Visit [address] [phone] MelodieAnel, NETWORK LIAISON ESRD on hemodialysis (CMS/HCC) (Primary Dx); Essential hypertension; Dark brown-colored urine; Urinary tract infection without hematuria, site unspecified; CKD (chronic kidney disease) stage 4, GFR 15-29 ml/min ([facility]) 07/11/2025 External Device Data STL ABSTRACTION Provider, Abstract 07/02/2025 Refill [facility] [address] [phone] Mary Briggs NP Urinary tract infection without hematuria, site unspecified; Chronic pain syndrome; CKD (chronic kidney disease) stage 4, GFR 15-29 ml/min ([facility]) 06/22/2025 Abstract [facility] [address] [phone] Eladio Fields MD 06/22/2025 Orders Only [facility] Health Information Management [facility] [address] [place] [address] Provider, Abstract 06/20/2025 External Device Data ST[facility] ABSTRACTION Provider, Abstract 06/19/[address] [phone] Eladio Fields MD Situational anxiety; ESRD on hemodialysis ([facility]) from Last 3 Months Immunizations Immunization Administration Dates Next Due (PREVNAR 20)(6 WKS UP) PNEUM OCOCCAL CONJUGATE VACCINE 20-VALENT (PCV20), POLYSACCHARIDE NTE122 CONJUGATE, ADJUVANT 0.5 ML (PF) IM 09/19/2022 [...] drink = 0.6 oz pur e alcohol) Financial Resource Strain Answer Date R ecorded How hard is it for you to pa y for the very basics like food, housing, medical care, and heating? Hard 01/14/2022 Food Insecurity Answer Date Recorded In the past 12 months, have you worried that your food would run out before you had money to buy more? Sometimes true 2021 In the past 12 months, did y ou run out of food and didn't have money to buy more? Sometimes true 01/14/2022 Transportation Needs Answer Date Record ed In the past 12 months, has l ack of transportation kept you from medical appointments or from getting medications? No 01/14/2022 Lack of Transportation (Non-Medical) Not on file 01/14/2022 Feeling Safe Answer Date Recorded Are you in a relationship wi th someone who hurts you emotionally and/or physically? 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 Gender Identity Not on file Sexual Orientation Not on file Last Filed Vital Signs Vital Sign Reading Time Taken Comments Blood Pressure 116/58 09/05/2025 1:32 PM CDT Pulse 71 09/05/2025 1:32 PM CDT Temperature 36.4 C (97.6 F) 08/29/2025 1:59 PM CDT Respiratory Rate 18 08/29/2025 1:59 PM CDT Oxygen Saturation 97% 09/05/2025 1:32 PM CDT Inhaled Oxygen Concentration - - Weight 81.2 kg (179 lb) 09/05/2025 1:32 PM CDT Height 170.2 cm (5' 7 ) 08/29/2025 1:59 PM CDT Body Mass Index 28.04 08/29/2025 1:59 PM CDT Plan of Treatment Upcoming Encounters Date Type Department Care Team (Late st Contact Info) Description 12/01/2025 3:20 PM ROLLOFF TRUCK DRIVER Office Visit [address] [phone] Eladio Fields MD [address] [phone] Health Maintenance Due Date Last Done Comments FIT/ DNA Q 3 YEARS (AUTO ORDER) 1974 FLEX SIG/CT COLONOGRAPHY Q 5 YEARS (AUTO ORDER) 1974 DTAP/TDAP/TD VACCINES (1 - Tdap) 1975 COLORECTAL CANCER SCREENING (AUTO ORDER) 2001 COLORECTAL SCREENING 2001 FIT-DNA Q 3 years 2001 Flex Sig/CT Colonography Q 5 years 2001 RSV VACCINE (60+ or ) (1 - Risk 50-74 years 1-dose series) 2006 ZOSTER VACCINE (1 of 2) 2006 Abdominal Aortic Aneurysm (A AA) Screening 2021 INFLUENZA VACCINE (#1) 2025 , 11/27/2020, 12/20/2018 COVID-19 Vaccine ( season) 2025 09/08/2021, 02/14/2021, 01/17/2021 Colorectal Cancer Screening (AUTO ORDER) 09/22/2025 Colorectal Cancer Screening 09/22/2025 FIT/FOBT Q 1 YEAR (AUTO ORDER) 09/22/2025 09/22/2024 FIT/FOBT Q 1 year 09/22/2025 09/22/2024 Pre-Diabetes and Diabetes Screening 06/05/202806/05 PNEUMOCOCCAL VACCINE 50+ YEARS Completed 09/19/2022 Medicare Ad[place] ([place]) Prev entative Visit/Annual Wellness Visit Completed 04/18/2025, 11/26/2023, 01/14/2022 Medical Devices Implanted Type Area Manufacturing Engineering Intern Device Identifier Shelf Expiration Date Model / Serial / Lot Cath Dialysis Glidepath 14.5fr 23cm Std [id number] - [id number] Implanted:Qty: 1 on 05/03/2025 by Dru Guzman MD at [facility] Catheter Right: Chest Wall BARD NABILA VASC [id number] 09/15/2026 [id number] / / [id number] Procedures Procedure Name Priority Date/Time Associated Diagnosis Comments US DUPLEX PREOP VESS ASSESS BILAT Routine 09/05/2025 12:16 PM CDT CKD (chronic kidney disease) stage 4, GFR 15-29 ml/min ([facility]) MEDICATION COMPLIANCE DRUG SCREEN Routine 08/29/2025 2:36 PM CDT 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 MICROALBUMIN/CREATI NINE RATIO, RANDOM UR Routine 07/11/2025 1:53 PM CDT CKD (chronic kidney disease) stage 4, GFR 15-29 ml/min (CMS/HCC) URINE CULTURE Routine 07/11/2025 1:52 PM CDT Urinary tract infection without hematuria, site unspecified HEMOGLOBIN A1C Routine 06/05/2025 POC OCCULT BLOOD UP TO 3 CARDS Routine 09/22/2024 5:12 PM ROLLOFF TRUCK DRIVER Screen for colon cancer from Last 3 Months or Most Recently Relevant to Health Maintenance Results * US DUPLEX PREOP VESS ASSESS BILAT (09/05/2025 12:16 PM CDT) Anatomical Region Laterality Modality Lower Extremity, Upper Extremity Ultrasound 09/05/2025 11:3 5 AM CDT Narrative 09/09/2025 7:56 AM CDT [facility] Cardiovascular Services Noninvasive Vascular Laboratory [facility] [place] [address] Noninvasive Vascular Lab Upper Extremity Evaluation for Hemodialysis Access Patient: Brandon Parisi Study ID: US DUPLEX PREOP Gender: M : 1955 Age: 69 Room: Height: Weight: BSA: Pt status: Outpatient Study Date: 09/05/2025 Study Time: 11:35:56 AM BSA: Ordering: Karley Ortega MD Interpreting:Emir Padilla Paint Spray Inspector: ADRI Indications: Dx: CKD (chronic kidney disease) stage 4, GFR 15-29 ml/min (CMS/HCC) [N18.4 (ICD-10-CM)] Summary Impression: 1. Normal arterial inflow, involving the right upper extremity and the left upper extremity. 2. Normal venous outflow involving the the right axillary vein and veins of the left upper extremity. 3. Vein mapping measurements are recorded in the scanned worksheet. Study data: Upper extremity evaluation for hemodialysis access. Duplex scan and vessel mapping. Location: Vascular laboratory. Patient status: Outpatient. Study status: Routine. Objective: Pre-procedural evaluation for dialysis access surgery. Procedure: A vascular evaluation was performed. Image quality was good. [facility] Lab is accredited with the Intersocietal Commission for the Accreditation of Vascular Laboratories (ICAVL) Prepared and Electronically Authenticated Emir Padilla Confirmed 09/09/2025 07:56 Procedure Note Emir Padilla MD - 09/09/2025 [facility] Cardiovascular Services Noninvasive Vascular Laboratory [address] [place] [address] Noninvasive Vascular Lab Upper Extremity Evaluation for Hemodialysis Access Patient: Brandon Parisi Study ID: US DUPLEX PREOP Gender: M : 1955 Age: 69 Room: Height: Weight: BSA: Pt status: Outpatient Study Date: 09/05/2025 Study Time: 11:35:56 AM BSA: Ordering: Karley Ortega MD Interpreting:Emir Padilla Paint Spray Inspector: ADRI Indications: Dx: CKD (chronic kidney disease) stage 4, GFR 15-29 ml/min ([facility]) [N18.4 (ICD-10-CM)] Summary Impression: 1. Normal arterial inflow, involving the right upper extremity and theleft upper extremity. 2. Normal venous outflow involving the the right axillary vein and veinsof the left upper extremity. 3. Vein mapping measurements are recorded in the scanned worksheet. Study data: Upper extremity evaluation for hemodialysis access.Duplex scan and vessel mapping. Location: Vascular laboratory. Patientstatus: Outpatient. Study status: Routine. Objective: Pre-procedural evaluation for dialysis access surgery. Procedure: A vascular evaluationwas performed. Image quality was good. [facility] Lab is accredited with theIntersocietal Commission for the Accreditation of Vascular Laboratories (ICAVL) Prepared and Electronically Authenticated Emir Padilla Confirmed 09/09/2025 07:56 us Karley Ortega MD ORDERABLES Final Result * (ABNORMAL) MEDICATION COMPLIANCE DRUG SCREEN (08/29/2025 2:36 PM CDT) Summary [facility] Comment: Prescribed Prescribed Not Prescribed Consistent Inconsistent Inconsistent Hydrocodone Hydromorphone Norhydrocodone BUPRENORPHINE (URINE) NEGATIVE <5 ng/mL [facility] Fentanyl NEGATIVE <0.5 ng/mL [facility] Propoxyphene, Urine NEGATIVE <300 ng/mL [facility] MDA (Ecstasy Mtb), Urine NEGATIVE <200 ng/mL [facility] MDMA (Ecstasy), Urine NEGATIVE <200 ng/mL [facility] MDMA Comments [facility] Comment:See LDT Notes Meprobamate, Urine NEGATIVE <1000 ng/mL [facility] Carisoprodol Comments [facility] Comment:See LDT Notes Tapentadol, Urine NEGATIVE <50 ng/mL [facility] Nortapentadol, Urine NEGATIVE <50 ng/mL [facility] Tapentadol Comments [facility] Comment:See LDT Notes O-Desmethyltramadol , Urine NEGATIVE <100 ng/mL [facility] Tramadol, Urine NEGATIVE <100 ng/mL [facility] Tramadol Comments [facility] Comment:See LDT Notes Gabapentin, Urine NEGATIVE <1000 ng/mL [facility] Gabapentin Comments [facility] Comment:See LDT Notes Meperidine, Urine NEGATIVE <100 ng/mL [facility] Normeperidine, Urine NEGATIVE <100 ng/mL [facility] Meperidine Comments [facility] Comment:See LDT Notes PREGABALIN, QUANT URINE NEGATIVE <1000 ng/mL [facility] Pregabalin Comments [facility] Comment:See LDT Notes Alcohol Metabolites, Urine NEGATIVE <500 ng/mL [facility] AMPHETAMINES (URINE) NEGATIVE <500 ng/mL [facility] BARBITURATES (URINE) NEGATIVE <300 ng/mL [facility] BENZODIAZEPINES (URINE) NEGATIVE <100 ng/mL [facility] COCAINE & METABOLITE (URINE) NEGATIVE <150 ng/mL [facility] 6 ACETYLMORPHINE, URINE NEGATIVE <10 ng/mL [facility] CANNABINOIDS QUAL, URINE NEGATIVE <20 ng/mL [facility] Methadone Metabolite, Urine NEGATIVE <100 ng/mL [facility] OPIATE CLASS (URINE) POSITIVE(A) <100 ng/mL [facility] Codeine, Urine NEGATIVE <50 ng/mL [facility] Hydrocodone, Urine 283(H) <50 ng/mL [facility] medMATCH Hydrocodone, Urine INCONSISTENT (A) [facility] Hydromorphone, Urine 623(H) <50 ng/mL [facility] medMATCH Hydromorphone, Urine INCONSISTENT (A) [facility] Morphine, Urine NEGATIVE <50 ng/mL [facility] Norhydrocodone, Urine 341(H) <50 ng/mL [facility] medMATCH Norhydrocodone, Urine INCONSISTENT (A) [facility] OPIATES, COMMENT [facility] Comment:See Opiates Notes, L DT Notes OXYCODONE CLASS (URINE) NEGATIVE <100 ng/mL [facility] PHENCYCLIDINE, URINE NEGATIVE <25 ng/mL [facility] Creatinine, Urine 91.0 > or = 20.0 mg/dL [facility] PH 8.0 4.5 - 9.0 [facility] OXIDANT, URINE NEGATIVE <200 mcg/mL [facility] ZOLPIDEM, URINE NEGATIVE <5 ng/mL [facility] Zolipidem Metabolite, Urine NEGATIVE <5 ng/mL [facility] Zolpidem Comments [facility] Comment:See LDT Notes COMMENT TOXICOLOGY [facility] Comment: This drug testing is for medical treatment only. Analysis was performed as non-forensic testing and these results should be used only by healthcare providers to render diagnosis or treatment, or to monitor progress of medical conditions. Opiates Notes: Hydrocodone, Norhydrocodone, Hydromorphone detected is consistent with the use of the drug Hydrocodone. Hydromorphone detected is consistent with the use of the drug Hydromorphone. Hydromorphone can be a prescribed drug and is also a metabolite of Hydrocodone. LDT Notes: Confirmation tests were developed and their analytical performance characteristics have been determined by [facility]. It has not been cleared or approved by the FDA. This assay has been validated pursuant to the CLIA regulations and is used for clinical purposes. medMATCH(R) enables providers to identify if drug use is consistent or inconsistent with a corresponding prescribed medication(s) list. Healthcare Providers needing Interpretation assistance, please contact us at [phone] ( ) M-F, 8am to 10pm EST Test Performed at: [facility] [address] Can AMBROCIO Urine URINE SPECIMEN OBTAINED BY CLEAN CATCH PROCEDURE / Unknown 08/29/2025 2:36 PM CDT 08/30/2025 3:06 AM CDT Eladio Fields MD URINE ORDERABLES Final Re sult [facility] [phone] [address] * (ABNORMAL) MICROALBUMIN/CREATININE RATIO, RANDOM UR (07/11/2025 1:53 PM CDT) CREATININE, URINE 108 20 - 320 mg/dL [facility] ALBUMIN, URINE 209.4 See Note: mg/dL [facility] Comment: Reference Range: Reference Range Not established Results verified by repeat analysis on dilution. ALB/CREAT RATIO, URINE 1939(H) <30 mg/g creat [facility] Comment: The ADA defines abnormalities in albumin excretion as follows: Albuminuria Category Result (mg/g creatinine) Normal to Mildly increased <30 Moderately increased 30-299 Severely increased > OR = 300 The ADA recommends that at least two of three specimens collected within a 3-6 month period be abnormal before considering a patient to be within a diagnostic category. Test Performed at: [facility] [address] Katie Miramontes MD Urine URINE SPECIMEN OBTAINED BY CLEAN CATCH PROCEDURE / Unknown 07/11/2025 1:53 PM CDT 07/12/2025 3:44 AM CDT us Eladio Fields MD URINE ORDERABLES Final Re sult [facility] [phone] [facility] [address] * URINE CULTURE (07/11/2025 1:52 PM CDT) URINE CULTURE SEE NOTE [facility] Comment: CULTURE, URINE, ROUTINE Micro Number: [id number] Test Status: Final Specimen Source: Urine, clean catch Specimen Quality: Adequate Result: Mixed genital indio isolated. These superficial bacteria are not indicative of a urinary tract infection. No further organism identification is warranted on this specimen. If clinically indicated, recollect clean-catch, mid-stream urine and transfer immediately to Urine Culture Transport Tube. Test Performed at: [facility] [address] [place] [phone] Katie Miramontes MD Urine URINE SPECIMEN OBTAINED BY CLEAN CATCH PROCEDURE / Unknown 07/11/2025 1:52 PM CDT 07/12/2025 4:39 AM CDT us Anel LONGORIAP MICROBIOLOGY - GENERAL O RDERABLES Final Result [facility] [phone] [facility] [address] [place] [phone] * HEMOGLOBIN A1C (06/05/2025) ABSTRACTED HGB A1C 5.0 % Blood 06/05/2025 us Abstract Provider CHEMISTRY ORDERABLES Final Res ult * POC OCCULT BLOOD UP TO 3 CARDS (09/22/2024 5:12 PM 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 TRUCK 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) OCCULT BLOOD 1 CARD POC Negative Negative [facility] OCCULT BLOOD 2 CARD POC Negative Negative, Indeterminate [facility] OCCULT BLOOD 3 CARD POC Negative Negative, Indeterminate [facility] INTERNAL KIT QC POC [place] [facility] CARD [address] NUMBER POC [id number] [facility] CARD EXPIRATION DATE POC [facility] DEVELOPER [address] POC [id number] [facility] DEVELOPER EXPIRATION DATE POC [facility] Stool STOOL SPECIMEN / Unknown 09/22/2024 5:12 PM 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 Advance Directives For more information, please contact: [phone] Documents on File Type Date Recorded Patient Tomography Technologist Expl anation Advance Directive Living Will 05/12/2025 11:30 AM Advance Directive Living Will Advance Directive POA 05/12/2025 11:21 AM Advance Directive POA * NO CPR (In Event of Cardiopulmonary [...] 3:23 PM 08/10/2023 7:10 PM Care Teams Cleaner Assistant Relationship Specialty Start Date End Date Eladio Fields MD [address] [phone] PCP - General Family Practice 04/19/18
--- OUTSIDE RECORDS SUMMARY | 2025-09-18 12:00 | XMS_ITS | Clinical Summary ---
Author Organization [facility] Address [address] [place] [address] Phone Care Team Providers Care Instruction Assistant Principal Name Role Phone Eladio Fields MD Primary Care Provider [phone] Allergies Active Allergy Reactions Criticality Noted Date [...] Encounters Date Type Department Care Team Description 09/13/2025 Orders Only [facility], [facility] [address] [place] [phone] Katiuska Vega MD 09/11/[address] [place] [address], [facility] [address] [place] [address] Katiuska Vega MD End stage renal disease; Dependence on renal dialysis 09/06/2025 Orders Only [facility], [facility] [address] [place] [address] Katiuska Vega MD 09/04/[address] [place] [address], [facility] [address] [place] [address] Brooklyn Moon NP End stage renal disease; Dependence on renal dialysis 08/30/2025 Orders Only [facility], [facility] [address] [place] [address] Katiuska Vega MD 08/23/2025 Orders Only [facility], [facility] [address] [place] [address] Katiuska Vega MD 08/23/[address] [place] [address], [facility] [address] [place] [address] Aria Woody NP End stage renal disease; Dependence on renal dialysis 08/16/[address] [place] [address], [facility] [address] [place] [address] Brooklyn Moon NP End stage renal disease; Dependence on renal dialysis 08/16/2025 [facility] Only [facility], [facility] [address] [place] [address] Katiuska Vega MD 08/09/2025 Orders Only [facility], [facility] [address] [place] [address] Katiuska Vega MD 08/07/[address] [place] [address], [facility] [address] [place] [address] Katiuska Vega MD End stage renal disease; Dependence on renal dialysis 08/02/2025 Orders Only [facility], [facility] [address] [place] [address] Katiuska Vega MD 08/02/[address] [place] [address], [facility] [address] [place] [address] Brooklyn Moon NP End stage renal disease; Dependence on renal dialysis 07/26/2025 Orders Only [facility], [facility] [address] [place] [address] Katiuska Vega MD 07/24/[address] [place] [address], [facility] [address] [place] [address] Brooklyn Moon NP End stage renal disease; Dependence on renal dialysis 07/19/2025 Orders Only [facility], [facility] [address] [place] [address] Katiuska Vega MD 07/19/[address] [place] [address], [facility] [address] [place] [address] Aria Woody NP End stage renal disease; Dependence on renal dialysis 07/12/2025 Orders Only [facility], [facility] [address] [place] [address] Katiuska Vega MD 07/10/[address] [place], [place] [address]rology [facility], [facility] [address] [place] [address] Aria Woody NP End stage renal disease; Dependence on renal dialysis 07/05/2025 Orders Only [facility], [facility] [address] [place] [address] Katiuska Vega MD 06/28/2025 Orders Only [facility], [facility] [address] [place] [address] Katiuska Vega MD 06/28/[address] [place], [place] [address]rology [facility], [facility] [address] [place] [address] Aria Woody NP End stage renal disease; Dependence on renal dialysis 06/26/[address] [place], [place] [address]rology [facility], [facility] [address] [place] [address] Katiuska Vega MD End stage renal disease; Dependence on renal dialysis 06/23/[address] [place] [address], [facility] [address] [place] [address] Brooklyn Moon NP End stage renal disease; Dependence on renal dialysis 06/21/2025 Orders Only [facility], [facility] [address] [place] [address] Katiuska Vega MD from Last 3 Months Immunizations Immunization Administration [...] Procedure Name Priority Date/Time Associated Diagnosis Comments HEMATOLOGY Routine 09/13/2025 HEMATOLOGY Routine 09/06/2025 CHEMISTRY Routine 08/30/2025 HEMATOLOGY Routine 08/30/2025 HEMATOLOGY Routine 08/23/2025 [facility] RESULTS Routine 08/16/2025 HD KINETICS Routine 08/16/2025 POST CHEMISTRY Routine 08/16/2025 IMMUNO CHEMISTRY Routine 08/16/2025 CHEMISTRY Routine 08/16/2025 HEMATOLOGY Routine 08/16/2025 HEMATOLOGY Routine 08/09/2025 HEMATOLOGY Routine 08/02/2025 HEMATOLOGY Routine 07/26/2025 [facility] RESULTS Routine 07/19/2025 IMMUNO CHEMISTRY Routine 07/19/2025 HD KINETICS Routine 07/19/2025 POST CHEMISTRY Routine 07/19/2025 CHEMISTRY Routine 07/19/2025 TRACE ELEMENTS Routine 07/19/2025 CHEMISTRY Routine 07/19/2025 HEMATOLOGY Routine 07/19/2025 HEMATOLOGY Routine 07/12/2025 URINE CLEARANCE Routine 07/05/2025 CHEMISTRY Routine 07/05/2025 HEMATOLOGY Routine 07/05/2025 PATIENT INFORMATION Routine 07/05/2025 PATIENT INFORMATION Routine 07/05/2025 HEMATOLOGY Routine 06/28/2025 IMMUNO CHEMISTRY Routine 06/21/2025 [facility] RESULTS Routine 06/21/2025 HD KINETICS Routine 06/21/2025 POST CHEMISTRY Routine 06/21/2025 CHEMISTRY Routine 06/21/2025 HEMATOLOGY Routine 06/21/2025 from Last 3 Months Results * (ABNORMAL) HEMATOLOGY (09/13/2025) Only the most recent of13 resultswithin the time period is included. Pathologist [facility] [place] Hemoglobin 9.9(L) 14.0 - 18.0 g/dL [facility] Hemoglobin x 3 29.7(L) 42.0 - 54.0 % [facility] 09/13/2025 09/14/2025 9:2 1 AM CDT Narrative [facility] Unless otherwise specified, test(s) performed at: [facility], [address] [place], [place] [id number] ETL INFORMATICA ARCHITECT: Lauri Servin M.D. For any questions, please call customer service at FREQUENCY:OTHER Resulting Agency Comment Specimen source: Blood us Katiuska Vega MD LAB BLOOD ORDERABLES Final Re sult Performing Organization Address [facility] Co de Phone Number [facility] See order comments or contact performing lab Unknown, [place] * (ABNORMAL) [facility] (08/30/2025) Only the most recent of6 resultswithin the time period is included. Pathologist [facility] [place] Ferritin 640(H) 22 - 322 ng/mL [facility] 08/30/2025 08/31/2025 11: 42 AM CDT Narrative [facility] - 08/31/2025 Unless otherwise specified, test(s) performed at: [facility], [address] [place] [id number] ETL INFORMATICA ARCHITECT: Lauri Servin M.D. For any questions, please call customer service at FREQUENCY:OTHER Resulting Agency Comment Specimen source: Serum us Katiuska Vega MD LAB BLOOD ORDERABLES Final Re sult [facility] See order comments or contact performing lab Unknown, [place] * HD KINETICS (08/16/2025) Only the most recent of3 resultswithin the time period is included. [facility] % Urea Reduction 76 65 - 80 % [facility] 08/16/2025 08/17/2025 10: 23 AM CDT Narrative Resulting Agency Comment Specimen source: Plasma us Katiuska Vega MD LAB BLOOD ORDERABLES Final Re sult Performing Organization Address [facility] de Phone Number [facility] See order comments or contact performing lab Unknown, [place] * POST CHEMISTRY (08/16/2025) Only the most recent of3 resultswithin the time period is included. BUN Post Dialysis 12 6 - 19 mg/dL [facility] 08/16/2025 08/17/2025 10: 23 AM CDT Narrative [facility] - 08/17/2025 Unless otherwise specified, test(s) performed at: [facility], [address] [place] [address] ETL INFORMATICA ARCHITECT: Lauri Servin M.D. For any questions, please call customer service at FREQUENCY:MONTHLY Resulting Agency Comment Specimen source: Plasma us Katiuska Vega MD LAB BLOOD ORDERABLES Final Re sult Performing Organization Address [facility] de Phone Number [facility] See order comments or contact performing lab Unknown, [place] * IMMUNO CHEMISTRY (08/16/2025) Only the most recent of3 resultswithin the time period is included. Hep B Surface Ag Negative Negative [facility] 08/16/2025 08/17/2025 12: 51 PM CDT Narrative Resulting Agency Comment Specimen source: Serum us Katiuska Vega MD LAB BLOOD ORDERABLES Final Re sult Performing Organization Address [facility] de Phone Number [facility] See order comments or contact performing lab Unknown, [place] * [facility] Results (08/16/2025) Only the most recent of3 resultswithin the time period is included. PCR 62.03 [facility] eKt/V Gotch 1.44 [facility] eKt/V ([place]) 1.43 [facility] spKt/V (Daugirdas II) 1.63 [facility] spKt/V Gotch 1.65 [facility] WSTDKT/V 2.9 [facility] nPCR_HD 1.03 [facility] eNPCR 0.94 [facility] eKdrt/V 1.62 [facility] 08/16/2025 08/16/2025 [facility] [place] LAB BLOOD ORDERABLES Final Result [facility] Contact Performing lab Unknown, [place] * TRACE ELEMENTS (07/19/2025) Aluminum <5 0 - 10 mcg/L [facility] Comment: This test was developed and its performance characteristics determined by [facility]. It has not been cleared or approved by the FDA. The laboratory is regulated under CLIA as qualified to perform high complexity testing. This test is used for clinical purposes. It should not be regarded as investigational or for research. 07/19/2025 07/20/2025 10: 14 AM CDT Narrative [facility] - 07/20/2025 Unless otherwise specified, test(s) performed at: [facility], [address] [place] [address] ETL INFORMATICA ARCHITECT: Lauri Servin M.D. For any questions, please call customer service at FREQUENCY:MONTHLY Resulting Agency Comment Specimen source: Serum Katiuska Vega MD LAB BLOOD ORDERABLES Final Re sult Performing Organization Address City/[facility]/ZIP Co de Phone Number [email or web address] See order comments or contact performing lab Unknown, [place] * (ABNORMAL) URINE CLEARANCE (07/05/2025) Urea Nitrogen, Urine Timed 208 mg/dL [facility] Urea Nitrogen, Urine 24 Hr 0.8(L) 12.0 - 20.0 g/24 hr [facility] Urea Clearance, Urine 1.5(L) 64.0 - 99.0 mL/min [facility] Creatinine, Urine Timed 158.1 mg/dL [facility] Creatinine, 24H Ur 0.6(L) 0.7 - 1.8 g/24 hr [facility] Creatinine Clear, Urine 9.4 mL/min [facility] Creat Clear, Urine Norm 8.5(L) 94.0 - 122.0 mL/min [email or web address] 07/05/2025 07/06/2025 10: 34 AM CDT Narrative [facility] - 07/06/2025 Unless otherwise specified, test(s) performed at: [facility], [address] [place] [address] ETL INFORMATICA ARCHITECT: Lauri Servin M.D. For any questions, please call customer service at FREQUENCY:OTHER Resulting Agency Comment Specimen source: Urine Katiuska Vega MD LAB URINE ORDERABLES Final Re sult Performing Organization Address [facility] de Phone Number [facility] See order comments or contact performing lab Unknown, [place] * PATIENT INFORMATION (07/05/2025) Only the most recent of2 resultswithin the time period is included. Patient BSA 1.92 sq. M. [email or web address] Comment: Normalized values are calculated using the patient's actual BSA and normalized to the average BSA of 1.73m2. 07/05/2025 07/06/2025 10: 57 AM CDT Narrative [facility] - 07/06/2025 Unless otherwise specified, test(s) performed at: [facility], [address] [place] [id number] ETL INFORMAT[employer] ARCHITECT: Lauri Servin M.D. For any questions, please call customer service at FREQUENCY:OTHER Resulting Agency Comment Specimen source: PD Fluid Katiuska Vega MD LAB BLOOD ORDERABLES Final Re sult Performing Organization Address [facility] Co de Phone Number [facility] See order comments or contact performing lab Unknown, [place] from Last [address] [place] [address] PPO [phone]) Care Teams Instruction Assistant Principal Relationship Specialty Start Date End Date Eladio Fields MD [address] [address] PCP - General Family Medicine 07/01/23
--- OUTSIDE RECORDS SUMMARY | 2025-09-18 12:00 | XMS_ITS | Encounter Summary ---
Author Organization [facility] Address [address] [place] [address] Care Team Providers Care Harvester Operator Name Role Phone Eladio Fields MD Primary Care Provider [phone] Encounter Details Date Type Department Care Team (Late st Contact Info) Description 08/04/2024 Lab Requisition [facility] General Laboratory Services [place] [address] [place] [address] Pratik Bruce MD [address] [address] Acute kidney failure, unspecified Social [...] who hurts you emotionally and/or physically? 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 Gender Identity Not on file Sexual Orientation Not on file documented as of this encounter Plan of Treatment Upcoming Encounters Date Type Department Care Team (Late st Contact Info) Description 12/01/2025 3:20 PM ASSISTANT TRACK AND FIELD COACH Office Visit [address] [phone] Eladio Fields MD [facility] [address] [address] documented as of this encounter Procedures Procedure Name Priority Date/Time Associated Diagnosis Comments BASIC METABOLIC PANEL Stat 08/04/2024 8:40 AM CDT Acute kidney failure, unspecified documented in this encounter Results * (ABNORMAL) BASIC METABOLIC PANEL (08/04/2024 8:40 AM CDT) SODIUM 143 136 - 145 mmol/L 08/04/2024 9:09 AM T [facility] POTASSIUM 4.0 3.5 - 5.1 mmol/L 08/04/2024 9:09 AM [facility] CHLORIDE 112(H) 98 - 107 mmol/L 08/04/2024 9:09 AM [facility] CO2 15(L) 22 - 29 mmol/L 08/04/2024 9:09 AM [facility] CALCIUM 8.3(L) 8.8 - 10.2 mg/dL 08/04/2024 9:09 AM T [facility] BUN 67(H) 8 - 23 mg/dL 08/04/2024 9:09 AM [facility] CREATININE 6.12(H) 0.67 - 1.17 mg/dL 08/04/2024 9:09 AM [facility] GLUCOSE 128(H) 74 - 99 mg/dL 08/04/2024 9:09 AM [facility] GFR 9(L) >=60 mL/min/1.7 3 sq meter 08/04/2024 9:09 AM [facility] Comment:eGFR calculated with 2020 CKD-EPI equation. Vegetarian diet, extremely high or low muscle mass, and may affect results. Cystatin C with Glomerular Filtration Rate is a suitable alternative for these patients. ANION GAP 16 12 - 20 mmol/L 08/04/2024 9:09 AM [facility] Blood Collection / Unknown 08/04/2024 8:40 AM CDT 08/04/2024 8:48 AM CDT Pratik Bruce MD CHEMISTRY ORDERABLES Fi nal Result [facility] CLIA # [id number] [address] [id number] documented in this encounter Visit Diagnoses Diagnosis Acute kidney failure, unspecified documented in this encounter Care Teams Harvester Operator Relationship Specialty Start Date End Date Eladio Fields MD [address] [phone] PCP - General Family Practice 04/19/18 documented as of this encounter
--- OUTSIDE RECORDS SUMMARY | 2025-09-18 12:00 | XMS_ITS | Encounter Summary ---
Author Organization [facility] Address [address] [place] [address] Care Team Providers Care Groundwater Programs Director Name Role Phone Eladio Fields MD Primary Care Provider [phone] Reason for Visit * Reason Comments Medication Refill Encounter Details Date Type Department Care Team (Late st Contact Info) Description 09/12/2025 Refill [facility] Family Medicine [address] [address] Eladio Fields MD [address] [address] Chronic pain syndrome; Cervical disc herniation; Hidradenitis suppurativa; Osteoarthritis of spine with radiculopathy, cervical region Social History Tobacco Use Types Packs/Day Years [...] on file Legal Sex Male 4:51 AM FRIT MIXER AND BURNER Gender Identity Not on file Sexual Orientation Not on file documented as of this encounter Miscellaneous Notes * Telephone Encounter - Kimmie Licona RN - 09/12/2025 7:54 AM CDT Medication Refill Request Last Fill Date:08/10/25 #60 Recent and Future Visits: Recent Visits Date Type Provider Dept 08/29/25 Office Visit Eladio Fields MD [facility] 07/11/25 Office Visit Anel Sewell, [facility] 05/23/25 Office Visit Lynn Malagon, [facility] [place] 04/18/25 Office Visit Eladio Fields MD [facility] 12/27/24 Office Visit Eladio Fields MD [facility] 09/26/24 Office Visit Eladio Fields MD [facility] 09/06/24 Office Visit Mary Briggs NP [facility] 06/03/24 Office Visit Eladio Fields MD [facility] Showing recent visits within past 540 days with a meds authorizing provider and meeting all other requirements Future Appointments Date Type Provider Dept 12/01/25 Appointment Eladio Fields MD [facility] Showing future appointments within next 365 days with a meds authorizing provider and meeting all other requirements Last Labs: * Telephone Encounter - Kimmie Cid - 09/12/2025 7:27 AM CDT Copied from [facility] #[id number]. Topic: Medication Request >> Sep 12, 2025 7:25 AM Kimmie Duron wrote: Caller Name: Brandon Parisi Callback Number: Medication (Ask patient/caregiver to spell if possible): (1)HYDROcodone-acetaminophen (NORCO) 10-325 mg Tablet (2)traZODone (DESYREL) 100 mg tablet (3)hydrOXYzine HCL (ATARAX) 10 mg tablet Note: All medication prescriptions can be requested using one [facility] Preferred Pharmacy: [facility] Call Notes: refill request Did caller contact the correct clinic for prescribing provider? Yes Ask caller if the refill is for a controlled medication. Is this for a controlled Medication? Yes Is there an encounter open? No documented in this encounter Plan of Treatment Upcoming Encounters Date Type Department Care Team (Late st Contact Info) Description 12/01/2025 3:20 PM FRIT MIXER AND BURNER Office Visit [facility] [place] [address] [address] Eladio Fields MD [address] [address] documented as of this encounter Visit Diagnoses Diagnosis Chronic pain syndrome Cervical disc herniation Displacement of cervical intervertebral disc without myelopathy Hidradenitis suppurativa Hidradenitis Osteoarthritis of spine with radiculopathy, cervical region documented in this encounter Care Teams Groundwater Programs Director Relationship Specialty Start Date End Date Eladio Fields MD [address] [address] PCP - General Family Practice 04/19/18 documented as of this encounter
--- OUTSIDE RECORDS SUMMARY | 2025-09-18 12:00 | XMS_ITS | Encounter Summary ---
Author Organization [facility] Address [address] [place] [address] Phone Care Team Providers Care Tennis Court Attendant Name Role Phone Eladio Fields MD Primary Care Provider [phone] Encounter Details Date Type Department Care Team (Late st Contact Info) Description 09/13/2025 Orders Only [facility] [address] [place] [address] Katiuska Vega MD [address] [place] [address] Social History Tobacco Use Types [...] Date/Time Associated Diagnosis Comments HEMATOLOGY Routine 09/13/2025 documented in this encounter Results * (ABNORMAL) HEMATOLOGY (09/13/2025) Hemoglobin 9.9(L) 14.0 - 18.0 g/dL [facility] Hemoglobin x 3 29.7(L) 42.0 - 54.0 % [facility] 09/13/2025 09/14/2025 9:2 1 AM CDT Narrative [facility] - 09/14/2025 Unless otherwise specified, test(s) performed at: [facility], [address] [place] [address] RV SERVICE TECHNICIAN: Lauri Servin M.D. For any questions, please call customer service at FREQUENCY:OTHER Resulting Agency Comment Specimen source: Blood us Katiuska Vega MD LAB BLOOD ORDERABLES Final Re sult [facility] See order comments or contact performing lab Unknown, [place] documented in this encounter Visit Diagnoses Not on filedocumented in this encounter Care Teams Tennis Court Attendant Relationship Specialty Start Date End Date Eladio Fields MD [address] [address] PCP - General Family Medicine 07/01/23 documented as of this encounter
--- NOTE | 2025-09-18 12:01 | ECG_ITS ---
[facility] Test Date: 2025-09-18 Pat Name: Brandon Parisi Department: Room: Gender: Male Net Developer Contract: : [id number] Requested By: Wanda Valencia Order Number: [id number] Maddy MD: Renato Craft M.D. Measurements Intervals [place] Rate: 119 P: 91 UT: 178 QRS: 117 QRSD: 94 T: 61 QT: 335 QTc: 472 Interpretive Statements SINUS TACHYCARDIA INCOMPLETE RIGHT BUNDLE BRANCH BLOCK [90+ ms QRS DURATION, TERMINAL R IN V1/V2, 40+ ms S IN I/aVL/V4/V5/V6] Compared to ECG 06/05/2025 21:02:39 Incomplete right bundle-branch block now present Sinus rhythm no longer present T-wave abnormality no longer present Possible ischemia no longer present Baseline artifacts, need to repeat Electronically Signed On 09-19-2025 22:07:30 DIE TRY OUT WORKER by Renato Craft M.D. [email or web address]
--- NOTE | 2025-09-18 12:01 | XR_ITS ---
WS: [id number] Portable AP upright chest, 09/18/2025 Clinical Data: Weakness Comparison: Portable chest, 06/05/2025 Findings: The patchy opacity at the left lung base has diminished and there is a small residual. No nodules, masses or effusions are seen. The heart is normal. The pulmonary vascularity is not increased. No pneumonia or pneumothorax is seen. The dialysis catheter entering the right internal jugular vein remains in the same position. The aortic arch shows mild tortuosity. Monitor leads are on the chest wall. XR/XR chest 1V portable [id number] Impression: 1. Decrease in left lower lobe patchy opacity. 2. Atherosclerosis.
--- NOTE | 2025-09-18 12:02 | CT_ITS ---
WS: [id number] CT HEAD TECHNIQUE: Noncontrast CT of the head obtained from the skullbase to the vertex. CLINICAL INFORMATION: Encephalopathy, altered mental status COMPARISON: 06/09 DLP: 1175.[address] scans at [facility] use at least one of these dose optimization techniques: automated exposure control; mA and/or kV adjustment per patient size (includes targeted exams where dose is matched to clinical indication); or iterative reconstruction. FINDINGS: No evidence of intracranial hemorrhage or mass effect. Ventricular system and basal cisterns are patent. Moderate small vessel changes with moderate parenchymal volume loss. No extra-axial fluid collections. No evidence of mass or mass effect. Vascular calcification. Chronic lacunar infarct LEFT internal capsule unchanged. Small retention cyst RIGHT maxillary sinus. Mastoid air cells are well aerated. Normal posterior nasopharynx. CT/CT head wo con* [id number] IMPRESSION: 1. No evidence of intracranial hemorrhage or mass effect. 2. No acute intracranial findings.
--- NOTE | 2025-09-18 12:09 | W.ED.AMS ---
HPI - Altered Mental Status General: Chief Complaint: Altered Mental Status Stated Complaint: ams History of Present Illness: 69-year-old male with history of end-stage renal disease on dialysis, chronic indwelling Steiner catheter, recurrent urinary tract infections and sepsis, and hypertension who presents emergency room with weakness and altered mental status from dialysis by ambulance. No focal motor deficits. He is oriented. He is very slow to answer questions however. Slightly tachycardic and blood pressure soft on presentation. No chest pain. No vomiting. Temp is mildly elevated at 99.2. Related Data Home Medications ?Medication ?Instructions ?Recorded ?Confirmed hydrocodone 10 mg-acetaminophen 1 tab PO BID 04/30/25 09/18/25 325 mg tablet hydroxyzine HCl 10 mg tablet 10 mg PO TID PRN Itching 04/30/25 09/18/25 pravastatin 80 mg tablet 80 mg PO QPM 04/30/25 09/18/25 trazodone 100 mg tablet 100 mg PO BEDTIME 04/30/25 09/18/25 Allergies Allergy/AdvReac Type Severity Reaction Status Date / Time No Known Allergies Allergy Verified 04/30/25 13:17 Review of Systems Narrative: Constitutional symptoms: Negative except as documented in HPI. Skin symptoms: Negative except as documented in HPI. Eye symptoms: Negative except as documented in HPI. ENMT symptoms: Negative except as documented in HPI. Respiratory symptoms: Negative except as documented in HPI. Cardiovascular symptoms: Negative except as documented in HPI. Gastrointestinal symptoms: Negative except as documented in HPI. Genitourinary symptoms: Negative except as documented in HPI. Musculoskeletal symptoms: Negative except as documented in HPI. Neurologic symptoms: Negative except as documented in HPI. Psychiatric symptoms: Negative except as documented in HPI. Endocrine symptoms: Negative except as documented in HPI. PFSH ED PFSH: Medical History Tunneled central venous catheter present ESRD on hemodialysis Hypertension BPH (benign prostatic hyperplasia) Anemia Chronic indwelling Steiner catheter Stage 4 chronic kidney disease Social History Smoking and tobacco/nicotine status: former use of tobacco/nicotine Alcohol intake: never Substance/Drug Use: never Caregiver/support person: Yes Lives independently: Yes Household members: family Housing: House Physical Exam Narrative: General: Alert, no acute distress. Skin: Warm, dry. Head: Normocephalic, atraumatic. Neck: Supple, trachea midline. Eye: Extraocular movements are intact. Ears, nose, mouth and throat: mucosa moist. Cardiovascular: Regular, Normal peripheral perfusion. Respiratory: Lungs are clear to auscultation, respirations are non-labored, breath sounds are equal, Symmetrical chest wall expansion. Gastrointestinal: Soft, Nontender, Non distended Musculoskeletal: Normal ROM, no deformity. Neurological: Alert and oriented, but very slow to answer questions, No focal neurological deficit observed. Psychiatric: Unable to assess fully Course Vital Signs: Vital signs: Vital Signs Temperature 99.2 F 09/18/25 12:00 Pulse Rate 101 H 09/18/25 14:04 Respiratory Rate 16 09/18/25 14:04 Blood Pressure 104/52 09/18/25 14:04 Pulse Oximetry 93 09/18/25 14:04 Oxygen Delivery Me thod Nasal Cannula 09/18/25 12:00 Oxygen Flow Rate 2 09/18/25 12:00 MDM - Altered Mental Status Medical Decision Making Medical decision making: Patient's reason for coming to the emergency room altered mental status Social determinants: Patient is retired. I reviewed the patient's medical record. 69-year-old male with history of end-stage renal disease on dialysis, chronic indwelling Steiner catheter, recurrent urinary tract infections and sepsis, and hypertension. Also looking back in May he had a ESBL E. coli in his urine cultures. Prior to that he had Klebsiella I reviewed the patient's current home meds Patient only has a few medications listed. Diazepam, hydroxyzine pravastatin and tamsulosin. With trazodone at night. Alternate historians: EMS they report. Patient is very slow to give history. Differential diagnosis including but not limited to and based on the above HPI, review of systems and physical exam: In this patient with altered mental status: Stroke. Hypoglycemia. Metabolic encephalopathy. Infections such as pneumonia, urinary tract infection, Covid-19, Influenza. Electrolyte abnormalities such as hypernatremia. Renal failure / uremia. Hepatic encephalopathy. Hypoxemia. Hypercapnic respiratory failure. Psychosis. Drug or alcohol intoxication. Medication overdose. Orders placed to evaluate differential diagnosis based on the above differential, HPI and physical exam EKG: Time 1206. Rate 119. Sinus tachycardia, nonspecific ST changes, incomplete right bundle branch block, right ventricular hypertrophy. No ectopy, This was reviewed and interpreted by myself the ER physician at 1210 Chest x-ray: Decrease in left lower patchy opacity. No other acute opacities or infiltrates. This was reviewed and interpreted by myself the emergency room physician. I also reviewed the radiology report. Lab Review: Laboratory results were reviewed and interpreted by myself the emergency room physician. Leukocytosis with a white count of 18. However lactate is not elevated. BUN/creatinine are elevated at 19 and 3. Potassium is normal at 3.6. This is expected in dialysis patient. Troponin is 56 which is near his baseline and secondary to renal insufficiency. Assessment of risk: Level of risk: Very high risk. Dialysis patient. Multiple episodes of sepsis with ESBL in the past. Hospitalization considerations: Patient has been hospitalized Reexamination: Patient has responded some to fluids. Heart rate down to around 100 from 120s. Blood pressure stable at 104/52. Patient seems a little more alert at this time. No increased work of breathing. He is on 2 L nasal cannula. Consultation: I spoke with Dr. Flaherty who is on-call for the hospital service who agrees to admission. He does request a gould scan prior to admission. So I did order this. CT of the chest abdomen pelvis without contrast: No obvious acute processes. Chronic hydronephrosis and renal mass. Other findings as and read below. This was reviewed and interpreted by myself the emergency room physician. I also reviewed the radiology report. Assessment and plan: Sepsis Encephalopathy Dehydration End-stage renal disease on dialysis ?Patient still has not produced any new urine. Urine in his catheter bag does look like it could be infected. Given that he has a white count, near hypotension and tachycardia that responded to fluids treating him empirically for sepsis. ?Presumed source of infection would be urine. He has not made any new urine thus far. Treating empirically -1.5 L normal saline bolus. Patient has responded to fluids but given his dialysis status I am going to limit the amount of fluids initially to avoid fluid overload. -Broad-spectrum antibiotics were administered. Zyvox and meropenem. -Sepsis quality measures. -Lactic acid with a reflex was ordered. -Blood cultures were ordered. ?I reevaluated the patient's volume status after sepsis fluids were given. -I discussed the patient with the hospitalist on-call who is admitting the patient. - Discussed findings and plan with patient. Answered any questions. - All laboratory values were reviewed and interpreted personally by myself, the ER physician - All imaging was reviewed and interpreted personally by myself, the ER physician. - Evaluation and treatment of this problem were appropriate in the emergency setting Critical Care: -I spent a total of 45 minutes of critical care time managing the patient, independent of any other practitioner. -The time involved in the performance of separately reportable procedures was not counted towards critical care time. Lab Data 09/18/25 13:04 09/18/25 13:04 Radiology Impressions Chest X-Ray 09/18/25 12:01 Impression: 1. Decrease in left lower lobe patchy opacity. 2. Atherosclerosis. Head CT 09/18/25 12:02 IMPRESSION: 1. No evidence of intracranial hemorrhage or mass effect. 2. No acute intracranial findings. Chest/Abdomen/Pelvis CT 09/18/25 14:44 IMPRESSION: No acute findings. IMPRESSION: 1. Severe bilateral hydroureteronephrosis with renal cortical atrophy. Suspect this is due to obstruction by bladder floor mass up to 7.5 cm in diameter causing chronic bladder outlet obstruction based on the trabeculated hypertrophy as this bladder wall. 2. Cystitis can not be excluded. 3. Steiner catheter is apparently inflated in the prostatic urethra. The catheter should be advanced if possible. Laboratory Results WBC 18.25 10^3/uL (3.29-11.43) H 09/18/25 13:04 RBC 3.37 10^6/uL (3.85-5.65) L 09/18/25 13:04 Hgb 11.50 g/dL (11.27-16.99) 09/18/25 13:04 Hct 32.9 % (37-53) L 09/18/25 13:04 MCV 97.6 fl (82-101) 09/18/25 13:04 MCH 34.1 pg (27-33) H 09/18/25 13:04 MCHC 35.0 g/dL (30-55) 09/18/25 13:04 RDW 14.7 % (12.1-15.1) 09/18/25 13:04 Plt Count 172 10^3/cmm (157-399) 09/18/25 13:04 MPV 10.1 fL (7.4-10.4) 09/18/25 13:04 Neut % (Auto) 83.9 % 09/18/25 13:04 Lymph % (Auto) 7.0 % 09/18/25 13:04 [place] % (Auto) 7.6 % 09/18/25 13:04 Eos % (Auto) 0.5 % 09/18/25 13:04 Baso % (Auto) 0.4 % 09/18/25 13:04 Neut # (Auto) 15.31 10^3/uL (1.8-7.7) H 09/18/25 13:04 Lymph # (Auto) 1.3 10^3/uL (0.8-4.8) 09/18/25 13:04 [place] # (Auto) 1.4 10^3/uL (0.2-0.9) H 09/18/25 13:04 Eos # (Auto) 0.1 10^3/uL (0.0-0.8) 09/18/25 13:04 Baso # (Auto) 0.1 10^3/uL (0.0-0.1) 09/18/25 13:04 Nucleated RBC % (auto) 0 % 09/18/25 13:04 Nucleated RBCs # 0.0 /100WBC 09/18/25 13:04 Specimen Type Arterial 09/18/25 15:47 Sample Site Brachial, left 09/18/25 15:47 ABG pH 7.46 (7.35-7.45) H 09/18/25 15:47 ABG pCO2 35.5 mmHg (35-45) 09/18/25 15:47 ABG pO2 79.8 mmHg (80.0-100.0) L 09/18/25 15:47 ABG PO2/FiO2 Ratio 285 09/18/25 15:47 ABG HCO3 25.3 mmol/L (22-26) 09/18/25 15:47 ABG Base Excess 1.6 mmol/L (-2.0-2.0) 09/18/25 15:47 Tommy Test N/a 09/18/25 15:47 Hematocrit 32.0 % (42-52) L 09/18/25 15:47 O2 Delivery Device Nc 09/18/25 15:47 O2 Liters/Min 2.0 % 09/18/25 15:47 FiO2 28.0 % 09/18/25 15:47 Competitive Intelligence Analyst ID Am[facility] 09/18/25 15:47 Sodium 135 mmol/L (136-145) L 09/18/25 13:04 Potassium 3.6 mmol/L (3.5-5.1) 09/18/25 13:04 Chloride 97 mmol/L (98-107) L 09/18/25 13:04 Carbon Dioxide 23 mmol/L (22-29) 09/18/25 13:04 Anion Gap 18.6 (5-19) 09/18/25 13:04 BUN 19 mg/dL (8-23) 09/18/25 13:04 Creatinine 3.0 mg/dL (0.7-1.2) H 09/18/25 13:04 GFR Calculation 20.9 mL/min (90-130) L 09/18/25 13:04 Glucose 95 mg/dL (65-115) 09/18/25 13:04 Calculated Osmolality 282 mOsm/kg (285-295) L 09/18/25 13:04 Lactic Acid 1.4 mmol/L (0.5-2.2) 09/18/25 13:04 Calcium 9.6 mg/dL (8.5-10.5) 09/18/25 13:04 Total Bilirubin 0.5 mg/dL (0.15-1.2) 09/18/25 13:04 AST 14 U/L (0-40) 09/18/25 13:04 ALT 9 U/L (0-41) 09/18/25 13:04 Alkaline Phosphatase 65 U/L (40-130) 09/18/25 13:04 Troponin T Baseline 56 ng/L (0-15) H 09/18/25 13:04 Troponin T 120 Minute 47.10 ng/L (0-15) H 09/18/25 15:10 Delta Troponin T -8.90 ABS# (0-10) L 09/18/25 15:10 C-Reactive Protein 190.0 mg/L (0.0-4.9) H 09/18/25 13:04 NT-Pro-B Natriuret Pep 781 pg/mL (0-125) H 09/18/25 13:04 Total Protein 7.4 g/dL (6.6-8.7) 09/18/25 13:04 Albumin 4.0 g/dL (3.5-5.2) 09/18/25 13:04 Globulin 3.4 g/dL (1.3-4.6) 09/18/25 13:04 Procalcitonin 0.42 ng/mL (0-0.5) 09/18/25 13:04 Procalcitonin Cancelled 09/18/25 13:04 All radiology interpretation(s) finalized by discharge Discharge Plan Discharge Patient Disposition: Admitted As Inpatient Clinical Impression: Sepsis, Acute metabolic encephalopathy, Tachycardia, End stage renal disease on dialysis, Dehydration Condition: Stable Coding Level of Care Code ED Director Corporate Communications for Sergo Cohen
[2025-09-18 13:11] LABS: Hematocrit 32.9 % (37-53); Hemoglobin 11.50 g/dL (11.27-16.99); Mean Corpuscular HGB Conc 35.0 g/dL (30-55); Mean Corpuscular Hemoglobin 34.1 pg (27-33); Mean Corpuscular Volume 97.6 fl (82-101); Nucleated Red Blood Cells % 0 %; Platelet Count 172 10^3/cmm (157-399); Red Blood Count 3.37 10^6/uL (3.85-5.65); White Blood Count 18.25 10^3/uL (3.29-11.43)
[2025-09-18 13:35] LABS: Lactic Sepsis W/Reflex 1.4 mmol/L (0.5-2.2); Troponin(5th) Baseline 56 ng/L (0-15)
[2025-09-18 13:39] LABS: Alanine Aminotransferase 9 U/L (0-41); Albumin Level 4.0 g/dL (3.5-5.2); Alkaline Phosphatase 65 U/L (40-130); Anion Gap 18.6 (5-19); Aspartate Amino Transferase 14 U/L (0-40); Blood Urea Nitrogen 19 mg/dL (8-23); Calcium 9.6 mg/dL (8.5-10.5); Carbon Dioxide 23 mmol/L (22-29); Chloride 97 mmol/L (98-107); Creatinine Clr Calc Pharmacy 24.4691; Globulin 3.4 g/dL (1.3-4.6); Glucose 95 mg/dL (65-115); Osmolality Calculated 282 mOsm/kg (285-295); Potassium 3.6 mmol/L (3.5-5.1); Sodium 135 mmol/L (136-145); Total Protein 7.4 g/dL (6.6-8.7)
[2025-09-18 13:46] LABS: Procalcitonin 0.42 ng/mL (0-0.5)
[2025-09-18] MEDS: linezolid premix 600 MG/300 ML PREMIX 300 MG IV (14:25)
--- NOTE | 2025-09-18 14:32 | ECG_ITS ---
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 Measurements Intervals [place] Rate: 96 P: 58 GA: 178 QRS: 20 QRSD: 97 T: 51 QT: 373 QTc: 474 Interpretive Statements SINUS RHYTHM LOW QRS VOLTAGE IN PRECORDIAL LEADS [QRS DEFLECTION < 1.0 mV IN CHEST LEADS] POSSIBLE RIGHT VENTRICULAR CONDUCTION DELAY [RSR (QR) IN V1/V2] MODERATE T-WAVE ABNORMALITY, CONSIDER ANTERIOR ISCHEMIA [-0.1+ mV T-WAVE IN V3/V4] Compared to ECG 09/18/2025 12:06:59 Low QRS voltage now present T-wave abnormality now present Possible ischemia now present Sinus tachycardia no longer present Incomplete right bundle-branch block no longer present Electronically Signed On 09-19-2025 22:26:27 HEADEND TECHNICIAN by Renato Craft M.D. [email or web address]
--- NOTE | 2025-09-18 14:44 | CTR_ITS ---
PROCEDURE INFORMATION: Exam: CT Chest Without Contrast; Diagnostic Exam date and time: 09/18/2025 3:41 PM Age: 69 years old Clinical indication: Other: Sepsis TECHNIQUE: Imaging protocol: Diagnostic computed tomography of the chest without contrast. Radiation optimization: All CT scans at this facility use at least one of these dose optimization techniques: automated exposure control; mA and/or kV adjustment per patient size (includes targeted exams where dose is matched to clinical indication); or iterative reconstruction. COMPARISON: CR XR chest 1V portable [id number] 09/18/2025 12:04 PM RADIATION DOSE METRICS: Total DLP (mGy-cm): 912.3 FINDINGS: Tubes, catheters and devices: Tunneled right IJ double-lumen dialysis catheter terminates in the right atrium. Lungs: There is mild dependent bibasilar atelectasis. Pleural spaces: Unremarkable. No pneumothorax. No pleural effusion. Heart: Unremarkable. No cardiomegaly. No pericardial effusion. Coronary arteries: There is severe atherosclerotic calcification of the coronary arteries. Lymph nodes: Unremarkable. No enlarged lymph nodes. Vasculature: Unremarkable. No aortic aneurysm. Bones/joints: Unremarkable. No acute fracture. Soft tissues: Unremarkable. PROCEDURE INFORMATION: Exam: CT Abdomen And Pelvis Without Contrast Exam date and time: 09/18/2025 3:41 PM Age: 69 years old Clinical indication: Other: Sepsis TECHNIQUE: Imaging protocol: Computed tomography of the abdomen and pelvis without contrast. Radiation optimization: All CT scans at this facility use at least one of these dose optimization techniques: automated exposure control; mA and/or kV adjustment per patient size (includes targeted exams where dose is matched to clinical indication); or iterative reconstruction. COMPARISON: CT abdomen pelvis con [id number] 06/05/2025 1:09 PM RADIATION DOSE METRICS: Total DLP (mGy-cm): 912.3 FINDINGS: Liver: There is a tiny calcified granuloma in the right lobe of the liver. Gallbladder and biliary ducts: Normal. No calcified stones. No ductal dilation. Pancreas: Normal. No ductal dilation. Spleen: There is a calcified granuloma in the spleen. Adrenal glands: Normal. No mass. Kidneys and ureters: There is severe bilateral hydroureteronephrosis. Ibkxpoir-[id number]-zkozyv bilateral cortical renal atrophy. Stomach and bowel: Unremarkable. No obstruction. No mucosal thickening. Appendix: No evidence of appendicitis. Intraperitoneal space: Unremarkable. No free air. No significant fluid collection. Vasculature: Unremarkable. No abdominal aortic aneurysm. Lymph nodes: Unremarkable. No enlarged lymph nodes. Urinary bladder: There is trabeculated wall thickening of the bladder. There is a large rounded mass in the inferior bladder with an approximate diameter of 7.5 cm. Reproductive: There is a Steiner catheter balloon inflated in the prostatic urethra. Moderate prostatomegaly. Bones/joints: Grade 1 spondylolisthesis and advanced disc degeneration at L5-S1 accompanied by bilateral spondylolysis of the pars interarticularis. Soft tissues: Unremarkable. CT/[place] [id number] IMPRESSION: No acute findings. IMPRESSION: 1. Severe bilateral hydroureteronephrosis with renal cortical atrophy. Suspect this is due to obstruction by bladder floor mass up to 7.5 cm in diameter causing chronic bladder outlet obstruction based on the trabeculated hypertrophy as this bladder wall. 2. Cystitis can not be excluded. 3. Steiner catheter is apparently inflated in the prostatic urethra. The catheter should be advanced if possible.
--- NOTE | 2025-09-18 15:22 | P.HP_ITS ---
Providers/Chief Complaint 2 Primary Care Provider: Eladio Fields Chief Complaint: ams History of Present Illness Brandon Parisi is a 69 year old male with a past medical history of end-stage renal disease on dialysis, recent hospitalization for septic shock secondary to pyelonephritis, complicated UTI, bilateral hydronephrosis, with a bladder mass possibly coming from prostate, history of ESBL E. coli infection requiring IV meropenem, was supposed to have a cystoscopy 06/29, follows up with urology in [place], who presents to [facility] from dialysis due to altered mental status, currently patient alert to person, not to place, not to time, he does not know why he is in the hospital, denies any flank pain, no nausea, vomiting, no abdominal pain, no chest pain, has no specific complaints, blood pressure on admission 106/68, heart rate 120, heart liters, Review of Systems 2 Const: Denies: fever(s) or chills Card: Denies: chest pain Resp: Denies: dyspnea Medications/Allergies Home Medications ?Medication ?Instructions ?Recorded ?Confirmed ?Last Taken ?Type hydrocodone 10 mg-acetaminophen 1 tab PO BID 04/30/25 09/18/25 09/18/25 07:00 History 325 mg tablet hydroxyzine HCl 10 mg tablet 10 mg PO TID PRN Itching 04/30/25 09/18/25 Unknown History pravastatin 80 mg tablet 80 mg PO QPM 04/30/2509/17/25 19:00 History trazodone 100 mg tablet 100 mg PO BEDTIME 04/30/25 1 11/18/24 09/17/25 19:00 History Allergies Allergy/AdvReac Type Severity Reaction Status Date / Time No Known Allergies Allergy Verified 04/30/25 13:17 PFSH Acute 2 PFSH: Medical History Tunneled central venous catheter present ESRD on hemodialysis Hypertension BPH (benign prostatic hyperplasia) Anemia Chronic indwelling Steiner catheter Stage 4 chronic kidney disease Social History Smoking and tobacco/nicotine status: former use of tobacco/nicotine Alcohol intake: never Substance/Drug Use: never Caregiver/support person: Yes Lives independently: Yes Household members: family Housing: House Vitals/I&O/Wt Last Vital Signs Temp 99.2 F 09/18/25 12:00 Pulse 101 H 09/18/25 14:04 Resp 16 09/18/25 14:04 BP 104/52 09/18/25 14:04 Pulse Ox 93 09/18/25 14:04 O2 Del Method Nasal Cannula 09/18/25 12:00 O2 Flow Rate 2 09/18/25 12:00 Weight last 48 hrs Weight 84.368 kg Physical Exam 2 Const: COMMON NORMALS: no acute distress EXAM LIMITATIONS: altered mental status ORIENTATION/CONSCIOUSNESS: Yes awake, Yes oriented to person and Yes confused; not oriented to place and not oriented to time HENMT: COMMON NORMALS: normocephalic HEAD & SCALP: normocephalic Eye: COMMON NORMALS: Equal, round and reactive pupils present and EOMs intact bilaterally Neck/C-Spine: COMMON NORMALS: no JVD Lymph: LYMPHATIC: no lymphadenopathy noted Resp: COMMON NORMALS: normal respiratory effort, No retractions, No use of accessory muscles and clear to auscultation bilaterally AUSCULTATION: wheezes Cardio: COMMON NORMALS: regular rate, regular rhythm, S1 normal heart sound present and S2 normal heart sound present RATE: regular rate RHYTHM: r egular rhythm HEART SOUNDS: S1 normal heart sound present and S2 normal heart sound present GI: COMMON NORMALS: Normal to inspection, nondistended, normoactive bowel sounds present, Soft to palpation and non-tender Extremity: COMMON NORMALS: no calf tenderness and no pedal edema Neuro: COMMON NORMALS: moves all extremities OTHER: Does not follow neurologic testing, but moves bilateral upper extremities Skin: NARRATIVE SKIN EXAM: Steiner catheter bag attached to the leg, urine appears cloudy Data 09/18/25 13:04 09/18/25 13:04 Micro: Microbiology 09/18/25 14:15 Blood Culture - Preliminary Blood SPECIMEN COLLECTED 09/18/25 14:13 Blood Culture - Preliminary Blood SPECIMEN COLLECTED A&P Assessment and plan 1. ESRD on hemodialysis: 2. Sepsis: 3. Acute metabolic encephalopathy: Plan: Acute metabolic encephalopathy - Secondary to sepsis - Secondary to pneumonia - Secondary to UTI Pneumonia - Vancomycin - Meropenem -CT chest Monitor respiratory status closely- Urinary tract infection - Complicated UTI with Steiner catheter in place - Will have nursing staff change out Steiner catheter - CT scan abdomen pelvis with history of bladder mass -Will need to rule out obstructive uropathy - will obtain records [facility] - Vancomycin - Meropenem Sepsis secondary to UTI, pneumonia End-stage renal disease on dialysis, will consult nephrology PDMP PDMP Reviewed: Not Reviewed Attestations 2 Medical Necessity Statement*: Patient requires hospitalization, inpatient, greater than 2 minutes, for acute metabolic encephalopathy, sepsis, UTI, pneumonia Diagnoses ESRD on hemodialysis N18.6; Z99.2 Sepsis A41.9 Acute metabolic encephalopathy G93.41 Sepsis Event Note Evaluation Current stage of sepsis: sepsis Initial hypotension due to sepsis/infection: SBP < 90 mmHg Possible source: pulmonary Focused Exam Vital Signs Temp Pulse Resp BP Pulse Ox O2 Del Method O2 Flow Rate 09/18/25 14:04 101 H 16 104/52 93 09/18/25 12:00 99.2 F 120 H 16 106/68 92 Nasal Cannula 2 Respiratory exam: Present wheezes Cardiovascular exam: Present tachycardia Capillary refill: < 3 Seconds Skin exam: normal turgor Date exam was performed: 09/18/25 Time exam was performed: 15:33
[2025-09-18 15:32] LABS: Troponin 5 2HR 47.10 ng/L (0-15); Troponin 5 2HR Delta -8.90 ABS# (0-10)
[2025-09-18 15:55] LABS: NT Pro B Type Natriuretic Pept 781 pg/mL (0-125)
[2025-09-18 15:59] LABS: ABG PCO2 35.5 mmHg (35-45); ABG PH Result 7.46 (7.35-7.45); Arterial Blood Gas Hematocrit 32.0 % (42-52); Blood Gas LPM 2.0 %; Blood Gas Operator Identificat AMH; Blood Gas Sample Site Brachial, left; Blood Gas Sample Type Arterial; HCO3 ABG 25.3 mmol/L (22-26); PO2 ABG 79.8 mmHg (80.0-100.0); PO2 FiO2 Ratio Arterial Blood 285
[2025-09-18 17:46] LABS: Glucose Urine UA Negative (Normal); Nitrate Urine Negative (Negative); Specific Gravity, Urine 1.014 (1.005-1.030)
--- NOTE | 2025-09-18 18:00 | ECG_ITS ---
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 Measurements Intervals [place] Rate: 86 P: 76 [place]: 184 QRS: 28 QRSD: 101 T: 81 QT: 392 QTc: 470 Interpretive Statements SINUS RHYTHM POSSIBLE RIGHT VENTRICULAR CONDUCTION DELAY [RSR (QR) IN V1/V2] ST DEVIATION AND MODERATE T-WAVE ABNORMALITY, CONSIDER ANTEROLATERAL ISCHEMIA [-0.1+ mV T-WAVE IN V3-V6] Compared to ECG 09/18/2025 14:32:09 No significant changes Electronically Signed On 09-19-2025 22:23:43 SLUDGE CONTROL ATTENDANT by Renato Craft M.D. [email or web address]
[2025-09-18 18:07] LABS: UA Slide Review UA Slide Review Perf
[2025-09-18] MEDS: pantoprazole 40 mg SDV IVP (19:21)
== END 2025-09-18 22:16 | disposition admitted as inpatient to this hospital (09) ==
PROVIDERS: Family Medicine; Emergency Provider Emergency Medicine; PCP Family Medicine
DX: A41.9 Sepsis, unspecified organism (principal); G93.41 Metabolic encephalopathy; R00.0 Tachycardia, unspecified; E86.0 Dehydration; I12.0 Hypertensive chronic kidney disease with stage 5 chronic kidney disease or end stage renal disease; N18.6 End stage renal disease; Z99.2 Dependence on renal dialysis
CPT/HCPCS: 36415; 36600; 70450; 71045; 71250; 74176; 80053; 81001; 82803; 83605; 83880; 84145; 84484; 85025; 86140; 87040; 87077; 87086; 87186; 93005; 96365; 96366; 96367; 96375; 99291; J2020; J2185; J2470; J3373; J7030; J7040; J7120